=== PATIENT | female | born 1970 | race Caucasian/White ===

== ENCOUNTER 2019-10-02 20:47 | Emergency (ER) | payer OTHER, SELFPAY ==
[2019-10-02 20:48] VITALS: BP 155/93; PULSE 84; RESP 17; TEMP 36.8; O2SAT 97; BMI 29.5
--- NOTE | 2019-10-02 20:50 | XR_ITS ---
WS: [id number] RIGHT ANKLE: 3 VIEW(S) TECHNIQUE: AP, oblique(s) and lateral. HISTORY: Fall COMPARISON: None available. Acute nondisplaced oblique fracture of the distal fibula. There is an additional transverse fracture involving the medial malleolus with mild displacement by 4 mm. There is an additional fracture throug h the posterior malleolus. Interruption of the ankle mortise. Ankle mortise is widened medially by greater than 6 mm and the chari us is also posterior with respect to the tibial plafond. No significant degenerative changes at the joint spaces. Large amount of soft tissue edema surrounding the ankle. XR/XR ankle RT min 3V* [id number] IMPRESSION: 1. Trimalleolar fracture. 2. Interruption of the ankle mortise with posterior displacement of the talus with respect to the tibial plafond.
--- NOTE | 2019-10-02 21:33 | ED_ITS ---
Entered by Keyla Hoskins, acting as scribe for Phil Deleon MD HPI - Extremity Problem General: Chief complaint: Extremity Injury, Lower Stated complaint: right ankle pain/fall Time Seen by Provider: 10/02/19 21:29 Source: patient and family Mode of arrival: wheelchair Limitations: no limitations History of Present Illness: HPI Narrative: 49 y/o female presents to the ED with complaint of right lower extremity pain. Pt states she fell [place] the stage [place] [employer] around 2029. Pt denies any other injuries. MD Complaint: extremity pain and extremity swelling Onset (ago): hour(s) Pain Consistency: constant Location: right and lower extremity Severity scale (1-10): 9 Quality: sharp Relieving factors: nothing Exacerbating factors: range of motion and weight bearing Associated symptoms: Deny chest pain, fever(s) or rash Review of Systems Const: Denies: fever or chills Eyes: Denies: change in vision ENMT: Denies: throat pain or mouth pain Card: Denies: chest pain Resp: Denies: shortness of breath GI: Denies: abdominal pain, nausea, vomiting or diarrhea : Denies: difficulty urinating Musc: Denies: back pain or joint pain Skin/Breast: Denies: rash Neuro: Denies: headache or behavioral changes Psych: Denies: depression Endo: Denies: excessive urination Lee/Lymph: Denies: easy bruising All/Imm: Denies: hives PFSH ED PFSH: Statuses (acute, chronic, etc) shown below reflect problem list status as previously entered and may not be historically accurate Social History Smoking and tobacco status: never smoked Physical Exam Const: COMMON NORMALS: no apparent distress, oriented x3 and healthy appearing HENMT: COMMON NORMALS: normocephalic and external nose normal HEAD & SCALP: normocephalic NOSE: external nose normal Eye: COMMON NORMALS: PERRL PUPIL: Yes PERRL Neck/C-Spine: COMMON NORMALS: full ROM and no lymphadenopathy Chest: COMMONS NORMALS: inspection of chest normal Resp: COMMON NORMALS: normal respiratory effort, no use of accessory muscles and clear to auscultation bilaterally AUSCULTATION: clear to auscultation bilaterally Cardio: COMMON NORMALS: regular rate and regular rhythm RATE: regular rate RHYTHM: regular rhythm GI: COMMON NORMALS: normal to inspection, nondistended, normoactive bowel sounds, soft to palpation, non-tender and no masses PALPATION: Yes soft Back/Pelvis: THORACIC SPINE/UPPER BACK: Yes normal to inspection Extremity: COMMON NORMALS: normal capillary refill RIGHT LOWER EXTREMITY: Yes ankle joint (painful movement) Right ankle: No ROM OTHER: swelling and bruising noted Neuro: COMMON NORMALS: oriented x3 Psych: COMMON NORMALS: mental status grossly normal and cooperative Skin: COMMON NORMALS: no rashes or lesions noted GENERAL SKIN EXAM: no rashes or lesions noted Course Vital Signs: Vital signs: Vital Signs Temperature 98.2 F 10/02/19 20:48 Pulse Rate 84 10/02/19 20:48 Respiratory Rate 17 10/02/19 20:48 Blood Pressure 155/93 10/02/19 20:48 Pulse Oximetry 97 10/02/19 20:48 MDM - Extremity (Nontraumatic) MDM Narrative: Medical decision making narrative: Patient presents with a distal fracture of tibia along with fibula. Patient's ankle is not displaced and she has good pulses. Patient placed in a posterior splint with a stirrup and is to use crutches. She is to follow-up with Dr. Martínez in 2 to 4 days and return if worsening. Imaging Data^: xr right ankle: My impression: fibula fx and distal tibia fx Discharge Plan Discharge Patient Disposition: Home, Self-Care Clinical Impression: Ankle fracture Qualifiers: Encounter type: initial encounter Fracture type: closed Laterality: right Qualified Code(s): S82.891A - Other fracture of right lower leg, initial encounter for closed fracture Condition: Stable Prescriptions: [place] 5-325 mg tablet 1 tab PO Q6H PRN (Reason: pain) Qty: 14 RF: 0 No Action clonidine HCl 0.1 mg Tablet 0.1 mg PO BID RF: 0 venlafaxine 75 mg Tablet 75 mg PO DAILY RF: 0 amlodipine 5 mg Tablet 5 mg PO DAILY RF: 0 Discharge Orders: Discharge Order (Routine); Ordered 10/02/19 Ordered By: Phil Deleon Referrals: Abi Noel MD [Physician] - Alejandro Palencia MD [Primary Care Provider] - Discharge Diet: Advance as tolerated Discharge Activity: Limit activity as instructed Patient Instructions: Ankle Fracture (ED) Coding Level of Care Code ED Program Facilitator for Chg Fwd Exam Problem Focused The documentation recorded by the scribGato busch Ashley, accurately reflects the service I personally performed and the decisions made by me, Phil Deleon MD Oct 02, 2019 20:47
[2019-10-02] MEDS: HYDROcodone-acetaminophen 7.5-325 mg Tablet 1 TAB PO (21:50)
[2019-10-02] MEDS: HYDROcodone-acetaminophen 5-325 mg Tablet 2 TAB PO (22:24)
--- NOTE | 2019-10-02 22:34 | PC.NURSE ---
PT DENIED THE NEED FOR CRUTCHES. PT HAS HER OWN AT HOME
[2019-10-02 22:36] VITALS: BP 176/89; PULSE 86; RESP 18; O2SAT 98
--- NOTE | 2019-10-02 22:36 | PC.NURSE ---
SENT HOME 2 HYDROCODONES WITH PT TO TAKE DIRECTED
--- NOTE | 2019-10-04 09:25 | DCPLANNER ---
physical therapist center manager had message to schedule a follow up appointment for patient with ortho. physical therapist center manager called the ortho clinic, spoke with Chiquis, gave clinic patients information. physical therapist center manager was told that patients information would be printed and reviewed. Clinic will call nurse outreach case manager and patient with appointment information.
--- NOTE | 2019-10-08 12:12 | DCPLANNER ---
Patient had a follow up appointment at the ortho clinic for 10.07.19, patient attended the appointment with Dr. Gudino.
== END 2019-10-02 22:38 | disposition home or self-care (01) ==
LOC: ER 21:40
PROVIDERS: Emergency Provider Emergency Medicine; Family Provider Family Medicine; PCP Family Medicine
DX: S82.854A Nondisplaced trimalleolar fracture of right lower leg, initial encounter for closed fracture (principal); W17.89XA Other fall from one level to another, initial encounter; Y92.22 Religious institution as the place of occurrence of the external cause
CPT/HCPCS: 73610; 99281; 99283

== ENCOUNTER 2019-10-08 14:45 | Outpatient (CLI) | payer OTHER, SELFPAY ==
--- NOTE | 2019-10-08 14:56 | MM_ITS ---
WS: [id number] BILATERAL DIGITAL DIAGNOSTIC MAMMOGRAM MAMMOGRAPHY WITH CAD CLINICAL INFORMATION: HX OF BREAST CA COMPARISON: TECHNIQUE: Bilateral CC, MLO, and ML views. FINDINGS: Scattered fibroglandular densities bilaterally. Lucent centered calcification left breast. Stable par enchymal fibrosis upper outer left breast. No suspicious focal mass, asymmetry, calcifications, or architectural distortion. No evidence of jabier gnancy. MM/[place] [id number] IMPRESSION: BI-RADS: 2-Benign FOLLOW UP: 1 Year Follow-up Recommend return to annual diagnostic mammography.
== END 2019-10-08 14:46 | disposition home or self-care (01) ==
LOC: ONCMED 14:45
PROVIDERS: Family Provider Family Medicine; PCP Family Medicine; Visit Provider Internal Medicine Medical Oncology
DX: Z85.3 Personal history of malignant neoplasm of breast (principal)
CPT/HCPCS: 77066

== ENCOUNTER 2019-10-10 06:46 | Day surgery (SDC) | payer OTHER, SELFPAY ==
[2019-10-09 15:46] VITALS: BMI 30.4
[2019-10-10] VITALS (15 sets, daily range): BP systolic 98–134; BP diastolic 63–88; PULSE 72–103; RESP 16–20; TEMP 36.3–36.9; O2SAT 91–100
--- NOTE | 2019-10-10 | SCC_ITS ---
11 seconds of fluoroscopic guidance, for a cumulative dose of 0.228 mGy, was provided to Dr. Gudino by the radiology department. C-arm images of the RIGHT ankle were saved for the patient's permanent record. ANDRED
[2019-10-10] MEDS: sodium chloride 0.9% 1,000 ML 30 ML IV ×2 (07:00→07:13)
[2019-10-10] MEDS: scopolamine 1.5 Patch 1 PATCH TRANSDERMA (07:16)
--- NOTE | 2019-10-10 07:54 | P.ANES_ITS ---
Pre-Anesthetic Assessment Pre-Anesthetic Assessment: Height/Weight: Height 1.73 m Weight 90.718 kg Temp Pulse Resp BP Pulse Ox 98.4 F 103 H 18 130/79 98 10/10/19 07:00 10/10/19 07:00 10/10/19 07:00 10/10/19 07:00 10/10/19 07:00 Preop Diagnosis: Trimalleolar fracture, right ankle Proposed Procedure: Operation Date: 10/10/19 08:20 Proposed Procedures p ORIF Ankle 64399 S82.851A(Right) - Joselo Gudino DPM Last intake: Intake Last Liquid Date 10/09/19 Last Liquid Time 23:00 Last Solid Date 10/09/19 Last Solid Time 23:00 Exam: Pre-Anes Outpt Exam: alert, oriented x 3, clear to auscultation bilaterally and regular rate & rhythm Airway: Submandibular: WNL Cervical ROM: WNL MP: 1 CV/HEM: CV/HEM: HTN Comments: 4 y GI: Comments: controlled well with Nexium PFSH Anesthesia PFSH: Social History (Updated 10/07/19 @ 08:46 by Tiffanie Townsend LPN) Smoking and tobacco status: never smoked Alcohol intake: never Desire information about alcohol rehabilitation?: No Counseling given: No Desire information about substance/drug rehabilitation?: No Counseling given: No 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
--- NOTE | 2019-10-10 08:17 | ANES.PROC ---
Anesthesia Procedures Procedure/Date: 10/10/19 Right Popliteal Nerve Block Procedure Narrative: R&B's of right popliteal nerve block disc'd. Verbal and written consent obtained. Versed 2+1+1mg, Fentanyl 50ug. US utilized to identify right popliteal nerve/A/V. Nerve stimulator at 0.8 mAMPs. 40cc total volume. 3:1 mixture. Rop 0.5% + Lido 2% with epi in 5cc increments without problems Nerve Block ^: Nerve Block 1: Time Out Performed: Yes Consent: requested by attending/covering physician, from patient, risks and benefits reviewed and patient agrees to proceed Nerve block location: popliteal Anesthesia monitors applied: pulse oximetry and oxygen Nerve block position: lateral Anesthetic Used: lidocaine 2%, ropivicaine 0.5% and with epi Amount of anesthesia used (mL): 40 Ultrasound used to: other Nerve Stimulator Used?: Yes Interscalene/Femoral BLK: 2 stimuplex 22 g needle used for position and inplane approach Injection: neg aspiration of heme Patient Tolerated Procedure: well and no complications Complications: none
[2019-10-10] MEDS: midazolam 1 mg/mL INJ 2 mL 5 MG IVP (08:36)
--- NOTE | 2019-10-10 09:36 | PM.OP ---
Operative Report Date of procedure: 10/10/19 Pre-op Diagnosis: Trimalleolar fracture, right ankle Post-op diagnosis: same Post-op Findings: None Procedure Done: Open reduction internal fixation right ankle trimalleolar fracture. CPT code 41015 Implants: Berna 8 hole one third tubular plate. [place] 3.5 cortical screw for interfragmentary fixation x2. [place] 3.5 millimeter screw for plate the bone interface x6. Berna 3.0 partially-threaded, cannulated headless compression screw x2 at medial malleolus. Specimens removed/disposition: None Pathology: none sent Surgeon: Joselo Gudino D.P.M. [employer]: Dianna Anesthesia: General and Local (Popliteal block performed preoperatively right lower extremity. 5 cc of 0.5% Marcaine plain performed in operating room for saphenous nerve block, right leg.) Estimated blood loss: 5 mL Tourniquet time: See intraoperative report IV fluids: None Urine output: None Complications: None Findings: Once fibula and medial malleolus fractures were reduced I was able to appreciate reduction of posterior malleolus fracture to acceptable position. Condition: stable Disposition: PACU Brief History: Patient sustained a traumatic right trimalleolar ankle fracture with displacement. Recommended open reduction internal fixation with risks including pain, bleeding, numbness, infection, damage to adjacent soft tissue structures, failure to correct deformity, hardware irritation, hardware failure, delayed union, malunion, likelihood of posttraumatic arthritis and potential for staged procedure for hardware removal. Patient is agreeable and wishes to proceed. Procedure: Under mild sedation the patient was brought to the operating room and placed on the operating table in supine position. A timeout was performed. Anesthesia was then administered by the anesthesia service. Local anesthesia at saphenous nerve right leg was performed as above. A well-padded pneumatic tourniquet was applied to the patient's right thigh. Right lower extremity was then scrubbed, prepped and draped utilizing normal aseptic technique. Right foot and ankle were examined a weighted with an Esmarch bandage and the tourniquet was inflated to 250 mmHg. Attention was directed to the lateral aspect of the right ankle where palpation was performed to identify the distal tip of the fibula as well as anterior and posterior borders of the fibula. Directly over midline of the distal fibula coursing proximally a 10 cm linear longitudinal incision was made through skin with a #15 blade with dissection carried down through subcutaneous tissue down the level of periosteum utilizing a combination of sharp and blunt technique. Care was taken to retract and preserve neurovascular and tendinous structures. Bleeders were ligated and cauterized as necessary. A fracture hematoma was identified this was evacuated utilizing a bone curette and flushed with saline solution. Periosteal incision was made reflecting periosteum at the fracture site to further allow curettage of fracture hematoma followed by saline flush. Distal fragment was then reduced to its anatomical position was able to be pulled out at length and the rotated and temporarily fixated utilizing point to point bone reduction tenaculum. Next using standard AO technique intrafragmentary screws were placed perpendicular to the oblique fracture fragment is where 3.5 mm cortical screws fully threaded 2 screws placed in parallel fashion and temporary fixation was removed with maintaining solid fixation of the fracture fragment appreciated. Intraoperative fluoroscopy utilized to confirm excellent reduction of the fracture of the right distal fibula and fixation noted to be appropriate next utilizing standard AO technique a 8 hole one third tubular plate was fitted to the lateral aspect of the right fibula and filled with a total of 6 screws utilizing a combination of locking and nonlocking in bicortical fashion with exception to the level of the ankle mortise as did not violate the ankle joint distally. Excellent plate to bone interface was appreciated with stable construct of fixation and maintaining the fracture reduction. Temporary fixation was removed. Orthopedic hardware placement was noted to be excellent on all 3 planes utilizing intraoperative fluoroscopy. Incision site was flushed with copious amounts of sterile saline solution. Periosteal structure was closed with 2-0 Vicryl. Subcutaneous tissue closed with 4-0 Vicryl. Skin closed with skin yahir with everted edges. Once the fibula was fixated it was noted that prior to closure a cotton test was performed and was negative for syndesmotic interruption without any diastases appreciated. Bump from ipsilateral hip was then removed and attention was directed to the right ankle medial malleolus where a linear longitudinal incision was made with a #15 blade down through skin and subcutaneous tissue care was taken to retract and preserve neurovascular tendinous structures. Bleeders were ligated and cauterized as necessary. A transverse fracture of the medial malleolus was appreciated with periosteum impacted within the fracture site this was elevated and freed and fracture site was evacuated of its hematoma utilizing a bone curette once hematoma was fully evacuated area was flushed with saline solution I was able to visualize the medial shoulder of the talar dome without any obvious osteochondral defect or free-floating or osseous loose bodies appreciated. Incision site was flushed with saline, distal colliculus of the medial malleolus was then reduced with attention to the anterior border of the tibia and noted to be excellent this was temporary fixated with a tenaculum followed by fixation utilizing Berna 3.0 headless compression screws and parallel fashion with excellent bony apposition and compression noted utilizing standard AO technique. Temporary fixation was removed and a solid construct was appreciated it was noted utilizing intraoperative fluoroscopy to have excellent placement and attention was directed to the posterior malleolus which preoperatively was displaced dorsally, after fixating medial and lateral malleolus and reducing the fractures the posterior malleolus was reduced likely due to soft tissue attachments and was noted to be in a excellent position. Posterior medial malleus appeared to involve less than 30% of the ankle joint and will be allowed to heal secondarily. Medial malleolus incision was flushed with saline solution, periosteal structure closed with 2-0 Vicryl, subcutaneous tissue closed with 4-0 Vicryl and skin closed with 4-0 nylon. Incision sites were dressed with Adaptic, sterile 4 x 4's, Kerlix and Hitesh wrap. Well-padded multilayer compressive posterior splint with ankle in neutral position was then applied. Tourniquet was deflated and a prompt hyperemic response was noted to the distal digits of the right foot. Patient tolerated the procedure and anesthesia well and was transferred to the PACU with vital signs stable and vascular status intact. Following a period of post operatory of monitoring she will be discharged home is to remain strict nonweightbearing to the right lower extremity and is to elevate her right lower extremity at all times while at rest. She was provided my cell phone number and discharge instructions is to contact me with any postoperative questions or concerns.
--- NOTE | 2019-10-10 11:34 | XRR_ITS ---
PROCEDURE INFORMATION: Exam: XR Right Ankle Exam date and time: 10/10/2019 11:52 AM Age: 49 years old Clinical indication: Injury or trauma; Fall; Follow-up exam; Fracture, traumatic; Closed fracture; Ankle; Right; Trimalleolar; Injury date: 10/02/19; Additional info: Post op TECHNIQUE: Imaging protocol: XR Right ankle. Views: 3 or more views. COMPARISON: CR XR ankle RT min 3V* [id number] 10/02/2019 9:15 PM FINDINGS: Bones/joints: Status post ORIF of trimalleolar fracture with improved fracture alignment following surgical fixation. Small calcaneal spur. Calcification at the Achilles tendon attachment site. Soft tissues: Lateral skin yahir. Mild soft tissue swelling. XR/XR ankle RT min 3V* [id number] IMPRESSION: Status post ORIF of trimalleolar fracture with improved fracture alignment following surgical fixation.
--- NOTE | 2019-10-10 11:36 | SUR.PHASEI ---
PT TO PACU SLEEPY WITH GOOD RESP NOTED VSS IV PATENT, NO DISTRESS ,PT AWAKES TO VOICE BUT QUICKLY BACK TO SLEEP VSS RT FOOT ELEVATED PER BED.
--- NOTE | 2019-10-10 11:43 | SUR.PHASEI ---
PT AWAKES TO VOICE EASILY, ON RA TRIAL, X RAY HERE.
[2019-10-10] MEDS: fentaNYL 50 mcg/mL INJ 2mL IVP (11:52)
--- NOTE | 2019-10-10 11:59 | SUR.PHASEI ---
1150PT SLEEPS IF NOT DISTURBED DR GALLEGOS AT BEDSIDE, PT AWAKES AND RATES PAIN AT 7-8 REQUESTS IV PAIN MED, , SEE PAIN MED GIVEN ORDERED, PT SLEEPS IF NOT DISTURBED. 1155 SATS DOWN TO 88% ON RA, PT AWAKENED AND ENCOURAGED TO DEEP BREATHE, SATS UP TO 92%
[2019-10-10] MEDS: oxyCODONE-APAP 10-325 mg Tablet 1 TAB PO (13:23)
== END 2019-10-10 14:00 | disposition home or self-care (01) ==
PROVIDERS: Family Provider Family Medicine; PCP Family Medicine; Visit Provider Podiatrist Foot & Ankle Surgery
PROC: (CPT 27822; principal; 2019-10-10 08:20)
DX: S82.851A Displaced trimalleolar fracture of right lower leg, initial encounter for closed fracture (principal); W17.89XA Other fall from one level to another, initial encounter; Y92.22 Religious institution as the place of occurrence of the external cause; Z82.49 Family history of ischemic heart disease and other diseases of the circulatory system; Z83.3 Family history of diabetes mellitus
CPT/HCPCS: 27822; 12345; 73610; 76000; 96365; 96374; 96375; C1713; J0131; J0690; J1100; J2001; J2250; J2405; J2704; J2795; J3010; J3490; J7030

== ENCOUNTER → 2019-10-24 14:24 | Outpatient (BNVA) | payer OTHER, SELFPAY | PROVIDERS: Family Provider Family Medicine; PCP Family Medicine; Visit Provider Podiatrist Foot & Ankle Surgery | DX: Z98.890 Other specified postprocedural states (principal) | CPT/HCPCS: 73610 ==

== ENCOUNTER → 2019-11-07 11:53 | Outpatient (BNVA) | payer OTHER, SELFPAY | PROVIDERS: Family Provider Family Medicine; PCP Family Medicine; Visit Provider Podiatrist Foot & Ankle Surgery | DX: Z98.890 Other specified postprocedural states (principal); S82.841A Displaced bimalleolar fracture of right lower leg, initial encounter for closed fracture; X58.XXXA Exposure to other specified factors, initial encounter | CPT/HCPCS: 73610 ==

== ENCOUNTER 2019-12-05 12:18 | Outpatient (CLI) | payer OTHER, SELFPAY ==
--- NOTE | 2019-12-05 12:29 | XR_ITS ---
WS: [id number] XR ankle RT min 3V* [id number] REASON FOR EXAM: right ankle pain FINDINGS: Internal fixation changes are noted in the fibula and the tibia 2 screws through the medial malleolus of the tibia a metal plate with side multiple screws through the fibula. The cleavage line of the fractures are closing. Healing is progressing satisfactorily but is incomplete. A calcaneal spur is seen. XR/XR ankle RT min 3V* [id number] IMPRESSION: Fractures of the tibia fibula. Internal fixation changes are seen.
== END 2019-12-05 12:19 | disposition home or self-care (01) ==
LOC: RAD 12:21
PROVIDERS: Family Provider Family Medicine; PCP Family Medicine; Visit Provider Podiatrist Foot & Ankle Surgery
DX: S82.491A Other fracture of shaft of right fibula, initial encounter for closed fracture (principal); X58.XXXA Exposure to other specified factors, initial encounter; M25.571 Pain in right ankle and joints of right foot
CPT/HCPCS: 73610

== ENCOUNTER 2019-12-05 14:04 | Outpatient (CLI) | payer OTHER, SELFPAY | END 2019-12-05 14:05 | disposition home or self-care (01) | LOC: SPT 14:04 | PROVIDERS: Family Provider Family Medicine; PCP Family Medicine; Visit Provider Podiatrist Foot & Ankle Surgery | DX: S82.842D Displaced bimalleolar fracture of left lower leg, subsequent encounter for closed fracture with routine healing (principal); X58.XXXD Exposure to other specified factors, subsequent encounter | CPT/HCPCS: L1902 ==

== ENCOUNTER 2020-02-11 16:06 | Outpatient (CLI) | payer OTHER, SELFPAY ==
[2020-02-11 16:39] LABS: Basophils % 0.3 %; Eosinophils # 0.2 10^3/uL (0.0-0.8); Eosinophils % 2.2 %; Hematocrit 43.8 % (37.0-47.0); Hemoglobin 13.6 g/dL (11.5-15.3); Lymphocytes # 1.6 10^3/uL (0.8-4.8); Lymphocytes % 20.2 %; Mean Corpuscular HGB Conc 31.1 g/dL (30.0-36.0); Mean Corpuscular Volume 90.1 fL (81-99); Mean Platelet Volume 9.6 fL (7.4-10.4); Monocytes # 0.7 10^3/uL (0.2-0.9); Monocytes % 9.4 %; Neutrophils # 5.3 10^3/uL (1.8-7.7); Neutrophils % 67.6 %; Nucleated Red Blood Cells % 0 %; Platelet Count 304 10^3/cmm (130-400); Red Blood Count 4.86 10^6/uL (4.1-5.3); Red Cell Distribution Width 13.9 % (12.1-15.1); White Blood Count 7.9 10^3/uL (4.0-10.0)
[2020-02-11 16:52] LABS: Alanine Aminotransferase 25 U/L (0-33); Albumin Level 4.4 g/dL (3.5-5.2); Alkaline Phosphatase 132 IU/L (35-105); Anion Gap 15.9 (5-19); Aspartate Amino Transferase 21 U/L (0-32); Blood Urea Nitrogen 17 mg/dL (6-20); Carbon Dioxide 26 mmol/L (22-29); Chloride 102 mmol/L (98-107); Globulin 3.6 g/dL (1.3-4.6); Glomerular Filtration Rate 89.7 mL/min (90-130); Glucose 103 mg/dL (65-115); Osmolality Calculated 287 mOsm/kg (285-295); Potassium 3.9 mmol/L (3.5-5.1); Sodium 140 mmol/L (136-145); Total Bilirubin 0.2 mg/dL (0.15-1.2)
== END 2020-02-11 16:07 | disposition home or self-care (01) ==
LOC: ONCMED 16:09
PROVIDERS: PCP Family Medicine; Visit Provider Internal Medicine Medical Oncology
DX: C50.812 Malignant neoplasm of overlapping sites of left female breast (principal); Z17.0 Estrogen receptor positive status [ER+]
CPT/HCPCS: 36415; 80053; 85025

== ENCOUNTER 2020-02-12 15:57 | Outpatient (CLI) | payer OTHER, SELFPAY ==
--- NOTE | 2020-02-16 11:03 | ONC FU_ITS ---
Dr. Vides Patient Follow-Up Note Patient: Parul Abdul Unit #: [id number]: 1970 Dicatated By: Fermín Vides M.D.Date of Visit:February 12, 2020 Onc Med Follow-up/Prog Note Chief Complaint: Breast cancer. History of Present Illness: This is a 49 year-old woman with grade 1 infiltrating ductal carcinoma of the left breast, stage IIA (T2, pN0, M0), ER/IA positive and HER-2/naman negative. She had presented with abnormal findings in the left breast on a yearly followup visit with Dr. Moore. Subsequent screening mammogram showed posterior third midline-lateral architectural distortion on the left CC view which appeared slightly more prominent compared to a baseline mammogram in March 2013. She then had diagnostic mammogram of the left breast with ultrasound imaging. The ultrasound showed an irregular, ill-defined, spiculated hypoechoic shadowing mass at the 12:00 position 2 cm from the nipple. It measured 2.7 x 2.9 cm. The appearance was highly suspicious for malignancy. She was referred to Dr. Garrison. She underwent excisional biopsy on 10/16/14. Pathology showed grade 1 infiltrating ductal carcinoma measuring 2.7 x 1.3 cm. Tumor was noted within 1 mm of the lateral and posterior margins, and within 5 mm of the superior margin. The medial, anterior, and inferior margins were free. The tumor was ER positive at 97% and IA positive at 93%. It was negative for overexpression of HER-2/naman by IHC and by FISH. She underwent left sentinel axillary lymph node biopsy on 10/30/14. Pathology showed 1 lymph node which measured 1.5 cm, but it was benign, with no evidence of metastatic tumor. She had further evaluation with an Oncotype DX assay. It showed a recurrence score of 5, low risk category, correlating with a 5% risk of recurrence at 10 years for patients who had received adjuvant hormonal therapy with tamoxifen. Based on that result, I felt that she would have a low probability of benefit with adjuvant chemotherapy, and I did recommend limiting her adjuvant therapy to hormonal treatment. She was given radiation to the left breast. She completed treatment on 01/23/2015 to a total dose of 6600 cGy. She then started adjuvant hormonal therapy with tamoxifen. She has been tolerating it well. I had seen her for a follow-up visit on 08/31/2017. At that time she was doing well with no evidence of recurrence of the breast cancer. She continued adjuvant hormonal therapy with tamoxifen 20 mg daily. She had subsequently presented to Dr. Moore with heavy menstrual bleeding. Her uterus was noted to be enlarged by ultrasound. On 02/13/2018 show underwent laparoscopic vaginal hysterectomy with bilateral sloping to oophorectomy. Pathology was benign. I had seen her for a follow-up visit on 02/15/2018, and at that point she began a further adjuvant hormonal therapy with anastrozole 1 mg daily. Her baseline DEXA scan showed normal bone mineral density. Her other medical illnesses have been limited to GERD, nephrolithiasis, and anxiety/depression. She is a nonsmoker. INTERIM HISTORY: As of her follow-up visit on 08/23/2018 she appeared to be tolerating the anastrozole well. She was, though, having GERD symptoms, and she also had mild anemia which appear to be due to iron deficiency. She continued anastrozole, but she also began treatment with Protonix and she started on oral iron supplementation with ferrous sulfate. I had seen her for a scheduled visit on 02/07/2019. At that point she reported that her energy was a little better, but her joint pain had worsened significantly, particularly in her knees and feet but also in the shoulders. She continued to have acid reflux symptoms despite taking pantoprazole. I did opt to have her stop the anastrozole. As of her follow-up visit on 03/13/2019 she began further hormonal therapy with exemestane 25 mg daily. She was able to tolerate it with acceptable toxicity. On 10/10/2019 she underwent open reduction and internal fixation for a trimalleolar right ankle fracture. She is seen for a follow-up visit. She has been feeling pretty good generally. She has noticed some decline in her energy level on the exemestane, but she still has normal activity. ECOG score is 0. She has good appetite. She has not had fever. She does have pretty bad hot flashes/sweating. She has no shortness of breath, cough, or chest pain. She has acid reflux, but it is managed adequately with medication. She has no other GI or complaints. She has having some joint pain, mainly in her feet and in her elbows and hands. She does not complain of headache or dizziness. She has no focal neurologic symptoms. Medications: AmLODIPine Besylate 1 (5 mg) Tablet Oral daily, CloNIDine HCl 1 Tablet (of 0.1 mg) Oral b.i.d., Exemestane 1 Tablet (of 25 mg) Oral daily, Meloxicam 1 (7.5 mg) Tablet Oral daily, NexIUM 1 Capsule (of 20 mg) Capsule Delayed Release Oral daily, Venlafaxine HCl ER 1 (75 mg) Tablet SR 24 HR Oral daily Allergies: No Known Allergies. Review of Systems: Constitutional - Her activity level is normal. Appetite is good and weight is stable. No fever or chills. She has hot flashes and night sweats. ECOG score is 1, ENMT - No sinus congestion/drainage. No mouth sores. No sore throat or difficulty swallowing, Hematologic/Lymphatic - No abnormal bruising or bleeding, Respiratory - No shortness of breath. No cough. No pleuritic pain or hemoptysis, Cardiovascular - No angina pain. No palpitations, Gastrointestinal - No nausea or vomiting. She has heartburn and acid reflux. No diarrhea or constipation. No blood in the stool or black stools, Genitourinary (F) - No dysuria or hematuria. No urinary frequency. No urgency or incontinence, Musculoskeletal - She has intermittent aching pain in her feet, hands, and elbows, Integumentary - No skin rashes, Neurologic - No headache or dizziness. No numbness/paresthesias or other focal neurologic symptoms, Psychiatric - No anxiety or depression. No insomnia. Vital Signs: Performed on February 12, 2020 16:06 Height - 68.00 in Weight - 223.0 lbs (LOW) BSA - 2.14 sq.m BMI - 33.91 (HIGH) Temperature - 98.0 F (LOW) Pulse - 104 /min (HIGH) Respiration - 18 /min BP - 150/93 mm(hg) (HIGH) O2 Sat - 95 % (LOW) Pain - 0 Physical Examination: Constitutional - She looks good generally, Eyes - Sclerae nonicteric. Conjunctivae clear, ENMT - No lesions noted in the oral cavity, Hematologic/Lymphatic - No cervical or clavicular adenopathy, Respiratory - Lungs are clear with good air movement bilaterally, Cardiovascular - Heart rhythm is regular. There is a II/ systolic murmur. There is no gallop or rub noted, Abdomen - Soft. Liver and spleen are not enlarged. There is no abdominal mass or ascites noted and there is no inguinal adenopathy, Extremities - There is slight swelling of the right ankle and foot, Neurologic - No focal neurologic deficits noted. Lab/Imaging: CBC shows hemoglobin 13.6 g, white blood cell count 7900, and platelet count 304,000. Comprehensive metabolic profile is unremarkable except for slightly elevated alkaline phosphatase of 132/105 IU/L. Impression: 1. Patient with grade 1 infiltrating ductal carcinoma of the left breast, stage IIA (T2, pN0, M0), ER/IA positive and HER-2/naman negative. 2. She underwent excisional biopsy on 10/16/14 followed by left sentinel axillary lymph node biopsy on 10/30/14. An Oncotype Dx assay showed a recurrence score of 5, which was low risk category. On that basis I did not recommend adjuvant chemotherapy. 3. She was given radiation to the left breast, which she completed on 01/23/2015 to a total dose of 6600 cGy. 4. Adjuvant hormonal therapy with tamoxifen 20 mg daily began in January 2015. Initially she was having significant hot flashes with the tamoxifen, but they have been tolerable with Effexor. She has otherwise tolerated the tamoxifen well, and there has been no evidence of recurrence of the breast cancer. However, she had recently presented to Dr. Moore with heavy menstrual bleeding. Her uterus was noted to be enlarged by ultrasound. She underwent laparoscopic vaginal hysterectomy with bilateral stopping oophorectomy on 02/13/2018. Pathology was benign. She then continued further adjuvant hormonal therapy with anastrozole 1 mg daily. She initially had some mild fatigue and mild joint aching since starting the anastrozole, but she was tolerating it with acceptable toxicity. As of her follow-up visit in August 2018 she had developed significant GERD symptoms and she had become mildly anemic. This appeared to be due to iron deficiency. At that point she was still tolerating the anastrozole with acceptable toxicity, and there had been no evidence of recurrence of the breast cancer. In January 2019 the anastrozole was put on hold due to increased musculoskeletal pain. As of her follow-up visit on 03/13/2019 the pain had improved significantly, and she then began further adjuvant hormonal therapy with exemestane 25 mg daily. During follow-up she has continued to have some joint pain, and she has had fatigue and hot flashes/sweating with the exemestane. She has been able to tolerate with acceptable toxicity. She is now 5 years out from completion of radiation with no evidence of recurrence of the breast cancer. Plan: She will continue exemestane 25 mg daily for one more month, at which point she will have completed her adjuvant hormonal therapy. Assuming her joint pain resolves, she will also stop meloxicam. I will see her for a follow-up visit in 1 year. Signed By: Fermín Vides M.D. <<Signature on File>>
== END 2020-02-12 15:58 | disposition home or self-care (01) ==
LOC: ONCMED 16:01
PROVIDERS: PCP Family Medicine; Visit Provider Internal Medicine Medical Oncology
DX: C50.812 Malignant neoplasm of overlapping sites of left female breast (principal); Z17.0 Estrogen receptor positive status [ER+]; K21.9 Gastro-esophageal reflux disease without esophagitis; Z79.811 Long term (current) use of aromatase inhibitors; Z92.3 Personal history of irradiation
CPT/HCPCS: 99214

== ENCOUNTER 2020-07-10 12:37 | Outpatient (CLI) | payer OTHER, SELFPAY ==
--- NOTE | 2020-07-10 12:45 | MM_ITS ---
WS: [id number] BILATERAL DIGITAL DIAGNOSTIC MAMMOGRAM MAMMOGRAPHY WITH CAD CLINICAL INFORMATION: PAIN IN AXILLA HISTORY: Right breast pain and soreness COMPARISON: None. TECHNIQUE: Bilateral CC, MLO, and ML views. FINDINGS: Scattered fibroglandular densities bilaterally. Punctate calcifications. No suspicious focal mass, asymmetry, calcifications, or architectural distortion. No evidence of jabier gnancy. ULTRASOUND BREAST RIGHT TECHNIQUE: Ultrasound right breast focused area of concern. CLINICAL INFORMATION: PAIN IN AXILLA COMPARISON: None. FINDINGS: Ultrasound right axilla and chest medial to the axilla in the area of concern. Normal underlying pare nchymal tissue. No evidence of cystic or solid lesions. No lesions to target for biopsy. MM/[place] [id number] IMPRESSION: BI-RADS: 2-Benign FOLLOW UP: 1 Year Follow-up Recommend return to annual screening mammography.
--- NOTE | 2020-07-10 13:16 | US_ITS ---
WS: [id number] BILATERAL DIGITAL DIAGNOSTIC MAMMOGRAM MAMMOGRAPHY WITH CAD CLINICAL INFORMATION: PAIN IN AXILLA HISTORY: Right breast pain and soreness COMPARISON: None. TECHNIQUE: Bilateral CC, MLO, and ML views. FINDINGS: Scattered fibroglandular densities bilaterally. Punctate calcifications. No suspicious focal mass, asymmetry, calcifications, or architectural distortion. No evidence of jabier gnancy. ULTRASOUND BREAST RIGHT TECHNIQUE: Ultrasound right breast focused area of concern. CLINICAL INFORMATION: PAIN IN AXILLA COMPARISON: None. FINDINGS: Ultrasound right axilla and chest medial to the axilla in the area of concern. Normal underlying pare nchymal tissue. No evidence of cystic or solid lesions. No lesions to target for biopsy. US/US breast RT limited* [id number] IMPRESSION: BI-RADS: 2-Benign FOLLOW UP: 1 Year Follow-up Recommend return to annual screening mammography.
== END 2020-07-10 12:38 | disposition home or self-care (01) ==
LOC: RADSHAW 12:40
PROVIDERS: PCP Family Medicine; Visit Provider Nurse Practitioner Family
DX: M79.621 Pain in right upper arm (principal); N64.4 Mastodynia
CPT/HCPCS: 76642; 77066

== ENCOUNTER 2020-08-03 15:40 | Outpatient (CLI) | payer OTHER, SELFPAY | END 2020-08-03 15:41 | disposition home or self-care (01) | LOC: LAB 05-30 10:05 | PROVIDERS: PCP Internal Medicine; Visit Provider Internal Medicine | DX: R12 Heartburn (principal); Z20.828 Contact with and (suspected) exposure to other viral communicable diseases | CPT/HCPCS: 87635 ==

== ENCOUNTER 2020-08-10 08:00 | Day surgery (SDC) | payer OTHER, SELFPAY ==
[2020-08-06 12:53] VITALS: BMI 33.0
[2020-08-10 08:13] VITALS: BP 137/103; PULSE 101; RESP 18; TEMP 36.8; O2SAT 98
[2020-08-10 08:19] VITALS: BP 146/96
[2020-08-10] MEDS: sodium chloride 0.9% 1,000 ML 30 ML IV (08:25)
--- NOTE | 2020-08-10 08:31 | ANES.PREANE2 ---
Pre-Anesthetic Assessment Pre-Anesthetic Assessment: Height/Weight: Height 1.75 m Weight 101.605 kg Temp Pulse Resp BP Pulse Ox 98.2 F 101 H 18 146/96 98 08/10/20 08:13 08/10/20 08:13 08/10/20 08:13 08/10/20 08:19 08/10/20 08:13 Preop Diagnosis: heartburn Proposed Procedure: Operation Date: 08/10/20 09:00 Proposed Procedures p EGD R12 [id number](Not Applicable) - Damien Paulino MD Familial anesthetic complications: trouble waking up after her ankle surgery - says her O2 sats were a bit low Was Beta Aba taken within 24 hours: N/A Last intake: Intake Last Liquid Date 08/09/20 Last Liquid Time 21:00 Last Solid Date 08/09/20 Last Solid Time 21:00 Social: Social History: No alcohol and No tobacco Exam: Pre-Anes Outpt Exam: alert, oriented x 3, clear to auscultation bilaterally and regular rate & rhythm Airway: Cervical ROM: WNL MP: 2 Dentition: Full CV/HEM: CV/HEM: HTN Anesthetic Plan: ASA status: 2 Anesthesia: MAC Risk of > 500 ml blood loss (7ml/kg in children): No Meds/Allergies Current Medications: Current Medications Generic Name Dose Route Start Last Admin Trade Name Freq PRN Reason Stop Dose Admin Sodium Chloride 1,000 mls @ 30 ml s/hr 08/10/20 08:15 08/10/20 08:25 Sodium Chloride 0.9% IV 30 mls/hr .Q24H ILIANA Administration PFSH Anesthesia PFSH: Medical History (Updated 08/03/20 @ 15:35 by Damien Paulino MD) Bilateral renal stones Multi-stone former with medullary nephrocalcinosis. Breast cancer (10/12/14) Infiltrating ductal carcinoma of the left breast, grade 1, stage IIA (T2, pN0, M0), ER/CA positive, HER-2/naman negative. Excisional biopsy performed on 10/16/2014 and left sentinel axillary lymph node biopsy on 10/30/2014. Treated with radiation (total dose 6600 cGy, completed 01/23/2015). Follow-up treatment with adjuvant hormonal therapy with tamoxifen. Depression Hypertension Menopausal symptom 02/13/2018: LAVH/BSO Surgical History History of ankle surgery (10/10/19) Right. Dr. Gudino at [facility] [place]. History of hysterectomy Hx of cystoscopy (08/18/00) with stone extraction. Performed by Dr. Magana at [facility] [place] in [place], [place] Hx of left breast biopsy (10/16/[address]) [address]formed [address] Garrison Hx of lithotripsy (~08/2001) Performed by Dr. Magana at [facility] [place] in [place], [place] Hx of lymph node biopsy (~10/2014) Performed by Dr. Garrison S/P laparoscopic assisted vaginal hysterectomy (LAVH) (02/13/18) LAVH/BSO. Dx: Menorrhagia. Performed by Dr. Moore at [facility] [place] in [place], [place] Family History Father Hypertension Hypercholesteremia Thyroid disease Mother Hypertension Hypercholesteremia Heart disease Thyroid disease Grandmother Hypertension maternal Diabetes maternal Thyroid disease maternal, paternal Grandfather Heart disease maternal Other Hyperlipidemia Social History (Updated 08/03/20 @ 14:47 by Nay He, CT) Smoking and tobacco status: never smoked Alcohol intake: never History of recent travel: No Data Anesthesia Cardiac Studies: No Data to Display
--- NOTE | 2020-08-10 09:09 | W.PM.OPSUD ---
Surgery/Procedure H&P Update DATE OF PROCEDURE: August 10, 2020 DATE H&P PERFORMED: 08/03/20 PREOP DIAGNOSIS: heartburn PLANNED PROCEDURE: Operation Date: 08/10/20 09:00 Proposed Procedures p EGD R12 [id number](Not Applicable) - Damien Paulino MD
[2020-08-10 09:34] VITALS: BP 140/98; PULSE 89; RESP 18; TEMP 36.3; O2SAT 98
[2020-08-10 09:48] VITALS: BP 134/95; PULSE 86; RESP 18; O2SAT 96
--- NOTE | 2020-08-10 15:11 | ANE.PACU2 ---
Inpatient post-anesthesia follow up: Airway intact: Yes Vital signs: Temperature 97.3 F Pulse Rate 86 Respiratory Rate 18 Blood Pressure 134/95 Pulse Oximetry 96 Oxygen Delivery Me thod Room Air Oxygen Flow Rate Fraction of Inspir ed Oxygen Hydration adequate: Yes Nausea and vomiting: No Pain level: 1 Mental status: Baseline
[2020-08-11 06:41] LABS: H. Pylori / CLO Test Negative
== END 2020-08-10 10:21 | disposition home or self-care (01) ==
PROVIDERS: PCP Family Medicine; Visit Provider Internal Medicine
PROC: 0DJ08ZZ Inspection of Upper Intestinal Tract, Via Natural or Artificial Opening Endoscopic (ICD-10-PCS; CPT 43235; principal; 2020-08-10 09:00)
DX: R12 Heartburn (principal); K44.9 Diaphragmatic hernia without obstruction or gangrene; K21.00 Gastro-esophageal reflux disease with esophagitis, without bleeding; K29.50 Unspecified chronic gastritis without bleeding; K29.80 Duodenitis without bleeding; I10 Essential (primary) hypertension; Z85.3 Personal history of malignant neoplasm of breast; Z90.710 Acquired absence of both cervix and uterus; Z83.42 Family history of familial hypercholesterolemia; Z83.49 Family history of other endocrine, nutritional and metabolic diseases
CPT/HCPCS: 12345; 43239; 87077; J2704; J7030

== ENCOUNTER 2020-08-19 12:00 | Outpatient (CLI) | payer OTHER, SELFPAY | END 2020-08-19 12:01 | disposition home or self-care (01) | LOC: SLEEP 08-20 11:14 | PROVIDERS: PCP Family Medicine; Visit Provider Internal Medicine | DX: R06.83 Snoring (principal); R53.83 Other fatigue; G47.33 Obstructive sleep apnea (adult) (pediatric) | CPT/HCPCS: G0399 ==

== ENCOUNTER 2020-09-23 01:20 | Emergency (ER) | payer OTHER, SELFPAY ==
[2020-09-23 01:22] VITALS: BP 147/94; PULSE 104; RESP 16; TEMP 36.8; O2SAT 98; BMI 31.7
--- NOTE | 2020-09-23 02:13 | ED_ITS ---
HPI - General Adult General: Chief complaint: General Medical Stated complaint: still bleeding from tonsil surgery 1wk ago Time Seen by Provider: 09/23/20 02:09 Source: patient Mode of arrival: ambulatory Limitations: no limitations History of Present Illness: HPI narrative: 50-year-old female who had a tonsillectomy 1 week ago. States she was having bleeding earlier and had a cauterized at Dr. Yeung's office today. States started having bleeding again tonight. She states that since she has been here her bleeding is pretty much stopped. She denies any worsening improving factors. Denies any vomiting or diarrhea. She denies any pain. Associated symptoms: Deny chest pain, dyspnea, headache(s), nausea, rash or vomiting Review of Systems Const: Denies: fever(s), chills, body aches or change in appetite Eyes: Denies: blurry vision or eye discomfort ENMT: Denies: throat pain or dental pain Card: Denies: chest pain Resp: Denies: dyspnea GI: Denies: abdominal pain, nausea, vomiting or diarrhea : Denies: dysuria Musc: Denies: neck pain or back pain Skin/Breast: Denies: rash Neuro: Denies: headache(s) Psych: Denies: depression Lee/Lymph: Denies: easy bruising All/Imm: Denies: urticaria PFSH ED PFSH: Medical History (Updated 09/23/20 @ 02:51 by Phil Deleon MD) Bilateral renal stones Multi-stone former with medullary nephrocalcinosis. Breast cancer (10/12/14) Infiltrating ductal carcinoma of the left breast, grade 1, stage IIA (T2, pN0, M0), ER/FL positive, HER-2/naman negative. Excisional biopsy performed on 10/16/2014 and left sentinel axillary lymph node biopsy on 10/30/2014. Treated with radiation (total dose 6600 cGy, completed 01/23/2015). Follow- up treatment with adjuvant hormonal therapy with tamoxifen. Depression Hypertension Menopausal symptom 02/13/2018: LAVH/BSO Surgical History History of ankle surgery (10/10/19) Right. Dr. Gudino [place] [facility] [place] History of hysterectomy Hx of cystoscopy (08/18/00) with stone extraction. Performed by Dr. Magana at [facility] [place] in [place], [place] Hx of left breast biopsy (10/16/[address]) [address] Garrison Hx of lithotripsy (~08/2001) Performed by Dr. Magana at [facility] [place] Hx of lymph node biopsy (~10/2014) Performed by Dr. Garrison S/P laparoscopic assisted vaginal hysterectomy (LAVH) (02/13/18) LAVH/BSO. Dx: Menorrhagia. Performed by Dr. Moore at [facility] [place] Family History Father Hypertension Hypercholesteremia Thyroid disease Mother Hypertension Hypercholesteremia Heart disease Thyroid disease Grandmother Hypertension maternal Diabetes maternal Thyroid disease maternal, paternal Grandfather Heart disease maternal Other Hyperlipidemia Social History Smoking and tobacco status: never smoked Alcohol intake: never History of recent travel: No Physical Exam Const: COMMON NORMALS: no acute distress, patient oriented x3 and healthy appearing HENMT: COMMON NORMALS: normocephalic and atraumatic HEAD & SCALP: normocephalic and atraumatic OTHER: No active bleeding at this time she does have a clot formation to the left tonsil Eye: COMMON NORMALS: Equal, round and reactive pupils present and EOMs intact bilaterally PUPIL: Yes Equal, round and reactive pupils present Neck/C-Spine: COMMON NORMALS: full ROM and supple Chest: COMMONS NORMALS: normal inspection of the chest and normal palpation of entire chest wall Resp: COMMON NORMALS: normal respiratory effort, No retractions, No use of accessory muscles and clear to auscultation bilaterally AUSCULTATION: clear to auscultation bilaterally Cardio: COMMON NORMALS: regular rate, regular rhythm and No murmurs present (Cardio) RATE: regular rate RHYTHM: regular rhythm GI: COMMON NORMALS: Normal to inspection, nondistended, normoactive bowel sounds present, Soft to palpation, non-tender and no masses PALPATION: Yes Soft to palpation Extremity: COMMON NORMALS: normal to inspection and full ROM Neuro: COMMON NORMALS: patient oriented x3, moves all extremities and no focal motor deficits Psych: COMMON NORMALS: mental status grossly normal, Normal thought process present and cooperative THOUGHT PROCESS: Normal thought process present Skin: COMMON NORMALS: no rashes or lesions noted and no wounds GENERAL SKIN EXAM: no rashes or lesions noted Course Vital Signs: Vital signs: Vital Signs Temperature 98.2 F 09/23/20 01:22 Pulse Rate 104 H 09/23/20 01:22 Respiratory Rate 16 09/23/20 01:22 Blood Pressure 147/94 09/23/20 01:22 Pulse Oximetry 98 09/23/20 01:22 MDM - General Adult MDM Narrative: Medical decision making narrative: Patient presents here with post tonsillectomy hemorrhage. Removed a clot from her left tonsil and had her gargle ice water. Observed her here for roughly 1 hour and she has had no more bleeding. She is stable for discharge and is to follow-up with Dr. Yeung in 1 to 2 days. She is return if worsening. She understands agrees to plan. Discharge Plan Discharge Patient Disposition: Home Clinical Impression: Haemorrhage, tonsil, postoperative Condition: Stable Prescriptions: No Action Dexilant 60 mg capsule,biphase delayed releas 60 mg PO DAILY RF: 0 (DME) Auto Titrating CPAP 6-14cm See Rx Instructions .Route .MEDSUPPLY Qty: 1 RF: 0 clonidine HCl 0.1 mg Tablet 0.1 mg PO BID RF: 0 amlodipine 5 mg Tablet 5 mg PO DAILY RF: 0 Discharge Orders: Discharge ED (Routine); Ordered 09/23/20 Ordered By: Phil Deleon Referrals: Alejandro Stark MD [Physician] - 1-3 days Alejandro Palencia MD [Primary Care Provider] - Discharge Diet: Advance as tolerated Discharge Activity: Resume usual activity Patient Instructions: Uvulopalatopharyngoplasty (GEN) Coding Level of Care Code ED Matrix Supervisor for Chg Fwd Exam Comprehensive
[2020-09-23 03:21] VITALS: BP 139/90; PULSE 96; RESP 18; O2SAT 98
== END 2020-09-23 03:22 | disposition home or self-care (01) ==
PROVIDERS: Emergency Provider Emergency Medicine; PCP Family Medicine
DX: K91.840 Postprocedural hemorrhage of a digestive system organ or structure following a digestive system procedure (principal); Z85.3 Personal history of malignant neoplasm of breast; I10 Essential (primary) hypertension
CPT/HCPCS: 12345; 99281

== ENCOUNTER 2020-12-18 16:06 | Outpatient (CLI) | payer OTHER, SELFPAY ==
--- NOTE | 2020-12-18 16:45 | MR_ITS ---
WS: [id number] MRI CERVICAL SPINE NONCONTRAST TECHNIQUE: Sagittal T1, T2 and STIR imaging. Axial T2, gradient, and fiesta imaging. CLINICAL INFORMATION: M54.12 - Radiculopathy, cervical region COMPARISON: None. FINDINGS: Straightening of the normal cervical lordosis. Vague 8mm mm ill-defined lesion with edema in the left aspect of the C5 vertebral body. This is nonspecific and may be degenerative or inflammatory however metastatic disease not entirely excluded. This can be further evaluated with bone scan. In addition recommend further evaluation with gadolinium enhanced cervical spine MRI with repeats of the precontr ast imaging as some images degraded by motion artifact. C2-C3: Normal C3-C4: No significant disc bulging. Mild facet arthropathy. Spinal canal and foramen are patent. C4-C5: Mild osteophytic ridging. Mild left and no significant right foraminal narrowing. Spinal canal is patent. C5-C6: Mild osteophytic ridging. Mild facet arthropathy. Mild right and no significant left foraminal narrowing. Spinal canal is patent. C6-C7: Disc osteophyte complex with endplate ridging. Mild bilateral bony foraminal narrowing. Mild f acet arthropathy. Spinal canal is patent. C7-T1: Normal. Visualized brain stem structures: Normal. Prevertebral soft tissues: Normal. MR/MR cervical spin wo con* [id number] IMPRESSION: 1. Vague T1 marrow replacing lesion in the posterior C5 vertebral body. This i s nonspecific and may be incidental but metastatic disease not entirely exclude d. Recommend further evaluation with gadolinium-enhanced cervical spine MRI wit h repeat of the precontrast imaging due to motion artifact. In addition bone sc an can also be performed to assess for any additional bony lesions. 2. Mild disc bulging C6-C7 with osteophytic ridging and mild bilateral bony fo raminal narrowing. 3. Otherwise mild foraminal narrowing as described above. 4. Mild facet arthropathy C5-C6 and C6-C7.
== END 2020-12-18 16:07 | disposition home or self-care (01) ==
LOC: RADSHAW 16:09
PROVIDERS: PCP Family Medicine; Visit Provider Internal Medicine
DX: M54.12 Radiculopathy, cervical region (principal); M47.812 Spondylosis without myelopathy or radiculopathy, cervical region; M50.223 Other cervical disc displacement at C6-C7 level
CPT/HCPCS: 72141

== ENCOUNTER 2021-01-08 10:13 | Outpatient (CLI) | payer OTHER, SELFPAY ==
--- NOTE | 2021-01-08 10:15 | MR_ITS ---
WS: [id number] MRI CERVICAL SPINE NONCONTRAST AND CONTRAST TECHNIQUE: Sagittal T1, T2 and STIR imaging. Axial T2, gradient, and fiesta imaging. CLINICAL INFORMATION: R93.89 - Abnormal findings on diagnostic imaging of other specified body struct ures COMPARISON: December 18, 2020 FINDINGS: Straightening of the normal cervical lordosis. Cord signal is normal. No high-grade central canal marcus rowing. Again seen is the signal abnormality in the posterior C5 vertebral body with edema. This is u nchanged in appearance since the prior examination. Associated enhancement in the C5 vertebral body. Replacement of the normal T1 bone marrow signal. Recommend bone scan and noncontrast CT cervical spin e for further evaluation and characterization. No other suspicious lesions. No other significant winslow ges from previous. Visualized brain stem structures: Normal. Prevertebral soft tissues: Normal. MR/MR cervical spine wo/w [id number] IMPRESSION: 1. Replacement of the normal bone marrow signal in the C5 vertebral body with associated mild edema and enhancement. Differential considerations include atyp ical hemangioma versus metastatic disease. No soft tissue component. 2. Recommend further evaluation of the bony structures with bone scan. In add ition noncontrast CT of the cervical spine may be helpful in further characteri zation of the C5 lesion. Otherwise no significant changes from previous.
[2021-01-08] MEDS: gadobenate dimeglumine 20 mL vial IV (11:13)
== END 2021-01-08 10:14 | disposition home or self-care (01) ==
LOC: RADSHAW 10:21
PROVIDERS: PCP Internal Medicine; Visit Provider Internal Medicine
DX: R93.89 Abnormal findings on diagnostic imaging of other specified body structures (principal)
CPT/HCPCS: 72156; A9577

== ENCOUNTER 2021-01-18 06:13 | Outpatient (CLI) | payer OTHER, SELFPAY ==
[2021-01-18 15:02] LABS: Basophils % 0.4 %; Eosinophils # 0.1 10^3/uL (0.0-0.8); Eosinophils % 1.3 %; Hematocrit 43.1 % (37.0-47.0); Hemoglobin 13.9 g/dL (11.5-15.3); Lymphocytes % 29.1 %; Mean Corpuscular HGB Conc 32.3 g/dL (30.0-36.0); Mean Corpuscular Hemoglobin 29.8 pg (28.0-34.0); Mean Corpuscular Volume 92.3 fL (81-99); Mean Platelet Volume 9.7 fL (7.4-10.4); Monocytes # 0.6 10^3/uL (0.2-0.9); Monocytes % 8.9 %; Neutrophils % 60.2 %; Nucleated Red Blood Cells % 0 %; Platelet Count 268 10^3/cmm (130-400); Red Blood Count 4.67 10^6/uL (4.1-5.3); Red Cell Distribution Width 12.8 % (12.1-15.1)
[2021-01-18 15:27] LABS: Alanine Aminotransferase 31 U/L (0-33); Albumin Level 4.4 g/dL (3.5-5.2); Alkaline Phosphatase 127 IU/L (35-105); Anion Gap 11.9 (5-19); Aspartate Amino Transferase 21 U/L (0-32); Blood Urea Nitrogen 10 mg/dL (6-20); Calcium 8.9 mg/dL (8.5-10.5); Carbon Dioxide 28 mmol/L (22-29); Chloride 106 mmol/L (98-107); Globulin 2.7 g/dL (1.3-4.6); Glomerular Filtration Rate 131.7 mL/min (90-130); Glucose 88 mg/dL (65-115); Osmolality Calculated 292 mOsm/kg (285-295); Potassium 3.9 mmol/L (3.5-5.1); Sodium 142 mmol/L (136-145); Total Bilirubin 0.3 mg/dL (0.15-1.2); Total Protein 7.1 g/dL (6.6-8.7)
--- NOTE | 2021-01-19 07:02 | ONC FU_ITS ---
Dr. Vides Patient Follow-Up Note Patient: aPrul Abdul Unit #: [id number]: 1970 Dicatated By: Fermín Vides M.D.Date of Visit:January 18, 2021 Onc Med Follow-up/Prog Note Chief Complaint: Breast cancer. History of Present Illness: This is a 50 year-old woman with grade 1 infiltrating ductal carcinoma of the left breast, stage IIA (T2, pN0, M0), ER/WV positive and HER-2/naman negative. She had presented with abnormal findings in the left breast on a yearly followup visit with Dr. Moore. Subsequent screening mammogram showed posterior third midline-lateral architectural distortion on the left CC view which appeared slightly more prominent compared to a baseline mammogram in March 2013. She then had diagnostic mammogram of the left breast with ultrasound imaging. The ultrasound showed an irregular, ill-defined, spiculated hypoechoic shadowing mass at the 12:00 position 2 cm from the nipple. It measured 2.7 x 2.9 cm. The appearance was highly suspicious for malignancy. She was referred to Dr. Garrison. She underwent excisional biopsy on 10/16/14. Pathology showed grade 1 infiltrating ductal carcinoma measuring 2.7 x 1.3 cm. Tumor was noted within 1 mm of the lateral and posterior margins, and within 5 mm of the superior margin. The medial, anterior, and inferior margins were free. The tumor was ER positive at 97% and WV positive at 93%. It was negative for overexpression of HER-2/naman by IHC and by FISH. She underwent left sentinel axillary lymph node biopsy on 10/30/14. Pathology showed 1 lymph node which measured 1.5 cm, but it was benign, with no evidence of metastatic tumor. She had further evaluation with an Oncotype DX assay. It showed a recurrence score of 5, low risk category, correlating with a 5% risk of recurrence at 10 years for patients who had received adjuvant hormonal therapy with tamoxifen. Based on that result, I felt that she would have a low probability of benefit with adjuvant chemotherapy, and I did recommend limiting her adjuvant therapy to hormonal treatment. She was given radiation to the left breast. She completed treatment on 01/23/2015 to a total dose of 6600 cGy. She then started adjuvant hormonal therapy with tamoxifen. She has been tolerating it well. I had seen her for a follow-up visit on 08/31/2017. At that time she was doing well with no evidence of recurrence of the breast cancer. She continued adjuvant hormonal therapy with tamoxifen 20 mg daily. She had subsequently presented to Dr. Moore with heavy menstrual bleeding. Her uterus was noted to be enlarged by ultrasound. On 02/13/2018 show underwent laparoscopic vaginal hysterectomy with bilateral sloping to oophorectomy. Pathology was benign. I had seen her for a follow-up visit on 02/15/2018, and at that point she began a further adjuvant hormonal therapy with anastrozole 1 mg daily. Her baseline DEXA scan showed normal bone mineral density. As of her follow-up visit on 08/23/2018 she appeared to be tolerating the anastrozole well. She was, though, having GERD symptoms, and she also had mild anemia which appear to be due to iron deficiency. She continued anastrozole, but she also began treatment with Protonix and she started on oral iron supplementation with ferrous sulfate. I had seen her for a scheduled visit on 02/07/2019. At that point she reported that her energy was a little better, but her joint pain had worsened significantly, particularly in her knees and feet but also in the shoulders. She continued to have acid reflux symptoms despite taking pantoprazole. I did opt to have her stop the anastrozole. As of her follow-up visit on 03/13/2019 she began further hormonal therapy with exemestane 25 mg daily. She was able to tolerate it with acceptable toxicity. On 10/10/2019 she underwent open reduction and internal fixation for a trimalleolar right ankle fracture. As of her follow-up visit on 02/12/2020 she was doing well clinically with no evidence of recurrence of the breast cancer. She continued exemestane through February 2020, at which point she had completed 5 years of adjuvant hormonal therapy. Her other medical illnesses have been limited to GERD, nephrolithiasis, and anxiety/depression. She is a nonsmoker. INTERIM HISTORY: In July [address] Paulino for persistent GERD symptoms. Her EGD on 08/10/2020 showed evidence of hiatal hernia with gastritis, duodenitis, and reflux esophagitis. By clinical evaluation, she appeared to have underlying obstructive sleep apnea which subsequently was confirmed with a sleep study. She was then started on CPAP with significant improvement in her symptoms. However, she had then presented with pain in her neck radiating into her right arm, suspicious for cervical radiculopathy. Her contrast enhanced cervical spine MRI on 01/08/2021 showed replacement of the normal bone marrow signal in the C5 vertebral body with associated mild edema and enhancement. The appearance was felt to be consistent with atypical hemangioma versus metastatic disease. She is seen now for a follow-up visit. She has had significant improvement in her energy/activity since she has been on CPAP. Her ECOG score is 0. She has good appetite. She has not had fever or night sweats. She has just occasional hot flashes. She still has some pain in the neck area and upper right arm/axillary area. She also has some mild discomfort in the upper right chest. She occasionally has a little tingling in the right hand. She has no other focal neurologic symptoms. She had been having some pain in the left shoulder and left arm prior to the onset of right arm pain, but that completely resolved. She has had no other joint or bone pain. Medications: AmLODIPine Besylate 1 (5 mg) Tablet Oral daily, CloNIDine HCl 1 Tablet (of 0.1 mg) Oral b.i.d., Exemestane 1 Tablet (of 25 mg) Oral daily, Meloxicam 1 (7.5 mg) Tablet Oral daily, NexIUM 1 Capsule (of 20 mg) Capsule Delayed Release Oral daily, Venlafaxine HCl ER 1 (75 mg) Tablet SR 24 HR Oral daily, Viibryd 1 Tablet (of 10 mg) Oral daily Allergies: No Known Allergies. Vital Signs: Performed on January 18, 2021 16:15 Height - 68.00 in Weight - 217 lbs (LOW) BSA - 2.12 sq.m BMI - 32.99 (HIGH) Temperature - 98.4 F Pulse - 87 /min Respiration - 18 /min BP - 147/88 mm(hg) (HIGH) O2 Sat - 96 % Pain - 3 Fatigue - 0 Physical Examination: Constitutional - She looks good generally, Eyes - Sclerae nonicteric. Conjunctivae clear, ENMT - No lesions noted in the oral cavity, Hematologic/Lymphatic - No cervical, clavicular, or axillary adenopathy, Respiratory - Lungs are clear with good air movement bilaterally, Cardiovascular - Heart rhythm is regular. There is a II/ systolic murmur. There is no gallop or rub noted, Abdomen - Soft. Liver and spleen are not enlarged. There is no abdominal mass or ascites noted and there is no inguinal adenopathy, Extremities - No edema, Neurologic - No focal neurologic deficits noted. DTRs are intact and symmetric. Lab/Imaging: Test performed on January 18, 2021 14:51 Sodium 142 mmol/L Potassium 3.9 mmol/L Chloride 106 mmol/L CO2 28 mmol/L Anion Gap 11.9 BUN 10 mg/dL Creatinine 0.5 mg/dL Cr Clearance (Est) 213.81 mL/min eGFR 131.7 mL/min Glucose 88 mg/dL Osmolality - Calculated 292 mOsm/kg Calcium 8.9 mg/dL Protein, Total 7.1 g/dL Albumin 4.4 g/dL Globulin 2.7 g/dL Bilirubin, Total 0.3 mg/dL ALT (SGPT) 31 U/L AST (SGOT) 21 U/L Alkaline Phosphatase 127 IU/L WBC 7.0 10 3/uL RBC 4.67 10 6/uL HGB 13.9 g/dL HCT 43.1 % MCV 92.3 fL MCH 29.8 pg MCHC 32.3 g/dL RDW 12.8 % Platelet Count 268 10 3/cmm MPV 9.7 fL Neutrophils 4.20 10 3/uL Lymphocytes 2.0 10 3/uL Monocytes 0.6 10 3/uL Eosinophils 0.1 10 3/uL Basophils 0.0 10 3/uL Neutrophil % 60.2 % Lymphocyte % 29.1 % Monocyte % 8.9 % Eosinophil % 1.3 % Basophils % 0.4 % NRBC % 0 % Problem List: 1. Grade 1 infiltrating ductal carcinoma of the left breast, stage IIA (T2, pN0, M0), ER/WV positive and HER-2/naman negative. She underwent excisional biopsy on 10/16/14 followed by left sentinel axillary lymph node biopsy on 10/30/14. An Oncotype Dx assay showed a recurrence score of 5, which was low risk category. 2. GERD. 3. Obstructive sleep apnea. Problems Addressed with this Encounter and Plan: Patient with grade 1 infiltrating ductal carcinoma of the left breast, stage IIA (T2, pN0, M0), ER/WV positive and HER-2/naman negative. She underwent excisional biopsy on 10/16/14 followed by left sentinel axillary lymph node biopsy on 10/30/14. An Oncotype Dx assay showed a recurrence score of 5, which was low risk category. On that basis I did not recommend adjuvant chemotherapy. She was given radiation to the left breast, which she completed on 01/23/2015 to a total dose of 6600 cGy. Adjuvant hormonal therapy with tamoxifen 20 mg daily began in January 2015. The tamoxifen was put on hold in 2017 after she developed heavy menstrual bleeding. She underwent laparoscopic vaginal hysterectomy with bilateral salpingo-oophorectomy on 02/13/2018. Pathology was benign. She then continued her adjuvant hormonal therapy with anastrozole 1 mg daily. It was put on hold as of January 2019 due to musculoskeletal pain. She began further adjuvant hormonal therapy with exemestane 25 mg daily in February 2019. She stopped treatment in January 2020 after completing 5 years of adjuvant hormonal therapy. In November 2020 she had presented with symptoms which were suspicious for cervical radiculopathy. Her contrast-enhanced cervical spine MRI on 01/08/2021 showed replacement of the normal bone marrow signal in the C5 vertebral body consistent with atypical hemangioma versus metastatic disease. I reviewed that study with Dr. Hernandez. It does appear that the likelihood of metastatic disease is low, as her pain does not correlate very well with that finding. She does have a slightly elevated alkaline phosphatase level, but it is actually down compared to a previous study from January 2020. She is recommended to have a noncontrast CT of the cervical spine, which will be scheduled now. She will have further evaluation as indicated. Signed By: Fermín Vides M.D. <<Signature on File>>
== END 2021-01-18 06:14 | disposition home or self-care (01) ==
LOC: ONCMED 06:14
PROVIDERS: PCP Internal Medicine; Visit Provider Internal Medicine Medical Oncology
DX: C50.812 Malignant neoplasm of overlapping sites of left female breast (principal); Z17.0 Estrogen receptor positive status [ER+]; Z90.12 Acquired absence of left breast and nipple; K21.9 Gastro-esophageal reflux disease without esophagitis; G47.33 Obstructive sleep apnea (adult) (pediatric); Z79.811 Long term (current) use of aromatase inhibitors; Z79.899 Other long term (current) drug therapy
CPT/HCPCS: 36415; 80053; 85025; 99214

== ENCOUNTER 2021-01-29 11:23 | Outpatient (CLI) | payer OTHER, SELFPAY ==
--- NOTE | 2021-01-29 11:35 | CT_ITS ---
WS: [id number] CT CERVICAL SPINE HISTORY: BREAST CA/NECK PAIN/ABNORMAL CERVICAL SPINE MRI TECHNIQUE: Contiguous 2.5 mm axial imaging performed through the entire cervical spine. Sagittal and coronal reformats also performed. All CT scans at [facility] use at least one of these do se optimization techniques: automated exposure control; mA and/or kV adjustment per patient size (inc ludes targeted exams where dose is matched to clinical indication); or iterative reconstruction. DLP: 635.78 mGy.cm COMPARISON: MRI 01/08/2021 Mild straightening of the normal cervical lordosis. Very mild anterior wedging of the C5 vertebral dwight dy. No fracture identified. The cortex is still intact. No significant change the trabecular pattern. There is no soft tissue mass component. Craniocervical junction is normal. Lateral masses of C1 and C2 are aligned. The odontoid is intact. C2-C3: Shallow central disc protrusion. C3-C4: Normal. C4-C5: Normal. C5-C6: Small osteophytes. No stenosis. C6-C7: Small vertebral body osteophytes. No stenosis. C7-T1: Normal. Lung apices are clear. CT/CT cervical spin wo con* [id number] IMPRESSION: 1. By CT evaluation there are no marrow changes in the C5 vertebral body. Ther e is very slight anterior wedging but no fracture line identified. 2. No adjacent cervical chain lymphadenopathy.
== END 2021-01-29 11:24 | disposition home or self-care (01) ==
LOC: RAD 11:24
PROVIDERS: PCP Internal Medicine; Visit Provider Internal Medicine Medical Oncology
DX: C50.812 Malignant neoplasm of overlapping sites of left female breast (principal); M54.2 Cervicalgia
CPT/HCPCS: 72125

== ENCOUNTER 2021-12-30 15:32 | Outpatient (CLI) | payer OTHER, SELFPAY ==
--- NOTE | 2021-12-30 15:42 | MM_ITS ---
WS: [id number] BILATERAL 3D TOMOSYNTHESIS DIGITAL DIAGNOSTIC MAMMOGRAPHY WITH CAD CLINICAL INFORMATION: HX OF BREAST CA COMPARISON: July 10, 2020 TECHNIQUE: Bilateral CC, MLO, and ML views. FINDINGS: Scattered fibroglandular densities bilaterally. Punctate and lucent centered calcifications. LEFT lum pectomy with parenchymal fibrosis. No suspicious focal mass, asymmetry, calcifications, or architectural distortion. No evidence of jabier gnancy. MM/[place] [id number] IMPRESSION: BI-RADS: 2-Benign FOLLOW UP: 1 Year Follow-up Recommend return to annual diagnostic mammography.
== END 2021-12-30 15:33 | disposition home or self-care (01) ==
LOC: RAD 15:34
PROVIDERS: PCP Internal Medicine; Visit Provider Internal Medicine Medical Oncology
DX: Z85.3 Personal history of malignant neoplasm of breast (principal)
CPT/HCPCS: 77062

== ENCOUNTER 2022-03-01 11:44 | Outpatient (CLI) | payer OTHER, SELFPAY ==
--- NOTE | 2022-03-01 11:45 | MR_ITS ---
WS: [id number] MRI LUMBAR SPINE NONCONTRAST TECHNIQUE: Sagittal T1, T2 and STIR imaging. Axial T1 and T2 imaging. CLINICAL INFORMATION: Ongoing lumbar spine pain with radiation. COMPARISON: None. FINDINGS: Mild lumbar curve. No acute compression. Mild chronic anterior wedging in the lower thoracic spine at T11. Diffuse replacement normal fatty bone marrow signal throughout the visualized bony structures i ncluding lower thoracic spine, lumbar spine, bony pelvis and sacrum. Findings suspicious for diffuse infiltrative bony metastatic disease. This appears to involve the posterior elements. Prominent bony expansile lesion involving the posterior RIGHT L1 vertebral body with narrowing of the RIGHT subarticular recess with suspected epidural disease in this location. T2 hyperintense lesions more prominent in the lower thoracic spine at T10, T11, and L1. Additional prominent T2 hyperintense lesions L2 vertebral body and partially visualized sacrum. L1-L2: Expansile bony lesion eccentric to the RIGHT with narrowing of the RIGHT subarticular recess w ith suspected epidural disease at this level. Spinal canal and foramen are patent. Mild facet arthrop athy. L2-L3: No significant disc bulging. Mild facet arthropathy. Spinal canal and foramen are patent. L3-L4: Mild annular bulging. Moderate facet arthropathy. Slight narrowing of the RIGHT subarticular r ecess. Mild RIGHT greater than LEFT foraminal narrowing. Encroachment traversing RIGHT greater than L EFT L4 nerve roots. Moderate facet arthropathy. L4-L5: Mild annular bulging. Moderate facet arthropathy. Spinal canal and foramen are patent. L5-S1: No significant disc bulging. Spinal canal and foramen are patent. Moderate facet arthropathy. MR/MR lumbar spine wo con* [id number] IMPRESSION: 1. Diffuse replacement of the normal fatty bone marrow signal throughout the vi sualized bony structures including the lower thoracic spine, lumbar spine, sacr um and pelvis suspicious for infiltrative diffuse bony metastatic disease. Find ings can be further evaluated with bone scan and/or PET/CT. Recommend Oncology evaluation 2. 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 This can be further eval uated with MRI cervical and thoracic spine without and with gadolinium enhancem ent. 3. Bony expansile lesion at RIGHT L1 with a suspected small amount of epidural disease eccentric to the RIGHT with mild narrowing of the RIGHT subarticular re cess. Slight effacement of ventral thecal sac. Recommend correlation for RIGHT L1 or L2 nerve root symptoms. 4.Mild RIGHT L3-L4 foraminal narrowing. Slight narrowing of the RIGHT L3-L4 sub articular recess. 5. No high-grade central canal stenosis in the lumbar spine. Findings discussed with Collette FLORES at Dr. Paulino's office 03/01/2022 1:[address] Lora Paulino MD at 03/01/2022 2:09 PM.
== END 2022-03-01 11:45 | disposition home or self-care (01) ==
LOC: RAD 11:47
PROVIDERS: PCP Internal Medicine; Visit Provider Internal Medicine
DX: M54.16 Radiculopathy, lumbar region (principal); R93.7 Abnormal findings on diagnostic imaging of other parts of musculoskeletal system; M89.9 Disorder of bone, unspecified
CPT/HCPCS: 72148

== ENCOUNTER → 2022-03-02 11:40 | Outpatient (BNVA) | payer OTHER, SELFPAY | PROVIDERS: PCP Internal Medicine; Visit Provider Internal Medicine | DX: R93.7 Abnormal findings on diagnostic imaging of other parts of musculoskeletal system (principal); M54.16 Radiculopathy, lumbar region; M54.31 Sciatica, right side; R93.89 Abnormal findings on diagnostic imaging of other specified body structures; M54.12 Radiculopathy, cervical region | CPT/HCPCS: 80053; 85025; 86300 ==

== ENCOUNTER 2022-03-04 10:02 | Oncology outpatient (recurring) (ONCR) | payer OTHER, SELFPAY | END 2022-03-17 23:59 | disposition home or self-care (01) | PROVIDERS: PCP Internal Medicine; Visit Provider Internal Medicine Medical Oncology | DX: C50.812 Malignant neoplasm of overlapping sites of left female breast (principal); Z17.0 Estrogen receptor positive status [ER+]; C79.51 Secondary malignant neoplasm of bone; N92.0 Excessive and frequent menstruation with regular cycle; M54.41 Lumbago with sciatica, right side; Z79.818 Long term (current) use of other agents affecting estrogen receptors and estrogen levels; Z79.891 Long term (current) use of opiate analgesic; Z79.899 Other long term (current) drug therapy; Z92.3 Personal history of irradiation ==

== ENCOUNTER 2022-04-15 09:52 | Oncology outpatient (recurring) (ONCR) | payer OTHER, SELFPAY ==
--- NOTE | 2022-04-05 16:19 | N.ONRAD NP_ITS ---
Radiation Oncology New Patient Visit Patient: Parul Abdul MR#: [id number] : 1970> Age: 52> Sex: Female> Dictated by: Dr. Ketan Monaco Date of Service: 04/05/2022 Referring Physician(s) : Dr. Shailesh Garrison Diagnosis: C50.812 - malignant neoplasm of overlapping sites of left female breast, Diagnosed 11/11/2014 (active), stage iia, t2, pn0, m0, g1. Now widely metastatic to bone. Radiotherapy to date: Course: Course1, Treatment Site: LT BREAST, Ref. ID: LT BREAST, Energy: 6X, Dose/Fx (cGy): 200, #Fx: / ,Dose Correction (cGy): 0,Total Dose (cGy): 5,000,Start Date: 12/09/2014, End Date: 01/12/2015, Elapsed Days: 34 Treatment Site: LT BREAST BOOST, Ref. ID: LT BREAST BOOST, Energy: 6X, Dose/Fx (cGy): 200, #Fx: , Dose Correction (cGy): 0, Total Dose (cGy): 1,600, Start Date: 01/14/2015, End Date: 01/23/2015, Elapsed Days: 9 Chief Complaint / History of Present Illness: Ms. Abdul was treated for carcinoma of the left breast with breast conserving therapy in 2014. The radiation she received as noted above. About 8 months ago she began having musculoskeletal pain. She had physical therapy and other measures without benefit. She had an MR of the spine due to continuing pain and was found to have metastatic disease. PET scan shows widely metastatic disease inbone. She is being started back on hormonal therapy with exemestane. She will also receive therapy for bone roman catholic and strengthening. Currently she is having a significant level of pain in the sternum, left hip, and the left ribs. She saw an orthopedic oncologist yesterday in [place] and he recommended palliative radiation with use of a walker in an attempt to prevent a pathologic fracture. Ms Abdul is referred for palliative radiation to the left hip. It is requested she be evaluated for treatment of other areas, especially the sternum. She states that she has pain in the left rib cage that makes it difficult to sleep on her left side at night. It also bothers her in the day frequently. It was pointed out by Dr. Vides that she has lytic lesions in the right femoral neck and in the right humeral head. Current Medications: AmLODIPine Besylate, anastrozole, cloNIDine HCl, exemestane, exemestane, lansoprazole, meloxicam, meloxicam, nexIUM, nexIUM, reglan, tamoxifen Citrate, venlafaxine HCl, venlafaxine HCl ER, venlafaxine HCl ER, viibryd. Allergies: No Known Allergies Medical History: Anxiety/depression, gastroesophageal reflux disease, nephrolithiasis. No history of collagen vascular disease. Previous radiation therapy as noted above. Surgical History: Excisional biopsy of left breast mass on 10/16/2014, left sentinel axillary lymph node biopsy on 10/30/2014, lithotrypsy/extraction for kidney stones and oRIF right ankle in 09/2019. Family History: Father is alive. Mother is alive. Brother is alive. Both parents are living and he are in good health. Father has hypertension. One brother also is in good health. There is no history of breast or ovarian cancer or other malignancies in the family. Social History: Last screened on 01/18/2021 - Never smoked. Last screened on 01/18/2021 - Never drank. Current Complaints / Review of Systems: . Vital Signs: Performed on 04/05/2022 2:19 PM BMI - 27.217 kg/m2 (high), Height - 68 in, Weight - 179 lbs, Temperature - 98 f, Pulse - 97 /min, Respiration - 16 /min, O2 Sat - 96 %, Pain - 4, Fatigue - 0 and BP - 127/ 81 mm(hg). Physical Exam: General: Alert, oriented, no acute distress. Exam was limited to the musculoskeletal system. She had normal movement in both shoulders without pain. She had very mild tenderness to palpation of the right humeral head. No other pain along the course of the humeri. Palpation and percussion of the spine revealed mild tenderness in the area of the right SI joint. No tenderness along the course of the spine itself. Palpation of the rib cage bilaterally revealed easily reproducible tenderness in the left lateral rib cage inferiorly. No tenderness of the right ribs. Palpation of the sternum and sternum revealed tenderness in the area of the manubrium as well as the upper sternum. Both hips had a free range of motion. Some pain was noted on external rotation of the left hip. No point tenderness on palpation over the hip joints. No tenderness along the course of the femurs. 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 Lab: Imaging: See HPI Impression: Widely metastatic breast cancer. Ms Abdul is a candidate for palliative radiation to multiple sites. Radiation is indicated to the left hip, both for pain control and to try to prevent a pathologic fracture. Radiation is indicated to the left ribs and the sternum because of pain. Her prior treatment with radiation to the left breast will need to be taken into account when delivering treatment to the sternum. Because of the lytic defects in the right femoral neck and the right humeral head, radiation is indicated in an attempt to prevent a pathologic fracture. The patient wishes to proceed with treatment. No severe side effects are anticipated. Plan: Simulation is scheduled for tomorrow morning at 8:30 AM. Signed by: 04/05/2022 4:16:45 PM <<Signature on File>> Time spent with patient: CPT Code: CPT Code:
--- NOTE | 2022-04-06 | CT_ITS ---
Radiation Therapy Planning CT images; total exam DLP: 1176.75 mGy-cm and 787.38 mGy-cm MTDD
[2022-04-07 13:59] LABS: Anion Gap 15.3 (5-19); Blood Urea Nitrogen 16 mg/dL (6-20); Calcium 9.4 mg/dL (8.5-10.5); Carbon Dioxide 28 mmol/L (22-29); Chloride 101 mmol/L (98-107); Glucose 117 mg/dL (65-115); Osmolality Calculated 292 mOsm/kg (285-295); Potassium 4.3 mmol/L (3.5-5.1); Sodium 140 mmol/L (136-145)
[2022-04-07] MEDS: zoledronic acid 4 MG in sodium chloride 0.9% (100 ml) 100 ML 420 MG IV (14:49)
[2022-04-07 15:28] VITALS: BP 107/60; PULSE 92; RESP 18; TEMP 36.8; O2SAT 98
--- NOTE | 2022-04-12 14:59 | ONCRAD TMN_ITS ---
Radiation Oncology Weekly Treatment Management Patient: Chantell Teran MR#: [id number] : 1970 Attending Physician: Dr. Patel Monaco Date of Service: 04/12/2022 Referring Physician(s) : Dr. Shailesh Garrison Diagnosis: C50.919 - Malignant neoplasm of unspecified site of unspecified female breast, Diagnosed 03/01/2022 (Active) C50.812 - Malignant neoplasm of overlapping sites of left female breast, Diagnosed 11/11/2014 (Active) Stage IIA, T2, pN0, M0, G1 Radiotherapy to date: Course: C2, Treatment Site: RShoulder, Ref. ID: GTV RShoulder, Energy: 15X, Dose/Fx (cGy): 300, #Fx: 4 / 10, Dose Correction (cGy): 0, Total Dose (cGy): 1,200, Start Date: 04/07/2022, Elapsed Days: 5 Course: C2, Treatment Site: Sternum, Ref. ID: GTV Sternum, Energy: 15X, Dose/Fx (cGy): 300, #Fx: 4 / 10, Dose Correction (cGy): 0, Total Dose (cGy): 1,200, Start Date: 04/07/2022, Elapsed Days: 5 Course: C2, Treatment Site: LRibs, Ref. ID: GTV LRibs, Energy: 15X, Dose/Fx (cGy): 300, #Fx: 4 / 10, Dose Correction (cGy): 0, Total Dose (cGy): 1,200, Start Date: 04/07/2022, Elapsed Days: 5 Course: C2, Treatment Site: [facility], Ref. ID: FemHeadNeck_L, Energy: 15X, Dose/Fx (cGy): 300, #Fx: 4 / 10, Dose Correction (cGy): 0, Total Dose (cGy): 1,200, Start Date: 04/07/2022, Elapsed Days: 5 Course: C2, Treatment [facility], [facility], Energy: 15X, Dose/Fx (cGy): 300, #Fx: 4 / 10, Dose Correction (cGy): 0, Total Dose (cGy): 1,200, Start Date: 04/07/2022, Elapsed Days: 5 Reason for visit: The patient is being seen today as part of their regularly scheduled weekly on treatment visits to assess for acute toxicities from radiotherapy. Review of Systems: All sites of pain have improved. She is using the walker for any weightbearing. Vital Signs: Performed on 04/12/2022 1:54 PM BMI - 26.959 kg/m2 (high), Height - 68 in, Weight - 177.3 lbs, Temperature - 98.2 f, Pulse - 96 /min, Respiration - 18 /min, O2 Sat - 97 %, Pain - 3, Fatigue - 3 and BP - 120/ 75 mm(hg). Physical Exam: Alert, oriented, no acute distress. Her ambulation is steady with a walker. Breathing is quiet and unlabored. Imaging: Radiation therapy imaging related to accurate target localization (i.e. KV, MV and CBCT) was reviewed. Appropriate changes, if any, were made to ensure treatment accuracy. Plan: Continue radiation as planned. Continue using the walker until healing is documented on x-ray. I explained that will be a slow process over a few months Signed by: Dr. Patel Monaco 04/12/2022 2:58:39 PM
== END 2022-04-17 23:59 | disposition home or self-care (01) ==
PROVIDERS: Internal Medicine Medical Oncology; PCP Internal Medicine; Visit Provider Specialist
DX: Z51.0 Encounter for antineoplastic radiation therapy (principal); C50.812 Malignant neoplasm of overlapping sites of left female breast
CPT/HCPCS: 77290; 77295; 77300; 77334; 77336; 77387; 77412; 77470; 80048; 96365; J3489

== ENCOUNTER 2022-05-11 09:30 | Oncology outpatient (recurring) (ONCR) | payer OTHER, SELFPAY ==
--- NOTE | 2022-04-19 14:11 | ONCRAD TMN_ITS ---
Radiation Oncology Treatment Management Note Patient Name: Parul Abdul Date of : 1970 Date of Service: 04/19/2022 Attending Physician: De Haro M.D. Parul Abdul is a 52 year-old white female diagnosed with metastatic breast cancer. The patient has received 27 Gy of a prescribed 30 Lerma to the right shoulder, sternum, left ribs, and bilateral femoral necks with multiple 3-dimensional conformal radiotherapy plans. Upon review of systems, she reported significant improvement in pain control. On physical examination, the patient weighed 177 lbs. Her temperature was 97.9 ???F and the blood pressure was 113/70 mmHg. Her pulse was 98 bpm and the respiratory rate was 18. Continue palliative radiotherapy as prescribed. Signed by: Dr. De Haro 04/19/2022 2:10:53 PM
--- NOTE | 2022-04-20 13:57 | N.ONRD TS_ITS ---
Radiation OncologyTreatment Summary Patient Name: Parul Abdul Date of : 1970 Date of Service: 04/20/2022 Attending Physician: De Haro M.D. Parul Abdul has completed palliative radiotherapy for the management of a metastatic breast cancer. Daily radiotherapy was administered between the dates of April 07, 2022 through April 20, 2022. A prescribed dose of 30 Gy was delivered in 10 fractions encompassing 14 elapsed days. The metastatic deposits treated included: The right shoulder was treated utilizing a 3-dimensional conformal radiotherapy plan with an AP/PA portal field design. The AP field utilized a 0??? gantry angle with a collimator angle of 270???. The field size measured 6.5 cm x 6 cm within the X-direction and 6.2 cm x 5.7 cm within the Y-direction. The SSD measured 95.5 cm with the field delivering 191 monitor units. A 20??? enhanced dynamic wedge was designed. The PA port employed a gantry angle of 180??? and a collimator angle of 0???. The field size spanned 5.9 cm x 6.9 cm within X-direction and 5.7 cm x 6.2 cm within the Y-direction. The SSD was 89.4 cm with the port administering 135 monitor units. Photon energies of 15 MV were prescribed with the plan normalized to deliver 100% of the prescription dose to 95% of the planning target volume. The sternum was treated incorporating a 3-dimensional conformal radiotherapy plan with an AP portal field design. The AP field utilized a 0??? gantry angle with a collimator angle of 0???. The field size measured 7.9 cm x 7 cm within the X-direction and 6.2 cm x 5.7 cm within the Y-direction. The SSD measured 96.8 cm with the field delivering 293 monitor units. The PA port employed a gantry angle of 180??? and a collimator angle of 0???. The field size spanned 5.9 cm x 6.9 cm within X-direction and 5.7 cm x 6.2 cm within the Y-direction. The SSD was 89.4 cm with the port administering 135 monitor units. Photon energies of 15 MV were prescribed with the plan normalized to deliver 100% of the prescription dose to 95% of the planning target volume. The left ribs were treated utilizing a 3-dimensional conformal radiotherapy plan with an opposed tangential portal field design. The LEE field utilized a 345??? gantry angle with a collimator angle of 0???. The field size measured 5.5 cm x 4.5 cm within the X-direction and 5.7 cm x 6.2 cm within the Y-direction. The SSD measured 90.1 cm with the field delivering 177 monitor units. The LPO port employed a gantry angle of 165??? and a collimator angle of 90???. The field size spanned 6.5 cm x 6.6 cm within X-direction and 4.7 cm x 4.2 cm within the Y-direction. The SSD was 88.3 cm with the port administering 138 monitor units. A 30??? enhanced dynamic wedge was designed. Photon energies of 15 MV were prescribed with the plan normalized to deliver 100% of the prescription dose to 95% of the planning target volume. The left femoral head was treated utilizing a 3-dimensional conformal radiotherapy plan with an AP/PA portal field design. The AP field utilized a 0??? gantry angle with a collimator angle of 0???. The field size measured 8.4 cm x 8.8 cm within the X-direction and 7.7 cm x 7.7 cm within the Y-direction. The SSD measured 91 cm with the field delivering 169 monitor units. The PA port employed a gantry angle of 180??? and a collimator angle of 0???. The field size spanned 8 cm x 7.4 cm within X-direction and 7.7 cm x 7.7 cm within the Y-direction. The SSD was 88.4 cm with the port administering 158 monitor units. Photon energies of 15 MV were prescribed with the plan normalized to deliver 100% of the prescription dose to 95% of the planning target volume. The right femoral head was treated utilizing a 3-dimensional conformal radiotherapy plan with an AP/PA portal field design. The AP field utilized a 0??? gantry angle with a collimator angle of 0???. The field size measured 8.4 cm x 8.8 cm within the X-direction and 7.7 cm x 7.7 cm within the Y-direction. The SSD measured 91 cm with the field delivering 166 monitor units. The PA port employed a gantry angle of 180??? and a collimator angle of 0???. The field size spanned 8.8 cm x 8.4 cm within X-direction and 7.7 cm x 7.7 cm within the Y-direction. The SSD was 88.7 cm with the port administering 157 monitor units. Photon energies of 15 MV were prescribed with the plan normalized to deliver 100% of the prescription dose to 95% of the planning target volume. All treatments were performed with the [employer] iX linear accelerator and an isocentric technique. The dose was calculated by Anisotropic Analytic Algorithm. The [facility] physician approved the plans. . Signed by: Dr. De Haro 04/20/2022 1:55:22 PM
[2022-04-27 10:32] LABS: Basophils % 0.5 %; Eosinophils # 0.5 10^3/uL (0.0-0.8); Eosinophils % 10.8 %; Hematocrit 37.1 % (37.0-47.0); Hemoglobin 11.6 g/dL (11.5-15.3); Lymphocytes # 0.4 10^3/uL (0.8-4.8); Lymphocytes % 9.7 %; Mean Corpuscular HGB Conc 31.3 g/dL (30.0-36.0); Mean Corpuscular Hemoglobin 29.2 pg (28.0-34.0); Mean Corpuscular Volume 93.5 fl (81-99); Mean Platelet Volume 8.4 fL (7.4-10.4); Monocytes # 0.6 10^3/uL (0.2-0.9); Monocytes % 12.9 %; Neutrophils # 2.84 10^3/uL (1.8-7.7); Neutrophils % 64.1 %; Nucleated Red Blood Cells % 0 %; Platelet Count 213 10^3/cmm (130-400); Red Blood Count 3.97 10^6/uL (4.1-5.3); Red Cell Distribution Width 13.6 % (12.1-15.1); White Blood Count 4.4 10^3/uL (4.0-10.0)
[2022-04-27 11:05] LABS: Alanine Aminotransferase 14 U/L (0-33); Alkaline Phosphatase 209 IU/L (35-105); Anion Gap 14.9 (5-19); Aspartate Amino Transferase 25 U/L (0-32); Blood Urea Nitrogen 12 mg/dL (6-20); Carbon Dioxide 29 mmol/L (22-29); Chloride 105 mmol/L (98-107); Glomerular Filtration Rate 235.5 mL/min (90-130); Glucose 90 mg/dL (65-115); Osmolality Calculated 299 mOsm/kg (285-295); Potassium 3.9 mmol/L (3.5-5.1); Sodium 145 mmol/L (136-145); Total Bilirubin 0.2 mg/dL (0.15-1.2)
[2022-04-27 15:10] LABS: CA 15-3 150.1 U/mL (0-25)
[2022-05-11 09:56] LABS: Basophils % 0.7 %; Eosinophils # 0.1 10^3/uL (0.0-0.8); Eosinophils % 3.4 %; Hematocrit 35.5 % (37.0-47.0); Hemoglobin 10.9 g/dL (11.5-15.3); Lymphocytes # 0.3 10^3/uL (0.8-4.8); Mean Corpuscular HGB Conc 30.7 g/dL (30.0-36.0); Mean Corpuscular Hemoglobin 29.3 pg (28.0-34.0); Mean Corpuscular Volume 95.4 fl (81-99); Mean Platelet Volume 8.2 fL (7.4-10.4); Monocytes # 0.1 10^3/uL (0.2-0.9); Monocytes % 8.2 %; Neutrophils # 1.02 10^3/uL (1.8-7.7); Nucleated Red Blood Cells % 0 %; Platelet Count 122 10^3/cmm (130-400); Red Blood Count 3.72 10^6/uL (4.1-5.3); Red Cell Distribution Width 14.7 % (12.1-15.1); White Blood Count 1.5 10^3/uL (4.0-10.0)
[2022-05-11 10:16] LABS: Alanine Aminotransferase 12 U/L (0-33); Albumin Level 4.2 g/dL (3.5-5.2); Alkaline Phosphatase 267 U/L (35-105); Anion Gap 14.6 (5-19); Aspartate Amino Transferase 18 U/L (0-32); Blood Urea Nitrogen 14 mg/dL (6-20); Calcium 8.7 mg/dL (8.5-10.5); Carbon Dioxide 27 mmol/L (22-29); Chloride 102 mmol/L (98-107); Globulin 3.3 g/dL (1.3-4.6); Glomerular Filtration Rate 130.6 mL/min (90-130); Glucose 95 mg/dL (65-115); Osmolality Calculated 290 mOsm/kg (285-295); Potassium 3.6 mmol/L (3.5-5.1); Sodium 140 mmol/L (136-145); Total Bilirubin 0.4 mg/dL (0.15-1.2); Total Protein 7.5 g/dL (6.6-8.7)
[2022-05-11 10:54] LABS: CA 15-3 115.8 U/mL (0-25)
[2022-05-11 10:57] LABS: Slide Review Slide Review Perform
[2022-05-11 10:58] LABS: Neutrophils % 69.3 %
[2022-05-11] MEDS: zoledronic acid 4 MG in sodium chloride 0.9% (100 ml) 100 ML 420 MG IV (12:02)
== END 2022-05-18 23:59 | disposition home or self-care (01) ==
PROVIDERS: Nurse Practitioner Family; PCP Internal Medicine; Visit Provider Radiology Radiation Oncology
DX: Z51.11 Encounter for antineoplastic chemotherapy; C50.812 Malignant neoplasm of overlapping sites of left female breast; C79.51 Secondary malignant neoplasm of bone; Z17.1 Estrogen receptor negative status [ER-]
CPT/HCPCS: 36415; 77336; 77412; 80053; 85025; 86300; 96365; J3489

== ENCOUNTER 2022-06-08 10:00 | Oncology outpatient (recurring) (ONCR) | payer OTHER, SELFPAY ==
[2022-05-26 13:16] LABS: Basophils % 0.5 %; Hemoglobin 10.6 g/dL (11.5-15.3); Lymphocytes # 0.4 10^3/uL (0.8-4.8); Mean Corpuscular HGB Conc 32.1 g/dL (30.0-36.0); Mean Corpuscular Hemoglobin 30.4 pg (28.0-34.0); Mean Corpuscular Volume 94.6 fl (81-99); Mean Platelet Volume 8.8 fL (7.4-10.4); Monocytes # 0.7 10^3/uL (0.2-0.9); Platelet Count 136 10^3/cmm (130-400); Red Blood Count 3.49 10^6/uL (4.1-5.3); White Blood Count 1.9 10^3/uL (4.0-10.0)
[2022-05-26 13:18] LABS: Neutrophils # 0.89 10^3/uL (1.8-7.7)
[2022-05-26 13:43] LABS: Alanine Aminotransferase 13 U/L (0-33); Albumin Level 4.4 g/dL (3.5-5.2); Alkaline Phosphatase 305 U/L (35-105); Anion Gap 12.5 (5-19); Aspartate Amino Transferase 30 U/L (0-32); Blood Urea Nitrogen 15 mg/dL (6-20); CA 15-3 122.4 U/mL (0-25); Carbon Dioxide 25 mmol/L (22-29); Chloride 102 mmol/L (98-107); Glomerular Filtration Rate 235.5 mL/min (90-130); Glucose 81 mg/dL (65-115); Osmolality Calculated 282 mOsm/kg (285-295); Potassium 3.5 mmol/L (3.5-5.1); Sodium 136 mmol/L (136-145); Total Bilirubin 0.2 mg/dL (0.15-1.2); Total Protein 7.4 g/dL (6.6-8.7)
[2022-06-02 14:00] LABS: Basophils % 0.7 %; Eosinophils % 1.3 %; Hematocrit 33.4 % (37.0-47.0); Hemoglobin 10.5 g/dL (11.5-15.3); Lymphocytes # 0.4 10^3/uL (0.8-4.8); Lymphocytes % 12.6 %; Mean Corpuscular HGB Conc 31.4 g/dL (30.0-36.0); Mean Corpuscular Hemoglobin 30.3 pg (28.0-34.0); Mean Corpuscular Volume 96.3 fl (81-99); Mean Platelet Volume 8.7 fL (7.4-10.4); Monocytes # 0.8 10^3/uL (0.2-0.9); Monocytes % 26.5 %; Neutrophils # 1.73 10^3/uL (1.8-7.7); Neutrophils % 57.2 %; Nucleated Red Blood Cells % 0.7 %; Platelet Count 298 10^3/cmm (130-400); Red Blood Count 3.47 10^6/uL (4.1-5.3); Red Cell Distribution Width 17.2 % (12.1-15.1)
[2022-06-08 10:35] LABS: Basophils % 0.5 %; Eosinophils # 0.1 10^3/uL (0.0-0.8); Eosinophils % 1.8 %; Hematocrit 32.5 % (37.0-47.0); Hemoglobin 10.2 g/dL (11.5-15.3); Lymphocytes # 0.4 10^3/uL (0.8-4.8); Lymphocytes % 10.5 %; Mean Corpuscular HGB Conc 31.4 g/dL (30.0-36.0); Mean Corpuscular Hemoglobin 30.4 pg (28.0-34.0); Mean Corpuscular Volume 96.7 fl (81-99); Mean Platelet Volume 8.3 fL (7.4-10.4); Monocytes # 0.6 10^3/uL (0.2-0.9); Neutrophils # 2.65 10^3/uL (1.8-7.7); Neutrophils % 69.4 %; Nucleated Red Blood Cells % 0.5 %; Platelet Count 374 10^3/cmm (130-400); Red Blood Count 3.36 10^6/uL (4.1-5.3); Red Cell Distribution Width 17.1 % (12.1-15.1); White Blood Count 3.8 10^3/uL (4.0-10.0)
[2022-06-08 11:04] LABS: Alanine Aminotransferase 12 U/L (0-33); Albumin Level 3.9 g/dL (3.5-5.2); Alkaline Phosphatase 227 U/L (35-105); Aspartate Amino Transferase 26 U/L (0-32); Blood Urea Nitrogen 15 mg/dL (6-20); CA 15-3 120.3 U/mL (0-25); Calcium 9.1 mg/dL (8.5-10.5); Carbon Dioxide 26 mmol/L (22-29); Chloride 106 mmol/L (98-107); Globulin 3.7 g/dL (1.3-4.6); Glomerular Filtration Rate 235.5 mL/min (90-130); Glucose 98 mg/dL (65-115); Osmolality Calculated 299 mOsm/kg (285-295); Sodium 144 mmol/L (136-145); Total Bilirubin 0.2 mg/dL (0.15-1.2); Total Protein 7.6 g/dL (6.6-8.7)
[2022-06-08] MEDS: zoledronic acid 4 MG in sodium chloride 0.9% (100 ml) 100 ML 420 MG IV (12:08)
== END 2022-06-17 23:59 | disposition home or self-care (01) ==
PROVIDERS: PCP Internal Medicine; Visit Provider Internal Medicine Medical Oncology
DX: C50.812 Malignant neoplasm of overlapping sites of left female breast (principal); C79.51 Secondary malignant neoplasm of bone
CPT/HCPCS: 80053; 85025; 86300; 96365; J3489

== ENCOUNTER 2022-07-13 11:28 | Oncology outpatient (recurring) (ONCR) | payer OTHER, SELFPAY ==
[2022-07-06 12:38] LABS: Basophils % 0.9 %; Eosinophils # 0.1 10^3/uL (0.0-0.8); Eosinophils % 2.7 %; Hematocrit 35.6 % (37.0-47.0); Hemoglobin 11.4 g/dL (11.5-15.3); Lymphocytes # 0.3 10^3/uL (0.8-4.8); Lymphocytes % 14.6 %; Mean Corpuscular Hemoglobin 31.6 pg (28.0-34.0); Mean Corpuscular Volume 98.6 fl (81-99); Monocytes # 0.2 10^3/uL (0.2-0.9); Monocytes % 9.3 %; Neutrophils # 1.62 10^3/uL (1.8-7.7); Neutrophils % 71.6 %; Nucleated Red Blood Cells % 0 %; Platelet Count 211 10^3/cmm (130-400); Red Blood Count 3.61 10^6/uL (4.1-5.3); Red Cell Distribution Width 17.9 % (12.1-15.1); White Blood Count 2.3 10^3/uL (4.0-10.0)
[2022-07-06 13:15] LABS: Alanine Aminotransferase 14 U/L (0-33); Albumin Level 4.2 g/dL (3.5-5.2); Alkaline Phosphatase 178 U/L (35-105); Blood Urea Nitrogen 14 mg/dL (6-20); CA 15-3 131.3 U/mL (0-25); Calcium 9.5 mg/dL (8.5-10.5); Carbon Dioxide 25 mmol/L (22-29); Chloride 102 mmol/L (98-107); Glucose 71 mg/dL (65-115); Osmolality Calculated 289 mOsm/kg (285-295); Sodium 140 mmol/L (136-145); Total Bilirubin 0.3 mg/dL (0.15-1.2); Total Protein 8.2 g/dL (6.6-8.7)
[2022-07-06 13:17] LABS: Anion Gap 17.1 (5-19); Aspartate Amino Transferase 40 U/L (0-32); Potassium 4.1 mmol/L (3.5-5.1)
[2022-07-06] MEDS: zoledronic acid 4 MG in sodium chloride 0.9% (100 ml) 100 ML 420 MG IV (13:28)
[2022-07-06 13:47] VITALS: BP 124/80; PULSE 87; RESP 16; O2SAT 96
== END 2022-07-18 23:59 | disposition home or self-care (01) ==
PROVIDERS: PCP Internal Medicine; Visit Provider Internal Medicine Medical Oncology
DX: C50.812 Malignant neoplasm of overlapping sites of left female breast (principal); C79.51 Secondary malignant neoplasm of bone; Z17.1 Estrogen receptor negative status [ER-]; Z51.0 Encounter for antineoplastic radiation therapy
CPT/HCPCS: 80053; 85025; 86300; 96365; J3489

== ENCOUNTER 2022-08-10 08:01 | Oncology outpatient (recurring) (ONCR) | payer OTHER, SELFPAY ==
[2022-08-10 08:35] LABS: Basophils % 0.4 %; Eosinophils % 1.8 %; Hematocrit 31.6 % (37.0-47.0); Lymphocytes # 0.4 10^3/uL (0.8-4.8); Lymphocytes % 15.6 %; Mean Corpuscular HGB Conc 31.6 g/dL (30.0-36.0); Mean Corpuscular Hemoglobin 31.7 pg (28.0-34.0); Mean Corpuscular Volume 100.3 fl (81-99); Mean Platelet Volume 8.5 fL (7.4-10.4); Monocytes # 0.5 10^3/uL (0.2-0.9); Monocytes % 21.8 %; Neutrophils # 1.34 10^3/uL (1.8-7.7); Neutrophils % 59.5 %; Nucleated Red Blood Cells % 0 %; Platelet Count 171 10^3/cmm (130-400); Red Blood Count 3.15 10^6/uL (4.1-5.3); Red Cell Distribution Width 17.3 % (12.1-15.1); White Blood Count 2.3 10^3/uL (4.0-10.0)
[2022-08-10 09:05] LABS: Alanine Aminotransferase 12 U/L (0-33); Albumin Level 3.9 g/dL (3.5-5.2); Alkaline Phosphatase 159 U/L (35-105); Anion Gap 16.1 (5-19); Aspartate Amino Transferase 31 U/L (0-32); Blood Urea Nitrogen 14 mg/dL (6-20); CA 15-3 134.3 U/mL (0-25); Calcium 9.1 mg/dL (8.5-10.5); Carbon Dioxide 24 mmol/L (22-29); Chloride 105 mmol/L (98-107); Globulin 3.4 g/dL (1.3-4.6); Glucose 105 mg/dL (65-115); Osmolality Calculated 293 mOsm/kg (285-295); Potassium 4.1 mmol/L (3.5-5.1); Sodium 141 mmol/L (136-145); Total Bilirubin 0.3 mg/dL (0.15-1.2); Total Protein 7.3 g/dL (6.6-8.7)
[2022-08-10] MEDS: denosumab 120 mg SDV SUBCUT (10:02)
== END 2022-08-17 23:59 | disposition home or self-care (01) ==
PROVIDERS: PCP Internal Medicine; Visit Provider Internal Medicine Medical Oncology
DX: C50.812 Malignant neoplasm of overlapping sites of left female breast (principal); Z17.0 Estrogen receptor positive status [ER+]; C79.51 Secondary malignant neoplasm of bone; D70.1 Agranulocytosis secondary to cancer chemotherapy; T45.1X5A Adverse effect of antineoplastic and immunosuppressive drugs, initial encounter; I87.2 Venous insufficiency (chronic) (peripheral); D64.81 Anemia due to antineoplastic chemotherapy; D69.59 Other secondary thrombocytopenia; Z79.899 Other long term (current) drug therapy
CPT/HCPCS: 36415; 36591; 80053; 85025; 86300; 96372; J0897

== ENCOUNTER 2022-09-07 08:56 | Oncology outpatient (recurring) (ONCR) | payer OTHER, SELFPAY ==
[2022-09-07] MEDS: denosumab 120 mg SDV SUBCUT (09:19)
[2022-09-07 09:24] LABS: Basophils % 0.5 %; Eosinophils % 1.5 %; Hematocrit 33.1 % (37.0-47.0); Hemoglobin 10.5 g/dL (11.5-15.3); Lymphocytes # 0.4 10^3/uL (0.8-4.8); Lymphocytes % 18.9 %; Mean Corpuscular HGB Conc 31.7 g/dL (30.0-36.0); Mean Corpuscular Hemoglobin 32.3 pg (28.0-34.0); Mean Corpuscular Volume 101.8 fl (81-99); Mean Platelet Volume 8.4 fL (7.4-10.4); Monocytes # 0.3 10^3/uL (0.2-0.9); Monocytes % 13.9 %; Neutrophils % 64.7 %; Nucleated Red Blood Cells % 0 %; Platelet Count 209 10^3/cmm (130-400); Red Blood Count 3.25 10^6/uL (4.1-5.3); Red Cell Distribution Width 17.4 % (12.1-15.1)
[2022-09-07 09:30] VITALS: BP 113/72; PULSE 96; RESP 16; TEMP 36.2; O2SAT 96
[2022-09-07 09:55] LABS: Alanine Aminotransferase 11 U/L (0-33); Albumin Level 4.4 g/dL (3.5-5.2); Alkaline Phosphatase 179 U/L (35-105); Anion Gap 12.1 (5-19); Aspartate Amino Transferase 31 U/L (0-32); Blood Urea Nitrogen 12 mg/dL (6-20); CA 15-3 133.6 U/mL (0-25); Calcium 8.8 mg/dL (8.5-10.5); Carbon Dioxide 26 mmol/L (22-29); Chloride 105 mmol/L (98-107); Globulin 3.2 g/dL (1.3-4.6); Glucose 98 mg/dL (65-115); Osmolality Calculated 288 mOsm/kg (285-295); Potassium 4.1 mmol/L (3.5-5.1); Sodium 139 mmol/L (136-145); Total Bilirubin 0.3 mg/dL (0.15-1.2); Total Protein 7.6 g/dL (6.6-8.7)
== END 2022-09-17 23:59 | disposition home or self-care (01) ==
LOC: ONCMED 08:57
PROVIDERS: PCP Internal Medicine; Visit Provider Internal Medicine Medical Oncology
DX: C79.51 Secondary malignant neoplasm of bone (principal); Z79.899 Other long term (current) drug therapy; Z85.3 Personal history of malignant neoplasm of breast
CPT/HCPCS: 36415; 80053; 85025; 86300; 96372; J0897

== ENCOUNTER 2022-10-05 12:59 | Oncology outpatient (recurring) (ONCR) | payer OTHER, SELFPAY ==
[2022-10-05 13:18] VITALS: BP 122/73; PULSE 92; RESP 16; TEMP 36.7; O2SAT 95
[2022-10-05] MEDS: denosumab 120 mg SDV SUBCUT (13:24)
== END 2022-10-18 23:59 | disposition home or self-care (01) ==
LOC: ONCMED 12:59
PROVIDERS: PCP Internal Medicine; Visit Provider Internal Medicine Medical Oncology
DX: C79.51 Secondary malignant neoplasm of bone (principal); C50.812 Malignant neoplasm of overlapping sites of left female breast; Z79.899 Other long term (current) drug therapy
CPT/HCPCS: 96372; J0897

== ENCOUNTER 2022-11-03 08:00 | Oncology outpatient (recurring) (ONCR) | payer OTHER, SELFPAY ==
[2022-10-21 09:02] LABS: Basophils % 0.5 %; Eosinophils # 0.2 10^3/uL (0.0-0.8); Eosinophils % 3.8 %; Hematocrit 33.7 % (37.0-47.0); Hemoglobin 10.4 g/dL (11.5-15.3); Lymphocytes # 0.5 10^3/uL (0.8-4.8); Lymphocytes % 12.7 %; Mean Corpuscular HGB Conc 30.9 g/dL (30.0-36.0); Mean Corpuscular Hemoglobin 30.5 pg (28.0-34.0); Mean Corpuscular Volume 98.8 fl (81-99); Mean Platelet Volume 8.5 fL (7.4-10.4); Monocytes # 0.5 10^3/uL (0.2-0.9); Monocytes % 11.5 %; Neutrophils % 69.6 %; Nucleated Red Blood Cells % 0 %; Platelet Count 183 10^3/cmm (130-400); Red Blood Count 3.41 10^6/uL (4.1-5.3); Red Cell Distribution Width 14.7 % (12.1-15.1); White Blood Count 4.2 10^3/uL (4.0-10.0)
[2022-10-21 09:35] LABS: Alanine Aminotransferase 15 U/L (0-33); Albumin Level 4.2 g/dL (3.5-5.2); Alkaline Phosphatase 155 U/L (35-105); Aspartate Amino Transferase 31 U/L (0-32); Blood Urea Nitrogen 18 mg/dL (6-20); Calcium 9.6 mg/dL (8.5-10.5); Carbon Dioxide 26 mmol/L (22-29); Chloride 106 mmol/L (98-107); Globulin 2.6 g/dL (1.3-4.6); Glucose 111 mg/dL (65-115); Osmolality Calculated 301 mOsm/kg (285-295); Sodium 144 mmol/L (136-145); Total Bilirubin 0.2 mg/dL (0.15-1.2); Total Protein 6.8 g/dL (6.6-8.7)
[2022-10-21] MEDS: fulvestrant 250 mg/5 mL Syringe 500 MG IM (11:25)
--- NOTE | 2022-10-25 08:25 | PC.PHAR ---
ALPELISIB EDUCATION 10/21/22 - PATIENT ARRIVED WITH FOR ALPELISIB EDUCATION. PATIENT BROUGHT MEDICATION WITH HER. WE TALKED ABOUT HOW THIS MED WORKS AND HOW TO TAKE IT. PATIENT WILL TAKE AT APPROX SAME TIME EVERY DAY AND IF EVER FORGETS TO TAKE IT, WILL SKIP AND RESTART AT THE NEXT SCHEDULED DOSE. WE TALKED ABOUT THE THREE MAIN SIDE EFFECTS FOR THIS MED: DIARRHEA, HYPERGLYCEMIA, AND RASH. PATIENT STATES SHE HAS STARTED ZYRTEC AND METFORMIN ALREADY. I ADVISED HER TO GO [employer]TC ANTIDIARRHEAL AND TAKE ACCORDING TO PACKAGE INSERT AT FIRST SIGN OF DIARRHEA. OTHER COMMON SIDE EFFECTS ARE DECREASE APPETITE, N/V AND FATIGUE. SHE WILL CALL IF ANY OF THESE ARE INTOLERABLE. THIS MED IS TAKEN IN COMBO WITH [employer]. HANDED PATIENT OFF TO [facility] FOR FIRST INJECTION. PATIENT VOICED UNDERSTANDING AND WILL CALL US WITH ANY QUESTIONS OR CONCERNS.
[2022-11-03 08:54] LABS: Basophils % 0.3 %; Eosinophils # 0.2 10^3/uL (0.0-0.8); Eosinophils % 2.8 %; Hematocrit 37.1 % (37.0-47.0); Hemoglobin 11.4 g/dL (11.5-15.3); Lymphocytes % 16.1 %; Mean Corpuscular HGB Conc 30.7 g/dL (30.0-36.0); Mean Corpuscular Hemoglobin 30.1 pg (28.0-34.0); Mean Corpuscular Volume 97.9 fl (81-99); Monocytes # 0.6 10^3/uL (0.2-0.9); Neutrophils # 4.56 10^3/uL (1.8-7.7); Neutrophils % 70.6 %; Nucleated Red Blood Cells % 0 %; Platelet Count 205 10^3/cmm (130-400); Red Blood Count 3.79 10^6/uL (4.1-5.3); Red Cell Distribution Width 14.9 % (12.1-15.1); White Blood Count 6.5 10^3/uL (4.0-10.0)
[2022-11-03 09:12] LABS: Alanine Aminotransferase 14 U/L (0-33); Albumin Level 4.4 g/dL (3.5-5.2); Alkaline Phosphatase 134 U/L (35-105); Anion Gap 16.9 (5-19); Aspartate Amino Transferase 27 U/L (0-32); Blood Urea Nitrogen 17 mg/dL (6-20); Calcium 8.8 mg/dL (8.5-10.5); Carbon Dioxide 27 mmol/L (22-29); Chloride 101 mmol/L (98-107); Glomerular Filtration Rate 105.8 mL/min (90-130); Glucose 178 mg/dL (65-115); Osmolality Calculated 298 mOsm/kg (285-295); Potassium 3.9 mmol/L (3.5-5.1); Sodium 141 mmol/L (136-145); Total Bilirubin 0.2 mg/dL (0.15-1.2); Total Protein 7.4 g/dL (6.6-8.7)
[2022-11-03] MEDS: denosumab 120 mg SDV SUBCUT (10:32)
[2022-11-03] MEDS: fulvestrant 250 mg/5 mL Syringe 500 MG IM (10:33)
== END 2022-11-15 23:59 | disposition home or self-care (01) ==
PROVIDERS: PCP Internal Medicine; Visit Provider Internal Medicine Medical Oncology
DX: C50.812 Malignant neoplasm of overlapping sites of left female breast (principal); Z79.899 Other long term (current) drug therapy; Z79.818 Long term (current) use of other agents affecting estrogen receptors and estrogen levels
CPT/HCPCS: 36415; 80053; 85025; 86300; 96372; J0897; J9395

== ENCOUNTER 2022-11-18 11:30 | Oncology outpatient (recurring) (ONCR) | payer OTHER, SELFPAY ==
[2022-11-17 15:15] LABS: Basophils % 0.4 %; Eosinophils # 0.2 10^3/uL (0.0-0.8); Eosinophils % 2.6 %; Hemoglobin 10.8 g/dL (11.5-15.3); Lymphocytes # 1.4 10^3/uL (0.8-4.8); Lymphocytes % 19.9 %; Mean Corpuscular Hemoglobin 29.3 pg (28.0-34.0); Mean Corpuscular Volume 97.8 fl (81-99); Mean Platelet Volume 8.4 fL (7.4-10.4); Monocytes # 0.8 10^3/uL (0.2-0.9); Monocytes % 11.5 %; Neutrophils # 4.39 10^3/uL (1.8-7.7); Neutrophils % 63.7 %; Nucleated Red Blood Cells # 0.1 /100WBC; Nucleated Red Blood Cells % 0.7 %; Platelet Count 225 10^3/cmm (130-400); Red Blood Count 3.68 10^6/uL (4.1-5.3); Red Cell Distribution Width 14.6 % (12.1-15.1); White Blood Count 6.9 10^3/uL (4.0-10.0)
[2022-11-17 15:45] LABS: Alanine Aminotransferase 14 U/L (0-33); Albumin Level 4.2 g/dL (3.5-5.2); Alkaline Phosphatase 124 U/L (35-105); Anion Gap 16.3 (5-19); Aspartate Amino Transferase 29 U/L (0-32); Blood Urea Nitrogen 14 mg/dL (6-20); CA 15-3 155.6 U/mL (0-25); Calcium 9.3 mg/dL (8.5-10.5); Carbon Dioxide 28 mmol/L (22-29); Chloride 101 mmol/L (98-107); Globulin 3.2 g/dL (1.3-4.6); Glomerular Filtration Rate 130.6 mL/min (90-130); Glucose 115 mg/dL (65-115); Osmolality Calculated 293 mOsm/kg (285-295); Potassium 4.3 mmol/L (3.5-5.1); Sodium 141 mmol/L (136-145); Total Bilirubin 0.2 mg/dL (0.15-1.2); Total Protein 7.4 g/dL (6.6-8.7)
[2022-11-18] MEDS: fulvestrant 250 mg/5 mL Syringe 500 MG IM (11:56)
== END 2022-12-16 23:59 | disposition home or self-care (01) ==
PROVIDERS: PCP Internal Medicine; Visit Provider Internal Medicine Medical Oncology
DX: C50.812 Malignant neoplasm of overlapping sites of left female breast (principal); Z79.899 Other long term (current) drug therapy; Z79.818 Long term (current) use of other agents affecting estrogen receptors and estrogen levels
CPT/HCPCS: 36415; 80053; 85025; 86300; 96402; J9395

== ENCOUNTER 2022-12-19 12:31 | Oncology outpatient (recurring) (ONCR) | payer OTHER, SELFPAY ==
[2022-12-19 13:37] LABS: Hemoglobin 10.4 g/dL (11.5-15.3); Mean Corpuscular HGB Conc 30.6 g/dL (30.0-36.0); Mean Corpuscular Hemoglobin 28.8 pg (28.0-34.0); Mean Corpuscular Volume 94.2 fl (81-99); Mean Platelet Volume 7.8 fL (7.4-10.4); Platelet Count 269 10^3/cmm (130-400); Red Blood Count 3.61 10^6/uL (4.1-5.3); Red Cell Distribution Width 15.4 % (12.1-15.1); White Blood Count 6.6 10^3/uL (4.0-10.0)
[2022-12-19 14:03] LABS: Slide Review Slide Review Perform; Total Cells Counted 100 (0-100)
[2022-12-19 14:04] LABS: Absolute Neutrophil 4.6 10^3/cmm (1.4-6.5); Absolute Segmented Neutrophil 4.6 10/cmm (1.6-7.1); Eosinophils 0 %; Lymphocytes 18 %; Lymphocytes Absolute 1.2 10^3/cmm (1.2-3.4); Platelet Estimate Normal (Normal); Segmented Neutrophils 69 %
[2022-12-19 14:14] LABS: Alanine Aminotransferase 19 U/L (0-33); Albumin Level 4.1 g/dL (3.5-5.2); Alkaline Phosphatase 115 U/L (35-105); Anion Gap 15.5 (5-19); Aspartate Amino Transferase 28 U/L (0-32); Blood Urea Nitrogen 12 mg/dL (6-20); Carbon Dioxide 26 mmol/L (22-29); Chloride 102 mmol/L (98-107); Globulin 3.2 g/dL (1.3-4.6); Glomerular Filtration Rate 105.8 mL/min (90-130); Glucose 118 mg/dL (65-115); Osmolality Calculated 291 mOsm/kg (285-295); Potassium 3.5 mmol/L (3.5-5.1); Sodium 140 mmol/L (136-145); Total Bilirubin 0.3 mg/dL (0.15-1.2); Total Protein 7.3 g/dL (6.6-8.7)
[2022-12-19 14:57] VITALS: BP 143/86; PULSE 86; RESP 18; TEMP 36.8; O2SAT 95
[2022-12-19] MEDS: denosumab 120 mg SDV SUBCUT (15:13)
[2022-12-19] MEDS: fulvestrant 250 mg/5 mL Syringe 500 MG IM (15:13)
[2022-12-19 15:51] LABS: Thyroid Stimulating Hormone 1.49 uIU/mL (0.27-4.20)
[2022-12-19 18:29] LABS: CA 15-3 145.4 U/mL (0-25)
== END 2023-01-15 23:59 | disposition home or self-care (01) ==
PROVIDERS: Nurse Practitioner; PCP Internal Medicine; Visit Provider Internal Medicine Medical Oncology
DX: C50.812 Malignant neoplasm of overlapping sites of left female breast (principal); Z79.899 Other long term (current) drug therapy; Z79.818 Long term (current) use of other agents affecting estrogen receptors and estrogen levels; Z17.0 Estrogen receptor positive status [ER+]
CPT/HCPCS: 36415; 80053; 84443; 85007; 85025; 86300; 96372; J0897; J9395

== ENCOUNTER 2023-02-14 10:30 | Oncology outpatient (recurring) (ONCR) | payer OTHER, SELFPAY ==
[2023-01-16 13:35] LABS: Basophils % 0.5 %; Eosinophils # 0.2 10^3/uL (0.0-0.8); Eosinophils % 2.8 %; Hematocrit 35.4 % (37.0-47.0); Hemoglobin 10.5 g/dL (11.5-15.3); Lymphocytes # 0.8 10^3/uL (0.8-4.8); Lymphocytes % 12.9 %; Mean Corpuscular HGB Conc 29.7 g/dL (30.0-36.0); Mean Corpuscular Hemoglobin 27.9 pg (28.0-34.0); Mean Corpuscular Volume 94.1 fl (81-99); Mean Platelet Volume 7.7 fL (7.4-10.4); Monocytes # 0.5 10^3/uL (0.2-0.9); Monocytes % 8.5 %; Neutrophils # 4.23 10^3/uL (1.8-7.7); Neutrophils % 70.9 %; Nucleated Red Blood Cells # 0.1 /100WBC; Nucleated Red Blood Cells % 1.8 %; Platelet Count 290 10^3/cmm (130-400); Red Blood Count 3.76 10^6/uL (4.1-5.3); Red Cell Distribution Width 16.9 % (12.1-15.1)
[2023-01-16 14:07] LABS: Alanine Aminotransferase 18 U/L (0-33); Albumin Level 4.2 g/dL (3.5-5.2); Alkaline Phosphatase 122 U/L (35-105); Anion Gap 15.1 (5-19); Aspartate Amino Transferase 25 U/L (0-32); Blood Urea Nitrogen 13 mg/dL (6-20); CA 15-3 134.9 U/mL (0-25); Calcium 8.5 mg/dL (8.5-10.5); Carbon Dioxide 26 mmol/L (22-29); Chloride 103 mmol/L (98-107); Globulin 3.1 g/dL (1.3-4.6); Glomerular Filtration Rate 105.8 mL/min (90-130); Glucose 180 mg/dL (65-115); Osmolality Calculated 295 mOsm/kg (285-295); Potassium 4.1 mmol/L (3.5-5.1); Sodium 140 mmol/L (136-145); Total Bilirubin 0.2 mg/dL (0.15-1.2); Total Protein 7.3 g/dL (6.6-8.7)
[2023-01-16] MEDS: denosumab 120 mg SDV SUBCUT (15:38)
[2023-01-16] MEDS: fulvestrant 250 mg/5 mL Syringe 500 MG IM (15:38)
--- NOTE | 2023-01-16 15:53 | XR_ITS ---
WS: [id number] [id number] REASON FOR EXAM: right arm pain, bone mets FINDINGS: Ill-defined areas of sclerotic density in the humeral head and surgical neck. No destructive bone les ion. Same findings are demonstrated with greater detail on PET CT scan of 09/05/2022 as well as metastatic disease in the right scapula and right clavicle. XR/[place] [id number] IMPRESSION: Metastatic disease in the right shoulder without destructive bone lesion or pat hologic fracture.
[2023-02-14 08:52] LABS: Basophils % 0.4 %; Eosinophils # 0.1 10^3/uL (0.0-0.8); Eosinophils % 2.6 %; Hemoglobin 9.9 g/dL (11.5-15.3); Lymphocytes # 0.5 10^3/uL (0.8-4.8); Lymphocytes % 10.7 %; Mean Corpuscular Hemoglobin 27.7 pg (28.0-34.0); Mean Corpuscular Volume 92.4 fl (81-99); Monocytes # 0.7 10^3/uL (0.2-0.9); Monocytes % 14.2 %; Neutrophils # 3.33 10^3/uL (1.8-7.7); Neutrophils % 67.4 %; Nucleated Red Blood Cells # 0.1 /100WBC; Nucleated Red Blood Cells % 2.8 %; Platelet Count 144 10^3/cmm (130-400); Red Blood Count 3.57 10^6/uL (4.1-5.3); Red Cell Distribution Width 17.7 % (12.1-15.1); White Blood Count 4.9 10^3/uL (4.0-10.0)
[2023-02-14 09:26] LABS: Alanine Aminotransferase 18 U/L (0-33); Albumin Level 4.2 g/dL (3.5-5.2); Alkaline Phosphatase 127 U/L (35-105); Anion Gap 14.8 (5-19); Aspartate Amino Transferase 30 U/L (0-32); Blood Urea Nitrogen 10 mg/dL (6-20); CA 15-3 135.9 U/mL (0-25); Calcium 8.3 mg/dL (8.5-10.5); Carbon Dioxide 27 mmol/L (22-29); Chloride 104 mmol/L (98-107); Globulin 3.1 g/dL (1.3-4.6); Glomerular Filtration Rate 130.6 mL/min (90-130); Glucose 103 mg/dL (65-115); Osmolality Calculated 293 mOsm/kg (285-295); Potassium 3.8 mmol/L (3.5-5.1); Sodium 142 mmol/L (136-145); Total Bilirubin 0.4 mg/dL (0.15-1.2); Total Protein 7.3 g/dL (6.6-8.7)
[2023-02-14] MEDS: denosumab 120 mg SDV SUBCUT (11:11)
[2023-02-14 11:13] LABS: Ferritin 806 ng/mL (15-150); Iron 65 ug/dL (37-145); Percent Saturation 31.2 % (20-50); Total Iron Binding Capacity 208 mcg/dl; Unsaturated Iron Binding 143 ug/dL (112-347)
[2023-02-14] MEDS: fulvestrant 250 mg/5 mL Syringe 500 MG IM (11:15)
[2023-02-14 11:21] VITALS: BP 127/78; PULSE 102; RESP 17; TEMP 37.3; O2SAT 98
== END 2023-02-15 23:59 | disposition home or self-care (01) ==
PROVIDERS: Nurse Practitioner; Nurse Practitioner Family; PCP Internal Medicine; Visit Provider Internal Medicine Medical Oncology
DX: C50.812 Malignant neoplasm of overlapping sites of left female breast (principal); D64.9 Anemia, unspecified
CPT/HCPCS: 36415; 73060; 80053; 82728; 83540; 83550; 85025; 86300; 96372; J0897; J9395

== ENCOUNTER 2023-03-14 08:32 | Oncology outpatient (recurring) (ONCR) | payer OTHER, SELFPAY ==
[2023-03-14 08:47] VITALS: BP 137/77; PULSE 94; RESP 18; TEMP 36.5; O2SAT 98
[2023-03-14 09:05] LABS: Hematocrit 32.2 % (37.0-47.0); Hemoglobin 9.6 g/dL (11.5-15.3); Mean Corpuscular HGB Conc 29.8 g/dL (30.0-36.0); Mean Corpuscular Hemoglobin 28.3 pg (28.0-34.0); Mean Platelet Volume 8.3 fL (7.4-10.4); Platelet Count 220 10^3/cmm (130-400); Red Blood Count 3.39 10^6/uL (4.1-5.3); Red Cell Distribution Width 18.9 % (12.1-15.1); White Blood Count 6.1 10^3/uL (4.0-10.0)
[2023-03-14 09:37] LABS: Alanine Aminotransferase 17 U/L (0-33); Albumin Level 4.2 g/dL (3.5-5.2); Alkaline Phosphatase 121 U/L (35-105); Anion Gap 15.1 (5-19); Aspartate Amino Transferase 26 U/L (0-32); Blood Urea Nitrogen 12 mg/dL (6-20); CA 15-3 140.5 U/mL (0-25); Calcium 8.7 mg/dL (8.5-10.5); Carbon Dioxide 27 mmol/L (22-29); Chloride 103 mmol/L (98-107); Glomerular Filtration Rate 88.6 mL/min (90-130); Glucose 150 mg/dL (65-115); Osmolality Calculated 295 mOsm/kg (285-295); Potassium 4.1 mmol/L (3.5-5.1); Sodium 141 mmol/L (136-145); Total Bilirubin 0.2 mg/dL (0.15-1.2); Total Protein 7.2 g/dL (6.6-8.7)
[2023-03-14 10:24] VITALS: BP 140/79; PULSE 91; RESP 16; TEMP 36.4; O2SAT 95
[2023-03-14 10:35] LABS: Slide Review Slide Review Perform
[2023-03-14 10:36] LABS: Absolute Eosinophils 0.1 10^3/cmm (0.0-0.7); Absolute Segmented Neutrophil 4.2 10/cmm (1.6-7.1); Band Neutrophils Absolute 0.2 10^3/cmm (0.0-1.2); Eosinophils 2 %; Lymphocytes 14 %; Monocytes Absolute 0.2 10^3/cmm (0.1-0.6); Segmented Neutrophils 69 %; Total Cells Counted 100 (0-100)
[2023-03-14 10:37] LABS: Absolute Neutrophil 4.5 10^3/cmm (1.4-6.5); Corrected White Blood Count 5.9 10^3/cmm (4.8-10.8); Platelet Estimate Normal (Normal); Polychromasia 1+
[2023-03-14 10:38] LABS: Hypersegmented Polys 1+; Hypochromasia 1+
[2023-03-14 10:39] LABS: Macrocytosis 1+
[2023-03-14] MEDS: denosumab 120 mg SDV SUBCUT (10:48)
[2023-03-14] MEDS: fulvestrant 250 mg/5 mL Syringe 500 MG IM (10:50)
[2023-03-14 10:57] VITALS: BP 104/79; PULSE 91; RESP 16; TEMP 36.4; O2SAT 95
== END 2023-03-17 23:59 | disposition home or self-care (01) ==
PROVIDERS: Nurse Practitioner Family; PCP Internal Medicine; Visit Provider Internal Medicine Medical Oncology
DX: C50.812 Malignant neoplasm of overlapping sites of left female breast (principal)
CPT/HCPCS: 36415; 80053; 85007; 85025; 86300; 96401; J0897; J9395

== ENCOUNTER 2023-04-13 14:18 | Oncology outpatient (recurring) (ONCR) | payer OTHER, SELFPAY ==
[2023-04-13 15:05] VITALS: BP 143/86; PULSE 98; RESP 18; TEMP 36.2; O2SAT 95
[2023-04-13] MEDS: fulvestrant 250 mg/5 mL Syringe 500 MG IM (15:05)
[2023-04-13] MEDS: denosumab 120 mg SDV SUBCUT (15:06)
== END 2023-04-17 23:59 | disposition home or self-care (01) ==
PROVIDERS: PCP Internal Medicine; Visit Provider Internal Medicine Medical Oncology
DX: C79.51 Secondary malignant neoplasm of bone (principal)
CPT/HCPCS: 96372; 96402; J0897; J9395

== ENCOUNTER 2023-05-11 14:58 | Oncology outpatient (recurring) (ONCR) | payer OTHER, SELFPAY ==
[2023-05-11] MEDS: denosumab 120 mg SDV SUBCUT (15:10)
[2023-05-11] MEDS: fulvestrant 250 mg/5 mL Syringe 500 MG IM (15:10)
[2023-05-11 15:20] VITALS: BP 145/75; PULSE 90; TEMP 36.9; O2SAT 93
== END 2023-05-18 23:59 | disposition home or self-care (01) ==
LOC: ONCMED 14:58
PROVIDERS: PCP Internal Medicine; Visit Provider Internal Medicine Medical Oncology
DX: C50.812 Malignant neoplasm of overlapping sites of left female breast (principal); Z79.899 Other long term (current) drug therapy; Z79.818 Long term (current) use of other agents affecting estrogen receptors and estrogen levels
CPT/HCPCS: 96372; J0897; J9395

== ENCOUNTER 2023-06-14 07:44 | Outpatient (CLI) | payer OTHER, SELFPAY ==
--- NOTE | 2023-06-14 08:00 | MRR_ITS ---
PROCEDURE INFORMATION: Exam: MR Head Without and With Contrast Exam date and time: 06/14/2023 7:53 AM Age: 53 years old Clinical indication: Condition or disease; History of cancer (specify primary cancer site): ; Visual disturbance; Patient HX: History of breast cancer/bone mets/blurriness in both eyes; Additional info: Metastatic breast cancer to bone with vision changes TECHNIQUE: Imaging protocol: Magnetic resonance imaging of the head without and with contrast. COMPARISON: CT cervical spin wo con* [id number] 01/29/2021 11:50 AM FINDINGS: Brain: A metastasis in the anterior right temporal lobe measures 3 cm x 2.6 cm x 2 cm. Extensive edema in the white matter extends posteriorly from this into the right temporal lobe and anterior right parietal lobe. There is a 2.1 cm by 1 cm x 0.7 cm metastasis centrally in the upper left cerebellum with a small amount of surrounding edema. There is 5 mm midline shift to the left, likely caused by the right temporal lobe findings. A peripheral metastasis laterally in the right frontal lobe measures 2.8 cm by 0.8 cm by 1.2 cm. This has a small amount of adjacent edema. There is a similar, slightly smaller peripheral metastasis more superiorly in the right frontal lobe with a small amount of surrounding brain edema. There is diffuse meningeal thickening and enhancement of a few mm which could be diffuse meningeal metastatic disease and/or meningitis. There is an area of peripheral enhancement in the posterior right parietal region which can not be from the meninges measuring 2 cm x 2.3 cm x 0.7 cm. This is not associated with obvious brain edema, so may be focal meningeal thickening/metastasis. There is a 2nd similar adjacent area of enhancement. A similar finding in the left anterior parietal region measures 2.4 cm x 2 cm x 0.8 cm. A 0.7 cm in maximum dimension metastasis likely in the lateral cortical right parietal lobe is associated with a small amount of edema in the brain. There is no evidence of intracranial hemorrhage. There is no obvious acute infarction. No other abnormalities of the brain are identified. Cerebral ventricles: Normal. No ventriculomegaly. Bones/joints: There are 3 areas of enhancement in the skull. One in the right lateral frontal region measures 1.1 cm in maximum dimension. Another in the lateral left temporal region measures 1 cm in maximum dimension. The 3rd in the high left frontal region measures 2.3 cm in maximum dimension. These are suspicious for calvarial metastases. Otherwise, unremarkable osseous structures. Paranasal sinuses: Mild bilateral sinusitis. Mastoid air cells: Bilateral mastoiditis. Orbital cavities: Unremarkable. Soft tissues: Unremarkable. MR/MR head wo/w con [id number] IMPRESSION: 1. Multiple intracranial metastases. Some are in the brain, and some are likely extra-axial or arising from the meninges. See above for measurements and details. 2. Diffuse meningeal thickening and enhancement. This could be meningitis. Some or all of this could be widespread meningeal metastatic disease. 3. 3 areas of calvarial enhancement as above could be calvarial metastases. 4. Bilateral sinusitis and mastoiditis.
== END 2023-06-14 07:45 | disposition home or self-care (01) ==
PROVIDERS: PCP Internal Medicine; Visit Provider Nurse Practitioner Family
DX: C79.31 Secondary malignant neoplasm of brain (principal); H53.8 Other visual disturbances; C79.51 Secondary malignant neoplasm of bone; Z85.3 Personal history of malignant neoplasm of breast; J32.9 Chronic sinusitis, unspecified; H70.93 Unspecified mastoiditis, bilateral
CPT/HCPCS: 70553

== ENCOUNTER 2023-06-14 14:47 | Oncology outpatient (recurring) (ONCR) | payer OTHER, SELFPAY ==
[2023-06-08 14:00] VITALS: BP 144/83; PULSE 99; RESP 16; TEMP 37.1; O2SAT 99
[2023-06-08 14:11] LABS: Hematocrit 28.8 % (36-47); Mean Corpuscular HGB Conc 30.2 g/dL (30-55); Mean Corpuscular Hemoglobin 29.4 pg (27-33); Mean Corpuscular Volume 97.3 fl (85-98); Mean Platelet Volume 8.8 fL (7.4-10.4); Platelet Count 186 10^3/cmm (157-399); Red Blood Count 2.96 10^6/uL (3.85-5.65)
[2023-06-08 14:34] LABS: Alanine Aminotransferase 17 U/L (0-33); Albumin Level 4.1 g/dL (3.5-5.2); Alkaline Phosphatase 108 U/L (35-105); Anion Gap 15.7 (5-19); Aspartate Amino Transferase 29 U/L (0-32); Blood Urea Nitrogen 10 mg/dL (6-20); CA 15-3 179.9 U/mL (0-25); Calcium 8.8 mg/dL (8.5-10.5); Carbon Dioxide 28 mmol/L (22-29); Chloride 99 mmol/L (98-107); Globulin 3.1 g/dL (1.3-4.6); Glomerular Filtration Rate 75.6 mL/min (90-130); Glucose 226 mg/dL (65-115); Osmolality Calculated 294 mOsm/kg (285-295); Potassium 3.7 mmol/L (3.5-5.1); Sodium 139 mmol/L (136-145); Total Bilirubin 0.3 mg/dL (0.15-1.2); Total Protein 7.2 g/dL (6.6-8.7)
[2023-06-08 14:46] LABS: Slide Review Slide Review Perform
[2023-06-08 14:48] LABS: Absolute Segmented Neutrophil 2.8 10/cmm (1.6-7.1); Band Neutrophils Absolute 0.1 10^3/cmm (0.0-1.2); Lymphocytes 16 %; Segmented Neutrophils 63 %; Total Cells Counted 100 (0-100)
[2023-06-08 14:49] LABS: Absolute Eosinophils 0.2 10^3/cmm (0.0-0.7); Corrected White Blood Count 4.3 10^3/cmm (4.8-10.8); Eosinophils 4 %; Lymphocytes Absolute 0.8 10^3/cmm (1.2-3.4); Monocytes Absolute 0.2 10^3/cmm (0.1-0.6); Platelet Estimate Normal (Normal)
[2023-06-08] MEDS: denosumab 120 mg SDV SUBCUT (16:17)
[2023-06-08] MEDS: fulvestrant 250 mg/5 mL Syringe 500 MG IM (16:20)
[2023-06-08 17:16] LABS: Add Urine Culture? Yes; Add Urine Microscopic? YES; Bacteria Urine 4+ /hpf; Bilirubin Urine Neg (Negative); Blood Urine Trace (Negative); Glucose Urine UA Norm (Normal); Ketones Urine Negative (Negative); Leukocyte Esterase Urine 1+ (Negative); Nitrate Urine Negative (Negative); Protein Urine Trace (Negative); RBC Urine 0-4 /hpf (0-2); Squamous Epithelial Cell Urine 0-4 /hpf (0-5); Urine Appearance SL Hazy (CLEAR); Urine Color Yellow (Yellow); Urobilinogen Urine Norm (Negative); WBC Urine 40-55 /hpf (0-5); pH Urine 5 (5-7)
[2023-06-09 11:49] LABS: CA 27.29 433 U/mL (<38)
== END 2023-06-17 23:59 | disposition home or self-care (01) ==
PROVIDERS: Internal Medicine Medical Oncology; Nurse Practitioner Family; PCP Internal Medicine; Visit Provider Internal Medicine Medical Oncology
DX: C50.812 Malignant neoplasm of overlapping sites of left female breast (principal); Z17.0 Estrogen receptor positive status [ER+]
CPT/HCPCS: 36415; 80053; 81001; 85007; 85025; 86300; 87077; 87086; 87186; 96372; J0897; J9395

== ENCOUNTER 2023-07-05 14:20 | Oncology outpatient (recurring) (ONCR) | payer OTHER, SELFPAY ==
--- NOTE | 2023-06-20 15:28 | ONCRAD EPV_ITS ---
Radiation Oncology Established Patient Visit Patient: Chantell Teran [id number] : 1970> Age: 53> Sex: Female> Dictated by: Richard Orlando Date of Service: 06/20/2023 Referring Physician(s) : Dr. Shailesh Garrison Diagnosis: C50.919 - Malignant neoplasm of unspecified site of unspecified female breast, Diagnosed 03/01/2022 (Active) C50.812 - Malignant neoplasm of overlapping sites of left female breast, Diagnosed 11/11/2014 (Active) Stage IIA, T2, pN0, M0, G1 Breast cancer. This is a 50 year-old woman with grade 1 infiltrating ductal carcinoma of the left breast, stage IIA (T2, pN0, M0), ER/KY positive and HER-2/naman negative. She had presented with abnormal findings in the left breast on a yearly followup visit with Dr. Moore. Subsequent screening mammogram showed posterior third midline-lateral architectural distortion on the left CC view which appeared slightly more prominent compared to a baseline mammogram in March 2013. She then had diagnostic mammogram of the left breast with ultrasound imaging. The ultrasound showed an irregular, ill-defined, spiculated hypoechoic shadowing mass at the 12:00 position 2 cm from the nipple. It measured 2.7 x 2.9 cm. The appearance was highly suspicious for malignancy. She was referred to Dr. Garrison. She underwent excisional biopsy on 10/16/14. Pathology showed grade 1 infiltrating ductal carcinoma measuring 2.7 x 1.3 cm. Tumor was noted within 1 mm of the lateral and posterior margins, and within 5 mm of the superior margin. The medial, anterior, and inferior margins were free. The tumor was ER positive at 97% and KY positive at 93%. It was negative for overexpression of HER-2/naman by IHC and by FISH. She underwent left sentinel axillary lymph node biopsy on 10/30/14. Pathology showed 1 lymph node which measured 1.5 cm, but it was benign, with no evidence of metastatic tumor. She had further evaluation with an Oncotype DX assay. It showed a recurrence score of 5, low risk category, correlating with a 5% risk of recurrence at 10 years for patients who had received adjuvant hormonal therapy with tamoxifen. Based on that result, I felt that she would have a low probability of benefit with adjuvant chemotherapy, and I did recommend limiting her adjuvant therapy to hormonal treatment. She was given radiation to the left breast. She completed treatment on 01/23/2015 to a total dose of 6600 cGy. She then started adjuvant hormonal therapy with tamoxifen. She has been tolerating it well. I had seen her for a follow-up visit on 08/31/2017. At that time she was doing well with no evidence of recurrence of the breast cancer. She continued adjuvant hormonal therapy with tamoxifen 20 mg daily. She had subsequently presented to Dr. Moore with heavy menstrual bleeding. Her uterus was noted to be enlarged by ultrasound. On 02/13/2018 show underwent laparoscopic vaginal hysterectomy with bilateral sloping to oophorectomy. Pathology was benign. I had seen her for a follow-up visit on 02/15/2018, and at that point she began a further adjuvant hormonal therapy with anastrozole 1 mg daily. Her baseline DEXA scan showed normal bone mineral density. As of her follow-up visit on 08/23/2018 she appeared to be tolerating the anastrozole well. She was, though, having GERD symptoms, and she also had mild anemia which appear to be due to iron deficiency. She continued anastrozole, but she also began treatment with Protonix and she started on oral iron supplementation with ferrous sulfate. I had seen her for a scheduled visit on 02/07/2019. At that point she reported that her energy was a little better, but her joint pain had worsened significantly, particularly in her knees and feet but also in the shoulders. She continued to have acid reflux symptoms despite taking pantoprazole. I did opt to have her stop the anastrozole. As of her follow-up visit on 03/13/2019 she began further hormonal therapy with exemestane 25 mg daily. She was able to tolerate it with acceptable toxicity. On 10/10/2019 she underwent open reduction and internal fixation for a trimalleolar right ankle fracture. As of her follow-up visit on 02/12/2020 she was doing well clinically with no evidence of recurrence of the breast cancer. She continued exemestane through February 2020, at which point she had completed 5 years of adjuvant hormonal therapy. Her other medical illnesses have been limited to GERD, nephrolithiasis, and anxiety/depression. She is a nonsmoker. INTERIM HISTORY: In July [address] Paulino for persistent GERD symptoms. Her EGD on 08/10/2020 showed evidence of hiatal hernia with gastritis, duodenitis, and reflux esophagitis. By clinical evaluation, she appeared to have underlying obstructive sleep apnea which subsequently was confirmed with a sleep study. She was then started on CPAP with significant improvement in her symptoms. However, she had then presented with pain in her neck radiating into her right arm, suspicious for cervical radiculopathy. Her contrast enhanced cervical spine MRI on 01/08/2021 showed replacement of the normal bone marrow signal in the C5 vertebral body with associated mild edema and enhancement. The appearance was felt to be consistent with atypical hemangioma versus metastatic disease. She is seen now for a follow-up visit. She has had significant improvement in her energy/activity since she has been on CPAP. Her ECOG score is 0. She has good appetite. She has not had fever or night sweats. She has just occasional hot flashes. She still has some pain in the neck area and upper right arm/axillary area. She also has some mild discomfort in the upper right chest. She occasionally has a little tingling in the right hand. She has no other focal neurologic symptoms. She had been having some pain in the left shoulder and left arm prior to the onset of right arm pain, but that completely resolved. She has had no other joint or bone pain. She did have a pressure like headache behind her left ear last night. She has transient dizziness on standing. Some generalized leg weakness. Vision seems slow to adjust but she has no persistent visual symptoms. MRI here 06/14/2023 nodular diffuse meningeal enhancement with right anterior temporal lobe mass extending into adjacent brain, right anterior inferior nodular in frontal lobe also may be meningeal based. Right temporal lobe white matter edema extending from the right meningeal temporal lobe mass. Now on DXM 4 mg BID with some fluid retention noted in her legs. Systemic treatment with alpelisib (Piqray) has been stopped due to disease progression. Radiotherapy to Date: Course: C2, [facility], Energy: 15X, Dose/Fx (cGy): 300, #Fx: , Dose Correction (cGy): 0, Total Dose (cGy): 3,000, Start Date: 04/07/2022, End Date: 04/20/2022, Elapsed Days: 13 Course: C2, Treatment Site: Sternum, Ref. ID: GTV Sternum, Energy: 15X, Dose/Fx (cGy): 300, #Fx: 10 / 10, Dose Correction (cGy): 0, Total Dose (cGy): 3,000, Start Date: 04/07/2022, End Date: 04/20/2022, Elapsed Days: 13 Course: C2, Treatment Site: LRibs, Ref. ID: GTV LRibs, Energy: 15X, Dose/Fx (cGy): 300, #Fx: 10 / 10, Dose Correction (cGy): 0, Total Dose (cGy): 3,000, Start Date: 04/07/2022, End Date: 04/20/2022, Elapsed Days: 13 Course: C2, Treatment Site: [facility], Ref. ID: [facility]_, Energy: 15X, Dose/Fx (cGy): 300, #Fx: 10 / 10, Dose Correction (cGy): 0, Total Dose (cGy): 3,000, Start Date: 04/07/2022, End Date: 04/20/2022, Elapsed Days: 13 Course: C2, Treatment Site: [facility], Ref. ID: [facility]_, Energy: 15X, Dose/Fx (cGy): 300, #Fx: 10 / 10, Dose Correction (cGy): 0, Total Dose (cGy): 3,000, Start Date: 04/07/2022, End Date: 04/20/2022, Elapsed Days: 13 Course: Course1, Treatment Site: LT BREAST, Ref. ID: LT BREAST, Energy: 6X, Dose/Fx (cGy): 200, #Fx: 25 / 25, Dose Correction (cGy): 0, Total Dose (cGy): 5,000, Start Date: 12/09/2014, End Date: 01/12/2015, Elapsed Days: 34 Course: Course1, Treatment Site: LT BREAST BOOST, Ref. ID: LT BREAST BOOST, Energy: 6X, Dose/Fx (cGy): 200, #Fx: 8 / 8, Dose Correction (cGy): 0, Total Dose (cGy): 1,600, Start Date: 01/14/2015, End Date: 01/23/2015, Elapsed Days: 9 Current History: Current Medications: AmLODIPine Besylate, amLODIPine Besylate, anastrozole, cloNIDine HCl, exemestane, exemestane, lansoprazole, meloxicam, meloxicam, nexIUM, nexIUM, reglan, tamoxifen Citrate, venlafaxine HCl, venlafaxine HCl ER, venlafaxine HCl ER, viibryd. Allergies: No Known Allergies Current Complaints / Review of Systems: . Vital Signs: Performed on 06/20/2023 10:26 AM BMI - 26.791 kg/m2 (high), Height - 68 in, Weight - 176.2 lbs, Temperature - 98 f, Pulse - 86 /min, Respiration - 16 /min, O2 Sat - 98 %, Pain - 0, Fatigue - 0 and BP - 138/ 89 mm(hg). Physical Exam: General: Alert and oriented x 3. No acute distress. Alopecia from systemic treatment. HEENT: Normocephalic, atraumatic. Extraocular Movements Intact: Pupils Equal, Round, Reactive to Light and Accommodation: Sclerae anicteric. Oral cavity is clear without lesions, masses or ulcers. NECK: Supple without supraclavicular or jugular lymphadenopathy. MUSCULOSKELETAL: No tenderness or percussion pain over the axial skeleton, scapulae or pelvis. ABDOMEN: Soft, nontender, nondistended without masses or organomegaly. Bowell sounds are present. EXTREMITIES: Bilateral symmetric generalized mild lower extremity edema (new since beginning dexamethasone). NEUROLOGIC: Cranial nerves II ???XII are grossly intact. Normal sensation, strength 5/5 in all extremities, able to exit chair well, normal gait, no ataxia. Performance Status: Lab: None pending. 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 Imaging: See HPI Impression: Metastatic disease progression now with relatively asymptomatic diffuse meningeal carcinomatosis. I recommend palliative whole brain and skull base radiation to preserve her neurologic function. I discussed the acute toxicities and small risk of neurologic toxicity (memory impairment) from treatment. Plan on 30 Gy in 10 fractions. She is scheduled for follow-up oncology appointment at [facility] 07/12/2023. Signed by: 06/20/2023 3:26:50 PM <<Signature on File>> Time spent with patient: CPT Code: CPT Code:
--- NOTE | 2023-06-27 15:22 | ONCRAD TMN_ITS ---
Radiation Oncology Weekly Treatment Management Patient: Parul Abdul MR#: [id number] : 1970> Attending Physician: Richard Orlando Date of Service: 06/27/2023 Referring Physician(s) : Dr. Shailesh Garrison Diagnosis: C50.919 - Malignant neoplasm of unspecified site of unspecified female breast, Diagnosed 03/01/2022 (Active) C50.812 - Malignant neoplasm of overlapping sites of left female breast, Diagnosed 11/11/2014 (Active) Stage IIA, T2, pN0, M0, G1 Radiotherapy to date: Course: WholeBrain 2022, Treatment Site: [id number], Ref. ID: [id number], Energy: 15X, Dose/Fx (cGy): 300, #Fx: , Dose Correction (cGy): 0, Total Dose (cGy): 1,200, Start Date: 06/22/2023, Elapsed Days: 5 Reason for visit: The patient is being seen today as part of their regularly scheduled weekly on treatment visits to assess for acute toxicities from radiotherapy. Review of Systems: No ADAMS, N or V. Minimal LE swelling since beginning DXM. No oral cavity lesions seen. Vital Signs: Performed on 06/27/2023 2:33 PM BMI - 26.883 kg/m2 (high), Height - 68 in, Weight - 176.8 lbs, Temperature - 97.8 f, Pulse - 82 /min, Respiration - 16 /min, O2 Sat - 96 %, Pain - 0, Fatigue - 0 and BP - 141/ 76 mm(hg)(high/). Physical Exam: Imaging: Radiation therapy imaging related to accurate target localization (i.e. KV, MV and CBCT) was reviewed. Appropriate changes, if any, were made to ensure treatment accuracy. Plan: Continue treatment as planned then taper steroids. Signed by: Richard Orlando 06/27/2023 3:21:59 PM Telemedicine Consent Patient seen today via Telemedicine by agreement and consent of patient. Telemedicine technology used during the visit include audio and, as available, review of images. This patient encounter is appropriate and reasonable under the circumstances given the patient???s particular presentation at this time. The patient has been advised of the potential risks and limitations of this mode of treatment (including but not limited to the absence of in-person examination) and has agreed to be treated in a remote fashion in spite of them. Any and all of the patient???s/patient???s family???s questions on this issue have been answered and I have made no promises or guarantees to the patient. The patient has also been advised to contact this office for worsening conditions or problems, and seek emergency medical treatment and/or call 911 if the patient deems either necessary.
--- NOTE | 2023-07-05 13:09 | ONCRAD TMN_ITS ---
Radiation Oncology Weekly Treatment Management Patient: Chantell Teran MR#: [id number] : 1970 Attending Physician: Richard Olrando Date of Service: 07/04/2023 Referring Physician(s) : Dr. Shailesh Garrison Diagnosis: C50.919 - Malignant neoplasm of unspecified site of unspecified female breast, Diagnosed 03/01/2022 (Active) C50.812 - Malignant neoplasm of overlapping sites of left female breast, Diagnosed 11/11/2014 (Active) Stage IIA, T2, pN0, M0, G1 Radiotherapy to date: Course: WholeBrain 2022, Treatment Site: [id number], Ref. ID: [id number], Energy: 15X, Dose/Fx (cGy): 300, #Fx: , Dose Correction (cGy): 0, Total Dose (cGy): 2,700, Start Date: 06/22/2023, Elapsed Days: 12 Reason for visit: The patient is being seen today as part of their regularly scheduled weekly on treatment visits to assess for acute toxicities from radiotherapy. Review of Systems: She has ongoing stable dizziness on standing. No ADAMS, N or V. Now on nystatin as prescribed by medical oncology. She has an appointment with med onc At [facility] later this month. Vital Signs: Performed on 07/04/2023 2:30 PM BMI - 26.67 kg/m2 (high), Height - 68 in, Weight - 175.4 lbs, Temperature - 98.2 f, Pulse - 83 /min, Respiration - 16 /min, O2 Sat - 98 %, Pain - 0, Fatigue - 5 and BP - 129/ 70 mm(hg). Physical Exam: Imaging: Radiation therapy imaging related to accurate target localization (i.e. KV, MV and CBCT) was reviewed. Appropriate changes, if any, were made to ensure treatment accuracy. Plan: Good tolerance of treatment. Completes treatment here 07/05/2023. Begin steroid taper 07/05/2023 4 mg am 2 mg (1/2 tab ) pm 07/10/2023 2 mg am 2 mg pm 07/17/2023 2 mg am only 07/24/2023 quit steroids if no new or worsening symptoms. FU with med onc here and at [facility] as scheduled. MRI head in 1 to 2 months with FU here if feasible as well. Signed by: Richard Orlando 07/05/2023 1:07:43 PM Telemedicine Consent Patient seen today via Telemedicine by agreement and consent of patient. Telemedicine technology used during the visit include audio and, as available, review of images. This patient encounter is appropriate and reasonable under the circumstances given the patient???s particular presentation at this time. The patient has been advised of the potential risks and limitations of this mode of treatment (including but not limited to the absence of in-person examination) and has agreed to be treated in a remote fashion in spite of them. Any and all of the patient???s/patient???s family???s questions on this issue have been answered and I have made no promises or guarantees to the patient. The patient has also been advised to contact this office for worsening conditions or problems, and seek emergency medical treatment and/or call 911 if the patient deems either necessary.
--- NOTE | 2023-07-05 18:51 | N.ONRD TS_ITS ---
Radiation Oncology Treatment Summary Patient: Parul Abdul MR#: [id number] : 1970 Age: 53 Sex: Female Dictated by: Richard Orlando Date of Service: 07/05/2023 Referring Physician(s) : Dr. Shailesh Garrison Diagnosis: C50.919 - Malignant neoplasm of unspecified site of unspecified female breast, Diagnosed 03/01/2022 (Active) C50.812 - Malignant neoplasm of overlapping sites of left female breast, Diagnosed 11/11/2014 (Active) Stage IIA, T2, pN0, M0, G1 Radiotherapy to Date: Course: C2, [facility] Ref. ID: [id number] [email or web address], Energy: 15X, Dose/Fx (cGy): 300, #Fx: 10 / 10, Dose Correction (cGy): 0, Total Dose (cGy): 3,000, Start Date: 04/07/2022, End Date: 04/20/2022, Elapsed Days: 13 Course: C2, Treatment Site: [place], Ref. ID: [id number] [place], Energy: 15X, Dose/Fx (cGy): 300, #Fx: 10 / 10, Dose Correction (cGy): 0, Total Dose (cGy): 3,000, Start Date: 04/07/2022, End Date: 04/20/2022, Elapsed Days: 13 Course: C2, Treatment Site: [facility], Ref. ID: [id number] LRibs, Energy: 15X, Dose/Fx (cGy): 300, #Fx: 10 / 10, Dose Correction (cGy): 0, Total Dose (cGy): 3,000, Start Date: 04/07/2022, End Date: 04/20/2022, Elapsed Days: 13 Course: C2, Treatment Site: [facility], Ref. ID: [facility], Energy: 15X, Dose/Fx (cGy): 300, #Fx: 10 / 10, Dose Correction (cGy): 0, Total Dose (cGy): 3,000, Start Date: 04/07/2022, End Date: 04/20/2022, Elapsed Days: 13 Course: C2, Treatment Site: [facility], Ref. ID: [email or web address], Energy: 15X, Dose/Fx (cGy): 300, #Fx: 10 / 10, Dose Correction (cGy): 0, Total Dose (cGy): 3,000, Start Date: 04/07/2022, End Date: 04/20/2022, Elapsed Days: 13 Course: Course1, Treatment Site: [facility] BRE[facility], Ref. ID: LT BREAST, Energy: 6X, Dose/Fx (cGy): 200, #Fx: / 25, Dose Correction (cGy): 0, Total Dose (cGy): 5,000, Start Date: 12/09/2014, End Date: 01/12/2015, Elapsed Days: 34 Course: Course1, Treatment Site: [facility] BREAST BOOST, Ref. ID: LT BREAST BOOST, Energy: 6X, Dose/Fx (cGy): 200, #Fx: / , Dose Correction (cGy): 0, Total Dose (cGy): 1,600, Start Date: 01/14/2015, End Date: 01/23/2015, Elapsed Days: 9 Course: WholeBrain 2022, Treatment Site: [id number], Ref. ID: [id number], Energy: 15X, Dose/Fx (cGy): 300, #Fx: 10 / 10, Dose Correction (cGy): 0, Total Dose (cGy): 3,000, Start Date: 06/22/2023, End Date: 07/05/2023, Elapsed Days: 13 Clinical Summary: The patient tolerated RT well. She had stable episodic dizziness with no other neurologic sxs. She had no ADAMS, N or V while on treatment. She was on DXM 4 mg BID which was well tolerated outside of oral candidiasis which was treated with oral Nystatin.She had mild scalp erythema with no alopecia at the end of treatment. Plan: End of treatment today. Begin steroid taper on 07/05/2023 which concludes steroids on 07/23/2023. Patient will follow-up with [facility] in [facility] on 07/12/23. Signed by: Richard Orlando>07/05/2023 6:50:01 PM <<Signature on File>>
== END 2023-07-18 23:59 | disposition home or self-care (01) ==
PROVIDERS: PCP Internal Medicine; Visit Provider Radiology Radiation Oncology
DX: C50.812 Malignant neoplasm of overlapping sites of left female breast (principal); Z79.899 Other long term (current) drug therapy; Z51.0 Encounter for antineoplastic radiation therapy; C79.31 Secondary malignant neoplasm of brain; Z17.0 Estrogen receptor positive status [ER+]
CPT/HCPCS: 77290; 77295; 77300; 77334; 77336; 77412; 99215

== ENCOUNTER 2023-07-27 20:13 | Inpatient (IN) | payer OTHER, SELFPAY ==
[2023-07-27 20:17] VITALS: BP 144/83; PULSE 134; RESP 16; TEMP 36.6; O2SAT 91; BMI 26.4
--- NOTE | 2023-07-27 20:19 | XRR_ITS ---
PROCEDURE INFORMATION: Exam: XR Chest Exam date and time: 07/27/2023 8:52 PM Age: 53 years old Clinical indication: Shortness of breath; Additional info: SOB TECHNIQUE: Imaging protocol: Radiologic exam of the chest. Views: 1 view. COMPARISON: CT angio chest PE protcl [id number] 07/27/2023 8:35 PM FINDINGS: Lungs: Extensive bilateral ground-glass infiltrates, better appreciated on CT. Pleural spaces: Unremarkable. No pleural effusion. No pneumothorax. Heart/Mediastinum: Unremarkable. No cardiomegaly. Bones/joints: Patchy diffuse sclerotic changes throughout the osseous thorax, consistent with extensive osseous metastatic disease. XR/XR chest 1V portable [id number] IMPRESSION: 1. Extensive bilateral ground-glass infiltrates, better appreciated on CT. Consider pulmonary edema, bilateral pneumonia, or ARDS. 2. Extensive patchy sclerotic changes throughout the osseous thorax, consistent with extensive osseous metastatic disease.
--- NOTE | 2023-07-27 20:20 | ECG_ITS ---
[facility] Test Date: 2023-07-27 Pat Name: Parul Abdul Department: Room: Gender: Female [employer]: : 1970 Requested By: Phil Deleon Order Number: [id number] Crescencio MD: Anibal Jameson M.D. Measurements Intervals Dana Rate: 127 P: 42 AL: 131 QRS: 32 QRSD: 70 T: 48 QT: 302 QTc: 440 Interpretive Statements SINUS TACHYCARDIA MINIMAL ST DEPRESSION [0.025+ mV ST DEPRESSION] No previous ECG available for comparison Electronically Signed On 07-27-2023 22:42:48 [employer] by Anibal Jameson M.D. [id number]
--- NOTE | 2023-07-27 20:21 | CTR_ITS ---
PROCEDURE INFORMATION: Exam: CTA Chest With Contrast Exam date and time: 07/27/2023 8:35 PM Age: 53 years old Clinical indication: Shortness of breath; Additional info: SOB. Per prior imaging reports, history of metastatic breast cancer. TECHNIQUE: Imaging protocol: Computed tomographic angiography of the chest with contrast. Exam focused on the arteries. 3D rendering (Not supervised by radiologist): MIP and/or 3D reconstructed images were created by the technologist. Radiation optimization: All CT scans at this facility use at least one of these dose optimization techniques: automated exposure control; mA and/or kV adjustment per patient size (includes targeted exams where dose is matched to clinical indication); or iterative reconstruction. Contrast material: OMNI 350; Contrast volume: 100 ml; Contrast route: INTRAVENOUS (IV); REPORTING DATA: Count of CT and Cardiac NM exams in prior 12 months: This patient has received 2 known CTs and 0 known cardiac nuclear medicine studies in the 12 months prior to the current study. COMPARISON: 1. CT cervical spin wo con* [id number] 01/29/2021 11:[address] skulltothigh INITIAL [id number] 09/05/2022 8:09 AM RADIATION DOSE METRICS: Total DLP (mGy-cm): 443 FINDINGS: Pulmonary arteries: No pulmonary emboli identified. Aorta: No aortic aneurysm or dissection. Lungs: Extensive bilateral ground-glass infiltrates. Several scattered pulmonary micronodules, measuring up to 3 mm. Pleural spaces: No pneumothorax or pleural effusion. Heart: No cardiomegaly. No pericardial effusion. Coronary arteries: No coronary artery calcifications. Lymph nodes: New left supraclavicular adenopathy, with a product representative node measuring 1.1 cm in short axis diameter. New mediastinal and bilateral hilar adenopathy, with a product representative right hilar node measuring 1.6 cm in short axis diameter. Diaphragm: Lpfwk-hl-ebzzstcw sliding hiatal hernia. Liver: Normal liver. Gallbladder and bile ducts: Normal gallbladder. No calcified stones. No ductal dilation. Pancreas: Normal pancreas. No ductal dilation. Spleen: Normal spleen. No splenomegaly. Adrenal glands: Questionable small 1 cm left adrenal nodule, not clearly identified on 09/05/2022. Kidneys and ureters: A couple of small nonobstructive left renal calculi. No hydronephrosis. Stomach and bowel: Visualized bowel loops in the upper abdomen demonstrate no acute abnormality. Bones/joints: Extensive patchy sclerotic changes throughout the visualized osseous structures, increased from 09/05/2022. Stable old T11 and L1 compression fractures. No obvious acute fracture. Soft tissues: Unremarkable. CT/CT angio chest PE protcl [id number] IMPRESSION: 1. No pulmonary emboli identified. 2. Extensive bilateral ground-glass infiltrates. Consider pulmonary edema versus ARDS versus bilateral pneumonia. 3. Several scattered pulmonary micronodules, measuring up to 3 mm. Some of these were present on 09/05/2022, while others can not be clearly identified. Follow-up as per oncology recommendations. 4. New left supraclavicular adenopathy, with a product representative node measuring 1.1 cm in short axis diameter. 5. New mediastinal and bilateral hilar adenopathy, with a product representative right hilar node measuring 1.6 cm in short axis diameter. 6. Mcbmu-sh-wklkembk sliding hiatal hernia. 7. A couple of small nonobstructive left renal calculi. 8. Questionable small 1 cm left adrenal nodule, not clearly identified on 09/05/2022. 9. Extensive patchy sclerotic changes throughout the visualized osseous structures, increased from 09/05/2022. Suggests diffuse osseous metastatic disease. 10. Stable old T11 and L1 compression fractures. 11. Correlate with any more recent imaging that the patient may have had done to better assess for any change in her underlying metastatic disease.
--- NOTE | 2023-07-27 20:28 | ED_ITS ---
HPI - Arrhythmia/Palpitations General: Chief Complaint: Arrhythmia/Palpitations Stated Complaint: fast heart rate, low O2 Time Seen by Provider: 07/27/23 20:19 Source: patient Mode of arrival: ambulatory Limitations: no limitations History of Present Illness: 53-year-old female has a history of breast cancer with mets to brain and back she been on chemo and radiation states of last 2 days she has had increasing shortness of breath especially exertional dyspnea states that she is also been having some hypoxia when she checks her pulse ox along with tachycardia she denies any chest pain she does states she has had fever for the last 2 to 3 days. Associated symptoms: Deny nausea or vomiting Review of Systems Const: Reports: fever(s); Denies: chills, body aches or change in appetite Eyes: Denies: blurry vision or eye discomfort ENMT: Denies: throat pain or dental pain Card: Denies: chest pain Resp: Reports: dyspnea GI: Denies: abdominal pain, nausea, vomiting or diarrhea Musc: Denies: neck pain or back pain Skin/Breast: Denies: rash Neuro: Denies: headache(s) PFSH ED PFSH: Medical History Anxiety and depression Bilateral renal stones Multi-stone former with medullary nephrocalcinosis. Breast cancer (10/12/14) Chronic tonsillar hypertrophy GERD (gastroesophageal reflux disease) Hypertension Menopausal symptom 02/13/2018: LAVH/BSO Surgical History History of ankle surgery (10/10/19) Right. Dr. Gudino at [facility] [place]. Hx of cystoscopy (08/18/00) with stone extraction. Performed by Dr. Magana at [facility] [place] in [place], [place] Hx of left breast biopsy (10/16/14) Excisional biopsy of left breast mass Hx of lithotripsy (~08/2001) Performed by Dr. Magana at [facility] [place] in [place], [place] Hx of lymph node biopsy (10/30/14) Left axillary sentinel lymph node biopsy S/P laparoscopic assisted vaginal hysterectomy (LAVH) (02/13/18) LAVH/BSO. Dx: Menorrhagia. Performed by Dr. Moore at [facility] [place] in [place], [place] Family History Father Hypertension Hypercholesteremia Thyroid disease Mother Hypertension Hypercholesteremia Heart disease Thyroid disease Grandmother Hypertension maternal Diabetes maternal Thyroid disease maternal, paternal Grandfather Heart disease maternal Other Hyperlipidemia Social History Smoking and tobacco/nicotine status: never used tobacco/nicotine Alcohol intake: never Substance/Drug Use: never Physical Exam Const: COMMON NORMALS: patient oriented x3 HENMT: COMMON NORMALS: normocephalic and atraumatic HEAD & SCALP: normocephalic and atraumatic Neck/C-Spine: COMMON NORMALS: full ROM and supple Chest: COMMONS NORMALS: normal inspection of the chest and normal palpation of entire chest wall Resp: COMMON NORMALS: No retractions and No use of accessory muscles Cardio: COMMON NORMALS: regular rhythm and No murmurs present (Cardio) RATE: tachycardic RHYTHM: regular rhythm GI: COMMON NORMALS: Normal to inspection, nondistended, normoactive bowel sounds present, Soft to palpation, non-tender and no masses PALPATION: Yes Soft to palpation Extremity: COMMON NORMALS: normal to inspection and full ROM Neuro: COMMON NORMALS: patient oriented x3, moves all extremities and no focal motor deficits Psych: COMMON NORMALS: mental status grossly normal, Normal thought process present and cooperative THOUGHT PROCESS: Normal thought process present Skin: COMMON NORMALS: no rashes or lesions noted and no wounds GENERAL SKIN EXAM: no rashes or lesions noted Course Vital Signs: Vital signs: Vital Signs Temperature 97.8 F 07/27/23 20:17 Pulse Rate 117 H 07/27/23 21:03 Respiratory Rate 26 H 07/27/23 21:03 Blood Pressure 137/83 07/27/23 21:03 Pulse Oximetry 93 07/27/23 21:03 Oxygen Delivery Me thod Nasal Cannula 07/27/23 21:03 Oxygen Flow Rate 2 07/27/23 21:03 MDM - Arrhythmia/Palpitations Medical Decision Making Patient presents here with increasing exertional dyspnea she is hypoxic here requiring oxygen was concerned of a PE with her cancer history CT showed no PE but did show extensive bilateral likely pneumonia she has no signs of pulmonary edema. She not on any chemo currently she just finished radiation treatment to her brain. We will start IV antibiotics I spoke to hospitalist will admit at this time. Medical Records I reviewed the patient's medical records. Lab Data I reviewed the patient's lab results. 07/27/23:07/27/23: Radiology Impressions Chest X-Ray 07/27/23 20: IMPRESSION: 1. Extensive bilateral ground-glass infiltrates, better appreciated on CT. Consider pulmonary edema, bilateral pneumonia, or ARDS. 2. Extensive patchy sclerotic changes throughout the osseous thorax, consistent with extensive osseous metastatic disease. Chest CTA 07/27/23 20: IMPRESSION: 1. No pulmonary emboli identified. 2. Extensive bilateral ground-glass infiltrates. Consider pulmonary edema versus ARDS versus bilateral pneumonia. 3. Several scattered pulmonary micronodules, measuring up to 3 mm. Some of these were present on 09/05/2022, while others can not be clearly identified. Follow-up as per oncology recommendations. 4. New left supraclavicular adenopathy, with a guest experience representative node measuring 1.1 cm in short axis diameter. 5. New mediastinal and bilateral hilar adenopathy, with a guest experience representative right hilar node measuring 1.6 cm in short axis diameter. 6. Opzdh-lm-[id number] sliding hiatal hernia. 7. A couple of small nonobstructive left renal calculi. 8. Questionable small 1 cm left adrenal nodule, not clearly identified on 09/05/2022. 9. Extensive patchy sclerotic changes throughout the visualized osseous structures, increased from 09/05/2022. Suggests diffuse osseous metastatic disease. 10. Stable old T11 and L1 compression fractures. 11. Correlate with any more recent imaging that the patient may have had done to better assess for any change in her underlying metastatic disease. Laboratory Results WBC 3.97 10^3/uL (3.29-11.43) 07/27/23: RBC 2.81 10^6/uL (3.85-5.65) L 07/27/23: Hgb 8.60 g/dL (11.27-16.99) L 07/27/23: Hct 29.3 % (36-47) L 07/27/23: MCV 104.3 fl (85-98) H 07/27/23: MCH 30.6 pg (27-33) 07/27/23: MCHC 29.4 g/dL (30-55) L 07/27/23 20: RDW 20.7 % (12.1-15.1) H 07/27/23 20: Plt Count 151 10^3/cmm (157-399) L 07/27/23 20: MPV 8.8 fL (7.4-10.4) 07/27/23 20: Neut % (Auto) 76.4 % 07/27/23: Lymph % (Auto) 14.4 % 07/27/23 20: [place] % (Auto) 6.3 % 07/27/23: Eos % (Auto) 0.3 % 07/27/23: Baso % (Auto) 0.3 % 07/27/23: Neut # (Auto) 3.04 10^3/uL (1.8-7.7) 07/27/23: Lymph # (Auto) 0.6 10^3/uL (0.8-4.8) L 07/27/23: [place] # (Auto) 0.3 10^3/uL (0.2-0.9) 07/27/23: Eos # (Auto) 0.0 10^3/uL (0.0-0.8) 07/27/23: Baso # (Auto) 0.0 10^3/uL (0.0-0.1) 07/27/23: Nucleated RBC % (auto) 5.5 % 07/27/23: Nucleated RBCs # 0.2 /100WBC 07/27/23: PT 12.80 SECONDS (12.1-14.9) 07/27/23: INR 0.94 (0.8-1.2) 07/27/23 20: Sodium 142 mmol/L (136-145) 07/27/23 20: Potassium 3.8 mmol/L (3.5-5.1) 07/27/23 20: Chloride 109 mmol/L (98-107) H 07/27/23 20: Carbon Dioxide 18 mmol/L (22-29) L 07/27/23 20: Anion Gap 18.8 (5-19) 07/27/23 20: BUN 16 mg/dL (6-20) 07/27/23 20:23 Creatinine 0.6 mg/dL (0.5-0.9) 07/27/23 20: GFR Calculation 105.4 mL/min (90-130) 07/27/23 20:23 Glucose 128 mg/dL (65-115) H 07/27/23 20:23 Calculated Osmolality 297 mOsm/kg (285-295) H 07/27/23 20: Calcium 8.5 mg/dL (8.5-10.5) 07/27/23 20: Total Bilirubin 0.2 mg/dL (0.15-1.2) 07/27/23 20: AST 32 U/L (0-32) 07/27/23 20: ALT 31 U/L (0-33) 07/27/23 20: Alkaline Phosphatase 161 U/L (35-105) H 07/27/23 20: Troponin T Baseline 10 ng/L (0-10) 07/27/23 20: NT-Pro-B Natriuret Pep 50 pg/mL (0-125) 07/27/23 20: Total Protein 7.0 g/dL (6.6-8.7) 07/27/23 20: Albumin 3.7 g/dL (3.5-5.2) 07/27/23 20: Globulin 3.3 g/dL (1.3-4.6) 07/27/23 20:23 SARS-CoV-2 Ag (Rapid) negative (Negative) 07/27/23 21:02 All radiology interpretation(s) finalized by discharge EKG Data EKG 1: I personally reviewed and interpreted this EKG as follows: EKG interpretation date: 07/27/23 EKG interpretation time: 20:20 Interpretation: sinus tach hr [address] or t wave abnormalites qrs 70 qtc 377 Other EKG comments: Chest X-Ray 07/27/23 20:19 IMPRESSION: 1. Extensive bilateral ground-glass infiltrates, better appreciated on CT. Consider pulmonary edema, bilateral pneumonia, or ARDS. 2. Extensive patchy sclerotic changes throughout the osseous thorax, consistent with extensive osseous metastatic disease. Chest CTA 07/27/23 20:21 IMPRESSION: 1. No pulmonary emboli identified. 2. Extensive bilateral ground-glass infiltrates. Consider pulmonary edema versus ARDS versus bilateral pneumonia. 3. Several scattered pulmonary micronodules, measuring up to 3 mm. Some of these were present on 09/05/2022, while others can not be clearly identified. Follow-up as per oncology recommendations. 4. New left supraclavicular adenopathy, with a guest experience representative node measuring 1.1 cm in short axis diameter. 5. New mediastinal and bilateral hilar adenopathy, with a guest experience representative right hilar node measuring 1.6 cm in short axis diameter. 6. Dqwyv-sg-exehgfqb sliding hiatal hernia. 7. A couple of small nonobstructive left renal calculi. 8. Questionable small 1 cm left adrenal nodule, not clearly identified on 09/05/2022. 9. Extensive patchy sclerotic changes throughout the visualized osseous structures, increased from 09/05/2022. Suggests diffuse osseous metastatic disease. 10. Stable old T11 and L1 compression fractures. 11. Correlate with any more recent imaging that the patient may have had done to better assess for any change in her underlying metastatic disease. Discharge Plan Discharge Patient Disposition: Admitted As Inpatient Clinical Impression: Pneumonia, Acute respiratory failure with hypoxia Condition: Stable Prescriptions: No Action (DME) Auto Titrating CPAP 6-14cm See Rx Instructions .Route .MEDSUPPLY Qty: 1 0RF Rx Instructions: As directed. Please include heated humidifier and supplies. Length of Need - Lifetime acetaminophen-codeine 300-30 mg tablet 1 - 2 tab PO Q6H PRN (Reason: pain) Qty: 120 0RF lubiprostone 24 mcg capsule 24 mcg PO BID PRN amlodipine 5 mg tablet 5 mg PO DAILY Qty: 90 3RF hydrocodone-acetaminophen 5-325 mg tablet 1 - 2 tab PO Q6H PRN (Reason: pain) 30 Days Qty: 120 0RF (DME) Blood Glucose Test Strip See Rx Instructions .Route Qty: 25 0RF Rx Instructions: As directed (DME) blood-glucose meter Misc See Rx Instructions .Route Qty: 1 0RF Rx Instructions: As directed (DME) lancets 33 gauge misc See Rx Instructions .Route Qty: 100 0RF Rx Instructions: As directed cetirizine [Allergy Relief (cetirizine)] 10 mg tablet 10 mg PO DAILY Qty: 30 2RF alpelisib 300 mg/day (150 mg x 2) tablet 300 mg PO DAILY Qty: 56 2RF Hold Instructions: Doctor's Order Rx Instructions: Should be swallowed whole and taken with food, at approximately the same time each day cephalexin 500 mg capsule 500 mg PO BID 7 Days Qty: 14 0RF gentamicin 0.3 % drops 2 drp ophthalmic (eye) QID Qty: 5 0RF metformin 500 mg tablet 500 mg PO DAILY Qty: 30 3RF dexamethasone 4 mg tablet 4 mg PO BID Qty: 60 1RF nystatin 100,000 unit/mL suspension 5 ml PO QID 14 Days Qty: 280 0RF Rx Instructions: swish and swallow meloxicam 15 mg tablet See Rx Instructions .ROUTE .COMPLEX Qty: 30 3RF Dose Instruction: TAKE 1 TABLET BY MOUTH EVERY DAY Rx Instructions: TAKE 1 TABLET BY MOUTH EVERY DAY alprazolam 0.25 mg tablet 0.25 mg PO TID PRN (Reason: anxiety) Qty: 30 3RF ondansetron HCl 4 mg tablet 4 mg PO Q8H PRN (Reason: nausea and vomiting) Qty: 30 1RF capecitabine [Xeloda] 500 mg tablet 1,500 mg PO BID Qty: 84 12RF Rx Instructions: Take for 14 days, 7 days off, per 21-day cycle; must administer with water 30 minutes after a meal Referrals: Fermín Vides MD [Primary Care Provider] - Coding Level of Care Code ED Transport Analyst for Rudy Vail
[2023-07-27] MEDS: iohexol 350 mg/mL 500 mL Btl (per mL) IV (20:35)
[2023-07-27 20:43] LABS: INR 0.94 (0.8-1.2)
--- NOTE | 2023-07-27 20:45 | PC.NURSE ---
Sats 85% on Room air with good waveform. Pt placed on 2lnc and sats up to 96%. Provider notified.
[2023-07-27 20:51] LABS: Basophils % 0.3 %; Eosinophils % 0.3 %; Hematocrit 29.3 % (36-47); Lymphocytes # 0.6 10^3/uL (0.8-4.8); Lymphocytes % 14.4 %; Mean Corpuscular HGB Conc 29.4 g/dL (30-55); Mean Corpuscular Hemoglobin 30.6 pg (27-33); Mean Corpuscular Volume 104.3 fl (85-98); Mean Platelet Volume 8.8 fL (7.4-10.4); Monocytes # 0.3 10^3/uL (0.2-0.9); Monocytes % 6.3 %; Neutrophils # 3.04 10^3/uL (1.8-7.7); Neutrophils % 76.4 %; Nucleated Red Blood Cells # 0.2 /100WBC; Nucleated Red Blood Cells % 5.5 %; Platelet Count 151 10^3/cmm (157-399); Red Blood Count 2.81 10^6/uL (3.85-5.65); Red Cell Distribution Width 20.7 % (12.1-15.1); Troponin(5th) Baseline 10 ng/L (0-10); White Blood Count 3.97 10^3/uL (3.29-11.43)
[2023-07-27] MEDS: sodium chloride 0.9% 1,000 ML 999 ML IV (20:58)
[2023-07-27 21:03] VITALS: BP 137/83; PULSE 117; RESP 26; O2SAT 93
[2023-07-27 21:05] LABS: Alanine Aminotransferase 31 U/L (0-33); Albumin Level 3.7 g/dL (3.5-5.2); Alkaline Phosphatase 161 U/L (35-105); Anion Gap 18.8 (5-19); Aspartate Amino Transferase 32 U/L (0-32); Blood Urea Nitrogen 16 mg/dL (6-20); Calcium 8.5 mg/dL (8.5-10.5); Carbon Dioxide 18 mmol/L (22-29); Chloride 109 mmol/L (98-107); Globulin 3.3 g/dL (1.3-4.6); Glomerular Filtration Rate 105.4 mL/min (90-130); Glucose 128 mg/dL (65-115); NT Pro B Type Natriuretic Pept 50 pg/mL (0-125); Osmolality Calculated 297 mOsm/kg (285-295); Potassium 3.8 mmol/L (3.5-5.1); Sodium 142 mmol/L (136-145); Total Bilirubin 0.2 mg/dL (0.15-1.2)
[2023-07-27 21:21] LABS: SARS Covid-2 Antigen negative (Negative)
[2023-07-27] MEDS: azithromycin 500 MG in sodium chloride 0.9% 250 ML 250 MG IV (21:45)
[2023-07-27 21:58] VITALS: BP 136/88; PULSE 109; RESP 22; O2SAT 94
--- NOTE | 2023-07-27 22:23 | P.HP_ITS ---
Providers/Chief Complaint Admitting Physician: Henri Gonzalez Primary Care Provider: Fermín Vides MD Chief Complaint: fast heart rate, low O2 History of Present Illness Pleasant 53-year-old lady with stage IV breast cancer with osseous mets metastatic disease, recently completed brain radiation, last chemotherapy about 3 months ago GERD, HTN, other medical problems within the last 2 days not been feeling well, increased shortness of breath, cough, mild headache, nausea, has been having some hypoxia as well in ER pulse ox dipping down into the 70s, required Newstart of 2 L nasal cannula oxygen, not on oxygen previously. X-ray with GGO. CTA was obtained with confirmed extensive GGO. No PE. Scattered pulmonary micronodules, some present back in 2021. Small to moderate sliding hiatal hernia. Number of incidental findings relating to malignancy including new left supraclavicular adenopathy, new mediastinal and bilateral hilar adenopathy. Questionable 1 cm adrenal nodule. Extensive patchy sclerotic changes throughout osseous structures suggestive of osseous metastatic disease. Stable old T11 and L1 compression fractures. Rapid COVID-19 in ER negative. Review of Systems Const: Reports: fever(s) and malaise ENMT: Denies: throat pain Card: Denies: chest pain, edema, pre-syncope or dyspnea on exertion Resp: Reports: dyspnea and non-productive cough; Denies: change in phlegm color or hemoptysis GI: Reports: nausea; Denies: abdominal pain, vomiting, diarrhea, constipation, hematochezia or melena : Denies: flank pain, urinary frequency or hematuria Musc: Denies: back pain, joint swelling or joint redness Skin/Breast: Denies: rash or new lesions Neuro: Reports: headache(s); Denies: numbness in extremities, weakness in extremities, dizziness, confusion or seizure-like activity Endo: Denies: polyuria or polydipsia Medications/Allergies Home Medications Medication Instructions Recorded Confirmed Last Taken Type Auto Titrating CPAP #1 ea 08/25/20 06/26/23 Unknown Rx acetaminophen 300 mg-codeine 30 mg 1 - 2 tab PO Q6H PRN pain #120 tabs 05/12/22 06/26/23 Unknown Rx tablet lubiprostone 24 mcg capsule 24 mcg PO BID PRN 07/13/22 06/26/23 Unknown History amlodipine 5 mg tablet 5 mg PO DAILY #90 tabs 08/10/22 06/26/23 Unknown Rx cetirizine 10 mg tablet (Allergy 10 mg PO DAILY #30 tabs 09/28/22 06/26/23 Unkn own Rx Relief (cetirizine)) hydrocodone 5 mg-acetaminophen 325 1 - 2 tab PO Q6H PRN pain 30 days 01/16/23 06/26/23 Unknown Rx mg tablet #120 tabs alpelisib 300 mg/day (150 mg x 2) 300 mg PO DAILY #56 tabs 04/13/23 06/26/23 Unknown Rx tablet blood sugar diagnostic (Blood #25 ea 06/08/23 06/26/23 Unknown Rx Glucose Test strips) blood-glucose meter #1 ea 06/08/23 06/26/23 Unknown Rx lancets 33 gauge #100 ea 06/08/23 06/26/23 Unknown Rx cephalexin 500 mg capsule 500 mg PO BID 7 days #14 caps 06/09/23 06/26/23 Unknown Rx gentamicin 0.3 % eye drops 2 drp ophthalmic (eye) QID #5 mL 06/13/23 06/26/23 Unknown Rx metformin 500 mg tablet 500 mg PO DAILY #30 tabs 06/13/23 06/26/23 Unknown Rx dexamethasone 4 mg tablet 4 mg PO BID #60 tabs 06/14/23 06/26/23 Unknown Rx nystatin 100,000 unit/mL oral 5 ml PO QID 14 days #280 mL 07/03/23 Unknown Rx suspension meloxicam 15 mg tablet See Rx Instructions .Route 07/10/23 Unknown Rx .COMPLEX #30 tabs alprazolam 0.25 mg tablet 0.25 mg PO TID PRN anxiety #30 tabs 07/17/23 Unknown Rx ondansetron HCl 4 mg tablet 4 mg PO Q8H PRN nausea and 07/17/23 Unknown Rx vomiting #30 tabs capecitabine 500 mg tablet (Xeloda) 1,500 mg PO BID #84 tabs 07/24/23 Unknown Rx Allergies Allergy/AdvReac Type Severity Reaction Status Date / Time No Known Allergies Allergy Verified 06/26/23 08:46 PFSH Acute PFSH: Medical History Anxiety and depression Bilateral renal stones Multi-stone former with medullary nephrocalcinosis. Breast cancer (10/12/14) Chronic tonsillar hypertrophy GERD (gastroesophageal reflux disease) Hypertension Menopausal symptom 02/13/2018: LAVH/BSO Surgical History History of ankle surgery (10/10/19) Right. Dr. Gudino at [facility] [place]. Hx of cystoscopy (08/18/00) with stone extraction. Performed by Dr. Magana at [facility] [place] in [place], [place] Hx of left breast biopsy (10/16/14) Excisional biopsy of left breast mass Hx of lithotripsy (~08/2001) Performed by Dr. Magana at [facility] [place] in [place], [place] Hx of lymph node biopsy (10/30/14) Left axillary sentinel lymph node biopsy S/P laparoscopic assisted vaginal hysterectomy (LAVH) (02/13/18) LAVH/BSO. Dx: Menorrhagia. Performed by Dr. Moore at [facility] [place] in [place], [place] Family History Father Hypertension Hypercholesteremia Thyroid disease Mother Hypertension Hypercholesteremia Heart disease Thyroid disease Grandmother Hypertension maternal Diabetes maternal Thyroid disease maternal, paternal Grandfather Heart disease maternal Other Hyperlipidemia Social History Smoking and tobacco/nicotine status: never used tobacco/nicotine Alcohol intake: never Substance/Drug Use: never Vitals/I&O/Wt Last Vital Signs Temp 97.8 F 07/27/23 20:17 Pulse 109 H 07/27/23 21:58 Resp 22 H 07/27/23 21:58 BP 136/88 07/27/23 21:58 Pulse Ox 94 07/27/23 21:58 O2 Del Method Nasal Cannula 07/27/23 21:58 O2 Flow Rate 2 07/27/23 21:58 07/27/23 07/27/23 07/27/23 06:59 14:59 22:59 Intake Total 1000 / 1000 Balance 1000 / 1000 Weight last 48 hrs Weight 81.193 kg Physical Exam Narrative: Accompanied by her Const: COMMON NORMALS: patient oriented x3 and alert GENERAL APPEARANCE: cooperative ORIENTATION/CONSCIOUSNESS: Yes awake HENMT: COMMON NORMALS: oropharynx normal Neck/C-Spine: COMMON NORMALS: no JVD Resp: COMMON NORMALS: normal respiratory effort and clear to auscultation bilaterally AUSCULTATION: clear to auscultation bilaterally Cardio: COMMON NORMALS: no JVD, regular rhythm, S1 normal heart sound present, S2 normal heart sound present and No murmurs present (Cardio) RHYTHM: regular rhythm HEART SOUNDS: S1 normal heart sound present and S2 normal heart sound present GI: COMMON NORMALS: Normal to inspection, nondistended, normoactive bowel sounds present, Soft to palpation and non-tender PALPATION: Yes Soft to palpation Extremity: COMMON NORMALS: no joint enlargement and no pedal edema Neuro: COMMON NORMALS: patient oriented x3 and moves all extremities SENSORIUM/ORIENTATION: Yes alert Skin: COMMON NORMALS: no rashes or lesions noted GENERAL SKIN EXAM: no rashes or lesions noted Data 07/27/23 20:23 07/27/23 20:23 Micro: Microbiology 07/27/23 21:40 Blood Culture - Preliminary Blood SPECIMEN COLLECTED 07/27/23 21:40 Blood Culture - Preliminary Blood SPECIMEN COLLECTED A&P Assessment and plan (1) Ground glass opacity present on imaging of lung: Recently with malaise, cough, headache, nausea, shortness of breath, extensive GGO noted on CT. Differential infectious, inflammatory, pulmonary edema. Reviewed vitals, CBC, CMP, chest x-ray, CTA, NT-proBNP, troponin, rapid COVID-19 antigen, ER documentation, write down the documentation latter seems less likely NT proBNP is only 50 on review. Troponin noted not elevated. EKG on my interpretation was sinus tachycardia, do not see evidence of [place]. She has had low-grade fever, given cough, may suspect infectious etiology for now. Possible pneumonia. Continue antibiotics empirically for now with ceftriaxone, azithromycin. Given extensive GGO, underlying malignancy, at risk of decompensation, respiratory failure. Collect sputum culture if able to provide. We will obtain urine bacterial antigens. MRSA PCR. Obtain respiratory viral panel. Follow-up blood cultures. Monitor for any aspiration. Does have noted sliding out of hernia, consideration of chemical pneumonitis. PPI. Elevate head of bed. Avoid oral intake before sleep. Consider further assessment depending on condition and findings. Recently completed radiation to the brain, not chest, without radiation pneumonitis. Recently with progression of metastatic cancer, consideration could be given to lymphangitic spread of malignancy. Please contact her oncologist in the morning. Repeat CBC, CMP. (2) Hypoxia: Secondary to above. Has been requiring 2 L nasal cannula oxygen, not normally on oxygen previously. Plan Alk phos elevation: Suspect secondary to osseous metastatic disease. Follow-up CMP. Nephrolithiasis GERD: PPI HTN: Monitor blood pressures. Amlodipine. Other medical problems. Goals of care discussion: She and her stated have not considered anything other than full code so far. Requesting for medications to be confirmed, please review and reorder once available. Attestations Medical Necessity Statement*: Admission of over 2 midnights anticipated for assessment management of dyspnea, hypoxia, extensive groundglass opacities, suspected pneumonia, consideration of other causes in a lady with underlying metastatic breast cancer. Diagnoses Ground glass opacity present on imaging of lung R91.8 Hypoxia R09.02
[2023-07-27 22:52] VITALS: BP 130/83; PULSE 112; RESP 18; TEMP 37.1; O2SAT 93
[2023-07-27] MEDS: cefTRIAXone 1,000 MG in sodium chloride 0.9% (plus) 50 ML 100 MG IV (23:07)
[2023-07-27 23:11] LABS: Troponin 5 2HR 9.96 ng/L (0-10); Troponin 5 2HR Delta -0.04 ABS# (0-10)
[2023-07-27] MEDS: acetaminophen 325 mg Tablet 650 MG PO (23:42)
[2023-07-27 23:51] VITALS: BP 130/74; PULSE 110; RESP 18; TEMP 37; O2SAT 94
[2023-07-28 01:20] LABS: Adenovirus Not Detected (NOT DETECT); Chlamydia Pneumoniae Not Detected (NOT DETECT); Coronavirus 229E,HKU1,NL63,OC4 Not Detected (NOT DETECT); Human Metapneumovirus Not Detected (NOT DETECT); Human Rhinovirus/Enterovirus Not Detected (NOT DETECT); Influenza A Not Detected (NOT DETECT); Influenza A H1 Not Detected (NOT DETECT); Influenza A H1-2009 Not Detected (NOT DETECT); Influenza A H3 Not Detected (NOT DETECT); Influenza B Not Detected (NOT DETECT); Mycoplasma Pneumoniae Not Detected (NOT DETECT); Parainfluenza Virus Type 1 Not Detected (NOT DETECT); Parainfluenza Virus Type 2 Not Detected (NOT DETECT); Parainfluenza Virus Type 3 Not Detected (NOT DETECT); Parainfluenza Virus Type 4 Not Detected (NOT DETECT); Respiratory Syncytial Virus A Not Detected (NOT DETECT); Respiratory Syncytial Virus B Not Detected (NOT DETECT); SARS-COV-2 Not Detected (NOT DETECT)
[2023-07-28 02:14] LABS: Basophils % 0.6 %; Hematocrit 24.5 % (36-47); Lymphocytes # 0.6 10^3/uL (0.8-4.8); Lymphocytes % 16.5 %; Mean Corpuscular HGB Conc 29.8 g/dL (30-55); Mean Corpuscular Hemoglobin 31.2 pg (27-33); Mean Corpuscular Volume 104.7 fl (85-98); Mean Platelet Volume 8.8 fL (7.4-10.4); Monocytes # 0.2 10^3/uL (0.2-0.9); Monocytes % 6.5 %; Neutrophils # 2.55 10^3/uL (1.8-7.7); Neutrophils % 74.9 %; Nucleated Red Blood Cells # 0.2 /100WBC; Nucleated Red Blood Cells % 5.3 %; Platelet Count 121 10^3/cmm (157-399); Red Blood Count 2.34 10^6/uL (3.85-5.65); Red Cell Distribution Width 20.8 % (12.1-15.1)
[2023-07-28 02:34] LABS: Troponin 5 6HR 10.13 ng/L (0-10); Troponin 5 6HR Delta 0.13 ng/L (0-12)
[2023-07-28 02:40] LABS: Alanine Aminotransferase 26 U/L (0-33); Albumin Level 3.1 g/dL (3.5-5.2); Alkaline Phosphatase 140 U/L (35-105); Anion Gap 15.6 (5-19); Aspartate Amino Transferase 26 U/L (0-32); Blood Urea Nitrogen 12 mg/dL (6-20); Calcium 7.4 mg/dL (8.5-10.5); Carbon Dioxide 19 mmol/L (22-29); Chloride 110 mmol/L (98-107); Globulin 2.2 g/dL (1.3-4.6); Glomerular Filtration Rate 168.3 mL/min (90-130); Glucose 95 mg/dL (65-115); Osmolality Calculated 292 mOsm/kg (285-295); Potassium 3.6 mmol/L (3.5-5.1); Sodium 141 mmol/L (136-145); Total Bilirubin 0.2 mg/dL (0.15-1.2); Total Protein 5.3 g/dL (6.6-8.7)
[2023-07-28 04:31] VITALS: BP 115/77; PULSE 103; RESP 18; TEMP 37.1; O2SAT 93
[2023-07-28 08:00] VITALS: BP 119/77; PULSE 108; RESP 17; TEMP 36.8; O2SAT 95
--- NOTE | 2023-07-28 09:12 | PC.CHAP ---
Pastoral Care Encounter/Spiritual Assessment Type of Contact [] Declined contract writer visit [] Patient/Family/Request visit [] Outpatient visit [] Follow-up visit [] Physician referral [] Code/Alert [x] Routine visit [] Staff referral [] Actively dying [] Patient sleeping [x] Family support [] [] Out of room [] Palliative care [] [] Receiving care in room [] Pre-surgical visit [] Trauma [] Long length of stay [] ICU visit [] Other: Relational/Emotional Strength [x] Patient feels connected with others/family/visitors/staff [] Distress [] Loneliness/isolation [] Abandonment Spirituality of Patient [x] Person of Patricia [x] Attends Caodaism of their Patricia [x] Believes in Prayer [x] Reads Bible or Restorationism materials [] There are Spiritual issues to be addressed Senior Lead Java Developer Interventions [x] Prayer [] Active listening [] Non-anxious presence [x] Spiritual/emotional support [] Crisis/trauma care [] Spiritual counseling [] Bereavement support [] Provided bereavement packet [] Provided Bible/devotional materials [] Provided toy/stuffed animal, coloring book to patient or family member [] Provided Communion [] Anointing/[place] [] Salvation [x] Completed spiritual assessment [] Other: Impact on Illness or Injury [] Angry [] Fearful [] Anxious [] Often cries [] Exhaustion [] Unable to work [] Unable to attend judaism [] Unable to walk/stand [] Unable to read [] Unable to drive [] Unable to eat/drink [] Unable to sleep [] Unable to be with family [] Patient intubated [] Other: Summary Time spent with patient 10 min
[2023-07-28] MEDS: pantoprazole DR 40 mg Tablet PO (10:11)
[2023-07-28] MEDS: amlodipine 5 mg Tablet PO (10:11)
[2023-07-28] MEDS: acetaminophen 325 mg Tablet 650 MG PO ×2 (10:50→23:41)
[2023-07-28 12:00] VITALS: BP 134/89; PULSE 106; RESP 16; O2SAT 93
--- NOTE | 2023-07-28 13:50 | P.PN_ITS ---
Subjective Subjective: seen today afebrile overnight on 2l nc hb 7.3 Vitals/I&O/Wt Last Vital Signs Temp 98.3 F 07/28/23 08:00 Pulse 106 H 07/28/23 12:00 Resp 16 07/28/23 12:00 BP 134/89 07/28/23 12:00 Pulse Ox 93 07/28/23 12:00 O2 Del Method Nasal Cannula 07/28/23 04:31 O2 Flow Rate 2 07/27/23 21:58 07/27/23 07/28/23 07/28/23 22:59 06:59 14:59 Intake Total 1250 / 1250 170 / 1420 Output Total 200 / 200 Balance 1250 / 1250 -30 / 1220 Weight last 48 hrs Weight 81.193 kg Physical Exam Narrative: Accompanied by her Const: COMMON NORMALS: patient oriented x3 and alert GENERAL APPEARANCE: cooperative ORIENTATION/CONSCIOUSNESS: Yes awake HENMT: COMMON NORMALS: oropharynx normal Neck/C-Spine: COMMON NORMALS: no JVD Resp: COMMON NORMALS: normal respiratory effort and clear to auscultation bilaterally AUSCULTATION: clear to auscultation bilaterally Cardio: COMMON NORMALS: no JVD, regular rhythm, S1 normal heart sound present, S2 normal heart sound present and No murmurs present (Cardio) RHYTHM: regular rhythm HEART SOUNDS: S1 normal heart sound present and S2 normal heart sound present GI: COMMON NORMALS: Normal to inspection, nondistended, normoactive bowel sounds present, Soft to palpation and non-tender PALPATION: Yes Soft to palpation Extremity: COMMON NORMALS: no joint enlargement and no pedal edema Neuro: COMMON NORMALS: patient oriented x3 and moves all extremities SENSORIUM/ORIENTATION: Yes alert Skin: COMMON NORMALS: no rashes or lesions noted GENERAL SKIN EXAM: no rashes or lesions noted Data 07/28/23 02:09 07/28/23 02:09 Micro: Microbiology 07/28/23 00:10 Legionella Urinary Antigen - Final Urine,Clean Catch Bacterial Antigens - Final 07/27/23 21:40 Blood Culture - Preliminary Blood SPECIMEN COLLECTED 07/27/23 21:40 Blood Culture - Preliminary Blood SPECIMEN COLLECTED A&P Assessment and plan (1) Ground glass opacity present on imaging of lung: Recently with malaise, cough, headache, nausea, shortness of breath, extensive GGO noted on CT. Reviewed vitals, CBC, CMP, chest x-ray, CTA, NT-proBNP, troponin, rapid COVID-19 antigen, Troponin noted not elevated. EKG neg for acute PR Possible pneumonia. Continue antibiotics empirically for now with ceftriaxone, azithromycin. Given extensive GGO, underlying malignancy, at risk of decompensation, respiratory failure. Collect sputum culture if able to provide. We will obtain urine bacterial antigens. MRSA PCR. Obtain respiratory viral panel. Follow-up blood cultures. Monitor for any aspiration. Does have noted sliding out of hernia, cons ideration of chemical pneumonitis. PPI. Elevate head of bed. Avoid oral intake before sleep. Consider further assessment depending on condition and findings. Recently completed radiation to the brain, not chest, without radiation pneumonitis. Recently with progression of metastatic cancer, consideration could be given to lymphangitic spread of malignancy. will reach out to dr. womack Repeat CBC, CMP. (2) Hypoxia: Secondary to above. Has been requiring 2 L nasal cannula oxygen, not normally on oxygen previously. Plan Alk phos elevation: Suspect secondary to osseous metastatic disease. Follow-up CMP. Nephrolithiasis GERD: PPI HTN: Monitor blood pressures. Amlodipine. Other medical problems. Full Code Attestations Medical Necessity Statement*: continue hospitalization to tx for pna Diagnoses Ground glass opacity present on imaging of lung R91.8 Hypoxia R09.02
[2023-07-28 16:00] VITALS: BP 127/83; PULSE 108; RESP 17; O2SAT 92
[2023-07-28 20:18] VITALS: BP 131/86; PULSE 114; RESP 18; TEMP 36.4; O2SAT 93
[2023-07-28] MEDS: azithromycin 500 MG in sodium chloride 0.9% 250 ML 250 MG IV (22:16)
[2023-07-28 23:10] VITALS: BP 120/69; PULSE 114; RESP 18; TEMP 38.2; O2SAT 91
[2023-07-28] MEDS: cefTRIAXone 1,000 MG in sodium chloride 0.9% (plus) 50 ML 100 MG IV (23:41)
[2023-07-28] MEDS: diphenhydrAMINE 25 mg Capsule PO (23:41)
[2023-07-29] VITALS (12 sets, daily range): BP systolic 114–142; BP diastolic 75–87; PULSE 92–112; RESP 16–19; TEMP 36.1–37.1; O2SAT 90–94
[2023-07-29 05:56] LABS: Basophils % 0.3 %; Eosinophils % 0.7 %; Hematocrit 24.5 % (36-47); Lymphocytes # 0.6 10^3/uL (0.8-4.8); Lymphocytes % 18.4 %; Mean Corpuscular HGB Conc 28.6 g/dL (30-55); Mean Corpuscular Hemoglobin 30.3 pg (27-33); Mean Corpuscular Volume 106.1 fl (85-98); Monocytes # 0.3 10^3/uL (0.2-0.9); Monocytes % 8.2 %; Neutrophils # 2.11 10^3/uL (1.8-7.7); Neutrophils % 69.1 %; Nucleated Red Blood Cells # 0.2 /100WBC; Nucleated Red Blood Cells % 5.6 %; Platelet Count 124 10^3/cmm (157-399); Red Blood Count 2.31 10^6/uL (3.85-5.65); Red Cell Distribution Width 21.1 % (12.1-15.1); White Blood Count 3.05 10^3/uL (3.29-11.43)
[2023-07-29 06:23] LABS: Alanine Aminotransferase 22 U/L (0-33); Albumin Level 3.2 g/dL (3.5-5.2); Alkaline Phosphatase 135 U/L (35-105); Anion Gap 15.7 (5-19); Aspartate Amino Transferase 27 U/L (0-32); Blood Urea Nitrogen 8 mg/dL (6-20); Calcium 7.2 mg/dL (8.5-10.5); Carbon Dioxide 21 mmol/L (22-29); Chloride 110 mmol/L (98-107); Creatinine Clr Calc Pharmacy 151.7144; Globulin 2.9 g/dL (1.3-4.6); Glomerular Filtration Rate 130.1 mL/min (90-130); Glucose 86 mg/dL (65-115); Osmolality Calculated 294 mOsm/kg (285-295); Potassium 3.7 mmol/L (3.5-5.1); Sodium 143 mmol/L (136-145); Total Bilirubin 0.2 mg/dL (0.15-1.2); Total Protein 6.1 g/dL (6.6-8.7)
[2023-07-29] MEDS: pantoprazole DR 40 mg Tablet PO (09:51)
[2023-07-29] MEDS: amlodipine 5 mg Tablet PO (09:51)
[2023-07-29] MEDS: meloxicam 7.5 mg tablet 15 MG PO (09:51)
--- NOTE | 2023-07-29 09:51 | PC.PHAR ---
Pharmacokinetic dosing service Date: 07/29/23 Time: 951 Objective: Patient: Parul Abdul Floor: 269-1 Age: 53 yo Serum creatinine: 0.5 mg/dL Height: 69.0 Inches Weight (kg): 81.193 Diagnosis: Relevant medical/social history: Cultures and sensitivities: Other labs: Assessment: IBW (kg): 66.20 Dosing wt(kg): 81.193 Estimated Creatinine clearance (ml/min): 130 Clearance limited to 130 ml/min to reduce risk of overdosing. CRCL method: Cockcroft and Gault using ibw(default). Drug selected: Vancomycin Loading dose (mg): 0 Vd (liters): 73.1 (factor used: 0.9 L/kg) Jese (hr-1): 0.112 Half life (hrs): 6.19 Recommended dose: 1250 mg Interval: 8 hrs Infusion time (hrs): 1.5 Predicted peak (mcg/mL): 26.6 Predicted trough (mcg/mL): 12.84 Total body weight is being used for vancomycin dosing. Renal function is stable [ ] /unstable [ ] Recommendations: Give Vancomycin 1250 mg q 8 hrs with an expected Cpeak of 26.6 mcg/ml and an expected Ctrough of 12.84 mcg/ml Renal dosing of other antibiotics (review renal dosing of other medications and list guidelines here): Thank you for the consult, will continue to follow. Signature: Kelsey Nicole [facility]
[2023-07-29] MEDS: vancomycin 1,250 MG/250 ML PIGGYBACK 250 MG IV ×2 (12:02→18:42)
--- NOTE | 2023-07-29 14:43 | P.TS_ITS ---
Transfer Summary Providers Date of Admission: 07/27/23 21:39 Date of Discharge/Transfer: 07/29/23 Attending Provider at Admission: Henri Gonzalez Attending Provider at Transfer: Cathy Diaz MD Primary Care Provider: Fermín Vides MD Transfer Plans: Anticipated date of transfer: 07/29/23 . Diagnoses at Discharge Discharge Diagnosis (1) Ground glass opacity present on imaging of lung: Status: Acute (2) Hypoxia: Status: Acute Reason for Visit Reason for Visit fast heart rate, low O2 Brief History: per Dr. Jorge He 53-year-old lady with stage IV breast cancer with osseous mets metastatic disease, recently completed brain radiation, last chemotherapy about 3 months ago GERD, HTN, other medical problems within the last 2 days not been feeling well, increased shortness of breath, cough, mild headache, nausea, has been having some hypoxia as well in ER pulse ox dipping down into the 70s, required Newstart of 2 L nasal cannula oxygen, not on oxygen previously.? X-ray with GGO. CTA was obtained with confirmed extensive GGO.? No PE.? Scattered pulmonary micronodules, some present back in 2021.? Small to moderate sliding hiatal hernia.? Number of incidental findings relating to malignancy including new left supraclavicular adenopathy, new mediastinal and bilateral hilar adenopathy.? Questionable 1 cm adrenal nodule.? Extensive patchy sclerotic changes throughout osseous structures suggestive of osseous metastatic disease.? Stable old T11 and L1 compression fractures. Rapid COVID-19 in ER negative. Hospital Course Hospital Course Patient presented with shortness of breath malaise cough. She recently was treated for presumed pneumonia with ceftriaxone and azithromycin. Patient did spike a temperature 100.7 overnight and this morning was 96.5. He is requiring 2.5 L nasal cannula. She is not on any oxygen at home. Antibiotics were escalated up to vancomycin and cefepime. MRSA viral panel is pending. Urinary bacterial antigens are negative. Sputum culture ordered however patient is not producing any sputum. CTA chest was done at admission but showed several scattered pulmonary micronodules measuring up to 3 mm, which are new from previous scans. Left supraclavicular adenopathy, new mediastinal and bilateral hilar adenopathy with equal opportunity representative right hilar node measuring 1.2 cm in short axis diameter. Correlate with any more recent images that the patient may have had done to better assess for any change in underlying metastatic disease. Hemoglobin was 7 this morning and she has been ordered a unit of blood. Discussed the case with patient's oncologist Dr. Vides over the phone. Him and I both believe that this may be progression of disease at this point. Dr. Vides suggested that patient may need inpatient chemotherapy. We will be transferring patient to higher level of care at [facility] under Dr. Kurtz's care who is patient's medical oncologist. Patient has been accepted for transfer at [facility]. Accepting doctor Dr. Kristin Rae on behalf of Dr. Kurtz. This document below may reflect that she is on Zosyn however that order was canceled when she was placed on cefepime thereafter. Physical Exam Narrative: Accompanied by her On 2.5 L nasal cannula Const: COMMON NORMALS: patient oriented x3 and alert GENERAL APPEARANCE: cooperative ORIENTATION/CONSCIOUSNESS: Yes awake HENMT: COMMON NORMALS: oropharynx normal Neck/C-Spine: COMMON NORMALS: no JVD Resp: COMMON NORMALS: normal respiratory effort and clear to auscultation bilaterally (Mild rhonchi present on the base of left lung) AUSCULTATION: clear to auscultation bilaterally (Mild rhonchi present on the base of left lung) Cardio: COMMON NORMALS: no JVD, regular rhythm, S1 normal heart sound present, S2 normal heart sound present and No murmurs present (Cardio) RHYTHM: regular rhythm HEART SOUNDS: S1 normal heart sound present and S2 normal heart sound present GI: COMMON NORMALS: Normal to inspection, nondistended, normoactive bowel sounds present, Soft to palpation and non-tender PALPATION: Yes Soft to palpation Extremity: COMMON NORMALS: no pedal edema Neuro: COMMON NORMALS: patient oriented x3 and moves all extremities SENSORIUM/ORIENTATION: Yes alert Skin: COMMON NORMALS: no rashes or lesions noted GENERAL SKIN EXAM: no rashes or lesions noted TS Data Studies Completed and Pending Pending at discharge Category Date Time Status Blood Culture Stat Lab 07/27/23 21:40 Results Complete Blood Count w/Auto AM LABS Lab 07/30/23 04:00 Ordered Comprehensive Metabolic Panel AM LABS Lab 07/30/23 04:00 Ordered Irradiated Leuko Red RBC Routine Lab 07/29/23 10:40 Results MRSA [Methicillin Resistant S.aureu] Routine Lab 07/27/23 23:00 Received Sputum Culture and Gram Stain Routine Lab 07/27/23 22:59 Uncollected Type and Screen Routine Lab 07/29/23 10:40 Results Vancomycin Trough Timed Lab 07/30/23 09:00 Ordered Completed Studies During Hospitalization Category Date Time Status CTA chest [CT angio chest PE protcl [id number]] Stat Cat Scan 07/27/23 20:21 Completed XR chest 1V portable [id number] Stat Exams 07/27/23 20:19 Completed Laboratory Last Values WBC 3.05 10^3/uL (3.29-11.43) L 07/29/23 05:20 RBC 2.31 10^6/uL (3.85-5.65) L 07/29/23 05:20 Hgb 7.00 g/dL (11.27-16.99) L 07/29/23 05:20 Hct 24.5 % (36-47) L 07/29/23 05:20 MCV 106.1 fl (85-98) H 07/29/23 05:20 MCH 30.3 pg (27-33) 07/29/23 05:20 MCHC 28.6 g/dL (30-55) L 07/29/23 05:20 RDW 21.1 % (12.1-15.1) H 07/29/23 05:20 Plt Count 124 10^3/cmm (157-399) L 07/29/23 05:20 MPV 9.0 fL (7.4-10.4) 07/29/23 05:20 Neut % (Auto) 69.1 % 07/29/23 05:20 Lymph % (Auto) 18.4 % 07/29/23 05:20 Dougherty % (Auto) 8.2 % 07/29/23 05:20 Eos % (Auto) 0.7 % 07/29/23 05:20 Baso % (Auto) 0.3 % 07/29/23 05:20 Neut # (Auto) 2.11 10^3/uL (1.8-7.7) 07/29/23 05:20 Lymph # (Auto) 0.6 10^3/uL (0.8-4.8) L 07/29/23 05:20 Dougherty # (Auto) 0.3 10^3/uL (0.2-0.9) 07/29/23 05:20 Eos # (Auto) 0.0 10^3/uL (0.0-0.8) 07/29/23 05:20 Baso # (Auto) 0.0 10^3/uL (0.0-0.1) 07/29/23 05:20 Nucleated RBC % (auto) 5.6 % 07/29/23 05:20 Nucleated RBCs # 0.2 /100WBC 07/29/23 05:20 PT 12.80 SECONDS (12.1-14.9) 07/27/23 20:23 INR 0.94 (0.8-1.2) 07/27/23 20:23 Sodium 143 mmol/L (136-145) 07/29/23 05:20 Potassium 3.7 mmol/L (3.5-5.1) 07/29/23 05:20 Chloride 110 mmol/L (98-107) H 07/29/23 05:20 Carbon Dioxide 21 mmol/L (22-29) L 07/29/23 05:20 Anion Gap 15.7 (5-19) 07/29/23 05:20 BUN 8 mg/dL (6-20) 07/29/23 05:20 Creatinine 0.5 mg/dL (0.5-0.9) 07/29/23 05:20 GFR Calculation 130.1 mL/min (90-130) H 07/29/23 05:20 Glucose 86 mg/dL (65-115) 07/29/23 05:20 Calculated Osmolality 294 mOsm/kg (285-295) 07/29/23 05:20 Calcium 7.2 mg/dL (8.5-10.5) L 07/29/23 05:20 Total Bilirubin 0.2 mg/dL (0.15-1.2) 07/29/23 05:20 AST 27 U/L (0-32) 07/29/23 05:20 ALT 22 U/L (0-33) 07/29/23 05:20 Alkaline Phosphatase 135 U/L (35-105) H 07/29/23 05:20 Troponin T Baseline 10 ng/L (0-10) 07/27/23 20:23 Troponin T 120 Minute 9.96 ng/L (0-10) 07/27/23 22:35 Delta Troponin T -0.04 ABS# (0-10) L 07/27/23 22:35 Troponin T Hi Sens 6Hr 10.13 ng/L (0-10) H 07/28/23 02:09 Troponin T Hi Sens 6Hr Delta 0.13 ng/L (0-12) 07/28/23 02:09 NT-Pro-B Natriuret Pep 50 pg/mL (0-125) 07/27/23 20:23 Total Protein 6.1 g/dL (6.6-8.7) L 07/29/23 05:20 Albumin 3.2 g/dL (3.5-5.2) L 07/29/23 05:20 Globulin 2.9 g/dL (1.3-4.6) 07/29/23 05:20 Nasal Influ A H1 2008 PCR Not detected (NOT DETECT) 07/27/23 23:00 Adenovirus (PCR) Not detected (NOT DETECT) 07/27/23 23:00 C. pneumoniae DNA (PCR) Not detected (NOT DETECT) 07/27/23 23:00 Coronavirus 229E (PCR) Not detected (NOT DETECT) 07/27/23 23:00 Human Metapneumovir PCR Not detected (NOT DETECT) 07/27/23 23:00 Influenza A (H1) PCR Not detected (NOT DETECT) 07/27/23 23:00 Influenza A (H3) PCR Not detected (NOT DETECT) 07/27/23 23:00 Influenza Type A (PCR) Not detected (NOT DETECT) 07/27/23 23:00 Influenza Type B (PCR) Not detected (NOT DETECT) 07/27/23 23:00 M. pneumoniae (PCR) Not detected (NOT DETECT) 07/27/23 23:00 Parainfluenza 1 (PCR) Not detected (NOT DETECT) 07/27/23 23:00 Parainfluenza 2 (PCR) Not detected (NOT DETECT) 07/27/23 23:00 Parainfluenza 3 (PCR) Not detected (NOT DETECT) 07/27/23 23:00 Parainfluenza 4 (PCR) Not detected (NOT DETECT) 07/27/23 23:00 RSV Type A (PCR) Not detected (NOT DETECT) 07/27/23 23:00 RSV Type B (PCR) Not detected (NOT DETECT) 07/27/23 23:00 Entero/Rhino (PCR) Not detected (NOT DETECT) 07/27/23 23:00 SARS-CoV-2 (PCR) Not detected (NOT DETECT) 07/27/23 23:00 SARS-CoV-2 Ag (Rapid) negative (Negative) 07/27/23 21:02 Blood Type A Positive 07/29/23 10:40 Rho(D) Type Rh positive 07/29/23 10:40 Antibody Screen Negative 07/29/23 10:40 Crossmatch See Detail 07/29/23 10:40 Radiology Impressions Chest X-Ray 07/27/23 20:19 IMPRESSION: 1. Extensive bilateral ground-glass infiltrates, better appreciated on CT. Consider pulmonary edema, bilateral pneumonia, or ARDS. 2. Extensive patchy sclerotic changes throughout the osseous thorax, consistent with extensive osseous metastatic disease. Chest CTA 07/27/23 20:21 IMPRESSION: 1. No pulmonary emboli identified. 2. Extensive bilateral ground-glass infiltrates. Consider pulmonary edema versus ARDS versus bilateral pneumonia. 3. Several scattered pulmonary micronodules, measuring up to 3 mm. Some of these were present on 09/05/2022, while others can not be clearly identified. Follow-up as per oncology recommendations. 4. New left supraclavicular adenopathy, with a equal opportunity representative node measuring 1.1 cm in short axis diameter. 5. New mediastinal and bilateral hilar adenopathy, with a equal opportunity representative right hilar node measuring 1.6 cm in short axis diameter. 6. [id number] sliding hiatal hernia. 7. A couple of small nonobstructive left renal calculi. 8. Questionable small 1 cm left adrenal nodule, not clearly identified on 09/05/2022. 9. Extensive patchy sclerotic changes throughout the visualized osseous structures, increased from 09/05/2022. Suggests diffuse osseous metastatic disease. 10. Stable old T11 and L1 compression fractures. 11. Correlate with any more recent imaging that the patient may have had done to better assess for any change in her underlying metastatic disease. Recent Clincial Data Last Vital Signs Temp 98.3 F 07/29/23 12:00 Pulse 106 H 07/29/23 12:00 Resp 17 07/29/23 12:00 BP 124/78 07/29/23 12:00 Pulse Ox 90 07/29/23 12:00 O2 Del Method Nasal Cannula 07/28/23 23:10 O2 Flow Rate 2.5 07/28/23 23:10 Vital Signs Temp Pulse Resp BP Pulse Ox 07/29/23 12:00 98.3 F 106 H 17 124/78 90 07/29/23 08:00 96.9 F L 102 H 17 122/80 91 07/29/23 05:00 92 16 114/75 92 Intake & Output/Weight 07/27/23 07/28/23 07/29/23 07/30/23 06:59 06:59 06:59 06:59 Intake Total 1420 / 1420 1260 / 1260 850 / 850 Output Total 200 / 200 800 / 800 Balance 1220 / 1220 460 / 460 850 / 850 Weight 81.193 kg Vitals Last Vital Signs Temp 98.3 F 07/29/23 12:00 Pulse 106 H 07/29/23 12:00 Resp 17 07/29/23 12:00 BP 124/78 07/29/23 12:00 Pulse Ox 90 07/29/23 12:00 O2 Del Method Nasal Cannula 07/28/23 23:10 O2 Flow Rate 2.5 07/28/23 23:10 TS Medications Medications Acetaminophen (Acetaminophen 325 Mg Tablet) 650 mg PO Q4H PRN PRN Reason: MILD PAIN OR INCREASE TEMP Last Admin: 07/28/23 23:41 Dose: 650 mg Hydrocodone Bitart/Acetaminophen (Hydrocodone-Acetaminophen 5-325 Mg Tablet) 1 tab PO Q6H PRN PRN Reason: pain Alprazolam (Alprazolam 0.5 Mg Tablet) 0.25 mg PO TID PRN PRN Reason: anxiety Amlodipine Besylate (Amlodipine 5 Mg Tablet) 5 mg PO DAILY [facility] Last Admin: 07/29/23 09:51 Dose: 5 mg Diphenhydramine HCl (Diphenhydramine 25 Mg Capsule) 25 mg PO ONCE PRN PRN Reason: INSOMNIA Last Admin: 07/28/23 23:41 Dose: 25 mg Enoxaparin Sodium (Enoxaparin 40 Mg/0.4 Ml Syringe) 40 mg SUBCUT Q24H ILIANA Last Admin: 07/28/23 23:46 Dose: Not Given Piperacillin Sod/Tazobactam (Sod 3.375 gm/ Sodium Chloride) 50 mls @ 12.5 mls/hr IV Q8H ILIANA; Protocol Vancomycin/PEG/NADA/Lysine/Water (Vancocin) 1,250 mg in 250 mls @ 250 mls/hr IV Q8H ILIANA Last Infusion: 07/29/23 14:08 Dose: Infused Meloxicam (Meloxicam 7.5 Mg Tablet) 15 mg PO DAILY ILIANA Last Admin: 07/29/23 09:51 Dose: 15 mg Ondansetron HCl (Ondansetron 4 Mg Tablet) 4 mg PO Q8H PRN PRN Reason: nausea and vomiting Pantoprazole Sodium (Pantoprazole Dr 40 Mg Tablet) 40 mg PO DAILY ILIANA Last Admin: 07/29/23 09:51 Dose: 40 mg Sodium Chloride (Sodium Chloride 0.9% 100 Ml Bag) 50 ml IV PRN PRN PRN Reason: Blood transfusion prime and flush Stop: 07/30/23 09:08 Discontinued Medications Sodium Chloride (Sodium Chloride 0.9%) 1,000 mls @ 999 mls/hr IV .Q1H1M ONE Stop: 07/27/23 21:21 Last Infusion: 07/27/23 21:52 Dose: Infused Azithromycin 500 mg/ Sodium (Chloride) 250 mls @ 250 mls/hr IV ONCE ONE; Protocol Stop: 07/27/23 22:28 Last Infusion: 07/27/23 22:53 Dose: Infused Ceftriaxone Sodium 1,000 mg/ (Sodium Chloride) 50 mls @ 100 mls/hr IV ONCE ONE; Protocol Stop: 07/27/23 21:58 Last Infusion: 07/27/23 23:47 Dose: Infused Ceftriaxone Sodium 1,000 mg/ (Sodium Chloride) 50 mls @ 100 mls/hr IV Q24H ILIANA; Protocol Last Infusion: 07/29/23 00:15 Dose: Infused Azithromycin 500 mg/ Sodium (Chloride) 250 mls @ 250 mls/hr IV Q24H ILIANA; Protocol Last Infusion: 07/28/23 23:17 Dose: Infused Iohexol (Iohexol 350 Mg/Ml 500 Ml Btl (Per Ml)) 0 ml IV ONCE ONE Stop: 07/27/23 20:36 Last Admin: 07/27/23 20:35 Dose: 100 ml Allergies No Known Allergies Allergy (Verified 06/26/23 08:46) Home Medications Auto Titrating CPAP #1 ea 08/25/20 [Rx Confirmed 07/28/23] acetaminophen 300 mg-codeine 30 mg tablet 1 - 2 tab PO Q6H PRN pain #120 tabs 05/12/22 [Rx Confirmed 07/27/23] blood sugar diagnostic (Blood Glucose Test strips) #25 ea 06/08/23 [Rx Confirmed 07/28/23] blood-glucose meter #1 ea 06/08/23 [Rx Confirmed 07/28/23] lancets 33 gauge #100 ea 06/08/23 [Rx Confirmed 07/28/23] alprazolam 0.25 mg tablet 0.25 mg PO TID PRN anxiety #30 tabs 07/17/23 [Rx Confirmed 07/27/23] ondansetron HCl 4 mg tablet 4 mg PO Q8H PRN nausea and vomiting #30 tabs 07/17/23 [Rx Confirmed 07/27/23] amlodipine 5 mg tablet 5 mg PO QAM 07/28/23 [History Confirmed 07/28/23] esomeprazole magnesium 20 mg capsule,delayed release (Nexium 24HR) 20 mg PO QAM 07/28/23 [History Confirmed 07/28/23] meloxicam 15 mg tablet 15 mg PO QAM 07/28/23 [History Confirmed 07/28/23] Discharge Plan Discharge Patient Disposition: Xfer Other Condition: Stable Prescriptions: No Action (DME) Auto Titrating CPAP 6-14cm See Rx Instructions .Route .MEDSUPPLY Qty: 1 0RF Rx Instructions: As directed. Please include heated humidifier and supplies. Length of Need - Lifetime acetaminophen-codeine 300-30 mg tablet 1 - 2 tab PO Q6H PRN (Reason: pain) Qty: 120 0RF (DME) Blood Glucose Test Strip See Rx Instructions .Route Qty: 25 0RF Rx Instructions: As directed (DME) blood-glucose meter Misc See Rx Instructions .Route Qty: 1 0RF Rx Instructions: As directed (DME) lancets 33 gauge misc See Rx Instructions .Route Qty: 100 0RF Rx Instructions: As directed alprazolam 0.25 mg tablet 0.25 mg PO TID PRN (Reason: anxiety) Qty: 30 3RF ondansetron HCl 4 mg tablet 4 mg PO Q8H PRN (Reason: nausea and vomiting) Qty: 30 1RF Nexium 24HR 20 mg Capsule,Delayed Release(Dr/Ec) 20 mg PO QAM meloxicam 15 mg tablet 15 mg PO QAM amlodipine 5 mg tablet 5 mg PO QAM Referrals: Fermín Vides MD [Primary Care Provider] - Transfer Attestations Time Spent in Transfer Care: greater than 30 min Quality Metrics Clinical Quality Measures [ No reported AMI, CVA or VTE this stay] Coding Level of Care Code 47585 Total time (in minutes) for Discharge: 65 Diagnoses Ground glass opacity present on imaging of lung R91.8 Hypoxia R09.02
[2023-07-29 20:48] LABS: Hematocrit 30.6 % (36-47)
[2023-07-29] MEDS: cefepime 1,000 MG in sodium chloride 0.9% (plus) 50 ML 100 MG IV (21:38)
--- NOTE | 2023-07-29 22:27 | PC.NURSE ---
[facility] called for updates and stated they did not have any beds available on the Oncology floor at this time, but was hoping for discharges in the morning.
[2023-07-29] MEDS: acetaminophen 325 mg Tablet 650 MG PO (23:47)
[2023-07-29] MEDS: diphenhydrAMINE 25 mg Capsule PO (23:58)
[2023-07-30] MEDS: vancomycin 1,250 MG/250 ML PIGGYBACK 100 MG IV (01:52)
[2023-07-30 04:42] LABS: Basophils % 0.6 %; Eosinophils % 0.3 %; Hematocrit 27.9 % (36-47); Lymphocytes # 0.6 10^3/uL (0.8-4.8); Lymphocytes % 16.5 %; Mean Corpuscular HGB Conc 30.1 g/dL (30-55); Mean Corpuscular Hemoglobin 30.2 pg (27-33); Mean Corpuscular Volume 100.4 fl (85-98); Mean Platelet Volume 8.8 fL (7.4-10.4); Monocytes # 0.3 10^3/uL (0.2-0.9); Monocytes % 9.1 %; Neutrophils # 2.37 10^3/uL (1.8-7.7); Neutrophils % 69.7 %; Nucleated Red Blood Cells # 0.2 /100WBC; Nucleated Red Blood Cells % 6.5 %; Platelet Count 118 10^3/cmm (157-399); Red Blood Count 2.78 10^6/uL (3.85-5.65); Red Cell Distribution Width 21.9 % (12.1-15.1)
[2023-07-30 05:32] LABS: Alanine Aminotransferase 21 U/L (0-33); Albumin Level 3.2 g/dL (3.5-5.2); Alkaline Phosphatase 135 U/L (35-105); Aspartate Amino Transferase 28 U/L (0-32); Blood Urea Nitrogen 10 mg/dL (6-20); Calcium 7.5 mg/dL (8.5-10.5); Carbon Dioxide 21 mmol/L (22-29); Chloride 107 mmol/L (98-107); Globulin 2.9 g/dL (1.3-4.6); Glomerular Filtration Rate 168.3 mL/min (90-130); Glucose 86 mg/dL (65-115); Osmolality Calculated 284 mOsm/kg (285-295); Sodium 138 mmol/L (136-145); Total Bilirubin 0.4 mg/dL (0.15-1.2); Total Protein 6.1 g/dL (6.6-8.7)
[2023-07-30 05:33] LABS: Anion Gap 13.6 (5-19); Potassium 3.6 mmol/L (3.5-5.1)
[2023-07-30 08:00] VITALS: BP 120/77; PULSE 96; RESP 17; TEMP 36.6; O2SAT 93
[2023-07-30 09:09] LABS: Vancomycin Trough 22.5 ug/mL (10-15)
[2023-07-30] MEDS: pantoprazole DR 40 mg Tablet PO (09:45)
[2023-07-30] MEDS: amlodipine 5 mg Tablet PO (09:45)
[2023-07-30] MEDS: meloxicam 7.5 mg tablet 15 MG PO (09:45)
[2023-07-30] MEDS: cefepime 1,000 MG in sodium chloride 0.9% (plus) 50 ML 100 MG IV ×2 (09:46→20:46)
[2023-07-30 12:00] VITALS: BP 153/89; PULSE 97; RESP 16; TEMP 35.8; O2SAT 93
--- NOTE | 2023-07-30 14:02 | PM.PN ---
Subjective Subjective: seen today afebrile overnight on 2l nc hb 8.4 Vitals/I&O/Wt Last Vital Signs Temp 96.4 F L 07/30/23 12:00 Pulse 97 07/30/23 12:00 Resp 16 07/30/23 12:00 BP 153/89 07/30/23 12:00 Pulse Ox 93 07/30/23 12:00 O2 Del Method Nasal Cannula 07/29/23 16:00 O2 Flow Rate 2.5 07/29/23 19:56 07/29/23 07/30/23 07/30/23 22:59 06:59 14:59 Intake Total 1030 / 1880 250 / 2130 530 / 530 Output Total 400 / 400 400 / 400 Balance 630 / 1480 250 / 1730 130 / 130 Physical Exam Narrative: Accompanied by her On 2.5 L nasal cannula Const: COMMON NORMALS: patient oriented x3 and alert GENERAL APPEARANCE: cooperative ORIENTATION/CONSCIOUSNESS: Yes awake HENMT: COMMON NORMALS: oropharynx normal Neck/C-Spine: COMMON NORMALS: no JVD Resp: COMMON NORMALS: normal respiratory effort and clear to auscultation bilaterally (Mild rhonchi present on the base of left lung) AUSCULTATION: clear to auscultation bilaterally (Mild rhonchi present on the base of left lung) Cardio: COMMON NORMALS: no JVD, regular rhythm, S1 normal heart sound present, S2 normal heart sound present and No murmurs present (Cardio) RHYTHM: regular rhythm HEART SOUNDS: S1 normal heart sound present and S2 normal heart sound present GI: COMMON NORMALS: Normal to inspection, nondistended, normoactive bowel sounds present, Soft to palpation and non-tender PALPATION: Yes Soft to palpation Extremity: COMMON NORMALS: no pedal edema Neuro: COMMON NORMALS: patient oriented x3 and moves all extremities SENSORIUM/ORIENTATION: Yes alert Skin: COMMON NORMALS: no rashes or lesions noted GENERAL SKIN EXAM: no rashes or lesions noted Data 07/30/23 02:41 07/30/23 02:41 A&P Assessment and plan (1) Ground glass opacity present on imaging of lung: Recently with malaise, cough, headache, nausea, shortness of breath, extensive GGO noted on CT. Reviewed vitals, CBC, CMP, chest x-ray, CTA, NT-proBNP, troponin, rapid COVID-19 antigen, Troponin noted not elevated. EKG neg for acute NC Possible pneumonia. Continue antibiotics empirically for now with ceftriaxone, azithromycin. Given extensive GGO, underlying malignancy, at risk of decompensation, respiratory failure. Collect sputum culture if able to provide. We will obtain urine bacterial antigens. MRSA PCR. Obtain respiratory viral panel. Follow-up blood cultures. Monitor for any aspiration. Does have noted sliding out of hernia, consideration of chemical pneumonitis. PPI. Elevate head of bed. Avoid oral intake before sleep. Recently completed radiation to the brain, not chest, without radiation pneumonitis. Recently with progression of metastatic cancer, consideration could be given to lymphangitic spread of malignancy. Discussed with Dr. Vides. He advised transfer patient to [place] at this time. See transfer summary for more details. Patient has been accepted under Dr. Kurtz service. We are currently awaiting bed placement. Patient is status post 1 unit packed RBC. Hemoglobin stable at 8.40. Repeat CBC, CMP. (2) Hypoxia: Secondary to above. Has been requiring 2 L nasal cannula oxygen, not normally on oxygen previously. Plan Alk phos elevation: Suspect secondary to osseous metastatic disease. Follow-up CMP. #Thrombocytopenia #Anemia ? Patient is status post 1 packed RBC. Hemoglobin stable at 8.40. Platelets further decreased to 118. ?Continue to monitor and chest use as needed for hemoglobin less than 7.. Nephrolithiasis GERD: PPI HTN: Monitor blood pressures. Amlodipine. Other medical problems. Full Code Attestations Medical Necessity Statement*: pt accepted for transfer at [place]. awaiting bed placement. continue current tx for pna Diagnoses Ground glass opacity present on imaging of lung R91.8 Hypoxia R09.02
--- NOTE | 2023-07-30 14:24 | PC.PHAR ---
Pharmacokinetic dosing service Date: 07/30/23 Time: 1423 Patient: Parul Abdul Floor: [id number] Weight: 81.193 Kilograms Vancomycin single level analysis: Current dose being given: 1250mg mg Current dosing interval: 8 hrs Current infusion time (hrs): 1.5 Single level Trough Data: Trough level obtained: 22.5 mcg/ml Timing of trough - # of hrs before next dose: 1.3 Hrs Desired peak: 40 mcg/ml Desired trough: 15 mcg/ml Diagnosis: Relevant medical/social history: Cultures and sensitivities: Other labs: Estimated PK Parameters: New rate constant (diamond): 0.084 hr-1 Half-life: 8.25 Hours Vd from levels: 73.07 Liters (0.7 L/kg) CLvanco=?? 6.138 L/hr Estimated New Dose and Interval Recommended dose: 2084.4 mg Recommended interval: 13.2 Hrs Patient response: Patient is responding to treatment [yes/no] wbc decreasing, S/SX reduced [yes/no] Renal function is stable/unstable Recommendations: Give Vancomycin 1500 mg q 12 hrs. Infuse over 1.5 hrs Expected Cpeak: 30.4 mcg/mL Expected Ctrough: 12.6 mcg/mL AUC 0-24 /KATIE Data: KATIE 0.5 mcg/mL:?? AUC/KATIE:? 977.5 KATIE 1.0 mcg/mL:?? AUC/KATIE:? 488.8 Recommended labs and intervals: Measure Bun and Scr 3 times/week. Renal dosing of other antibiotics (review renal dosing of other medications and list guidelines here): Thank you for the consult, will continue to follow. Signature: [facility]
[2023-07-30] MEDS: vancomycin 1,500 MG/300 ML PIGGYBACK 200 MG IV (15:38)
[2023-07-30 16:00] VITALS: BP 143/86; PULSE 101; RESP 16; TEMP 36.7; O2SAT 93
[2023-07-30 20:00] VITALS: BP 120/80; PULSE 107; RESP 18; TEMP 36.8; O2SAT 92
--- NOTE | 2023-07-30 21:24 | PC.NURSE ---
Moraima from [facility] called to ask about any updates on patient within the last 12 hours and to inquire if the plan was still to transfer. This nurse informed Dankkiki that the only change was her vancomycin had been changed from 1200mg Q8H to 1500mg Q12H and that the plan was still to transfer out. Moraima informed this nurse that there were no Oncology beds available [facility].
[2023-07-30] MEDS: acetaminophen 325 mg Tablet 650 MG PO (22:32)
[2023-07-30] MEDS: diphenhydrAMINE 25 mg Capsule PO (22:33)
[2023-07-30 23:45] VITALS: BP 116/71; PULSE 95; RESP 17; TEMP 36.2; O2SAT 94
[2023-07-31] MEDS: vancomycin 1,500 MG/300 ML PIGGYBACK 100 MG IV (02:37)
[2023-07-31 04:00] VITALS: BP 126/81; PULSE 74; RESP 17; TEMP 36.6; O2SAT 97
[2023-07-31 04:38] LABS: Hematocrit 28.6 % (36-47); Mean Corpuscular HGB Conc 29.7 g/dL (30-55); Mean Corpuscular Volume 101.1 fl (85-98); Mean Platelet Volume 8.6 fL (7.4-10.4); Platelet Count 146 10^3/cmm (157-399); Red Blood Count 2.83 10^6/uL (3.85-5.65); White Blood Count 2.93 10^3/uL (3.29-11.43)
[2023-07-31 05:14] LABS: Anion Gap 11.7 (5-19); Blood Urea Nitrogen 12 mg/dL (6-20); Calcium 7.9 mg/dL (8.5-10.5); Carbon Dioxide 22 mmol/L (22-29); Chloride 111 mmol/L (98-107); Creatinine Clr Calc Pharmacy 151.7144; Glomerular Filtration Rate 130.1 mL/min (90-130); Glucose 91 mg/dL (65-115); Osmolality Calculated 291 mOsm/kg (285-295); Potassium 3.7 mmol/L (3.5-5.1); Sodium 141 mmol/L (136-145)
[2023-07-31 05:31] LABS: Absolute Neutrophil 1.8 10^3/cmm (1.4-6.5); Absolute Segmented Neutrophil 1.7 10/cmm (1.6-7.1); Corrected White Blood Count 2.8 10^3/cmm (4.8-10.8); Eosinophils 0 %; Hypochromasia 2+; Lymphocytes 23 %; Lymphocytes Absolute 0.7 10^3/cmm (1.2-3.4); Monocytes Absolute 0.3 10^3/cmm (0.1-0.6); Platelet Estimate Decreased (Normal); Segmented Neutrophils 59 %; Slide Review Slide Review Perform; Total Cells Counted 100 (0-100)
[2023-07-31 05:32] LABS: Anisocytosis 2+; Microcytosis 1+; Polychromasia 1+
[2023-07-31 08:00] VITALS: BP 125/83; PULSE 79; RESP 16; TEMP 36.7; O2SAT 95
[2023-07-31] MEDS: meloxicam 7.5 mg tablet 15 MG PO (08:42)
[2023-07-31] MEDS: amlodipine 5 mg Tablet PO (08:42)
[2023-07-31] MEDS: pantoprazole DR 40 mg Tablet PO (08:42)
[2023-07-31] MEDS: cefepime 1,000 MG in sodium chloride 0.9% (plus) 50 ML 100 MG IV ×2 (10:19→20:05)
--- NOTE | 2023-07-31 11:10 | P.PN_ITS ---
Subjective Subjective: 1% bandemia present on diff this morning afebrile overnight reportedly feeling slightly better sob slightly improved but still requiring 2L NC at rest saturating 94-95% awaiting bed at [facility] at bedside hb stable at 8.50 Vitals/I&O/Wt Last Vital Signs Temp 98.1 F 07/31/23 08:00 Pulse 79 07/31/23 08:00 Resp 16 07/31/23 08:00 BP 125/83 07/31/23 08:00 Pulse Ox 95 07/31/23 08:00 O2 Del Method Nasal Cannula 07/31/23 08:00 O2 Flow Rate 2.5 07/30/23 19:12 07/30/23 07/31/23 07/31/23 22:59 06:59 14:59 Intake Total 950 / 1480 300 / 1780 240 / 240 Output Total 300 / 700 300 / 300 Balance 950 / 1080 0 / 1080 -60 / -60 Physical Exam Narrative: Accompanied by her On 2.5 L nasal cannula Const: COMMON NORMALS: patient oriented x3 and alert GENERAL APPEARANCE: cooperative ORIENTATION/CONSCIOUSNESS: Yes awake HENMT: COMMON NORMALS: oropharynx normal Neck/C-Spine: COMMON NORMALS: no JVD Resp: COMMON NORMALS: normal respiratory effort and clear to auscultation bilaterally (rhonchi improved) AUSCULTATION: clear to auscultation bilaterally (rhonchi improved) Cardio: COMMON NORMALS: no JVD, regular rhythm, S1 normal heart sound present, S2 normal heart sound present and No murmurs present (Cardio) RHYTHM: regular rhythm HEART SOUNDS: S1 normal heart sound present and S2 normal heart sound present GI: COMMON NORMALS: Normal to inspection, nondistended, normoactive bowel sounds present, Soft to palpation and non-tender PALPATION: Yes Soft to palpation Extremity: COMMON NORMALS: no pedal edema Neuro: COMMON NORMALS: patient oriented x3 and moves all extremities SENSORIUM/ORIENTATION: Yes alert Skin: COMMON NORMALS: no rashes or lesions noted GENERAL SKIN EXAM: no rashes or lesions noted Data 07/31/23 03:33 07/31/23 03:33 A&P Assessment and plan (1) Ground glass opacity present on imaging of lung: Recently with malaise, cough, headache, nausea, shortness of breath, extensive GGO noted on CT. Reviewed vitals, CBC, CMP, chest x-ray, CTA, NT-proBNP, troponin, rapid COVID-19 antigen, Troponin noted not elevated. EKG neg for acute OK Possible pneumonia. Continue antibiotics empirically for now with ceftriaxone, azithromycin. Given extensive GGO, underlying malignancy, at risk of decompensation, respiratory failure. Collect sputum culture if able to provide. We will obtain urine bacterial antigens. MRSA PCR. Obtain respiratory viral panel. Follow-up blood cultures. Monitor for any aspiration. Does have noted sliding out of hernia, consideration of chemical pneumonitis. PPI. Elevate head of bed. Avoid oral intake before sleep. Recently completed radiation to the brain, not chest, without radiation pneumonitis. Recently with progression of metastatic cancer, consideration could be given to lymphangitic spread of malignancy. Discussed with Dr. Vides. He advised transfer patient to [place] at this time. See transfer summary for more details. Patient has been accepted under Dr. Kurtz service. We are currently awaiting bed placement. Patient is status post 1 unit packed RBC 06/28. Hemoglobin stable at 8.50. Repeat CBC, CMP. (2) Hypoxia: Secondary to above. Has been requiring 2 L nasal cannula oxygen, not normally on oxygen previously. Plan Alk phos elevation: Suspect secondary to osseous metastatic disease. Follow-up CMP. #Thrombocytopenia - stable #Anemia ? Patient is status post 1 packed RBC. Hemoglobin stable at 8.40. Platelets stable but low. ?Continue to monitor and chest use as needed for hemoglobin less than 7.. Nephrolithiasis GERD: PPI HTN: Monitor blood pressures. Amlodipine. Other medical problems. Full Code Attestations Medical Necessity Statement*: pt accepted for transfer at [place]. awaiting bed placement. continue current tx for pna Diagnoses Ground glass opacity present on imaging of lung R91.8 Hypoxia R09.02
[2023-07-31 11:39] VITALS: BP 127/85; PULSE 99; RESP 18; TEMP 36.6; O2SAT 96
[2023-07-31 13:39] LABS: Methicillin-Resist S.aureu PCR NOT DETECTED (NOT DETECTED)
[2023-07-31] MEDS: vancomycin 1,500 MG/300 ML PIGGYBACK 200 MG IV (14:38)
[2023-07-31 15:51] VITALS: BP 128/84; PULSE 92; RESP 16; TEMP 36.8; O2SAT 95
[2023-07-31 19:15] VITALS: BP 124/82; PULSE 102; RESP 18; TEMP 37.1; O2SAT 94
[2023-07-31] MEDS: HYDROcodone-acetaminophen 5-325 mg Tablet 1 TAB PO (22:24)
[2023-08-01] VITALS: BP 136/84; PULSE 88; RESP 18; TEMP 37.1; O2SAT 94
[2023-08-01] MEDS: vancomycin 1,500 MG/300 ML PIGGYBACK 100 MG IV (01:07)
[2023-08-01 03:51] VITALS: BP 115/73; PULSE 87; RESP 18; TEMP 36.6; O2SAT 95
[2023-08-01 07:08] VITALS: BP 128/77; PULSE 91; RESP 16; TEMP 36.7; O2SAT 94
[2023-08-01] MEDS: pantoprazole DR 40 mg Tablet PO (08:10)
[2023-08-01] MEDS: amlodipine 5 mg Tablet PO (08:10)
[2023-08-01] MEDS: meloxicam 7.5 mg tablet 15 MG PO (08:10)
[2023-08-01] MEDS: cefepime 1,000 MG in sodium chloride 0.9% (plus) 50 ML 100 MG IV (08:10)
[2023-08-01 09:47] LABS: Basophils % 0.6 %; Eosinophils % 0.8 %; Hematocrit 30.1 % (36-47); Lymphocytes # 0.7 10^3/uL (0.8-4.8); Lymphocytes % 19.4 %; Mean Corpuscular HGB Conc 30.6 g/dL (30-55); Mean Corpuscular Hemoglobin 30.9 pg (27-33); Mean Platelet Volume 9.1 fL (7.4-10.4); Monocytes # 0.4 10^3/uL (0.2-0.9); Monocytes % 11.8 %; Neutrophils # 2.23 10^3/uL (1.8-7.7); Neutrophils % 62.6 %; Nucleated Red Blood Cells # 0.1 /100WBC; Nucleated Red Blood Cells % 3.4 %; Platelet Count 125 10^3/cmm (157-399); Red Blood Count 2.98 10^6/uL (3.85-5.65); Red Cell Distribution Width 21.2 % (12.1-15.1); White Blood Count 3.56 10^3/uL (3.29-11.43)
--- NOTE | 2023-08-01 10:22 | USCV_ITS ---
Parul Abdul Age: 53 Gender: F : 1970 Exam Date: 08/01/2023 10:58 Ordering Phys: Cathy Diaz MD Technologist: FIDEL Exam Location: [facility] – [place], [place] Indication: BASELINE ECHO PRIOR TO CHEMO BP: 128 / 77 HR: 101 Rhythm: Sinus Technical Quality: Adequate MEASUREMENTS (Male / Female) Normal Values 2D ECHO LVOT Diameter 2.0 cm LV Ejection Fraction MOD 2C 63.2 % LV Ejection Fraction 2C AL 66.2 % LA Diameter 2.7 cm LA Width 2.9 cm LA Height 4.1 cm RA Width 2.8 cm RA Height 3.6 cm Aorta at Sinotubular Diameter 2.0 cm IVC Diameter 1.2 cm M-MODE Aortic Annulus Diameter 2.3 cm LA Ao Ratio MM 1.1 MV E Point Septal Separation 0.3 cm DOPPLER Right Atrial Pressure 3.0 mmHg FINDINGS Left Ventricle Study is 2D examination only. No M-mode or Doppler. Normal left ventricular size and function. Ejection fraction 65%. Diastolic function not evaluated. Right Ventricle Normal right ventricular size and systolic function. Right Atrium The right atrium is normal in size. Left Atrium The left atrium is normal in size. Mitral Valve Structurally normal mitral valve. Aortic Valve Structurally normal trileaflet aortic valve. Tricuspid Valve Structurally normal tricuspid valve. Pulmonic Valve Pulmonic valve not well visualized. Pericardium Normal pericardium without effusion. Aorta Normal ascending aorta dimension. IVC The inferior vena cava appears normal. CONCLUSIONS Study is 2D examination only. No M-mode or Doppler. Normal left ventricular size and function. Ejection fraction 65%. Diastolic function not evaluated. There are no prior echocardiogram studies to compare. Dr. Cuong Rico MD (Electronically Signed) Final Date: 01 August 2023 15:47 S
--- NOTE | 2023-08-01 11:41 | P.DS_ITS ---
Discharge Providers Date of Admission: 07/27/23 21:39 Date of Discharge: August 01, 2023 Attending Provider at Admission: Henri Gonzalez Attending Provider at Discharge: Cathy Diaz MD Primary Care Provider: Fermín Vides MD Diagnoses at Discharge Discharge Diagnosis (1) Ground glass opacity present on imaging of lung: Status: Acute (2) Hypoxia: Status: Acute Reason for Visit Reason for Visit: fast heart rate, low O2 Hospital Course Hospital Course Patient presented with shortness of breath malaise cough. She recently was treated for presumed pneumonia with ceftriaxone and azithromycin. Patient did spike a temperature 100.7 during hospital stay. He is requiring 2.5 L nasal cannula. She is not on any oxygen at home. Antibiotics were escalated up to vancomycin and cefepime. MRSA viral panel is pending. Urinary bacterial antigens are negative. Sputum culture ordered however patient is not producing any sputum. CTA chest was done at admission but showed several scattered pulmonary micronodules measuring up to 3 mm, which are new from previous scans. Left supraclavicular adenopathy, new mediastinal and bilateral hilar adenopathy with [employer] right hilar node measuring 1.2 cm in short axis diameter. Correlate with any more recent images that the patient may have had done to better assess for any change in underlying metastatic disease. During hospital stay patient also required 1 unit of blood transfusion due to hemoglobin being 7. Thereafter it has been stable at 9.2 at time of discharge. Discussed the case with patient's oncologist Dr. Vides over the phone. He reached out to Dr. Kurtz's office. Patient will be starting IV chemotherapy as an outpatient. We will be discharging her home in stable condition today. She will be on 7 days of Levaquin. Home O2 eval will be done and patient will be set up with oxygen if needed. Initially plan was to transfer her to [facility] however due to being her on a waiting list for a bed she will be initiated on chemotherapy here. Baseline echocardiogram will be obtained prior to discharge today. Answered all family's questions and discussed the plan. they demonstrate understanding. Physical Exam Narrative: Accompanied by her On 2.5 L nasal cannula Const: COMMON NORMALS: patient oriented x3 and alert GENERAL APPEARANCE: cooperative ORIENTATION/CONSCIOUSNESS: Yes awake HENMT: COMMON NORMALS: oropharynx normal Neck/C-Spine: COMMON NORMALS: no JVD Resp: COMMON NORMALS: normal respiratory effort and clear to auscultation bilaterally (rhonchi improved) AUSCULTATION: clear to auscultation bilaterally (rhonchi improved) Cardio: COMMON NORMALS: no JVD, regular rhythm, S1 normal heart sound present, S2 normal heart sound present and No murmurs present (Cardio) RHYTHM: regular rhythm HEART SOUNDS: S1 normal heart sound present and S2 normal heart sound present GI: COMMON NORMALS: Normal to inspection, nondistended, normoactive bowel sounds present, Soft to palpation and non-tender PALPATION: Yes Soft to palpation Extremity: COMMON NORMALS: no pedal edema Neuro: COMMON NORMALS: patient oriented x3 and moves all extremities SENSORIUM/ORIENTATION: Yes alert Skin: COMMON NORMALS: no rashes or lesions noted GENERAL SKIN EXAM: no rashes or lesions noted Discharge Data Studies Completed and Pending Completed Studies During Hospitalization Category Date Time Status CTA chest [CT angio chest PE protcl [id number]] Stat Cat Scan 07/27/23 20:21 Completed XR chest 1V portable [id number] Stat Exams 07/27/23 20:19 Completed Pending at discharge Category Date Time Status Blood Culture Stat Lab 07/27/23 21:40 Results Sputum Culture and Gram Stain Routine Lab 07/27/23 22:59 Uncollected Vancomycin Trough Timed Lab 08/01/23 13:30 Ordered US echo limited [CV. echo limited [id number]] Urgent Ultrasound 08/01/23 10:22 Taken Radiology Impressions Chest X-Ray 07/27/23 20:19 IMPRESSION: 1. Extensive bilateral ground-glass infiltrates, better appreciated on CT. Consider pulmonary edema, bilateral pneumonia, or ARDS. 2. Extensive patchy sclerotic changes throughout the osseous thorax, consistent with extensive osseous metastatic disease. Chest CTA 07/27/23 20:21 IMPRESSION: 1. No pulmonary emboli identified. 2. Extensive bilateral ground-glass infiltrates. Consider pulmonary edema versus ARDS versus bilateral pneumonia. 3. Several scattered pulmonary micronodules, measuring up to 3 mm. Some of these were present on 09/05/2022, while others can not be clearly identified. Follow-up as per oncology recommendations. 4. New left supraclavicular adenopathy, with a [employer] node measuring 1.1 cm in short axis diameter. 5. New mediastinal and bilateral hilar adenopathy, with a [employer] right hilar node measuring 1.6 cm in short axis diameter. 6. [id number] sliding hiatal hernia. 7. A couple of small nonobstructive left renal calculi. 8. Questionable small 1 cm left adrenal nodule, not clearly identified on 09/05/2022. 9. Extensive patchy sclerotic changes throughout the visualized osseous structures, increased from 09/05/2022. Suggests diffuse osseous metastatic disease. 10. Stable old T11 and L1 compression fractures. 11. Correlate with any more recent imaging that the patient may have had done to better assess for any change in her underlying metastatic disease. Laboratory Results WBC 3.56 10^3/uL (3.29-11.43) 08/01/23 09:38 Corrected WBC 2.8 10^3/cmm (4.8-10.8) L 07/31/23 03:33 RBC 2.98 10^6/uL (3.85-5.65) L 08/01/23 09:38 Hgb 9.20 g/dL (11.27-16.99) L 08/01/23 09:38 Hct 30.1 % (36-47) L 08/01/23 09:38 MCV 101.0 fl (85-98) H 08/01/23 09:38 MCH 30.9 pg (27-33) 08/01/23 09:38 MCHC 30.6 g/dL (30-55) 08/01/23 09:38 RDW 21.2 % (12.1-15.1) H 08/01/23 09:38 Plt Count 125 10^3/cmm (157-399) L 08/01/23 09:38 MPV 9.1 fL (7.4-10.4) 08/01/23 09:38 Neut % (Auto) 62.6 % 08/01/23 09:38 Lymph % (Auto) 19.4 % 08/01/23 09:38 [place] % (Auto) 11.8 % 08/01/23 09:38 Eos % (Auto) 0.8 % 08/01/23 09:38 Baso % (Auto) 0.6 % 08/01/23 09:38 Neut # (Auto) 2.23 10^3/uL (1.8-7.7) 08/01/23 09:38 Lymph # (Auto) 0.7 10^3/uL (0.8-4.8) L 08/01/23 09:38 [place] # (Auto) 0.4 10^3/uL (0.2-0.9) 08/01/23 09:38 Eos # (Auto) 0.0 10^3/uL (0.0-0.8) 08/01/23 09:38 Baso # (Auto) 0.0 10^3/uL (0.0-0.1) 08/01/23 09:38 Nucleated RBC % (auto) 3.4 % 08/01/23 09:38 Total Counted 100 (0-100) 07/31/23 03:33 Atypical Lymphs % 0.0 % (0-5) 07/31/23 03:33 Absolute Neutrophils 1.8 10^3/cmm (1.4-6.5) 07/31/23 03:33 Segmented Neutrophils 59 % 07/31/23 03:33 Abs Segm Neuts (Man) 1.7 10/cmm (1.6-7.1) 07/31/23 03:33 Band Neutrophils 1.0 % 07/31/23 03:33 Abs Band Neuts (Man) 0.0 10^3/cmm (0.0-1.2) 07/31/23 03:33 Absolute Lymphocytes 0.7 10^3/cmm (1.2-3.4) L 07/31/23 03:33 Lymphocytes (Manual) 23 % 07/31/23 03:33 Monocytes (Manual) 9.0 % 07/31/23 03:33 Absolute Monocytes 0.3 10^3/cmm (0.1-0.6) 07/31/23 03:33 Eosinophils (Manual) 0 % 07/31/23 03:33 Absolute Eosinophils 0.0 10^3/cmm (0.0-0.7) 07/31/23 03:33 Basophils (Manual) 0.0 % 07/31/23 03:33 Absolute Basophils 0.0 10^3/cmm (0.0-0.2) 07/31/23 03:33 Metamyelocytes 3.0 % 07/31/23 03:33 Nucleated RBCs 5.0 /100WBC (0-1) H 07/31/23 03:33 Nucleated RBCs # 0.1 /100WBC 08/01/23 09:38 Platelet Estimate Decreased (Normal) L 07/31/23 03:33 Polychromasia 1+ H 07/31/23 03:33 Hypochromasia 2+ H 07/31/23 03:33 Anisocytosis 2+ H 07/31/23 03:33 Microcytosis 1+ H 07/31/23 03:33 PT 12.80 SECONDS (12.1-14.9) 07/27/23 20:23 INR 0.94 (0.8-1.2) 07/27/23 20:23 Sodium 141 mmol/L (136-145) 07/31/23 03:33 Potassium 3.7 mmol/L (3.5-5.1) 07/31/23 03:33 Chloride 111 mmol/L (98-107) H 07/31/23 03:33 Carbon Dioxide 22 mmol/L (22-29) 07/31/23 03:33 Anion Gap 11.7 (5-19) 07/31/23 03:33 BUN 12 mg/dL (6-20) 07/31/23 03:33 Creatinine 0.5 mg/dL (0.5-0.9) 07/31/23 03:33 GFR Calculation 130.1 mL/min (90-130) H 07/31/23 03:33 Glucose 91 mg/dL (65-115) 07/31/23 03:33 Calculated Osmolality 291 mOsm/kg (285-295) 07/31/23 03:33 Calcium 7.9 mg/dL (8.5-10.5) L 07/31/23 03:33 Total Bilirubin 0.4 mg/dL (0.15-1.2) 07/30/23 02:41 AST 28 U/L (0-32) 07/30/23 02:41 ALT 21 U/L (0-33) 07/30/23 02:41 Alkaline Phosphatase 135 U/L (35-105) H 07/30/23 02:41 Troponin T Baseline 10 ng/L (0-10) 07/27/23 20:23 Troponin T 120 Minute 9.96 ng/L (0-10) 07/27/23 22:35 Delta Troponin T -0.04 ABS# (0-10) L 07/27/23 22:35 Troponin T Hi Sens 6Hr 10.13 ng/L (0-10) H 07/28/23 02:09 Troponin T Hi Sens 6Hr Delta 0.13 ng/L (0-12) 07/28/23 02:09 NT-Pro-B Natriuret Pep 50 pg/mL (0-125) 07/27/23 20:23 Total Protein 6.1 g/dL (6.6-8.7) L 07/30/23 02:41 Albumin 3.2 g/dL (3.5-5.2) L 07/30/23 02:41 Globulin 2.9 g/dL (1.3-4.6) 07/30/23 02:41 Nasal Influ A H1 2008 PCR Not detected (NOT DETECT) 07/27/23 23:00 Vancomycin Trough 22.5 ug/mL (10-15) H 07/30/23 08:42 Adenovirus (PCR) Not detected (NOT DETECT) 07/27/23 23:00 C. pneumoniae DNA (PCR) Not detected (NOT DETECT) 07/27/23 23:00 Coronavirus 229E (PCR) Not detected (NOT DETECT) 07/27/23 23:00 Human Metapneumovir PCR Not detected (NOT DETECT) 07/27/23 23:00 Influenza A (H1) PCR Not detected (NOT DETECT) 07/27/23 23:00 Influenza A (H3) PCR Not detected (NOT DETECT) 07/27/23 23:00 Influenza Type A (PCR) Not detected (NOT DETECT) 07/27/23 23:00 Influenza Type B (PCR) Not detected (NOT DETECT) 07/27/23 23:00 M. pneumoniae (PCR) Not detected (NOT DETECT) 07/27/23 23:00 Parainfluenza 1 (PCR) Not detected (NOT DETECT) 07/27/23 23:00 Parainfluenza 2 (PCR) Not detected (NOT DETECT) 07/27/23 23:00 Parainfluenza 3 (PCR) Not detected (NOT DETECT) 07/27/23 23:00 Parainfluenza 4 (PCR) Not detected (NOT DETECT) 07/27/23 23:00 RSV Type A (PCR) Not detected (NOT DETECT) 07/27/23 23:00 RSV Type B (PCR) Not detected (NOT DETECT) 07/27/23 23:00 Entero/Rhino (PCR) Not detected (NOT DETECT) 07/27/23 23:00 SARS-CoV-2 (PCR) Not detected (NOT DETECT) 07/27/23 23:00 SARS-CoV-2 Ag (Rapid) negative (Negative) 07/27/23 21:02 MRSA (PCR) Not detected (NOT DETECTED) 07/27/23 23:00 Blood Type A Positive 07/29/23 10:40 Rho(D) Type Rh positive 07/29/23 10:40 Antibody Screen Negative 07/29/23 10:40 Crossmatch See Detail 07/29/23 10:40 Vitals Last Vital Signs Temp 98.1 F 08/01/23 07:08 Pulse 91 08/01/23 07:08 Resp 16 08/01/23 07:08 BP 128/77 08/01/23 07:08 Pulse Ox 94 08/01/23 07:08 O2 Del Method Nasal Cannula 08/01/23 07:08 O2 Flow Rate 2.5 08/01/23 08:00 Discharge Plan Discharge Patient Disposition: Xfer Other Condition: Stable Prescriptions: New levofloxacin 750 mg tablet 750 mg PO DAILY 7 Days Qty: 7 0RF Continued acetaminophen-codeine 300-30 mg tablet 1 - 2 tab PO Q6H PRN (Reason: pain) Qty: 120 0RF alprazolam 0.25 mg tablet 0.25 mg PO TID PRN (Reason: anxiety) Qty: 30 3RF ondansetron HCl 4 mg tablet 4 mg PO Q8H PRN (Reason: nausea and vomiting) Qty: 30 1RF Nexium 24HR 20 mg Capsule,Delayed Release(Dr/Ec) 20 mg PO QAM meloxicam 15 mg tablet 15 mg PO QAM amlodipine 5 mg tablet 5 mg PO QAM No Action (DME) Auto Titrating CPAP 6-14cm See Rx Instructions .Route .MEDSUPPLY Qty: 1 0RF Rx Instructions: As directed. Please include heated humidifier and supplies. Length of Need - Lifetime (DME) Blood Glucose Test Strip See Rx Instructions .Route Qty: 25 0RF Rx Instructions: As directed (DME) blood-glucose meter Misc See Rx Instructions .Route Qty: 1 0RF Rx Instructions: As directed (DME) lancets 33 gauge misc See Rx Instructions .Route Qty: 100 0RF Rx Instructions: As directed Discharge Orders: Discharge Order (Routine); Ordered 08/01/23 Ordered By: Cathy Diaz Referrals: Fermín Vides MD [Primary Care Provider] - 4-7 days Discharge Diet: Cardiac Discharge Activity: Resume usual activity and Oxygen as instructed Discharge Attestations Time Spent in Discharge Care*: greater than 30 min Quality Metrics Clinical Quality Measures [ No reported AMI, CVA or VTE this stay] Coding Level of Care Code 55740 Total time (in minutes) for Discharge: 45 Diagnoses Ground glass opacity present on imaging of lung R91.8 Hypoxia R09.02
[2023-08-01 12:00] VITALS: BP 143/90; PULSE 84; RESP 17; TEMP 36.9; O2SAT 96
[2023-08-01 14:12] LABS: Vancomycin Trough 15.9 ug/mL (10-15)
[2023-08-01 14:26] VITALS: O2SAT 85; O2SAT 93; O2SAT 94
== END 2023-08-01 16:37 | disposition home or self-care (01) | DRG 193 ==
LOC: ER 21:34 → MEDSURG 21:40
PROVIDERS: Admitting Provider Internal Medicine; Emergency Provider Emergency Medicine; PCP Internal Medicine Medical Oncology; Visit Provider Internal Medicine
DX: J18.9 Pneumonia, unspecified organism (principal); J96.01 Acute respiratory failure with hypoxia; C79.51 Secondary malignant neoplasm of bone; C79.31 Secondary malignant neoplasm of brain; F41.9 Anxiety disorder, unspecified; F32.A Depression, unspecified; I10 Essential (primary) hypertension; K21.9 Gastro-esophageal reflux disease without esophagitis; D64.9 Anemia, unspecified; D69.6 Thrombocytopenia, unspecified; Z85.3 Personal history of malignant neoplasm of breast
CPT/HCPCS: 36415; 36430; 71045; 71275; 80048; 80053; 80202; 83880; 84484; 85007; 85014; 85018; 85025; 85610; 86403; 86850; 86900; 86920; 87040; 87426; 87449; 87486; 87581; 87633; 87641; 93005; 93308; 94760; 96365; 96367; 96372; 99285; J0456; J0692; J0696; J1650; J3370; J7030; J7050; P9040; Q9967

== ENCOUNTER 2023-08-03 09:45 | Oncology outpatient (recurring) (ONCR) | payer OTHER, SELFPAY ==
[2023-07-27 15:17] VITALS: BP 126/85; PULSE 127; TEMP 36.7; O2SAT 97
[2023-07-27 15:41] LABS: Basophils % 0.3 %; Eosinophils % 0.3 %; Lymphocytes # 0.5 10^3/uL (0.8-4.8); Lymphocytes % 13.7 %; Mean Corpuscular HGB Conc 29.7 g/dL (30-55); Mean Corpuscular Volume 104.7 fl (85-98); Mean Platelet Volume 8.4 fL (7.4-10.4); Monocytes # 0.2 10^3/uL (0.2-0.9); Monocytes % 5.4 %; Neutrophils # 2.62 10^3/uL (1.8-7.7); Neutrophils % 77.9 %; Nucleated Red Blood Cells # 0.2 /100WBC; Platelet Count 131 10^3/cmm (157-399); Red Blood Count 2.77 10^6/uL (3.85-5.65); Red Cell Distribution Width 20.9 % (12.1-15.1); White Blood Count 3.36 10^3/uL (3.29-11.43)
[2023-07-27 16:02] LABS: Alanine Aminotransferase 30 U/L (0-33); Albumin Level 3.6 g/dL (3.5-5.2); Alkaline Phosphatase 151 U/L (35-105); Aspartate Amino Transferase 31 U/L (0-32); Blood Urea Nitrogen 12 mg/dL (6-20); Calcium 8.4 mg/dL (8.5-10.5); Carbon Dioxide 22 mmol/L (22-29); Chloride 106 mmol/L (98-107); Globulin 3.4 g/dL (1.3-4.6); Glomerular Filtration Rate 130.1 mL/min (90-130); Glucose 124 mg/dL (65-115); Osmolality Calculated 289 mOsm/kg (285-295); Sodium 139 mmol/L (136-145); Total Bilirubin 0.2 mg/dL (0.15-1.2)
[2023-07-28 16:33] LABS: CA 15-3 412.6 U/mL (0-25)
[2023-08-03 10:14] LABS: Basophils % 0.5 %; Eosinophils % 0.2 %; Hematocrit 30.7 % (36-47); Lymphocytes # 0.7 10^3/uL (0.8-4.8); Mean Corpuscular HGB Conc 30.6 g/dL (30-55); Mean Corpuscular Hemoglobin 30.8 pg (27-33); Mean Corpuscular Volume 100.7 fl (85-98); Mean Platelet Volume 9.1 fL (7.4-10.4); Monocytes # 0.5 10^3/uL (0.2-0.9); Monocytes % 12.9 %; Neutrophils # 2.74 10^3/uL (1.8-7.7); Neutrophils % 65.6 %; Nucleated Red Blood Cells # 0.1 /100WBC; Nucleated Red Blood Cells % 1.4 %; Platelet Count 136 10^3/cmm (157-399); Red Blood Count 3.05 10^6/uL (3.85-5.65); Red Cell Distribution Width 20.4 % (12.1-15.1); White Blood Count 4.18 10^3/uL (3.29-11.43)
[2023-08-03 10:28] LABS: Alanine Aminotransferase 22 U/L (0-33); Albumin Level 3.5 g/dL (3.5-5.2); Alkaline Phosphatase 211 U/L (35-105); Anion Gap 18.4 (5-19); Aspartate Amino Transferase 36 U/L (0-32); Blood Urea Nitrogen 10 mg/dL (6-20); Calcium 7.7 mg/dL (8.5-10.5); Carbon Dioxide 21 mmol/L (22-29); Chloride 104 mmol/L (98-107); Creatinine Clr Calc Pharmacy 150.1896; Globulin 3.2 g/dL (1.3-4.6); Glomerular Filtration Rate 130.1 mL/min (90-130); Glucose 132 mg/dL (65-115); Osmolality Calculated 291 mOsm/kg (285-295); Potassium 3.4 mmol/L (3.5-5.1); Sodium 140 mmol/L (136-145); Total Bilirubin 0.2 mg/dL (0.15-1.2); Total Protein 6.7 g/dL (6.6-8.7)
[2023-08-03] MEDS: dextrose 5% 250 ML 75 ML IV (15:40)
[2023-08-03] MEDS: fosaprepitant 150 MG in sodium chloride 0.9% 150 ML 300 MG IV (15:43)
[2023-08-03 15:49] LABS: Magnesium 2.4 mg/dL (1.7-2.3)
[2023-08-03 16:05] LABS: 25 Hydroxy Vitamin D 14 ng/mL (30-100)
[2023-08-03] MEDS: palonosetron 0.25 mg/5 mL SDV IVP (16:21)
[2023-08-03 16:27] LABS: Phosphorus 2.5 mg/dL (2.5-4.5)
[2023-08-03] MEDS: DEXTROSE 5% IV (16:43)
[2023-08-03] MEDS: [UNRECOGNIZED DRUG - OTHER] IV (16:43)
[2023-08-03 18:38] VITALS: BP 117/79; PULSE 93; TEMP 36.8; O2SAT 99
== END 2023-08-03 23:59 | disposition home or self-care (01) ==
PROVIDERS: Nurse Practitioner Family; PCP Internal Medicine; Visit Provider Radiology Radiation Oncology
DX: C50.812 Malignant neoplasm of overlapping sites of left female breast (principal); Z79.899 Other long term (current) drug therapy; C79.51 Secondary malignant neoplasm of bone; C50.412 Malignant neoplasm of upper-outer quadrant of left female breast; E83.51 Hypocalcemia; E55.9 Vitamin D deficiency, unspecified; Z51.11 Encounter for antineoplastic chemotherapy
CPT/HCPCS: 36415; 80053; 82306; 82330; 83735; 84100; 85025; 86300; 96367; 96375; 96413; 96415; J1100; J1453; J1642; J2469; J7060; J9358

== ENCOUNTER → 2023-08-03 12:41 | Day surgery (SDC) | payer OTHER, SELFPAY ==
--- NOTE | 2023-08-03 12:47 | XR_ITS ---
WS: [id number] Exam: XR chest 1V portable [id number] Date/Time of Exam: 08/03/2023 1:50 PM Reason For Exam: PICC PLACEMENT Comparison 07/27/2023. A right-sided PICC line has been placed and ends at the cavoatrial junction. The lungs are fully expa nded. Groundglass infiltrates seen in the RIGHT lung. No pneumothorax or pleural effusion. Normal car diomediastinal silhouette. Ill-defined areas of bony sclerosis involving the thorax apparently repres enting known skeletal metastasis. IMPRESSION: 1. Right-sided PICC line ending at the cavoatrial junction. 2. Ill-defined patchy groundglass infiltrates in the RIGHT lung. 3. Osseous metastasis involving the thorax and visualized thoracic and upper lumbar spine. Expansile bone metastasis involving the fourth RIGHT rib.
[2023-08-03 12:50] VITALS: BP 117/88; PULSE 108; RESP 18; TEMP 36.4; O2SAT 96; BMI 25.8
== END ==
PROVIDERS: PCP Internal Medicine Medical Oncology; Visit Provider Nurse Practitioner Family
DX: Z45.2 Encounter for adjustment and management of vascular access device (principal)
CPT/HCPCS: 36573; 36592; 71045

== ENCOUNTER 2023-08-17 13:30 | Oncology outpatient (recurring) (ONCR) | payer OTHER, SELFPAY ==
[2023-08-09 15:34] VITALS: BP 112/82; PULSE 108; RESP 16; TEMP 36.5; O2SAT 99
[2023-08-09 16:15] LABS: Basophils % 0.3 %; Eosinophils % 0.7 %; Hematocrit 31.7 % (36-47); Lymphocytes # 0.6 10^3/uL (0.8-4.8); Lymphocytes % 18.9 %; Mean Corpuscular HGB Conc 30.3 g/dL (30-55); Mean Corpuscular Hemoglobin 30.2 pg (27-33); Mean Corpuscular Volume 99.7 fl (85-98); Mean Platelet Volume 9.6 fL (7.4-10.4); Monocytes # 0.1 10^3/uL (0.2-0.9); Monocytes % 2.4 %; Neutrophils % 77.4 %; Nucleated Red Blood Cells % 0 %; Platelet Count 78 10^3/cmm (157-399); Red Blood Count 3.18 10^6/uL (3.85-5.65); Red Cell Distribution Width 18.2 % (12.1-15.1); White Blood Count 2.97 10^3/uL (3.29-11.43)
[2023-08-17 14:51] LABS: Basophils % 0.5 %; Eosinophils # 0.2 10^3/uL (0.0-0.8); Eosinophils % 11.4 %; Hematocrit 26.6 % (36-47); Lymphocytes # 0.6 10^3/uL (0.8-4.8); Lymphocytes % 32.6 %; Mean Corpuscular HGB Conc 30.8 g/dL (30-55); Mean Corpuscular Hemoglobin 30.7 pg (27-33); Mean Corpuscular Volume 99.6 fl (85-98); Mean Platelet Volume 8.8 fL (7.4-10.4); Monocytes # 0.5 10^3/uL (0.2-0.9); Neutrophils % 26.5 %; Nucleated Red Blood Cells # 0.1 /100WBC; Nucleated Red Blood Cells % 5.2 %; Platelet Count 110 10^3/cmm (157-399); Red Blood Count 2.67 10^6/uL (3.85-5.65); Red Cell Distribution Width 19.2 % (12.1-15.1); White Blood Count 1.93 10^3/uL (3.29-11.43)
[2023-08-17 15:00] VITALS: BP 114/78; PULSE 103; RESP 18; TEMP 37.1; O2SAT 98
[2023-08-17 15:32] LABS: Neutrophils # 0.51 10^3/uL (1.8-7.7)
== END 2023-08-17 23:59 | disposition home or self-care (01) ==
PROVIDERS: Nurse Practitioner Family; PCP Internal Medicine Medical Oncology; Visit Provider Radiology Radiation Oncology
DX: C50.812 Malignant neoplasm of overlapping sites of left female breast (principal); Z45.2 Encounter for adjustment and management of vascular access device
CPT/HCPCS: 85025; J1642

== ENCOUNTER 2023-08-22 14:36 | Outpatient (CLI) | payer OTHER, SELFPAY ==
--- NOTE | 2023-08-22 11:30 | PETR_ITS ---
PROCEDURE INFORMATION: Exam: PET/CT Skull Base to Mid-thigh Exam date and time: 08/22/2023 12:16 PM Age: 53 years old Clinical indication: Condition or disease; Primary cancer: Metastatic breast cancer; Follow-up oncological assessment; Additional info: Restaging. Provided history of chemotherapy 3 weeks ago and radiation therapy approximately 2 months ago. LABS AND CLINICAL REPORTS: Glucose: 113 mg/dl Treatment strategy for malignancy (PET staging): Restaging (PS) TECHNIQUE: Imaging protocol: Following at least four-hour fasting and following the injection of radiopharmaceutical, low dose CT images were obtained. Then, PET images were obtained. Attenuation corrected images were constructed using the CT scan. Fused images of PET and CT were reviewed. The standardized uptake values (SUV) reported below are maximum values within a region of interest, expressed in gm/ml. Exam includes orbital meatal line to mid-thigh. Radiopharmaceutical: 13.15 mCi F-18 FDG (Fluorodeoxyglucose), IV. Time of imaging post radiopharmaceutical administration: 1 hour Injection site: Left antecubital COMPARISON: CT[facility] chest 07/27/2023, [facility] [id number] 09/05/2022 8:09 AM FINDINGS: Tubes, catheters and devices: A right-sided PICC line terminates in the right atrium. Brain: Visualized brain has normal physiologic uptake. Pharynx: No abnormal uptake. Larynx: No abnormal uptake. Lungs, pleura and trachea: Small bilateral pleural effusions.Mild dependent streaky density in the lungs is consistent with atelectasis. Previously noted ground-glass opacities in the bilateral lungs noted on the CT of 07/27/2023 are not definitively identified. Small non radiotracer avid solid pulmonary nodules on the right appears similar compared with the 07/27/2023 measuring up to 3 mm in the posterior right lower lobe on series 3 image 82. No definite additional pulmonary nodules with limitations of respiratory motion artifact. Heart: Normal physiologic uptake. Mediastinal space: No abnormal uptake. Diaphragm: Moderate hiatal hernia. No abnormal uptake. Liver: Subtle regions of low density with elevated uptake in the liver are present in the caudate lobe of the liver measuring approximately 1.8 cm on series 3, image 112, SUV max 6.6; and in the left liver lobe measuring 1.1 cm on image 114, SUV max 5.7. Uptake along the anterior aspect of the gallbladder within the liver in a region of subtle low-density measuring approximately 2.6 x 2.3 cm on series 3, image 121 is present, SUV max 7.5. These regions of uptake are new since the prior PET-CT. Gallbladder and bile ducts: No abnormal uptake. Pancreas: No abnormal uptake. Spleen: No abnormal uptake. Adrenal glands: No abnormal uptake. Kidneys and ureters: Normal physiologic uptake. Stomach and bowel: No abnormal uptake. Reproductive: The uterus is not identified, likely surgically absent. No abnormal uptake. Vasculature: No abnormal uptake. Lymph nodes: Radiotracer avid left supraclavicular clustered lymph nodes are new compared to the prior PET-CT for example measuring 2.5 x 1.3 cm on series 3, image 51, SUV max 5.9. A more inferiorly located lymph node in this region demonstrates an SUV max 6.5 measuring 1.4 x 1.0 cm on series 3, image 54. Bones/joints: A widespread distribution of sclerotic osseous metastatic lesions are noted, some of which are not radiotracer avid while others demonstrate resolved, increased or decreased uptake compared with the prior PET-CT. Additional radiotracer avid osseous lesions are noted without definite corresponding lesions on the CT images. Examples: Left humeral head and metaphysis, SUV max 6.6 (previously 6.6) corresponding to regions of new mottled sclerosis measuring up to 3.1 x 2.4 cm on series 3, image 58; inferior scapula without a well-defined lesion on the CT images, SUV max 5.1 (previously 4.2) on series 3, image 83; within ill-defined sclerosis involving the anterior right 5th rib, SUV max 6.1 (previously 6.5); nearly resolved uptake in the anterior right 4th rib, SUV max 2.3 (previously 8.4); left femoral intertrochanteric region without a well-defined lesion on the CT images with new uptake SUV max 5.4. Elevated uptake in the region of the right glenohumeral joint capsule is noted extending into the region of the musculature posterior to the right femoral head, SUV max 10.7; a similar region of mottled lucency and sclerosis in the right sacrum measuring approximately 3.5 x 4.3 cm on series 3, image 177, SUV max 4.7 (previously 13.2). Similar moderate to severe L1 and moderate T11 vertebral body compression fracture since at least the prior PET-CT. Soft tissues: Multifocal regions of elevated uptake in the musculature noted which appear new. Elevated uptake throughout the supraspinatus muscle is asymmetric with mild asymmetric enlargement of these right supraspinatus muscle, SUV max 13.9. A soft tissue density nodule posterior to the base of the acromion in the subcutaneous fat on series 3, image 46 measures 1.4 x 1.0 cm, SUV max 9.6. A radiotracer avid subcutaneous nodule in the posterior right shoulder posterior to the scapula measures 1.5 x 0.9 cm on series 3, image 63, SUV max 6.5. Asymmetric uptake in what appears to represent the pectineus muscle on the right is noted where there is ill-defined low density on CT series 3, image 211, SUV max 10.4. Asymmetric uptake in the right gluteus medius and gluteus minimus muscles is noted with asymmetric enlargement of the musculature in these regions, SUV max 18.7. METRICS: Mediastinal blood pool: SUV max 2.1 PET/PET skulltothigh SUBSEQ [id number] IMPRESSION: 1. Numerous regions of abnormal uptake in the osseous structures are noted consistent with metastases, some of which demonstrate new, improved or increased uptake since the prior PET-CT consistent with a mixed response to therapy. 2. New radiotracer avid lesions in the liver consistent with metastases. 3. New radiotracer avid left supraclavicular lymphadenopathy since the prior PET-CT compatible with malignancy. 4. New regions of radiotracer avid muscular enlargement are noted and although this appearance may be related to inflammatory changes, metastatic lesions cannot be excluded. 5. Small right-sided pulmonary nodules are not radiotracer avid and appear similar. Interval resolution of previously noted ground-glass densities within the lungs compared with 07/27/2023. 6. Additional nonurgent findings as detailed above.
== END 2023-08-22 14:37 | disposition home or self-care (01) ==
LOC: RAD 14:36
PROVIDERS: PCP Internal Medicine Medical Oncology; Visit Provider Nurse Practitioner Family
DX: R30.0 Dysuria (principal); C22.0 Liver cell carcinoma; R91.8 Other nonspecific abnormal finding of lung field
CPT/HCPCS: 78815; A9552

== ENCOUNTER 2023-08-24 09:00 | Oncology outpatient (recurring) (ONCR) | payer OTHER, SELFPAY ==
[2023-08-18] MEDS: filgrastim-sndz 480 mcg/0.8 mL Syringe SUBCUT (11:27)
[2023-08-19] MEDS: filgrastim-sndz 480 mcg/0.8 mL Syringe SUBCUT (09:12)
[2023-08-19 09:15] VITALS: BP 109/73; PULSE 106; RESP 18; TEMP 36.6; O2SAT 99
[2023-08-21 10:33] VITALS: BP 109/70; PULSE 104; RESP 16; TEMP 36.6; O2SAT 96
[2023-08-21 10:54] LABS: Hematocrit 26.8 % (36-47); Mean Corpuscular HGB Conc 30.6 g/dL (30-55); Mean Corpuscular Hemoglobin 31.3 pg (27-33); Mean Corpuscular Volume 102.3 fl (85-98); Mean Platelet Volume 9.2 fL (7.4-10.4); Platelet Count 211 10^3/cmm (157-399); Red Blood Count 2.62 10^6/uL (3.85-5.65); Red Cell Distribution Width 20.1 % (12.1-15.1); White Blood Count 8.37 10^3/uL (3.29-11.43)
[2023-08-21 11:18] LABS: Alanine Aminotransferase 12 U/L (0-33); Albumin Level 3.7 g/dL (3.5-5.2); Alkaline Phosphatase 290 U/L (35-105); Anion Gap 15.7 (5-19); Aspartate Amino Transferase 16 U/L (0-32); Blood Urea Nitrogen 7 mg/dL (6-20); CA 15-3 231.5 U/mL (0-25); Calcium 7.2 mg/dL (8.5-10.5); Carbon Dioxide 21 mmol/L (22-29); Chloride 104 mmol/L (98-107); Globulin 2.6 g/dL (1.3-4.6); Glomerular Filtration Rate 168.3 mL/min (90-130); Glucose 92 mg/dL (65-115); Osmolality Calculated 282 mOsm/kg (285-295); Potassium 3.7 mmol/L (3.5-5.1); Sodium 137 mmol/L (136-145); Total Bilirubin 0.2 mg/dL (0.15-1.2); Total Protein 6.3 g/dL (6.6-8.7)
[2023-08-21 11:45] LABS: Slide Review Slide Review Perform
[2023-08-21 11:50] LABS: Absolute Eosinophils 0.3 10^3/cmm (0.0-0.7); Absolute Segmented Neutrophil 4.6 10/cmm (1.6-7.1); Anisocytosis 1+; Band Neutrophils Absolute 1.1 10^3/cmm (0.0-1.2); Corrected White Blood Count 7.8 10^3/cmm (4.8-10.8); Eosinophils 4 %; Lymphocytes 13 %; Lymphocytes Absolute 1.1 10^3/cmm (1.2-3.4); Macrocytosis Trace; Poikilocytosis Trace; Segmented Neutrophils 55 %; Smudge Cells 1+; Total Cells Counted 100 (0-100)
[2023-08-21 11:51] LABS: Absolute Neutrophil 5.7 10^3/cmm (1.4-6.5); Platelet Estimate Normal (Normal)
[2023-08-24 09:30] VITALS: BP 111/69; PULSE 105; RESP 16; TEMP 37.3; O2SAT 98
[2023-08-24 09:43] LABS: Basophils # 0.1 10^3/uL (0.0-0.1); Basophils % 0.9 %; Eosinophils # 0.1 10^3/uL (0.0-0.8); Eosinophils % 2.4 %; Hematocrit 27.1 % (36-47); Lymphocytes # 0.7 10^3/uL (0.8-4.8); Lymphocytes % 12.5 %; Mean Corpuscular HGB Conc 29.9 g/dL (30-55); Mean Corpuscular Hemoglobin 30.8 pg (27-33); Mean Platelet Volume 8.3 fL (7.4-10.4); Monocytes # 0.8 10^3/uL (0.2-0.9); Monocytes % 15.1 %; Neutrophils # 2.83 10^3/uL (1.8-7.7); Neutrophils % 51.3 %; Nucleated Red Blood Cells # 0.3 /100WBC; Nucleated Red Blood Cells % 6.2 %; Platelet Count 283 10^3/cmm (157-399); Red Blood Count 2.63 10^6/uL (3.85-5.65); Red Cell Distribution Width 20.5 % (12.1-15.1); White Blood Count 5.51 10^3/uL (3.29-11.43)
[2023-08-24 09:59] LABS: Alanine Aminotransferase 14 U/L (0-33); Albumin Level 3.6 g/dL (3.5-5.2); Alkaline Phosphatase 289 U/L (35-105); Anion Gap 17.3 (5-19); Aspartate Amino Transferase 19 U/L (0-32); Blood Urea Nitrogen 9 mg/dL (6-20); Calcium 7.4 mg/dL (8.5-10.5); Carbon Dioxide 20 mmol/L (22-29); Chloride 107 mmol/L (98-107); Creatinine Clr Calc Pharmacy 149.8845; Globulin 2.7 g/dL (1.3-4.6); Glomerular Filtration Rate 130.1 mL/min (90-130); Glucose 105 mg/dL (65-115); Osmolality Calculated 291 mOsm/kg (285-295); Potassium 3.3 mmol/L (3.5-5.1); Sodium 141 mmol/L (136-145); Total Bilirubin 0.2 mg/dL (0.15-1.2); Total Protein 6.3 g/dL (6.6-8.7)
[2023-08-24 10:19] LABS: Slide Review Slide Review Perform
[2023-08-24] MEDS: dextrose 5% 250 ML 75 ML IV (11:32)
[2023-08-24] MEDS: palonosetron 0.25 mg/5 mL SDV IVP (11:33)
[2023-08-24] MEDS: fosaprepitant 150 MG in sodium chloride 0.9% 150 ML 300 MG IV (12:04)
[2023-08-24] MEDS: [UNRECOGNIZED DRUG - OTHER] IV (12:56)
[2023-08-24] MEDS: DEXTROSE 5% IV (12:56)
[2023-08-24 13:45] VITALS: BP 107/80; PULSE 89; RESP 16; TEMP 36.1; O2SAT 98
== END 2023-08-24 23:59 | disposition home or self-care (01) ==
PROVIDERS: Nurse Practitioner Family; PCP Internal Medicine Medical Oncology; Visit Provider Radiology Radiation Oncology
DX: C50.812 Malignant neoplasm of overlapping sites of left female breast (principal); Z79.899 Other long term (current) drug therapy; C79.51 Secondary malignant neoplasm of bone; D64.9 Anemia, unspecified
CPT/HCPCS: 36592; 78815; 80053; 85007; 85025; 86300; 86850; 86900; 96365; 96366; 96372; 96374; 96401; 96413; A9552; J1100; J1453; J1642; J2469; J7060; J9358; Q5101

== ENCOUNTER 2023-08-30 10:23 | Day surgery (SDC) | payer OTHER, SELFPAY ==
[2023-08-30] VITALS (7 sets, daily range): BP systolic 102–118; BP diastolic 54–76; PULSE 84–100; RESP 16–18; TEMP 36.1–37.1; O2SAT 96–100; BMI 26.1
--- NOTE | 2023-08-30 | SC_ITS ---
WS: [id number] Exam: C-arm FL for CVA [id number] Date/Time of Exam: 08/30/2023 12:00 AM Reason For Exam: PORT A single anterior posterior C-arm image of the RIGHT chest is presented for evaluation. The image dep icts a right-sided Port-A-Cath most likely ending in the RIGHT atrium. There also appears to be a rig ht-sided PICC line in place that probably ends in the lower one third of the SVC. No other significan t finding on this limited study.
--- NOTE | 2023-08-30 10:48 | P.HPUD_ITS ---
Surgery/Procedure H&P Update DATE OF PROCEDURE: August 30, 2023 DATE H&P PERFORMED: 08/28/23 H&P UPDATE INFORMATION: I have reviewed H&P completed within last 30 days, I have examined patient prior to procedure, No changes to prior documentation and H&P is in [facility] EMR on date indicated PLANNED PROCEDURE: Operation Date: 08/30/23 12:10 Proposed Procedures p [id number] port placement C50.812(Not Applicable) - De Lehman MD
[2023-08-30] MEDS: sodium chloride 0.9% 1,000 ML 30 ML IV (11:36)
[2023-08-30] MEDS: ondansetron 2 mg/ML SDV 2 mL 4 MG IVP (11:36)
[2023-08-30] MEDS: scopolamine 1.5 Patch 1 PATCH TRANSDERMA (11:36)
--- NOTE | 2023-08-30 12:39 | P.ANESASSM_ITS ---
Pre-Anesthetic Assessment Height/Weight: Height 1.73 m Weight 78 kg Temp Pulse Resp BP Pulse Ox O2 Del Method O2 Flow Rate 98.7 F 100 18 113/76 100 Nasal Cannula 2 08/30/23 10:55 08/30/23 10:55 08/30/23 10:55 08/30/23 10:55 08/30/23 10:55 08/30/23 10:56 08/30/23 10:56 Operation Date: 08/30/23 12:10 Proposed Procedures p [id number] port placement C50.812(Not Applicable) - De Lehman MD Familial anesthetic complications: None Was Beta Aba taken within 24 hours: N/A Was Clonidine taken within 24 hours: N/A Last intake: Intake Last Liquid Date 08/29/23 Last Liquid Time 21:00 Last Solid Date 08/29/23 Last Solid Time 21:00 Social No alcohol and No tobacco Exam alert, oriented x 3, clear to auscultation bilaterally and regular rate & rhythm Airway Mallampati: Class II Dentition: full Pulmonary Sleep Apnea CV/HEM Hypertension GI Gastroesophageal Reflux Disease Anesthetic Plan ASA status: 3 Anesthesia: MAC Medications/Allergies Home Medications Medication Instructions Recorded Confirmed Last Taken Type Auto Titrating CPAP #1 ea 08/25/20 08/28/23 Unknown Rx acetaminophen 300 mg-codeine 30 mg 1 - 2 tab PO Q6H PRN pain #120 tabs 05/12/22 08/30/23 08/29/23 Rx tablet blood sugar diagnostic (Blood #25 ea 06/08/23 08/28/23 Unknown Rx Glucose Test strips) blood-glucose meter #1 ea 06/08/23 08/28/23 Unknown Rx lancets 33 gauge #100 ea 06/08/23 08/28/23 Unknown Rx alprazolam 0.25 mg tablet 0.25 mg PO TID PRN anxiety #30 tabs 07/17/23 08/30/23 08/27/23 Rx ondansetron HCl 4 mg tablet 4 mg PO Q8H PRN nausea and 07/17/23 08/30/23 08/29/23 Rx vomiting #30 tabs esomeprazole magnesium 20 mg 20 mg PO QAM 07/28/23 08/30/23 08/29/23 History capsule,delayed release (Nexium 24HR) meloxicam 15 mg tablet 15 mg PO QAM 07/28/23 08/29/23 08/29/23 History lorazepam 1 mg tablet 0.5 - 1 mg (0.5 - 1 x 1 mg) PO Q6H 08/03/23 08/29/23 Unknown Rx PRN Severe Nausea #30 tabs prochlorperazine maleate 10 mg 10 mg PO Q6H PRN nausea and 08/03/23 08/30/23 Unknown Rx tablet vomiting #30 tabs cholecalciferol (vitamin D3) 1,250 50,000 unit PO .weekly #4 tabs 08/04/23 08/29/23 08/25/23 Rx mcg (50,000 unit) tablet amlodipine 5 mg tablet See Rx Instructions .Route 08/21/23 08/29/23 08/30/23 Rx .COMPLEX #90 tabs Portable oxygen concentrator #1 ea 08/24/23 08/28/23 Unknown Rx acetaminophen 300 mg-codeine 30 mg 1 tab PO Q4H PRN pain #180 tabs 08/24/23 08/29/23 Unknown Rx tablet Allergies Allergy/AdvReac Type Severity Reaction Status Date / Time No Known Allergies Allergy Verified 08/29/23 12:19 Current Medications Generic Name Dose Route Start Last Admin Trade Name Freq PRN Reason Stop Dose Admin Sodium Chloride 1,000 mls @ 30 mls/hr 08/30/23 10:30 08/30/23 11:36 Sodium Chloride 0.9% IV 08/31/23 10:29 30 mls/hr .Q24H ILIANA Administration Ondansetron HCl 4 mg 08/30/23 10:28 08/30/23 11:36 Ondansetron 2 Mg/Ml Sdv 2 Ml IVP 4 mg Q5M PRN Administration NAUSEA AND VOMITING PFSH Anesthesia Medical History Anxiety and depression GERD (gastroesophageal reflux disease) Chronic tonsillar hypertrophy Bilateral renal stones Multi-stone former with medullary nephrocalcinosis. Menopausal symptom 02/13/2018: LAVH/BSO Breast cancer (10/12/14) Hypertension Surgical History S/P laparoscopic assisted vaginal hysterectomy (LAVH) (02/13/18) LAVH/BSO. Dx: Menorrhagia. Performed by Dr. Moore at [facility] in [place], [place] Hx of lymph node biopsy (10/30/14) Left axillary sentinel lymph node biopsy Hx of left breast biopsy (10/16/14) Excisional biopsy of left breast mass Hx of lithotripsy (~08/2001) Performed by Dr. Magana at [facility] in [place], [place] Hx of cystoscopy (08/18/00) with stone extraction. Performed by Dr. Magana at [facility] in [place], [place] History of ankle surgery (10/10/19) Right. Dr. Gudino at [facility]. Family History Father Hypertension Hypercholesteremia Thyroid disease Mother Hypertension Hypercholesteremia Heart disease Thyroid disease Grandmother Hypertension maternal Diabetes maternal Thyroid disease maternal, paternal Grandfather Heart disease maternal Other Hyperlipidemia Social History Smoking and tobacco/nicotine status: never used tobacco/nicotine Alcohol intake: never Substance/Drug Use: never Data Anesthesia Cardiac Studies: Echocardiogram Limited Views 08/01/23
[2023-08-30] MEDS: ceFAZolin 2,000 MG in sodium chloride 0.9% (plus) 50 ML 100 MG IV (12:41)
[2023-08-30] MEDS: heparin, porcine 1,000 unit/mL INJ 10 mL 6000 UNIT INTRACATH (13:24)
[2023-08-30] MEDS: lidocaine-epi 1% PF 1:200,000 30 mL SDV 20 ML INJECTION (13:30)
--- NOTE | 2023-08-30 13:42 | PM.OP ---
Operative Report Date of procedure: August 30, 2023 Pre-op diagnosis: Metastatic breast cancer Post-op diagnosis: Same Post-op findings: Normal vascular anatomy, right IJ noted to be collapsing with every respiration due to poor intravascular volume. Procedure done: Placement of a right IJ Port-A-Cath, removal of PICC line Implants: Bard Port-A-Cath Surgeon: De Lehman MD Auto Wheel Alignment Specialist: ELMER OR Staff Estimated blood loss: 5 Complications: None Brief History: 53-year-old female with metastatic breast cancer who presented to my clinic for evaluation for possible Port-A-Cath placement. After discussion of all risk and benefits as documented on my preop note we decided to proceed with Port-A-Cath placement. Procedure: Patient was brought into the OR. Placed in the supine position. She was given mother anesthesia sedation. The upper chest and neck was prepped and draped in the usual sterile fashion. Ultrasound guidance was used to identify the right IJ, it was noted to be collapsing with every breath. Received in the lumbar was used to allow for cannulation. Local anesthesia was infiltrated around the pain and then I accessed vancomycin 18-gauge needle, the needle tip was seen entering the vein and a wire was advanced. Position of the wire was verified with ultrasound and fluoroscopy and the needle was removed. I then proceeded to administer anesthesia around the neck and the thoracic between the neck and the chest and on 5 cm area on the upper right chest where the Port-A-Cath will sit. 4 cm incision was made in the right upper chest, the incision was deepened to subcutaneous tissue with electrocautery, a subcutaneous port pocket was then developed with electrocautery. Hemostasis was verified. I then proceeded to use a hemostat to create a tunnel from the chest wound to the neck. I then made a 0.5 cm incision in the neck at a level of the wire insertion site to allow for tunneling. The Port-A-Cath was then placed in the pocket and the catheter was tunneled from the chest wound to the neck once the catheter was tunneled I proceeded to make sure the catheter under direct fluoroscopic guidance and I cut to length, I then flushed the catheter to ensure integrity. At this point I advanced a peel-off sheath and introducer over the wire under direct fluoroscopy guidance. The wire and the introducer were removed and the peel-off sheath was left in place, at this point I was able to advance the catheter into the peel-off she will and we will advance the catheter the peel off should be sealed was broken before the complete catheter was able to be advanced. Therefore I decided to retrieve the catheter and replaced a peel-off sheath with a new 1, after the peel-off sheath was replaced over a wire with a new 1 I advanced the catheter completely and then the peel-off sheath was removed leaving the catheter in place. The Port-A-Cath was evaluated for function and with flushing and drawing blood but fine, I then hep-locked the catheter. The wounds were closed in layers using #3-0 Vicryl for the subcutaneous tissue and #4 Monocryl for the skin. Dermabond was applied. At the end of the procedure all counts were correct the patient tolerated well the procedure. After all procedure was done, I do my attention to the right arm where PICC line was noted, I remove the dressing and subsequently pulled out the PICC line and a compressive dressing was placed. Patient was transferred to the PACU in stable condition.
--- NOTE | 2023-08-30 13:55 | ANE.PACU2 ---
Inpatient post-anesthesia follow up: Airway intact: Yes Vital signs: Temperature 97.6 F Pulse Rate 84 Respiratory Rate 16 Blood Pressure 118/74 Pulse Oximetry 97 Oxygen Delivery Me thod Room Air Oxygen Flow Rate 2 Fraction of Inspir ed Oxygen Hydration adequate: Yes Nausea and vomiting: No Pain level: 1 Mental status: Baseline
== END 2023-08-30 15:25 | disposition home or self-care (01) ==
PROVIDERS: PCP Internal Medicine Medical Oncology; Visit Provider Surgery
PROC: (CPT 36561; principal; 2023-08-30 11:50)
DX: C50.919 Malignant neoplasm of unspecified site of unspecified female breast (principal); G47.30 Sleep apnea, unspecified; I10 Essential (primary) hypertension; K21.9 Gastro-esophageal reflux disease without esophagitis; C79.9 Secondary malignant neoplasm of unspecified site; Z99.81 Dependence on supplemental oxygen
CPT/HCPCS: 36561; 77001; C1788; J0690; J1644; J2371; J2405; J2704; J3010; J7030

== ENCOUNTER 2023-09-14 07:30 | Oncology outpatient (recurring) (ONCR) | payer OTHER, SELFPAY ==
[2023-08-25] MEDS: pegfilgrastim 6 mg/0.6 mL Kit (onpro) SUBCUT (10:37)
[2023-08-25 10:40] VITALS: BP 107/69; PULSE 97; RESP 16; TEMP 36.3; O2SAT 98
[2023-08-31 14:49] LABS: Basophils % 0.9 %; Eosinophils # 0.1 10^3/uL (0.0-0.8); Eosinophils % 1.1 %; Hematocrit 27.1 % (36-47); Lymphocytes # 0.4 10^3/uL (0.8-4.8); Lymphocytes % 9.6 %; Mean Corpuscular Hemoglobin 30.8 pg (27-33); Mean Corpuscular Volume 99.3 fl (85-98); Mean Platelet Volume 8.1 fL (7.4-10.4); Monocytes # 0.4 10^3/uL (0.2-0.9); Neutrophils % 78.1 %; Nucleated Red Blood Cells % 0 %; Platelet Count 49 10^3/cmm (157-399); Red Blood Count 2.73 10^6/uL (3.85-5.65); Red Cell Distribution Width 18.9 % (12.1-15.1); White Blood Count 4.36 10^3/uL (3.29-11.43)
[2023-08-31 15:15] LABS: Slide Review Slide Review Perform
[2023-09-07 14:46] LABS: Basophils # 0.1 10^3/uL (0.0-0.1); Basophils % 0.7 %; Eosinophils # 0.2 10^3/uL (0.0-0.8); Eosinophils % 2.2 %; Hematocrit 25.5 % (36-47); Lymphocytes # 0.7 10^3/uL (0.8-4.8); Mean Corpuscular Hemoglobin 31.5 pg (27-33); Mean Corpuscular Volume 101.6 fl (85-98); Mean Platelet Volume 9.5 fL (7.4-10.4); Monocytes # 0.7 10^3/uL (0.2-0.9); Monocytes % 10.7 %; Neutrophils # 4.67 10^3/uL (1.8-7.7); Neutrophils % 69.4 %; Nucleated Red Blood Cells # 0.3 /100WBC; Nucleated Red Blood Cells % 3.9 %; Platelet Count 139 10^3/cmm (157-399); Red Blood Count 2.51 10^6/uL (3.85-5.65); White Blood Count 6.73 10^3/uL (3.29-11.43)
[2023-09-07 15:09] LABS: Slide Review Slide Review Perform
[2023-09-08] VITALS (9 sets, daily range): BP systolic 98–105; BP diastolic 63–71; PULSE 79–96; RESP 16–17; TEMP 36.3–36.6; O2SAT 96–100
[2023-09-08] MEDS: diphenhydrAMINE 25 mg Capsule PO (08:00)
[2023-09-08] MEDS: acetaminophen 325 mg Tablet 650 MG PO (08:00)
[2023-09-14 07:45] VITALS: BP 112/77; PULSE 102; RESP 16; TEMP 37.1; O2SAT 98
[2023-09-14 07:57] LABS: Basophils % 0.7 %; Eosinophils # 0.1 10^3/uL (0.0-0.8); Eosinophils % 1.8 %; Hematocrit 32.3 % (36-47); Lymphocytes # 0.6 10^3/uL (0.8-4.8); Lymphocytes % 10.9 %; Mean Corpuscular Hemoglobin 30.6 pg (27-33); Mean Corpuscular Volume 98.8 fl (85-98); Mean Platelet Volume 8.2 fL (7.4-10.4); Monocytes # 0.7 10^3/uL (0.2-0.9); Neutrophils % 71.8 %; Nucleated Red Blood Cells % 0.6 %; Platelet Count 222 10^3/cmm (157-399); Red Blood Count 3.27 10^6/uL (3.85-5.65); Red Cell Distribution Width 20.9 % (12.1-15.1); White Blood Count 5.43 10^3/uL (3.29-11.43)
[2023-09-14 08:43] LABS: 25 Hydroxy Vitamin D 24 ng/mL (30-100); Alanine Aminotransferase 28 U/L (0-33); Albumin Level 3.6 g/dL (3.5-5.2); Alkaline Phosphatase 233 U/L (35-105); Anion Gap 15.8 (5-19); Aspartate Amino Transferase 25 U/L (0-32); Blood Urea Nitrogen 11 mg/dL (6-20); CA 15-3 177.9 U/mL (0-25); Calcium 7.4 mg/dL (8.5-10.5); Carbon Dioxide 20 mmol/L (22-29); Chloride 110 mmol/L (98-107); Globulin 2.4 g/dL (1.3-4.6); Glomerular Filtration Rate 168.3 mL/min (90-130); Glucose 104 mg/dL (65-115); Osmolality Calculated 294 mOsm/kg (285-295); Potassium 3.8 mmol/L (3.5-5.1); Sodium 142 mmol/L (136-145); Total Bilirubin 0.2 mg/dL (0.15-1.2)
[2023-09-14] MEDS: dextrose 5% 250 ML 75 ML IV (09:36)
[2023-09-14] MEDS: palonosetron 0.25 mg/5 mL SDV IVP (09:36)
[2023-09-14] MEDS: fosaprepitant 150 MG in sodium chloride 0.9% 150 ML 300 MG IV (10:10)
[2023-09-14 10:12] VITALS: BMI 26.2
[2023-09-14] MEDS: DEXTROSE 5% IV (10:55)
[2023-09-14] MEDS: [UNRECOGNIZED DRUG - OTHER] IV (10:55)
[2023-09-14 11:44] VITALS: BP 106/74; PULSE 88; RESP 16; TEMP 36.7; O2SAT 98
[2023-09-14] MEDS: pegfilgrastim 6 mg/0.6 mL Kit (onpro) SUBCUT (11:55)
== END 2023-09-14 23:59 | disposition home or self-care (01) ==
PROVIDERS: PCP Internal Medicine Medical Oncology; Visit Provider Specialist
DX: C50.812 Malignant neoplasm of overlapping sites of left female breast (principal); D64.9 Anemia, unspecified; Z53.9 Procedure and treatment not carried out, unspecified reason; C79.51 Secondary malignant neoplasm of bone; R09.02 Hypoxemia; Z79.899 Other long term (current) drug therapy; Z51.11 Encounter for antineoplastic chemotherapy
CPT/HCPCS: 36415; 36430; 36591; 80053; 82306; 85025; 86300; 86850; 86900; 86920; 96367; 96372; 96375; 96377; 96413; J1100; J1453; J1642; J2469; J2506; J7060; J9358; P9016; P9040

== ENCOUNTER 2023-10-05 09:31 | Oncology outpatient (recurring) (ONCR) | payer OTHER, SELFPAY ==
[2023-09-21 10:35] VITALS: BP 105/70; PULSE 99; RESP 16; TEMP 37.2; O2SAT 97
[2023-09-21 10:59] LABS: Basophils % 0.1 %; Eosinophils # 0.1 10^3/uL (0.0-0.8); Eosinophils % 0.6 %; Hematocrit 41.6 % (36-47); Lymphocytes # 0.6 10^3/uL (0.8-4.8); Lymphocytes % 7.1 %; Mean Corpuscular HGB Conc 32.2 g/dL (30-55); Mean Corpuscular Hemoglobin 30.2 pg (27-33); Mean Corpuscular Volume 93.9 fl (85-98); Mean Platelet Volume 9.2 fL (7.4-10.4); Monocytes # 0.6 10^3/uL (0.2-0.9); Monocytes % 6.7 %; Neutrophils # 7.44 10^3/uL (1.8-7.7); Neutrophils % 83.9 %; Nucleated Red Blood Cells % 0 %; Platelet Count 73 10^3/cmm (157-399); Red Blood Count 4.43 10^6/uL (3.85-5.65); White Blood Count 8.86 10^3/uL (3.29-11.43)
[2023-09-21 11:41] LABS: Slide Review Slide Review Perform
[2023-09-28 11:10] VITALS: BP 108/70; PULSE 102; RESP 16; TEMP 36.7; O2SAT 98
[2023-09-28 11:16] LABS: Hematocrit 30.8 % (36-47); Mean Corpuscular HGB Conc 31.2 g/dL (30-55); Mean Corpuscular Hemoglobin 30.7 pg (27-33); Mean Corpuscular Volume 98.4 fl (85-98); Mean Platelet Volume 8.9 fL (7.4-10.4); Platelet Count 243 10^3/cmm (157-399); Red Blood Count 3.13 10^6/uL (3.85-5.65); Red Cell Distribution Width 20.5 % (12.1-15.1)
[2023-09-28 12:01] LABS: Absolute Eosinophils 0.2 10^3/cmm (0.0-0.7); Band Neutrophils Absolute 0.1 10^3/cmm (0.0-1.2); Eosinophils 3 %; Lymphocytes 8 %; Lymphocytes Absolute 0.7 10^3/cmm (1.2-3.4); Monocytes Absolute 0.3 10^3/cmm (0.1-0.6); Segmented Neutrophils 79 %; Slide Review Slide Review Perform; Total Cells Counted 100 (0-100)
[2023-09-28 12:02] LABS: Absolute Neutrophil 5.1 10^3/cmm (1.4-6.5); Anisocytosis 2+; Giant Platelets 1+; Macrocytosis 2+; Platelet Estimate Normal (Normal); Polychromasia 1+
[2023-10-05 09:54] VITALS: BP 110/74; PULSE 108; RESP 16; TEMP 36.7; O2SAT 97
[2023-10-05 10:01] LABS: Basophils % 0.8 %; Eosinophils # 0.2 10^3/uL (0.0-0.8); Eosinophils % 2.9 %; Hematocrit 30.2 % (36-47); Lymphocytes # 0.6 10^3/uL (0.8-4.8); Lymphocytes % 11.5 %; Mean Corpuscular HGB Conc 31.1 g/dL (30-55); Mean Corpuscular Hemoglobin 31.1 pg (27-33); Monocytes # 0.6 10^3/uL (0.2-0.9); Monocytes % 11.7 %; Neutrophils # 3.62 10^3/uL (1.8-7.7); Neutrophils % 70.6 %; Nucleated Red Blood Cells % 0.4 %; Platelet Count 269 10^3/cmm (157-399); Red Blood Count 3.02 10^6/uL (3.85-5.65); Red Cell Distribution Width 21.6 % (12.1-15.1); White Blood Count 5.13 10^3/uL (3.29-11.43)
[2023-10-05 10:30] LABS: Alanine Aminotransferase 21 U/L (0-33); Albumin Level 3.7 g/dL (3.5-5.2); Alkaline Phosphatase 207 U/L (35-105); Anion Gap 15.4 (5-19); Aspartate Amino Transferase 22 U/L (0-32); Blood Urea Nitrogen 8 mg/dL (6-20); CA 15-3 129.9 U/mL (0-25); Calcium 7.9 mg/dL (8.5-10.5); Carbon Dioxide 22 mmol/L (22-29); Chloride 109 mmol/L (98-107); Globulin 2.5 g/dL (1.3-4.6); Glomerular Filtration Rate 168.3 mL/min (90-130); Glucose 105 mg/dL (65-115); Osmolality Calculated 295 mOsm/kg (285-295); Potassium 3.4 mmol/L (3.5-5.1); Sodium 143 mmol/L (136-145); Total Bilirubin 0.2 mg/dL (0.15-1.2); Total Protein 6.2 g/dL (6.6-8.7)
[2023-10-05] MEDS: palonosetron 0.25 mg/5 mL SDV IVP (11:50)
[2023-10-05] MEDS: dextrose 5% 250 ML 50 ML IV (11:50)
[2023-10-05] MEDS: fosaprepitant 150 MG in sodium chloride 0.9% 150 ML 300 MG IV (12:05)
[2023-10-05 12:53] LABS: Folate Level 5.4 ng/mL (4.8-37.3)
[2023-10-05] MEDS: DEXTROSE 5% IV (13:01)
[2023-10-05] MEDS: [UNRECOGNIZED DRUG - OTHER] IV (13:01)
[2023-10-05 13:16] LABS: Iron 75 ug/dL (37-145); Percent Saturation 37.5 % (20-50); Total Iron Binding Capacity 200 mcg/dl; Unsaturated Iron Binding 125 ug/dL (112-347)
[2023-10-05 13:28] LABS: Ferritin 1201 ng/mL (15-150)
[2023-10-05] MEDS: pegfilgrastim 6 mg/0.6 mL Kit (onpro) SUBCUT (13:37)
[2023-10-05 13:47] LABS: Vitamin B12 > 2000 pg/mL (232-1245)
[2023-10-05 13:48] VITALS: BP 111/73; PULSE 85; RESP 15; O2SAT 97
== END 2023-10-05 23:59 | disposition home or self-care (01) ==
PROVIDERS: Nurse Practitioner Family; PCP Internal Medicine Medical Oncology; Visit Provider Specialist
DX: Z51.11 Encounter for antineoplastic chemotherapy (principal); C50.812 Malignant neoplasm of overlapping sites of left female breast; C79.51 Secondary malignant neoplasm of bone; D64.9 Anemia, unspecified; R09.02 Hypoxemia; Z79.899 Other long term (current) drug therapy
CPT/HCPCS: 36591; 80053; 82607; 82728; 82746; 83540; 83550; 85007; 85025; 86300; 96367; 96375; 96377; 96413; J1100; J1453; J1642; J2469; J2506; J7060; J9358

== ENCOUNTER 2023-10-12 11:31 | Oncology outpatient (recurring) (ONCR) | payer OTHER, SELFPAY ==
[2023-10-12 12:05] VITALS: BP 108/73; PULSE 104; RESP 16; TEMP 36.2; O2SAT 97
[2023-10-12 12:15] LABS: Hematocrit 29.7 % (36-47); Mean Corpuscular HGB Conc 31.3 g/dL (30-55); Mean Corpuscular Hemoglobin 31.2 pg (27-33); Mean Corpuscular Volume 99.7 fl (85-98); Mean Platelet Volume 8.8 fL (7.4-10.4); Platelet Count 137 10^3/cmm (157-399); Red Blood Count 2.98 10^6/uL (3.85-5.65); Red Cell Distribution Width 21.3 % (12.1-15.1); White Blood Count 14.53 10^3/uL (3.29-11.43)
[2023-10-12 12:37] LABS: Slide Review Slide Review Perform
[2023-10-12 12:38] LABS: Total Cells Counted 100 (0-100)
[2023-10-12 12:42] LABS: Absolute Neutrophil 13.2 10^3/cmm (1.4-6.5); Absolute Segmented Neutrophil 12.5 10/cmm (1.6-7.1); Band Neutrophils Absolute 0.7 10^3/cmm (0.0-1.2); Eosinophils 0 %; Lymphocytes 6 %; Lymphocytes Absolute 0.9 10^3/cmm (1.2-3.4); Monocytes Absolute 0.3 10^3/cmm (0.1-0.6); Platelet Estimate Decreased (Normal); Poikilocytosis 1+; Segmented Neutrophils 86 %
[2023-10-12 12:43] LABS: Anisocytosis 1+; Macrocytosis 1+
== END 2023-10-18 23:59 | disposition home or self-care (01) ==
LOC: ONCMED 11:31
PROVIDERS: Nurse Practitioner Family; PCP Internal Medicine Medical Oncology; Visit Provider Specialist
DX: D64.9 Anemia, unspecified
CPT/HCPCS: 36591; 85007; 85025; J1642

== ENCOUNTER 2023-10-26 09:30 | Oncology outpatient (recurring) (ONCR) | payer OTHER, SELFPAY ==
[2023-10-19] VITALS (9 sets, daily range): BP systolic 100–137; BP diastolic 67–82; PULSE 84–100; RESP 16; TEMP 36.3–36.7; O2SAT 96–100
[2023-10-19 10:53] LABS: Basophils % 0.6 %; Eosinophils # 0.1 10^3/uL (0.0-0.8); Eosinophils % 2.1 %; Hematocrit 25.8 % (36-47); Lymphocytes # 0.6 10^3/uL (0.8-4.8); Lymphocytes % 9.2 %; Mean Corpuscular Hemoglobin 31.6 pg (27-33); Mean Platelet Volume 9.3 fL (7.4-10.4); Monocytes # 0.5 10^3/uL (0.2-0.9); Monocytes % 8.4 %; Neutrophils % 77.8 %; Nucleated Red Blood Cells # 0.1 /100WBC; Nucleated Red Blood Cells % 1.1 %; Platelet Count 202 10^3/cmm (157-399); Red Blood Count 2.53 10^6/uL (3.85-5.65); Red Cell Distribution Width 21.8 % (12.1-15.1)
[2023-10-19] MEDS: sodium chloride 0.9% 250 mL Bag IV (12:19)
[2023-10-19] MEDS: acetaminophen 325 mg Tablet 650 MG PO (12:19)
[2023-10-19] MEDS: diphenhydrAMINE 25 mg Capsule PO (12:19)
[2023-10-26 09:50] LABS: Basophils % 0.7 %; Eosinophils # 0.1 10^3/uL (0.0-0.8); Eosinophils % 1.9 %; Hematocrit 34.1 % (36-47); Lymphocytes # 0.5 10^3/uL (0.8-4.8); Lymphocytes % 11.2 %; Mean Corpuscular HGB Conc 31.7 g/dL (30-55); Mean Corpuscular Hemoglobin 30.5 pg (27-33); Mean Corpuscular Volume 96.3 fl (85-98); Mean Platelet Volume 8.4 fL (7.4-10.4); Monocytes # 0.6 10^3/uL (0.2-0.9); Monocytes % 14.4 %; Neutrophils # 2.92 10^3/uL (1.8-7.7); Neutrophils % 71.1 %; Nucleated Red Blood Cells % 0 %; Platelet Count 226 10^3/cmm (157-399); Red Blood Count 3.54 10^6/uL (3.85-5.65); Red Cell Distribution Width 21.9 % (12.1-15.1); White Blood Count 4.11 10^3/uL (3.29-11.43)
[2023-10-26 10:23] LABS: Alanine Aminotransferase 20 U/L (0-33); Albumin Level 3.5 g/dL (3.5-5.2); Alkaline Phosphatase 177 U/L (35-105); Anion Gap 12.5 (5-19); Aspartate Amino Transferase 23 U/L (0-32); Blood Urea Nitrogen 9 mg/dL (6-20); CA 15-3 98.1 U/mL (0-25); Calcium 7.9 mg/dL (8.5-10.5); Carbon Dioxide 25 mmol/L (22-29); Chloride 106 mmol/L (98-107); Globulin 2.6 g/dL (1.3-4.6); Glomerular Filtration Rate 168.3 mL/min (90-130); Glucose 94 mg/dL (65-115); Osmolality Calculated 288 mOsm/kg (285-295); Potassium 3.5 mmol/L (3.5-5.1); Sodium 140 mmol/L (136-145); Total Bilirubin 0.2 mg/dL (0.15-1.2); Total Protein 6.1 g/dL (6.6-8.7)
[2023-10-26] MEDS: palonosetron 0.25 mg/5 mL SDV IVP (11:13)
[2023-10-26] MEDS: dextrose 5% 250 ML 75 ML IV (11:13)
[2023-10-26 11:39] LABS: Calcium 7.7 mg/dL (8.5-10.5)
[2023-10-26] MEDS: fosaprepitant 150 MG in sodium chloride 0.9% 150 ML 300 MG IV (11:49)
[2023-10-26] MEDS: [UNRECOGNIZED DRUG - OTHER] IV (12:23)
[2023-10-26] MEDS: DEXTROSE 5% IV (12:23)
[2023-10-26] MEDS: pegfilgrastim 6 mg/0.6 mL Kit (onpro) SUBCUT (13:02)
== END 2023-10-26 23:59 | disposition home or self-care (01) ==
PROVIDERS: Nurse Practitioner Family; PCP Internal Medicine Medical Oncology; Visit Provider Specialist
DX: Z53.9 Procedure and treatment not carried out, unspecified reason (principal); E83.51 Hypocalcemia; D64.9 Anemia, unspecified; C50.812 Malignant neoplasm of overlapping sites of left female breast; Z51.12 Encounter for antineoplastic immunotherapy; C79.51 Secondary malignant neoplasm of bone; Z79.899 Other long term (current) drug therapy; Z79.52 Long term (current) use of systemic steroids
CPT/HCPCS: 36430; 36591; 80053; 82310; 83970; 85025; 86300; 86850; 86900; 86920; 96367; 96377; 96413; J1100; J1453; J1642; J2469; J2506; J7050; J7060; J9358; P9016

== ENCOUNTER 2023-11-16 09:00 | Oncology outpatient (recurring) (ONCR) | payer OTHER, SELFPAY ==
[2023-11-02 12:01] LABS: Basophils # 0.1 10^3/uL (0.0-0.1); Basophils % 0.6 %; Eosinophils # 0.2 10^3/uL (0.0-0.8); Eosinophils % 1.7 %; Hematocrit 34.8 % (36-47); Lymphocytes # 0.7 10^3/uL (0.8-4.8); Lymphocytes % 5.7 %; Mean Corpuscular Hemoglobin 30.4 pg (27-33); Mean Platelet Volume 9.1 fL (7.4-10.4); Monocytes # 0.7 10^3/uL (0.2-0.9); Monocytes % 5.7 %; Neutrophils # 10.22 10^3/uL (1.8-7.7); Neutrophils % 84.8 %; Nucleated Red Blood Cells % 0 %; Platelet Count 119 10^3/cmm (157-399); Red Blood Count 3.55 10^6/uL (3.85-5.65); Red Cell Distribution Width 21.5 % (12.1-15.1); White Blood Count 12.05 10^3/uL (3.29-11.43)
[2023-11-02 12:20] LABS: Alanine Aminotransferase 28 U/L (0-33); Albumin Level 3.6 g/dL (3.5-5.2); Alkaline Phosphatase 249 U/L (35-105); Anion Gap 15.6 (5-19); Aspartate Amino Transferase 25 U/L (0-32); Blood Urea Nitrogen 10 mg/dL (6-20); Calcium 7.8 mg/dL (8.5-10.5); Carbon Dioxide 22 mmol/L (22-29); Chloride 106 mmol/L (98-107); Globulin 2.6 g/dL (1.3-4.6); Glomerular Filtration Rate 130.1 mL/min (90-130); Glucose 121 mg/dL (65-115); Osmolality Calculated 290 mOsm/kg (285-295); Potassium 3.6 mmol/L (3.5-5.1); Sodium 140 mmol/L (136-145); Total Bilirubin 0.2 mg/dL (0.15-1.2); Total Protein 6.2 g/dL (6.6-8.7)
[2023-11-02 13:03] LABS: Slide Review Slide Review Perform
[2023-11-09 12:03] LABS: Basophils % 0.5 %; Eosinophils # 0.1 10^3/uL (0.0-0.8); Eosinophils % 2.1 %; Hematocrit 31.4 % (36-47); Lymphocytes # 0.6 10^3/uL (0.8-4.8); Lymphocytes % 9.2 %; Mean Corpuscular HGB Conc 31.2 g/dL (30-55); Mean Corpuscular Hemoglobin 30.4 pg (27-33); Mean Corpuscular Volume 97.5 fl (85-98); Mean Platelet Volume 9.3 fL (7.4-10.4); Monocytes # 0.6 10^3/uL (0.2-0.9); Neutrophils # 4.78 10^3/uL (1.8-7.7); Neutrophils % 78.2 %; Nucleated Red Blood Cells % 0 %; Platelet Count 194 10^3/cmm (157-399); Red Blood Count 3.22 10^6/uL (3.85-5.65); Red Cell Distribution Width 22.2 % (12.1-15.1); White Blood Count 6.11 10^3/uL (3.29-11.43)
[2023-11-09 12:20] LABS: Alanine Aminotransferase 22 U/L (0-33); Albumin Level 3.6 g/dL (3.5-5.2); Alkaline Phosphatase 192 U/L (35-105); Anion Gap 15.4 (5-19); Aspartate Amino Transferase 24 U/L (0-32); Blood Urea Nitrogen 8 mg/dL (6-20); Calcium 7.8 mg/dL (8.5-10.5); Carbon Dioxide 23 mmol/L (22-29); Chloride 108 mmol/L (98-107); Globulin 2.6 g/dL (1.3-4.6); Glomerular Filtration Rate 168.3 mL/min (90-130); Glucose 99 mg/dL (65-115); Osmolality Calculated 294 mOsm/kg (285-295); Potassium 3.4 mmol/L (3.5-5.1); Sodium 143 mmol/L (136-145); Total Bilirubin 0.2 mg/dL (0.15-1.2); Total Protein 6.2 g/dL (6.6-8.7)
[2023-11-10] MEDS: epoetin alfa-epbx 40,000 Unit/mL SDV (non-esrd, ONC only) 40000 UNIT SUBCUT (10:39)
[2023-11-16 08:39] VITALS: BMI 26.9
[2023-11-16 08:39] LABS: Basophils % 0.7 %; Eosinophils # 0.1 10^3/uL (0.0-0.8); Eosinophils % 2.4 %; Hematocrit 32.7 % (36-47); Lymphocytes # 0.6 10^3/uL (0.8-4.8); Lymphocytes % 10.7 %; Mean Corpuscular HGB Conc 30.6 g/dL (30-55); Mean Corpuscular Hemoglobin 31.3 pg (27-33); Mean Corpuscular Volume 102.5 fl (85-98); Mean Platelet Volume 8.4 fL (7.4-10.4); Monocytes # 0.6 10^3/uL (0.2-0.9); Monocytes % 10.3 %; Neutrophils # 4.23 10^3/uL (1.8-7.7); Nucleated Red Blood Cells # 0.1 /100WBC; Platelet Count 256 10^3/cmm (157-399); Red Blood Count 3.19 10^6/uL (3.85-5.65); Red Cell Distribution Width 23.7 % (12.1-15.1)
[2023-11-16 08:55] LABS: Alanine Aminotransferase 18 U/L (0-33); Albumin Level 3.7 g/dL (3.5-5.2); Alkaline Phosphatase 174 U/L (35-105); Anion Gap 16.5 (5-19); Aspartate Amino Transferase 22 U/L (0-32); Blood Urea Nitrogen 10 mg/dL (6-20); Calcium 8.6 mg/dL (8.5-10.5); Carbon Dioxide 23 mmol/L (22-29); Chloride 104 mmol/L (98-107); Creatinine Clr Calc Pharmacy 123.3767; Globulin 2.5 g/dL (1.3-4.6); Glomerular Filtration Rate 105.4 mL/min (90-130); Glucose 116 mg/dL (65-115); Osmolality Calculated 290 mOsm/kg (285-295); Potassium 3.5 mmol/L (3.5-5.1); Sodium 140 mmol/L (136-145); Total Bilirubin 0.2 mg/dL (0.15-1.2); Total Protein 6.2 g/dL (6.6-8.7)
[2023-11-16] MEDS: palonosetron 0.25 mg/5 mL SDV IVP (10:57)
[2023-11-16] MEDS: dextrose 5% 250 ML 75 ML IV (10:57)
[2023-11-16] MEDS: denosumab 120 mg SDV SUBCUT (10:58)
[2023-11-16] MEDS: fosaprepitant 150 MG in sodium chloride 0.9% 150 ML 300 MG IV (11:23)
[2023-11-16] MEDS: DEXTROSE 5% IV (12:03)
[2023-11-16] MEDS: [UNRECOGNIZED DRUG - OTHER] IV (12:03)
[2023-11-16] MEDS: pegfilgrastim 6 mg/0.6 mL Kit (onpro) SUBCUT (12:53)
[2023-11-16 12:54] VITALS: BP 106/74; PULSE 81; RESP 16; TEMP 36.9; O2SAT 95
== END 2023-11-16 23:59 | disposition home or self-care (01) ==
PROVIDERS: Nurse Practitioner Family; PCP Internal Medicine Medical Oncology; Visit Provider Specialist
DX: Z51.11 Encounter for antineoplastic chemotherapy (principal); Z53.9 Procedure and treatment not carried out, unspecified reason; C50.812 Malignant neoplasm of overlapping sites of left female breast; C79.51 Secondary malignant neoplasm of bone
CPT/HCPCS: 36591; 80053; 85025; 96367; 96372; 96375; 96377; 96413; J0897; J1100; J1453; J1642; J2469; J2506; J7060; J9358; Q5106

== ENCOUNTER 2023-12-07 08:30 | Oncology outpatient (recurring) (ONCR) | payer OTHER, SELFPAY ==
[2023-11-23 14:13] LABS: Basophils # 0.1 10^3/uL (0.0-0.1); Basophils % 0.8 %; Eosinophils # 0.2 10^3/uL (0.0-0.8); Eosinophils % 1.2 %; Hematocrit 31.3 % (36-47); Lymphocytes # 0.7 10^3/uL (0.8-4.8); Lymphocytes % 5.7 %; Mean Corpuscular HGB Conc 30.7 g/dL (30-55); Mean Corpuscular Hemoglobin 31.4 pg (27-33); Mean Corpuscular Volume 102.3 fl (85-98); Mean Platelet Volume 9.4 fL (7.4-10.4); Monocytes # 0.9 10^3/uL (0.2-0.9); Neutrophils # 10.77 10^3/uL (1.8-7.7); Neutrophils % 83.7 %; Nucleated Red Blood Cells % 0 %; Platelet Count 84 10^3/cmm (157-399); Red Blood Count 3.06 10^6/uL (3.85-5.65); Red Cell Distribution Width 23.2 % (12.1-15.1); White Blood Count 12.86 10^3/uL (3.29-11.43)
[2023-11-23 14:57] LABS: Slide Review Slide Review Perform
[2023-11-23] MEDS: epoetin alfa-epbx 40,000 Unit/mL SDV (non-esrd, ONC only) 40000 UNIT SUBCUT (15:10)
[2023-11-30 13:25] VITALS: BP 123/56; PULSE 103; RESP 16; TEMP 37.1; O2SAT 98
[2023-11-30 14:00] VITALS: BP 124/78; PULSE 78; RESP 18; TEMP 37.2; O2SAT 98
[2023-11-30 14:05] LABS: Basophils % 0.6 %; Eosinophils # 0.1 10^3/uL (0.0-0.8); Eosinophils % 1.8 %; Hematocrit 30.1 % (36-47); Lymphocytes # 0.6 10^3/uL (0.8-4.8); Lymphocytes % 9.5 %; Mean Corpuscular HGB Conc 30.9 g/dL (30-55); Mean Corpuscular Hemoglobin 32.2 pg (27-33); Mean Corpuscular Volume 104.2 fl (85-98); Mean Platelet Volume 9.6 fL (7.4-10.4); Monocytes # 0.8 10^3/uL (0.2-0.9); Monocytes % 11.6 %; Neutrophils # 4.93 10^3/uL (1.8-7.7); Neutrophils % 74.2 %; Nucleated Red Blood Cells # 0.1 /100WBC; Nucleated Red Blood Cells % 1.1 %; Platelet Count 152 10^3/cmm (157-399); Red Blood Count 2.89 10^6/uL (3.85-5.65); Red Cell Distribution Width 24.4 % (12.1-15.1); White Blood Count 6.64 10^3/uL (3.29-11.43)
[2023-11-30] MEDS: epoetin alfa-epbx 40,000 Unit/mL SDV (non-esrd, ONC only) 40000 UNIT SUBCUT (14:33)
[2023-11-30 14:38] VITALS: BP 120/78; PULSE 78; RESP 18; TEMP 37.2; O2SAT 98
[2023-12-07 08:46] LABS: Basophils # 0.1 10^3/uL (0.0-0.1); Basophils % 1.3 %; Eosinophils # 0.1 10^3/uL (0.0-0.8); Hematocrit 35.3 % (36-47); Lymphocytes # 0.6 10^3/uL (0.8-4.8); Mean Corpuscular HGB Conc 30.3 g/dL (30-55); Mean Corpuscular Hemoglobin 32.2 pg (27-33); Mean Corpuscular Volume 106.3 fl (85-98); Monocytes # 0.5 10^3/uL (0.2-0.9); Monocytes % 13.5 %; Neutrophils # 2.65 10^3/uL (1.8-7.7); Neutrophils % 67.2 %; Nucleated Red Blood Cells % 0 %; Platelet Count 226 10^3/cmm (157-399); Red Blood Count 3.32 10^6/uL (3.85-5.65); Red Cell Distribution Width 24.6 % (12.1-15.1); White Blood Count 3.94 10^3/uL (3.29-11.43)
[2023-12-07 09:12] LABS: Alanine Aminotransferase 24 U/L (0-33); Albumin Level 3.9 g/dL (3.5-5.2); Alkaline Phosphatase 175 U/L (35-105); Anion Gap 14.5 (5-19); Aspartate Amino Transferase 28 U/L (0-32); Blood Urea Nitrogen 14 mg/dL (6-20); CA 15-3 109.6 U/mL (0-25); Calcium 7.8 mg/dL (8.5-10.5); Carbon Dioxide 23 mmol/L (22-29); Chloride 109 mmol/L (98-107); Globulin 2.3 g/dL (1.3-4.6); Glomerular Filtration Rate 168.3 mL/min (90-130); Glucose 95 mg/dL (65-115); Osmolality Calculated 296 mOsm/kg (285-295); Potassium 3.5 mmol/L (3.5-5.1); Sodium 143 mmol/L (136-145); Total Bilirubin 0.3 mg/dL (0.15-1.2); Total Protein 6.2 g/dL (6.6-8.7)
[2023-12-07] MEDS: dextrose 5% 250 ML 75 ML IV (10:23)
[2023-12-07] MEDS: palonosetron 0.25 mg/5 mL SDV IVP (10:28)
[2023-12-07] MEDS: fosaprepitant 150 MG in sodium chloride 0.9% 150 ML 300 MG IV (10:33)
[2023-12-07 11:19] LABS: 25 Hydroxy Vitamin D 34 ng/mL (30-100)
[2023-12-07] MEDS: DEXTROSE 5% IV (11:26)
[2023-12-07] MEDS: [UNRECOGNIZED DRUG - OTHER] IV (11:26)
[2023-12-07] MEDS: pegfilgrastim 6 mg/0.6 mL Kit (onpro) SUBCUT (12:09)
[2023-12-07 12:18] VITALS: BP 120/61; PULSE 80; TEMP 36.2; O2SAT 95
== END 2023-12-07 23:59 | disposition home or self-care (01) ==
PROVIDERS: Nurse Practitioner Family; PCP Internal Medicine Medical Oncology; Visit Provider Internal Medicine Medical Oncology
DX: C50.812 Malignant neoplasm of overlapping sites of left female breast; E55.9 Vitamin D deficiency, unspecified; C79.51 Secondary malignant neoplasm of bone; Z53.9 Procedure and treatment not carried out, unspecified reason
CPT/HCPCS: 36591; 80053; 82306; 85025; 86300; 96367; 96372; 96375; 96377; 96401; 96413; J1100; J1453; J1642; J2469; J2506; J7060; J9358; Q5106

== ENCOUNTER 2023-12-14 10:40 | Oncology outpatient (recurring) (ONCR) | payer OTHER, SELFPAY ==
[2023-12-14 11:23] LABS: Basophils # 0.1 10^3/uL (0.0-0.1); Basophils % 0.5 %; Eosinophils # 0.2 10^3/uL (0.0-0.8); Eosinophils % 1.8 %; Hematocrit 36.3 % (36-47); Lymphocytes # 0.8 10^3/uL (0.8-4.8); Lymphocytes % 6.7 %; Mean Corpuscular HGB Conc 30.6 g/dL (30-55); Mean Corpuscular Hemoglobin 32.5 pg (27-33); Mean Corpuscular Volume 106.1 fl (85-98); Mean Platelet Volume 10.2 fL (7.4-10.4); Monocytes # 0.8 10^3/uL (0.2-0.9); Neutrophils # 9.15 10^3/uL (1.8-7.7); Neutrophils % 82.4 %; Nucleated Red Blood Cells % 0 %; Platelet Count 111 10^3/cmm (157-399); Red Blood Count 3.42 10^6/uL (3.85-5.65); Red Cell Distribution Width 22.6 % (12.1-15.1); White Blood Count 11.12 10^3/uL (3.29-11.43)
[2023-12-14 11:38] LABS: Alanine Aminotransferase 30 U/L (0-33); Albumin Level 3.9 g/dL (3.5-5.2); Alkaline Phosphatase 259 U/L (35-105); Anion Gap 16.1 (5-19); Aspartate Amino Transferase 30 U/L (0-32); Blood Urea Nitrogen 15 mg/dL (6-20); Calcium 8.2 mg/dL (8.5-10.5); Carbon Dioxide 21 mmol/L (22-29); Chloride 109 mmol/L (98-107); Globulin 2.5 g/dL (1.3-4.6); Glomerular Filtration Rate 130.1 mL/min (90-130); Glucose 121 mg/dL (65-115); Osmolality Calculated 296 mOsm/kg (285-295); Potassium 4.1 mmol/L (3.5-5.1); Sodium 142 mmol/L (136-145); Total Bilirubin 0.3 mg/dL (0.15-1.2); Total Protein 6.4 g/dL (6.6-8.7)
[2023-12-14 12:05] LABS: Slide Review Slide Review Perform
== END 2023-12-17 23:59 | disposition home or self-care (01) ==
LOC: ONCMED 10:41
PROVIDERS: PCP Internal Medicine Medical Oncology; Visit Provider Internal Medicine Medical Oncology
DX: D64.81 Anemia due to antineoplastic chemotherapy
CPT/HCPCS: 36591; 80053; 85025; J1642

== ENCOUNTER 2023-12-14 13:39 | Outpatient (CLI) | payer OTHER, SELFPAY ==
--- NOTE | 2023-12-14 14:00 | USCV_ITS ---
Parul Abdul Age: 53 Gender: F : 1970 Exam Date: 12/14/2023 13:51 Ordering Phys: Dena Castaneda APRN Technologist: FIDEL [place] [facility] [place]: HI RISK MEDS BP: 112 / 78 HR: 96 Rhythm: Sinus Technical Quality: Adequate MEASUREMENTS (Male / Female) Normal Values 2D ECHO LV Diastolic Diameter PLAX 3.5 cm 4.2 - 5.9 / 3.9 - 5.3 cm IVS Diastolic Thickness 1.2 cm 0.6 - 1.0 / 0.6 - 0.9 cm IVS Systolic Thickness 1.8 cm LVPW Diastolic Thickness 1.8 cm 0.6 - 1.0 / 0.6 - 0.9 cm LVPW Systolic Thickness 2.1 cm LVOT Diameter 2.0 cm LV Ejection Fraction 2D Teich 65.7 % LV Ejection Fraction MOD 2C 61.4 % LV Ejection Fraction 2C AL 60.8 % LA Diameter 3.8 cm RA Systolic Volume 4C AL 16.7 ml RA Systolic Volume 4C MOD 16.0 ml Aorta at Sinotubular Diameter 2.1 cm IVC Diameter 1.3 cm M-MODE LA Ao Ratio MM 1.1 AV Cusp Separation MM 1.5 cm DOPPLER AV Peak Velocity 296.7 cm/s LVOT Peak Velocity 96.0 cm/s AV Area Cont Eq vti 2.6 cm squared AV Area Cont Eq pk 1.0 cm squared MV Peak Velocity 94.0 cm/s MV Area PHT 4.9 cm squared Mitral E to A Ratio 0.9 TR Peak Velocity 256.0 cm/s TR Peak Gradient 26.2 mmHg TR Mean Velocity 219.0 cm/s TR Mean Gradient 19.9 mmHg TR Velocity Time Integral 63.6 cm TV Peak E Velocity 52.0 cm/s Right Atrial Pressure 3.0 mmHg Pulmonary Artery Systolic Pressu 29.2 mmHg PV Peak Velocity 84.0 cm/s RV Ejection Time 0.3 s FINDINGS Left Ventricle Left ventricle is normal size. LV systolic function is normal with EF of 55 to 60%. No regional wall motion abnormalities. Grade 1 disatolic function Right Ventricle Normal in size and function Right Atrium Normal in size Left Atrium Normal in size Mitral Valve Structurally normal mitral valve. Mild mitral regurgitation Aortic Valve Structurally normal aortic valve.No significant stenosis. Mild aortic regurgitation. Tricuspid Valve Mild tricuspid regurgitation. Pulmonary artery systolic pressure is normal. Pulmonic Valve Not well visualized Pericardium Normal Aorta Normal in size IVC Appears to be normal CONCLUSIONS LV systolic function is normal with EF of 55-60% Grade 1 diastolic dysfunction Mild mitral regurgitation Mild aortic regurgitation Mild tricuspid regurgitation Compared to prior echocardiogram from 07/2023, patient has mild mitral regurgitation and mild aortic regurgitation. Anibal Jameson MD (Electronically Signed) Final Date: 22 December 2023 10:00 S
== END 2023-12-14 13:40 | disposition home or self-care (01) ==
LOC: RAD 13:39
PROVIDERS: PCP Internal Medicine Medical Oncology; Visit Provider Nurse Practitioner Family
DX: Z79.899 Other long term (current) drug therapy (principal); I08.3 Combined rheumatic disorders of mitral, aortic and tricuspid valves
CPT/HCPCS: 93306

== ENCOUNTER 2023-12-28 09:09 | Oncology outpatient (recurring) (ONCR) | payer OTHER, SELFPAY ==
[2023-12-21 12:42] LABS: Basophils % 0.4 %; Eosinophils # 0.1 10^3/uL (0.0-0.8); Eosinophils % 2.7 %; Hematocrit 33.9 % (36-47); Lymphocytes # 0.5 10^3/uL (0.8-4.8); Lymphocytes % 10.5 %; Mean Corpuscular Hemoglobin 33.3 pg (27-33); Mean Corpuscular Volume 107.6 fl (85-98); Mean Platelet Volume 9.5 fL (7.4-10.4); Monocytes # 0.4 10^3/uL (0.2-0.9); Monocytes % 8.5 %; Neutrophils # 3.98 10^3/uL (1.8-7.7); Neutrophils % 77.1 %; Nucleated Red Blood Cells % 0 %; Platelet Count 168 10^3/cmm (157-399); Red Blood Count 3.15 10^6/uL (3.85-5.65); Red Cell Distribution Width 22.2 % (12.1-15.1); White Blood Count 5.16 10^3/uL (3.29-11.43)
[2023-12-21 13:01] LABS: Alanine Aminotransferase 29 U/L (0-33); Albumin Level 3.7 g/dL (3.5-5.2); Alkaline Phosphatase 183 U/L (35-105); Anion Gap 15.7 (5-19); Aspartate Amino Transferase 30 U/L (0-32); Blood Urea Nitrogen 8 mg/dL (6-20); Calcium 8.2 mg/dL (8.5-10.5); Carbon Dioxide 22 mmol/L (22-29); Chloride 108 mmol/L (98-107); Globulin 2.6 g/dL (1.3-4.6); Glomerular Filtration Rate 168.3 mL/min (90-130); Glucose 89 mg/dL (65-115); Osmolality Calculated 292 mOsm/kg (285-295); Potassium 3.7 mmol/L (3.5-5.1); Sodium 142 mmol/L (136-145); Total Bilirubin 0.2 mg/dL (0.15-1.2); Total Protein 6.3 g/dL (6.6-8.7)
[2023-12-28 09:44] LABS: Basophils % 0.8 %; Eosinophils # 0.1 10^3/uL (0.0-0.8); Eosinophils % 3.4 %; Hematocrit 34.1 % (36-47); Lymphocytes # 0.6 10^3/uL (0.8-4.8); Lymphocytes % 14.9 %; Mean Corpuscular HGB Conc 31.1 g/dL (30-55); Mean Corpuscular Hemoglobin 33.5 pg (27-33); Mean Corpuscular Volume 107.9 fl (85-98); Mean Platelet Volume 9.4 fL (7.4-10.4); Monocytes # 0.5 10^3/uL (0.2-0.9); Monocytes % 13.4 %; Neutrophils # 2.57 10^3/uL (1.8-7.7); Neutrophils % 66.2 %; Nucleated Red Blood Cells % 0 %; Platelet Count 201 10^3/cmm (157-399); Red Blood Count 3.16 10^6/uL (3.85-5.65); Red Cell Distribution Width 20.2 % (12.1-15.1); White Blood Count 3.88 10^3/uL (3.29-11.43)
[2023-12-28 10:04] LABS: Alanine Aminotransferase 28 U/L (0-33); Albumin Level 3.8 g/dL (3.5-5.2); Alkaline Phosphatase 164 U/L (35-105); Anion Gap 17.5 (5-19); Aspartate Amino Transferase 29 U/L (0-32); Blood Urea Nitrogen 12 mg/dL (6-20); Calcium 8.1 mg/dL (8.5-10.5); Carbon Dioxide 23 mmol/L (22-29); Chloride 111 mmol/L (98-107); Globulin 2.2 g/dL (1.3-4.6); Glomerular Filtration Rate 168.3 mL/min (90-130); Glucose 136 mg/dL (65-115); Osmolality Calculated 308 mOsm/kg (285-295); Potassium 3.5 mmol/L (3.5-5.1); Sodium 148 mmol/L (136-145); Total Bilirubin 0.2 mg/dL (0.15-1.2)
[2023-12-28] MEDS: dextrose 5% 250 ML 75 ML IV (11:51)
[2023-12-28] MEDS: palonosetron 0.25 mg/5 mL SDV IVP (11:53)
[2023-12-28 12:02] LABS: CA 15-3 116.9 U/mL (0-25)
[2023-12-28] MEDS: fosaprepitant 150 MG in sodium chloride 0.9% 150 ML 300 MG IV (12:58)
[2023-12-28] MEDS: [UNRECOGNIZED DRUG - OTHER] IV (13:51)
[2023-12-28] MEDS: DEXTROSE 5% IV (13:51)
[2023-12-28] MEDS: pegfilgrastim 6 mg/0.6 mL Kit (onpro) SUBCUT (14:28)
[2023-12-28 14:30] VITALS: BP 138/68; PULSE 81; RESP 16; TEMP 36.1; O2SAT 97
--- NOTE | 2023-12-28 14:49 | XR_ITS ---
WS: [id number] Right arm and humerus, 2 views, 12/28/2023 Clinical Data: right arm pain Comparison: Right arm and humerus, 01/16/2023 Findings: There is sclerotic change of the right humeral head and neck. The adjacent right clavicle and scapula r neck also shows sclerosis. The shaft of the humerus shows mild linear sclerosis of the medullary ca nal adjacent to the cortex. No lytic changes are seen. Impression: Probable increase in sclerotic change of the right humerus to include the shaft most consistent with metastatic disease.
== END 2023-12-28 23:59 | disposition home or self-care (01) ==
PROVIDERS: Nurse Practitioner Family; PCP Internal Medicine Medical Oncology; Visit Provider Internal Medicine Medical Oncology
DX: C50.812 Malignant neoplasm of overlapping sites of left female breast; C79.51 Secondary malignant neoplasm of bone; Z53.9 Procedure and treatment not carried out, unspecified reason
CPT/HCPCS: 36591; 73060; 80053; 85025; 86300; 96365; 96366; 96374; 96375; 96377; 96413; J1100; J1453; J2469; J2506; J7060; J9358

== ENCOUNTER 2024-01-16 15:00 | Oncology outpatient (recurring) (ONCR) | payer OTHER, SELFPAY ==
--- NOTE | 2024-01-01 09:00 | N.ONRAD NP_ITS ---
Radiation Oncology New Patient Visit Patient: Parul Abdul MR#: [id number] : 1970> Age: 53> Sex: Female> Dictated by: Dr. Gena Glasgow Date of Service: 01/01/2024 Referring Physician(s) : Dr. Shailesh Garrison Diagnosis: C50.919 - malignant neoplasm of unspecified site of unspecified female breast, Diagnosed 03/01/2022 (active) and C50.812 - malignant neoplasm of overlapping sites of left female breast, Diagnosed 11/11/2014 (active), stage iia, t2, pn0, m0, g1. C79.8 bone metastasis Radiotherapy to date: Summary Radiotherapy to Date: Course: C2, Treatment Site: RShoulder, Ref. ID: GTV RShoulder, Energy: 15X, Dose/Fx (cGy): 300, #Fx: 10 / 10, Dose Correction (cGy): 0, Total Dose (cGy): 3,000, Start Date: 04/07/2022, End Date: 04/20/2022, Elapsed Days: 13 Course: C2, Treatment Site: Sternum, Ref. ID: GTV Sternum, Energy: 15X, Dose/Fx (cGy): 300, #Fx: 10 / 10, Dose Correction (cGy): 0, Total Dose (cGy): 3,000, Start Date: 04/07/2022, End Date: 04/20/2022, Elapsed Days: 13 Course: C2, Treatment Site: LRibs, Ref. ID: GTV LRibs, Energy: 15X, Dose/Fx (cGy): 300, #Fx: 10 / 10, Dose Correction (cGy): 0, Total Dose (cGy): 3,000, Start Date: 04/07/2022, End Date: 04/20/2022, Elapsed Days: 13 Course: C2, Treatment Site: FemHeadNeck_L, Ref. ID: FemHeadNeck_L, Energy: 15X, Dose/Fx (cGy): 300, #Fx: 10 / 10, Dose Correction (cGy): 0, Total Dose (cGy): 3,000, Start Date: 04/07/2022, End Date: 04/20/2022, Elapsed Days: 13 Course: C2, Treatment Site: [facility]_R, Ref. ID: FemHeadNeck_R, Energy: 15X, Dose/Fx (cGy): 300, #Fx: 10 / 10, Dose Correction (cGy): 0, Total Dose (cGy): 3,000, Start Date: 04/07/2022, End Date: 04/20/2022, Elapsed Days: 13 Course: Course1, Treatment Site: LT BREAST, Ref. ID: LT BREAST, Energy: 6X, Dose/Fx (cGy): 200, #Fx: / 25, Dose Correction (cGy): 0, Total Dose (cGy): 5,000, Start Date: 12/09/2014, End Date: 01/12/2015, Elapsed Days: 34 Course: Course1, Treatment Site: LT BREAST BOOST, Ref. ID: LT BREAST BOOST, Energy: 6X, Dose/Fx (cGy): 200, #Fx: , Dose Correction (cGy): 0, Total Dose (cGy): 1,600, Start Date: 01/14/2015, End Date: 01/23/2015, Elapsed Days: 9 Course: WholeBrain 2022, Treatment Site: [id number], Ref. ID: [id number], Energy: 15X, Dose/Fx (cGy): 300, #Fx: 10 / 10, Dose Correction (cGy): 0, Total Dose (cGy): 3,000, Start Date: 06/22/2023, End Date: 07/05/2023, Elapsed Days: 13 Chief Complaint / History of Present Illness: Patient has been tolerating immunotherapy. She began to have increasing pain in the right arm about 3 weeks ago. She received her immunotherapy last week and at that time complained about the pain and how it is getting worse. She had plain films done which did not show any impending fracture but did show disease distal in the shaft of the humerus on the right side. She is seen today to discuss treatment to this bony lesion. She does not have any additional areas of pain that are of concern at this point. Current Medications: AmLODIPine Besylate, amLODIPine Besylate, anastrozole, cloNIDine HCl, exemestane, exemestane, lansoprazole, meloxicam, meloxicam, nexIUM, nexIUM, reglan, tamoxifen Citrate, venlafaxine HCl, venlafaxine HCl ER, venlafaxine HCl ER, viibryd. Allergies: No Known Allergies Medical History: Anxiety/depression, gastroesophageal reflux disease, nephrolithiasis. No history of collagen vascular disease. Surgical History: Excisional biopsy of left breast mass on 10/16/2000, left sentinel axillary lymph node biopsy on 10/30/2014, lithotrypsy/extraction for kidney stones and oRIF right ankle in 09/2019. Family History: Father is alive. Mother is alive. Brother is alive. Both parents are living and he are in good health. Father has hypertension. One brother also is in good health. There is no history of breast or ovarian cancer or other malignancies in the family. Social History: Last screened on 01/18/2021 - Never smoked. Last screened on 01/18/2021 - Never drank. Current Complaints / Review of Systems: . Pain in her right arm which is constant all the time. It even bothers her at night when she rolls over on it Vital Signs: Performed on 01/01/2024 8:16 AM BMI - 27.46 kg/m2 (high), Height - 68 in, Weight - 180.6 lbs, Pulse - 99 /min, Respiration - 18 /min, O2 Sat - 99 %, Pain - 4, Fatigue - 0 and BP - 115/ 73 mm(hg). Physical Exam: General: Patient is in no apparent distress sitting comfortably in the chair. She is accompanied by her HEENT normocephalic atraumatic. Pupils are equal, sclera clear, extraocular muscles intact Pulmonary: Respiratory rate is regular nonlabored Cardiovascular: Regular rate and rhythm Abdomen: Abdomen is nonprotuberant Extremities: No edema is noted in the right upper extremity Neurological: Alert and orient x 3. Gait and speech within normal limits Psych: Affect appropriate for current situation Skin: Warm and dry without lesions Performance Status: Pathology: Primary, c50.919 - malignant neoplasm of unspecified site of unspecified female breast, Diagnosed 03/01/2022 (active) , Primary, c50.812 - malignant neoplasm of overlapping sites of left female breast, Diagnosed 11/11/2014 (active) stage iia, t2, pn0, m0, g1, Secondary, z79.810 - care home (current) use of selective estrogen receptor modulators (serms), Diagnosed 08/31/2017 (active) , Secondary, z92.3 - personal history of irradiation, Diagnosed 08/31/2017 (active) and Secondary, z17.0 - estrogen receptor positive status [er+], Diagnosed 08/26/2015 (active) . Lab: Imaging: See HPI Impression: Stage IV breast cancer now with new bony disease in the shaft of the humerus that is causing discomfort and pain at a level 4 on pain medicine Plan: I reviewed with her that we should be able to do additional treatment to the shaft of the humerus. She has been nearly 2 years since she had the shoulder treated. This point we talked about the risks and side effects in this area which was should be fairly minimal other than skin reaction. She tolerated her shoulder treatments without skin reaction or other issues. This point she will undergo simulation and will begin her treatments to get her started sometime this week so we can have her finish before she starts her next round of immunotherapy in 3 weeks. Signed by: 01/01/2024 8:58:38 AM <<Signature on File>> Time spent with patient:25 CPT Code: CPT Code:
[2024-01-04 09:03] VITALS: BP 109/75; PULSE 93; RESP 17; TEMP 36.6; O2SAT 98
[2024-01-04 09:11] LABS: Basophils # 0.1 10^3/uL (0.0-0.1); Basophils % 0.8 %; Eosinophils # 0.1 10^3/uL (0.0-0.8); Hematocrit 33.8 % (36-47); Lymphocytes # 0.8 10^3/uL (0.8-4.8); Lymphocytes % 5.7 %; Mean Corpuscular Hemoglobin 34.5 pg (27-33); Mean Platelet Volume 10.6 fL (7.4-10.4); Monocytes # 0.8 10^3/uL (0.2-0.9); Monocytes % 6.2 %; Neutrophils # 11.43 10^3/uL (1.8-7.7); Neutrophils % 84.7 %; Nucleated Red Blood Cells % 0 %; Platelet Count 118 10^3/cmm (157-399); Red Blood Count 3.13 10^6/uL (3.85-5.65); Red Cell Distribution Width 19.2 % (12.1-15.1); White Blood Count 13.48 10^3/uL (3.29-11.43)
[2024-01-04 10:04] LABS: Slide Review Slide Review Perform
--- NOTE | 2024-01-08 15:14 | ONCRAD TMN_ITS ---
Radiation Oncology Weekly Treatment Management Patient: Parul Abdul MR#: [id number] : 1970 Attending Physician: Dr. Gena Glasgow Date of Service: 01/08/2024 Fractions: 2 out of 10 Referring Physician(s) : Dr. Shailesh Garrison Diagnosis: C79.51 - Secondary malignant neoplasm of bone, Diagnosed 04/06/2022 (Active) C50.919 - Malignant neoplasm of unspecified site of unspecified female breast, Diagnosed 03/01/2022 (Active) C50.812 - Malignant neoplasm of overlapping sites of left female breast, Diagnosed 11/11/2014 (Active) Stage IIA, T2, pN0, M0, G1 Radiotherapy to date: Course: RT Humerus 2023, Treatment Site: [id number], Ref. ID: [id number], Energy: 6X, Dose/Fx (cGy): 300, #Fx: 2 / 10, Dose Correction (cGy): 0, Total Dose Delivered (cGy): 600, Start Date: 01/04/2024, Elapsed Days: 1 Reason for visit: The patient is being seen today as part of their regularly scheduled weekly on treatment visits to assess for acute toxicities from radiotherapy. Review of Systems: Patient thinks that the pain medicine is actually working a little bit better now after the first 2 treatments Vital Signs: Performed on 01/08/2024 3:03 PM BMI - 26.883 kg/m2 (high), Height - 68 in, Weight - 176.8 lbs, Temperature - 97.9 f, Pulse - 101 /min (high), Respiration - 16 /min, O2 Sat - 98 %, Pain - 3, Fatigue - 2 and BP - 118/ 77 mm(hg). Physical Exam: No changes on exam Imaging: Radiation therapy imaging related to accurate target localization (i.e. KV, MV and CBCT) was reviewed. Appropriate changes, if any, were made to ensure treatment accuracy. Plan: Will continue with her treatments as planned Signed by: Dr. Gena Glasgow 01/08/2024 3:13:02 PM
[2024-01-11 15:28] LABS: Basophils % 0.3 %; Eosinophils # 0.1 10^3/uL (0.0-0.8); Eosinophils % 2.1 %; Hematocrit 32.5 % (36-47); Lymphocytes # 0.7 10^3/uL (0.8-4.8); Lymphocytes % 11.9 %; Mean Corpuscular HGB Conc 31.4 g/dL (30-55); Mean Corpuscular Hemoglobin 34.2 pg (27-33); Mean Corpuscular Volume 109.1 fl (85-98); Mean Platelet Volume 9.1 fL (7.4-10.4); Monocytes # 0.7 10^3/uL (0.2-0.9); Monocytes % 11.7 %; Neutrophils # 4.51 10^3/uL (1.8-7.7); Neutrophils % 73.3 %; Nucleated Red Blood Cells % 0 %; Platelet Count 166 10^3/cmm (157-399); Red Blood Count 2.98 10^6/uL (3.85-5.65); Red Cell Distribution Width 18.5 % (12.1-15.1); White Blood Count 6.15 10^3/uL (3.29-11.43)
== END 2024-01-16 23:59 | disposition home or self-care (01) ==
PROVIDERS: PCP Internal Medicine Medical Oncology; Visit Provider Internal Medicine Medical Oncology
DX: C50.812 Malignant neoplasm of overlapping sites of left female breast; Z51.0 Encounter for antineoplastic radiation therapy; C79.51 Secondary malignant neoplasm of bone
CPT/HCPCS: 36415; 36591; 77290; 77295; 77300; 77334; 77336; 77387; 77412; 85025

== ENCOUNTER 2024-01-18 10:15 | Oncology outpatient (recurring) (ONCR) | payer OTHER, SELFPAY ==
[2024-01-18 10:12] LABS: Basophils % 0.6 %; Eosinophils # 0.2 10^3/uL (0.0-0.8); Eosinophils % 4.9 %; Hematocrit 33.7 % (36-47); Lymphocytes # 0.5 10^3/uL (0.8-4.8); Lymphocytes % 15.6 %; Mean Corpuscular HGB Conc 31.5 g/dL (30-55); Mean Corpuscular Hemoglobin 34.4 pg (27-33); Mean Corpuscular Volume 109.4 fl (85-98); Mean Platelet Volume 8.6 fL (7.4-10.4); Monocytes # 0.5 10^3/uL (0.2-0.9); Monocytes % 14.4 %; Neutrophils # 2.09 10^3/uL (1.8-7.7); Neutrophils % 64.2 %; Nucleated Red Blood Cells % 0 %; Platelet Count 186 10^3/cmm (157-399); Red Blood Count 3.08 10^6/uL (3.85-5.65); Red Cell Distribution Width 17.3 % (12.1-15.1); White Blood Count 3.26 10^3/uL (3.29-11.43)
[2024-01-18 10:47] LABS: Alanine Aminotransferase 23 U/L (0-33); Albumin Level 3.8 g/dL (3.5-5.2); Alkaline Phosphatase 160 U/L (35-105); Anion Gap 12.8 (5-19); Aspartate Amino Transferase 31 U/L (0-32); Blood Urea Nitrogen 11 mg/dL (6-20); CA 15-3 130.5 U/mL (0-25); Calcium 7.7 mg/dL (8.5-10.5); Carbon Dioxide 25 mmol/L (22-29); Chloride 110 mmol/L (98-107); Globulin 2.4 g/dL (1.3-4.6); Glomerular Filtration Rate 168.3 mL/min (90-130); Glucose 108 mg/dL (65-115); Osmolality Calculated 298 mOsm/kg (285-295); Potassium 3.8 mmol/L (3.5-5.1); Sodium 144 mmol/L (136-145); Total Bilirubin 0.3 mg/dL (0.15-1.2); Total Protein 6.2 g/dL (6.6-8.7)
[2024-01-18] MEDS: dextrose 5% 250 ML 75 ML IV (11:49)
[2024-01-18] MEDS: palonosetron 0.25 mg/5 mL SDV IVP (11:49)
[2024-01-18 12:39] LABS: Calcium 7.6 mg/dL (8.5-10.5)
[2024-01-18 12:45] LABS: Parathyroid Hormone 93.7 pg/mL (15-65)
[2024-01-18] MEDS: fosaprepitant 150 MG in sodium chloride 0.9% 150 ML 300 MG IV (12:46)
[2024-01-18] MEDS: [UNRECOGNIZED DRUG - OTHER] IV (13:25)
[2024-01-18] MEDS: DEXTROSE 5% IV (13:25)
[2024-01-18] MEDS: calcium gluconate 0.9% NaCL 1 GM/50 ML PREMIX IV ×2 (14:11→14:42)
[2024-01-18] MEDS: pegfilgrastim 6 mg/0.6 mL Kit (onpro) SUBCUT (14:26)
[2024-01-18 15:16] VITALS: BP 120/79; PULSE 83; RESP 18; TEMP 36.1; O2SAT 95
--- NOTE | 2024-01-20 23:03 | ONCRAD TMN_ITS ---
Radiation Oncology Weekly Treatment Management Patient: Parul Abdul MR#: [id number] : 1970 Attending Physician: Richard Orlando Date of Service: 01/17/2024 Referring Physician(s) : Dr. Shailesh Garrison Diagnosis: C79.51 - Secondary malignant neoplasm of bone, Diagnosed 04/06/2022 (Active) C50.919 - Malignant neoplasm of unspecified site of unspecified female breast, Diagnosed 03/01/2022 (Active) C50.812 - Malignant neoplasm of overlapping sites of left female breast, Diagnosed 11/11/2014 (Active) Stage IIA, T2, pN0, M0, G1 Radiotherapy to date: Course: RT Humerus 2023, Treatment Site: [id number], Ref. ID: [id number], Energy: 6X, Dose/Fx (cGy): 300, #Fx: 9 / 10, Dose Correction (cGy): 0, Total Dose Delivered (cGy): 2,700, Start Date: 01/04/2024, Elapsed Days: 13 Reason for visit: The patient is being seen today as part of their regularly scheduled weekly on treatment visits to assess for acute toxicities from radiotherapy. Review of Systems: She notes decrease in pain in are from 7 to 7 now nearly gone with current analgesics. Napping more. Active at home. Eating ok. Med Onc FU 01/18/2024 Vital Signs: Performed on 01/17/2024 3:01 PM BMI - 25.849 kg/m2 (high), Height - 68 in, Weight - 170 lbs, Temperature - 98.1 f, Pulse - 77 /min, Respiration - 16 /min, O2 Sat - 99 %, Pain - 0, Fatigue - 0 and BP - 121/ 80 mm(hg). Physical Exam: Imaging: Radiation therapy imaging related to accurate target localization (i.e. KV, MV and CBCT) was reviewed. Appropriate changes, if any, were made to ensure treatment accuracy. Plan: Good tolerance of treatment. Complete treatment 01/17. with med onc 01/17. FU here PRN Signed by: Richard Orlando 01/20/2024 11:02:27 PM Telemedicine Consent Patient seen today via Telemedicine by agreement and consent of patient. Telemedicine technology used during the visit include audio and, as available, review of images. This patient encounter is appropriate and reasonable under the circumstances given the patient???s particular presentation at this time. The patient has been advised of the potential risks and limitations of this mode of treatment (including but not limited to the absence of in-person examination) and has agreed to be treated in a remote fashion in spite of them. Any and all of the patient???s/patient???s family???s questions on this issue have been answered and I have made no promises or guarantees to the patient. The patient has also been advised to contact this office for worsening conditions or problems, and seek emergency medical treatment and/or call 911 if the patient deems either necessary.
--- NOTE | 2024-01-20 23:13 | N.ONRD TS_ITS ---
Radiation Oncology Treatment Summary Patient: Parul Abdul MR#: [id number] : 1970 Age: 53 Sex: Female Dictated by: Richard Orlando Date of Service: 01/18/2024 Referring Physician(s) : Dr. Fermín Vides Diagnosis: C79.51 - Secondary malignant neoplasm of bone, Diagnosed 04/06/2022 (Active) C50.919 - Malignant neoplasm of unspecified site of unspecified female breast, Diagnosed 03/01/2022 (Active) C50.812 - Malignant neoplasm of overlapping sites of left female breast, Diagnosed 11/11/2014 (Active) Stage IIA, T2, pN0, M0, G1 Radiotherapy to Date: Course: C2, Treatment Site: RShoulder, Ref. ID: GTV RShoulder, Energy: 15X, Dose/Fx (cGy): 300, #Fx: 10 / 10, Dose Correction (cGy): 0, Total Dose Delivered (cGy): 3,000, Start Date: 04/07/2022, End Date: 04/20/2022, Elapsed Days: 13 Course: C2, Treatment Site: Sternum, Ref. ID: GTV Sternum, Energy: 15X, Dose/Fx (cGy): 300, #Fx: 10 / 10, Dose Correction (cGy): 0, Total Dose Delivered (cGy): 3,000, Start Date: 04/07/2022, End Date: 04/20/2022, Elapsed Days: 13 Course: C2, Treatment Site: LRibs, Ref. ID: GTV LRibs, Energy: 15X, Dose/Fx (cGy): 300, #Fx: 10 / 10, Dose Correction (cGy): 0, Total Dose Delivered (cGy): 3,000, Start Date: 04/07/2022, End Date: 04/20/2022, Elapsed Days: 13 Course: C2, Treatment Site: FemHeadNeck_L, Ref. ID: FemHeadNeck_L, Energy: 15X, Dose/Fx (cGy): 300, #Fx: 10 / 10, Dose Correction (cGy): 0, Total Dose Delivered (cGy): 3,000, Start Date: 04/07/2022, End Date: 04/20/2022, Elapsed Days: 13 Course: C2, Treatment Site: [facility]_R, Ref. ID: [place]_R, Energy: 15X, Dose/Fx (cGy): 300, #Fx: 10 / 10, Dose Correction (cGy): 0, Total Dose Delivered (cGy): 3,000, Start Date: 04/07/2022, End Date: 04/20/2022, Elapsed Days: 13 Course: Course1, Treatment Site: LT BREAST, Ref. ID: LT BREAST, Energy: 6X, Dose/Fx (cGy): 200, #Fx: 25 / 25, Dose Correction (cGy): 0, Total Dose Delivered (cGy): 5,000, Start Date: 12/09/2014, End Date: 01/12/2015, Elapsed Days: 34 Course: Course1, Treatment Site: LT BREAST BOOST, Ref. ID: LT BREAST BOOST, Energy: 6X, Dose/Fx (cGy): 200, #Fx: / 8, Dose Correction (cGy): 0, Total Dose Delivered (cGy): 1,600, Start Date: 01/14/2015, End Date: 01/23/2015, Elapsed Days: 9 Course: RT Humerus 2023, Treatment Site: [id number], Ref. ID: [id number], Energy: 6X, Dose/Fx (cGy): 300, #Fx: 10 / 10, Dose Correction (cGy): 0, Total Dose Delivered (cGy): 3,000, Start Date: 01/04/2024, End Date: 01/18/2024, Elapsed Days: 14 Course: WholeBrain 2022, Treatment Site: [id number], Ref. ID: [id number], Energy: 15X, Dose/Fx (cGy): 300, #Fx: 10 / 10, Dose Correction (cGy): 0, Total Dose Delivered (cGy): 3,000, Start Date: 06/22/2023, End Date: 07/05/2023, Elapsed Days: 13 Clinical Summary: The patient tolerated RT well. Pain in right humerus nearly resolved from 6 to 7 with treatment and current pain meds. She did increase her naps. No other toxicity experienced. Plan: End of treatment today. Patient will return to OR for all follow-up appointments. Signed by: Richard Orlando>01/20/2024 11:12:10 PM <<Signature on File>>
== END 2024-01-18 23:59 | disposition home or self-care (01) ==
PROVIDERS: Nurse Practitioner Family; PCP Internal Medicine Medical Oncology; Visit Provider Internal Medicine Medical Oncology
DX: C50.812 Malignant neoplasm of overlapping sites of left female breast; Z95.828 Presence of other vascular implants and grafts; Z51.0 Encounter for antineoplastic radiation therapy; C79.51 Secondary malignant neoplasm of bone; Z79.899 Other long term (current) drug therapy; Z53.9 Procedure and treatment not carried out, unspecified reason; Z51.12 Encounter for antineoplastic immunotherapy; Z79.52 Long term (current) use of systemic steroids; E83.51 Hypocalcemia; Z17.0 Estrogen receptor positive status [ER+]
CPT/HCPCS: 77336; 77387; 77412; 80053; 82310; 83970; 85025; 86300; 96365; 96367; 96375; 96377; 96401; 96413; 99024; J0612; J1100; J1453; J2469; J2506; J7060; J9358

== ENCOUNTER 2024-02-08 08:45 | Oncology outpatient (recurring) (ONCR) | payer OTHER, SELFPAY ==
[2024-01-25 11:25] LABS: Hematocrit 35.9 % (36-47); Mean Corpuscular Hemoglobin 35.1 pg (27-33); Mean Corpuscular Volume 109.5 fl (85-98); Mean Platelet Volume 8.9 fL (7.4-10.4); Platelet Count 105 10^3/cmm (157-399); Red Blood Count 3.28 10^6/uL (3.85-5.65); Red Cell Distribution Width 16.2 % (12.1-15.1); White Blood Count 12.29 10^3/uL (3.29-11.43)
[2024-01-25 11:44] LABS: Alanine Aminotransferase 26 U/L (0-33); Albumin Level 3.8 g/dL (3.5-5.2); Alkaline Phosphatase 237 U/L (35-105); Aspartate Amino Transferase 30 U/L (0-32); Blood Urea Nitrogen 12 mg/dL (6-20); Calcium 8.7 mg/dL (8.5-10.5); Carbon Dioxide 25 mmol/L (22-29); Chloride 106 mmol/L (98-107); Globulin 2.5 g/dL (1.3-4.6); Glomerular Filtration Rate 105.4 mL/min (90-130); Glucose 96 mg/dL (65-115); Osmolality Calculated 294 mOsm/kg (285-295); Sodium 142 mmol/L (136-145); Total Bilirubin 0.3 mg/dL (0.15-1.2); Total Protein 6.3 g/dL (6.6-8.7)
[2024-01-25 11:59] LABS: Absolute Segmented Neutrophil 9.2 10/cmm (1.6-7.1); Band Neutrophils Absolute 0.2 10^3/cmm (0.0-1.2); Lymphocytes 13 %; Segmented Neutrophils 75 %; Slide Review Slide Review Perform; Total Cells Counted 100 (0-100)
[2024-01-25 12:00] LABS: Absolute Eosinophils 0.7 10^3/cmm (0.0-0.7); Absolute Neutrophil 9.5 10^3/cmm (1.4-6.5); Eosinophils 6 %; Lymphocytes Absolute 1.6 10^3/cmm (1.2-3.4); Monocytes Absolute 0.1 10^3/cmm (0.1-0.6); Platelet Estimate Decreased (Normal)
[2024-02-01 11:16] LABS: Basophils % 0.6 %; Eosinophils # 0.2 10^3/uL (0.0-0.8); Eosinophils % 2.9 %; Hematocrit 34.1 % (36-47); Lymphocytes # 0.6 10^3/uL (0.8-4.8); Lymphocytes % 10.5 %; Mean Corpuscular HGB Conc 31.4 g/dL (30-55); Mean Corpuscular Hemoglobin 34.3 pg (27-33); Mean Corpuscular Volume 109.3 fl (85-98); Mean Platelet Volume 9.5 fL (7.4-10.4); Monocytes # 0.6 10^3/uL (0.2-0.9); Monocytes % 10.5 %; Neutrophils # 3.91 10^3/uL (1.8-7.7); Neutrophils % 74.9 %; Nucleated Red Blood Cells % 0 %; Platelet Count 140 10^3/cmm (157-399); Red Blood Count 3.12 10^6/uL (3.85-5.65); White Blood Count 5.22 10^3/uL (3.29-11.43)
[2024-02-01 11:33] LABS: Alanine Aminotransferase 26 U/L (0-33); Albumin Level 3.9 g/dL (3.5-5.2); Alkaline Phosphatase 202 U/L (35-105); Anion Gap 12.5 (5-19); Aspartate Amino Transferase 33 U/L (0-32); Blood Urea Nitrogen 11 mg/dL (6-20); Calcium 8.1 mg/dL (8.5-10.5); Carbon Dioxide 27 mmol/L (22-29); Chloride 107 mmol/L (98-107); Globulin 2.6 g/dL (1.3-4.6); Glomerular Filtration Rate 130.1 mL/min (90-130); Glucose 97 mg/dL (65-115); Osmolality Calculated 295 mOsm/kg (285-295); Potassium 3.5 mmol/L (3.5-5.1); Sodium 143 mmol/L (136-145); Total Bilirubin 0.3 mg/dL (0.15-1.2); Total Protein 6.5 g/dL (6.6-8.7)
[2024-02-08 08:50] LABS: Basophils % 1.2 %; Eosinophils # 0.1 10^3/uL (0.0-0.8); Eosinophils % 3.3 %; Hematocrit 35.6 % (36-47); Lymphocytes # 0.5 10^3/uL (0.8-4.8); Lymphocytes % 15.2 %; Mean Corpuscular Volume 109.2 fl (85-98); Mean Platelet Volume 9.6 fL (7.4-10.4); Monocytes # 0.5 10^3/uL (0.2-0.9); Monocytes % 15.5 %; Neutrophils # 2.17 10^3/uL (1.8-7.7); Neutrophils % 64.5 %; Nucleated Red Blood Cells % 0 %; Platelet Count 171 10^3/cmm (157-399); Red Blood Count 3.26 10^6/uL (3.85-5.65); Red Cell Distribution Width 15.3 % (12.1-15.1); White Blood Count 3.36 10^3/uL (3.29-11.43)
[2024-02-08 09:16] LABS: Alanine Aminotransferase 25 U/L (0-33); Albumin Level 3.8 g/dL (3.5-5.2); Alkaline Phosphatase 169 U/L (35-105); Anion Gap 14.5 (5-19); Aspartate Amino Transferase 39 U/L (0-32); Blood Urea Nitrogen 9 mg/dL (6-20); Calcium 8.4 mg/dL (8.5-10.5); Carbon Dioxide 24 mmol/L (22-29); Chloride 109 mmol/L (98-107); Globulin 2.5 g/dL (1.3-4.6); Glomerular Filtration Rate 130.1 mL/min (90-130); Glucose 97 mg/dL (65-115); Osmolality Calculated 297 mOsm/kg (285-295); Potassium 3.5 mmol/L (3.5-5.1); Sodium 144 mmol/L (136-145); Total Bilirubin 0.2 mg/dL (0.15-1.2); Total Protein 6.3 g/dL (6.6-8.7)
[2024-02-08 11:23] VITALS: BMI 27.0
[2024-02-08 11:26] VITALS: BP 115/75; PULSE 76; RESP 16; TEMP 36.2; O2SAT 98
[2024-02-08] MEDS: dextrose 5% 250 ML 75 ML IV (11:32)
[2024-02-08] MEDS: palonosetron 0.25 mg/5 mL SDV IVP (11:35)
[2024-02-08] MEDS: fosaprepitant 150 MG in sodium chloride 0.9% 150 ML 300 MG IV (11:56)
[2024-02-08] MEDS: denosumab 120 mg SDV SUBCUT (11:59)
[2024-02-08 12:06] LABS: CA 15-3 159.4 U/mL (0-25)
[2024-02-08] MEDS: [UNRECOGNIZED DRUG - OTHER] IV (12:44)
[2024-02-08] MEDS: DEXTROSE 5% IV (12:44)
[2024-02-08] MEDS: calcium gluconate 0.9% NaCL 1 GM/50 ML PREMIX IV (13:29)
[2024-02-08] MEDS: pegfilgrastim 6 mg/0.6 mL Kit (onpro) SUBCUT (13:34)
[2024-02-08 14:20] VITALS: BP 112/77; PULSE 81; RESP 17; TEMP 36.9; O2SAT 98
== END 2024-02-08 23:59 | disposition home or self-care (01) ==
PROVIDERS: Nurse Practitioner Family; PCP Internal Medicine Medical Oncology; Visit Provider Internal Medicine Medical Oncology
DX: Z51.12 Encounter for antineoplastic immunotherapy (principal); Z53.9 Procedure and treatment not carried out, unspecified reason; C79.51 Secondary malignant neoplasm of bone; C50.812 Malignant neoplasm of overlapping sites of left female breast; Z79.899 Other long term (current) drug therapy; Z79.52 Long term (current) use of systemic steroids
CPT/HCPCS: 36415; 77427; 80053; 85007; 85025; 86300; 96367; 96375; 96377; 96401; 96413; J0612; J0897; J1100; J1453; J2469; J2506; J7060; J9358

== ENCOUNTER 2024-02-15 09:49 | Oncology outpatient (recurring) (ONCR) | payer OTHER, SELFPAY ==
[2024-02-15 10:39] LABS: Basophils % 0.2 %; Eosinophils # 0.1 10^3/uL (0.0-0.8); Eosinophils % 1.2 %; Hematocrit 37.2 % (36-47); Lymphocytes # 0.6 10^3/uL (0.8-4.8); Lymphocytes % 5.1 %; Mean Corpuscular HGB Conc 31.2 g/dL (30-55); Mean Corpuscular Hemoglobin 34.4 pg (27-33); Mean Corpuscular Volume 110.4 fl (85-98); Mean Platelet Volume 9.8 fL (7.4-10.4); Monocytes # 0.9 10^3/uL (0.2-0.9); Monocytes % 7.9 %; Neutrophils # 9.71 10^3/uL (1.8-7.7); Nucleated Red Blood Cells % 0 %; Platelet Count 91 10^3/cmm (157-399); Red Blood Count 3.37 10^6/uL (3.85-5.65); Red Cell Distribution Width 14.9 % (12.1-15.1); White Blood Count 11.55 10^3/uL (3.29-11.43)
[2024-02-15 11:06] LABS: Alanine Aminotransferase 34 U/L (0-33); Albumin Level 3.9 g/dL (3.5-5.2); Alkaline Phosphatase 269 U/L (35-105); Anion Gap 10.8 (5-19); Aspartate Amino Transferase 39 U/L (0-32); Blood Urea Nitrogen 12 mg/dL (6-20); CA 15-3 177.1 U/mL (0-25); Calcium 8.9 mg/dL (8.5-10.5); Carbon Dioxide 26 mmol/L (22-29); Chloride 107 mmol/L (98-107); Globulin 2.5 g/dL (1.3-4.6); Glomerular Filtration Rate 130.1 mL/min (90-130); Glucose 97 mg/dL (65-115); Osmolality Calculated 290 mOsm/kg (285-295); Potassium 3.8 mmol/L (3.5-5.1); Sodium 140 mmol/L (136-145); Total Bilirubin 0.2 mg/dL (0.15-1.2); Total Protein 6.4 g/dL (6.6-8.7)
[2024-02-15 11:14] LABS: Slide Review Slide Review Perform
== END 2024-02-16 23:59 | disposition home or self-care (01) ==
LOC: ONCMED 09:49
PROVIDERS: Nurse Practitioner Family; PCP Internal Medicine Medical Oncology; Visit Provider Internal Medicine Medical Oncology
DX: C50.812 Malignant neoplasm of overlapping sites of left female breast
CPT/HCPCS: 36415; 80053; 85025; 86300

== ENCOUNTER 2024-02-29 08:46 | Oncology outpatient (recurring) (ONCR) | payer OTHER, SELFPAY ==
[2024-02-22 14:45] LABS: Basophils % 0.6 %; Eosinophils # 0.1 10^3/uL (0.0-0.8); Eosinophils % 2.7 %; Hematocrit 35.1 % (36-47); Lymphocytes # 0.7 10^3/uL (0.8-4.8); Lymphocytes % 12.6 %; Mean Corpuscular HGB Conc 31.6 g/dL (30-55); Mean Corpuscular Hemoglobin 34.6 pg (27-33); Mean Corpuscular Volume 109.3 fl (85-98); Mean Platelet Volume 9.5 fL (7.4-10.4); Monocytes # 0.7 10^3/uL (0.2-0.9); Monocytes % 12.6 %; Neutrophils # 3.66 10^3/uL (1.8-7.7); Neutrophils % 70.9 %; Nucleated Red Blood Cells % 0 %; Platelet Count 157 10^3/cmm (157-399); Red Blood Count 3.21 10^6/uL (3.85-5.65); Red Cell Distribution Width 14.5 % (12.1-15.1); White Blood Count 5.16 10^3/uL (3.29-11.43)
[2024-02-29 09:08] LABS: Basophils % 0.8 %; Eosinophils # 0.1 10^3/uL (0.0-0.8); Eosinophils % 2.3 %; Hematocrit 36.8 % (36-47); Lymphocytes # 0.7 10^3/uL (0.8-4.8); Lymphocytes % 16.5 %; Mean Corpuscular HGB Conc 32.1 g/dL (30-55); Mean Corpuscular Hemoglobin 34.8 pg (27-33); Mean Corpuscular Volume 108.6 fl (85-98); Mean Platelet Volume 9.1 fL (7.4-10.4); Monocytes # 0.6 10^3/uL (0.2-0.9); Monocytes % 15.2 %; Neutrophils # 2.56 10^3/uL (1.8-7.7); Neutrophils % 64.7 %; Nucleated Red Blood Cells % 0 %; Platelet Count 163 10^3/cmm (157-399); Red Blood Count 3.39 10^6/uL (3.85-5.65); Red Cell Distribution Width 14.6 % (12.1-15.1); White Blood Count 3.95 10^3/uL (3.29-11.43)
[2024-02-29 09:26] LABS: Alanine Aminotransferase 28 U/L (0-33); Albumin Level 3.8 g/dL (3.5-5.2); Alkaline Phosphatase 184 U/L (35-105); Anion Gap 15.2 (5-19); Aspartate Amino Transferase 37 U/L (0-32); Blood Urea Nitrogen 14 mg/dL (6-20); Calcium 8.7 mg/dL (8.5-10.5); Carbon Dioxide 23 mmol/L (22-29); Chloride 106 mmol/L (98-107); Globulin 2.5 g/dL (1.3-4.6); Glomerular Filtration Rate 130.1 mL/min (90-130); Glucose 104 mg/dL (65-115); Osmolality Calculated 291 mOsm/kg (285-295); Potassium 4.2 mmol/L (3.5-5.1); Sodium 140 mmol/L (136-145); Total Bilirubin 0.2 mg/dL (0.15-1.2); Total Protein 6.3 g/dL (6.6-8.7)
[2024-02-29] MEDS: dextrose 5% 250 ML 75 ML IV (11:05)
[2024-02-29] MEDS: palonosetron 0.25 mg/5 mL SDV IVP (11:06)
[2024-02-29] MEDS: fosaprepitant 150 MG in sodium chloride 0.9% 150 ML 300 MG IV (11:07)
[2024-02-29] MEDS: dexamethasone 4 mg/mL INJ 5 mL 12 MG IV (11:07)
[2024-02-29] MEDS: DEXTROSE 5% IV (11:55)
[2024-02-29] MEDS: [UNRECOGNIZED DRUG - OTHER] IV (11:55)
[2024-02-29 12:38] VITALS: BP 119/80; PULSE 81; RESP 17; TEMP 36.6; O2SAT 98
[2024-02-29] MEDS: pegfilgrastim 6 mg/0.6 mL Kit (onpro) SUBCUT (12:39)
[2024-02-29 15:54] LABS: CA 15-3 200.1 U/mL (0-25)
== END 2024-02-29 23:59 | disposition home or self-care (01) ==
PROVIDERS: Nurse Practitioner Family; PCP Internal Medicine Medical Oncology; Visit Provider Internal Medicine Medical Oncology
DX: Z53.9 Procedure and treatment not carried out, unspecified reason (principal); C50.812 Malignant neoplasm of overlapping sites of left female breast; Z51.11 Encounter for antineoplastic chemotherapy
CPT/HCPCS: 36591; 80053; 85025; 86300; 96367; 96375; 96377; 96413; J1100; J1453; J2469; J2506; J7060; J9358

== ENCOUNTER 2024-03-14 13:56 | Outpatient (CLI) | payer OTHER, SELFPAY ==
--- NOTE | 2024-03-14 13:59 | MR_ITS ---
WS: [id number] MRI BRAIN WITH AND WITHOUT CONTRAST HISTORY: RESTAGING/CARCINOMA OF L BREAST METASTATIC TO BONE COMPARISON: 06/14/2023 TECHNIQUE: Multiplanar imaging performed through the brain with MultiHance 17 ml's IV. No acute infarct. The previously described metastatic lesions in the supratentorial and infratentoria l brain have resolved. The surrounding edema has also resolved. There is no midline shift or residual signal abnormality. . Complete interval resolution also of the diffuse meningeal thickening and nodularity. There is now smooth, normal meningeal enhancement with no nodularity. There is no midline shift or ma ss effect. No susceptibility artifacts or prior lacunar infarcts. Ventricles are normal size. Ventricles are slightly less compressed than on the prior study. There is no hydrocephalus. No ependymal enhancement. Clivus and pituitary gland are normal. Visualized posterior fossa and brainstem are also normal. Postcontrast images are negative for masses or vascular malformations. Dural venous sinuses are normal. Paranasal sinuses: Well aerated with no significant disease. Improved aeration of the sinuses. Mastoid air cells: Small amount of fluid in the RIGHT mastoid air cells. The amount of fluid has impr katya since 06/14/2023. Calvarium and scalp: RIGHT lateral frontal calvarial metastatic site is reidentified. There is mild e nhancement persisting but no progression. Previously described LEFT frontal and LEFT temporal osseous metastatic sites are less conspicuous. There are no new areas of osseous enhancement or destruction. MR/MR head wo/w con [id number] IMPRESSION: 1. Previously described metastatic disease within the brain and meningeal enha ncement have resolved. There are no residual areas of abnormal enhancement to s uggest metastatic disease. 2. No cerebral edema or midline shift. 3. Previously described scalp metastasis have a either remained stable or impr katya. No new metastatic calvarial lesions. 4. Bilateral sinusitis and mastoiditis have improved.
[2024-03-14] MEDS: gadobenate dimeglumine 20 mL vial IV (14:49)
== END 2024-03-14 13:57 | disposition home or self-care (01) ==
LOC: RAD 13:56
PROVIDERS: PCP Internal Medicine Medical Oncology; Visit Provider Internal Medicine Medical Oncology
DX: C50.912 Malignant neoplasm of unspecified site of left female breast (principal); C79.31 Secondary malignant neoplasm of brain; C44.40 Unspecified malignant neoplasm of skin of scalp and neck
CPT/HCPCS: 70553; A9577

== ENCOUNTER 2024-07-09 14:00 | Outpatient (CLI) | payer OTHER, SELFPAY ==
[2024-07-09 14:24] LABS: Basophils % 0.2 %; Eosinophils # 0.1 10^3/uL (0.0-0.8); Eosinophils % 1.3 %; Hematocrit 37.6 % (36-47); Lymphocytes # 0.8 10^3/uL (0.8-4.8); Lymphocytes % 14.5 %; Mean Corpuscular HGB Conc 31.4 g/dL (30-55); Mean Corpuscular Hemoglobin 31.2 pg (27-33); Mean Corpuscular Volume 99.5 fl (85-98); Mean Platelet Volume 8.9 fL (7.4-10.4); Monocytes # 0.8 10^3/uL (0.2-0.9); Monocytes % 13.4 %; Neutrophils # 3.92 10^3/uL (1.8-7.7); Neutrophils % 70.2 %; Nucleated Red Blood Cells % 0 %; Platelet Count 156 10^3/cmm (157-399); Red Blood Count 3.78 10^6/uL (3.85-5.65); White Blood Count 5.58 10^3/uL (3.29-11.43)
[2024-07-09 14:42] LABS: Alanine Aminotransferase 35 U/L (0-33); Albumin Level 4.1 g/dL (3.5-5.2); Alkaline Phosphatase 140 U/L (35-105); Anion Gap 14.1 (5-19); Aspartate Amino Transferase 61 U/L (0-32); Blood Urea Nitrogen 16 mg/dL (6-20); Calcium 9.1 mg/dL (8.5-10.5); Carbon Dioxide 26 mmol/L (22-29); Chloride 102 mmol/L (98-107); Globulin 3.3 g/dL (1.3-4.6); Glomerular Filtration Rate 129.6 mL/min (90-130); Glucose 104 mg/dL (65-115); Osmolality Calculated 287 mOsm/kg (285-295); Potassium 4.1 mmol/L (3.5-5.1); Sodium 138 mmol/L (136-145); Total Bilirubin 0.4 mg/dL (0.15-1.2); Total Protein 7.4 g/dL (6.6-8.7)
== END 2024-07-09 14:01 | disposition home or self-care (01) ==
LOC: LAB 14:03
PROVIDERS: PCP Internal Medicine Medical Oncology; Visit Provider Internal Medicine Medical Oncology
DX: C50.912 Malignant neoplasm of unspecified site of left female breast (principal); C50.812 Malignant neoplasm of overlapping sites of left female breast
CPT/HCPCS: 36415; 80053; 85025

== ENCOUNTER 2024-08-14 13:01 | Oncology outpatient (recurring) (ONCR) | payer OTHER, SELFPAY ==
--- NOTE | 2024-08-05 13:54 | ONCRAD EPV_ITS ---
Radiation Oncology Established Patient Visit Patient: Chantell Teran [id number] : 1970> Age: 54> Sex: Female> Dictated by: Dr. Gena Glasgow Date of Service: 08/05/2024 Referring Physician(s) : Dr. Shailesh Garrison Diagnosis: C79.51 - Secondary malignant neoplasm of bone, Diagnosed 04/06/2022 (Active) C50.919 - Malignant neoplasm of unspecified site of unspecified female breast, Diagnosed 03/01/2022 (Active) C50.812 - Malignant neoplasm of overlapping sites of left female breast, Diagnosed 11/11/2014 (Active) Stage IIA, T2, pN0, M0, Current oncological history patient is a 54-year-old woman who initially had grade 1 infiltrating ductal carcinoma of the left breast, stage IIA (T2, pN0, M0), ER/UT positive and HER-2/naman negative. She now has bony disease as well as liver and lung mets and is seen today to discuss treatment to the abnormalities in the right gluteal area. She describes the pain in the area as to be constant. Things will make it worse such as pressure or walking. It has not caused any difficulty with strength in her right leg but it does cause her to have pain which goes down the posterior thigh. Past oncological history: She had presented with abnormal findings in the left breast on a yearly followup visit with Dr. Moore. Subsequent screening mammogram showed posterior third midline-lateral architectural distortion on the left CC view which appeared slightly more prominent compared to a baseline mammogram in March 2013. She then had diagnostic mammogram of the left breast with ultrasound imaging. The ultrasound showed an irregular, ill-defined, spiculated hypoechoic shadowing mass at the 12:00 position 2 cm from the nipple. It measured 2.7 x 2.9 cm. The appearance was highly suspicious for malignancy. She was referred to Dr. Garrison. She underwent excisional biopsy on 10/16/14. Pathology showed grade 1 infiltrating ductal carcinoma measuring 2.7 x 1.3 cm. Tumor was noted within 1 mm of the lateral and posterior margins, and within 5 mm of the superior margin. The medial, anterior, and inferior margins were free. The tumor was ER positive at 97% and UT positive at 93%. It was negative for overexpression of HER-2/naman by IHC and by FISH. She underwent left sentinel axillary lymph node biopsy on 10/30/14. Pathology showed 1 lymph node which measured 1.5 cm, but it was benign, with no evidence of metastatic tumor. She had further evaluation with an Oncotype DX assay. It showed a recurrence score of 5, low risk category, correlating with a 5% risk of recurrence at 10 years for patients who had received adjuvant hormonal therapy with tamoxifen. Based on that result, I felt that she would have a low probability of benefit with adjuvant chemotherapy, and I did recommend limiting her adjuvant therapy to hormonal treatment. She was given radiation to the left breast. She completed treatment on 01/23/2015 to a total dose of 6600 cGy. She then started adjuvant hormonal therapy with tamoxifen. She has been tolerating it well. I had seen her for a follow-up visit on 08/31/2017. At that time she was doing well with no evidence of recurrence of the breast cancer. She continued adjuvant hormonal therapy with tamoxifen 20 mg daily. She had subsequently presented to Dr. Moore with heavy menstrual bleeding. Her uterus was noted to be enlarged by ultrasound. On 02/13/2018 show underwent laparoscopic vaginal hysterectomy with bilateral sloping to oophorectomy. Pathology was benign. I had seen her for a follow-up visit on 02/15/2018, and at that point she began a further adjuvant hormonal therapy with anastrozole 1 mg daily. Her baseline DEXA scan showed normal bone mineral density. As of her follow-up visit on 08/23/2018 she appeared to be tolerating the anastrozole well. She was, though, having GERD symptoms, and she also had mild anemia which appear to be due to iron deficiency. She continued anastrozole, but she also began treatment with Protonix and she started on oral iron supplementation with ferrous sulfate. I had seen her for a scheduled visit on 02/07/2019. At that point she reported that her energy was a little better, but her joint pain had worsened significantly, particularly in her knees and feet but also in the shoulders. She continued to have acid reflux symptoms despite taking pantoprazole. I did opt to have her stop the anastrozole. As of her follow-up visit on 03/13/2019 she began further hormonal therapy with exemestane 25 mg daily. She was able to tolerate it with acceptable toxicity. On 10/10/2019 she underwent open reduction and internal fixation for a trimalleolar right ankle fracture. As of her follow-up visit on 02/12/2020 she was doing well clinically with no evidence of recurrence of the breast cancer. She continued exemestane through February 2020, at which point she had completed 5 years of adjuvant hormonal therapy. Her other medical illnesses have been limited to GERD, nephrolithiasis, and anxiety/depression. She is a nonsmoker. In July [address] Paulino for persistent GERD symptoms. Her EGD on 08/10/2020 showed evidence of hiatal hernia with gastritis, duodenitis, and reflux esophagitis. By clinical evaluation, she appeared to have underlying obstructive sleep apnea which subsequently was confirmed with a sleep study. She was then started on CPAP with significant improvement in her symptoms. However, she had then presented with pain in her neck radiating into her right arm, suspicious for cervical radiculopathy. Her contrast enhanced cervical spine MRI on 01/08/2021 showed replacement of the normal bone marrow signal in the C5 vertebral body with associated mild edema and enhancement. The appearance was felt to be consistent with atypical hemangioma versus metastatic disease. Radiotherapy to Date: Course: C2, [facility] Ref[facility] ID: [id number] [email or web address], Energy: 15X, Dose/Fx (cGy): 300, #Fx: 10 / 10, Dose Correction (cGy): 0, Total Dose Delivered (cGy): 3,000, Start Date: 04/07/2022, End Date: 04/20/2022, Elapsed Days: 13 Treatment Site: [facility], Ref. ID: [id number] [place], Energy: 15X, Dose/Fx (cGy): 300, #Fx: 10 / 10, Dose Correction (cGy): 0, Total Dose Delivered (cGy): 3,000, Start Date: 04/07/2022, End Date: 04/20/2022, Elapsed Days: 13 Treatment Site: [facility], Ref. ID: GTV LRibs, Energy: 15X, Dose/Fx (cGy): 300, #Fx: 10 / 10, Dose Correction (cGy): 0, Total Dose Delivered (cGy): 3,000, Start Date: 04/07/2022, End Date: 04/20/2022, Elapsed Days: 13 Treatment Site: [facility], Ref. ID: [id number], Energy: 15X, Dose/Fx (cGy): 300, #Fx: 10 / 10, Dose Correction (cGy): 0, Total Dose Delivered (cGy): 3,000, Start Date: 04/07/2022, End Date: 04/20/2022, Elapsed Days: 13 [facility]: [facility], Energy: 15X, Dose/Fx (cGy): 300, #Fx: 10 / 10, Dose Correction (cGy): 0, Total Dose Delivered (cGy): 3,000, Start Date: 04/07/2022, End Date: 04/20/2022, Elapsed Days: 13 Treatment Site: [facility], Ref. ID: LT BREAST, Energy: 6X, Dose/Fx (cGy): 200, #Fx: 25 / 25, Dose Correction (cGy): 0, Total Dose Delivered (cGy): 5,000, Start Date: 12/09/2014, End Date: 01/12/2015, Elapsed Days: 34 Treatment Site: [facility], Ref. ID: LT BREAST BOOST, Energy: 6X, Dose/Fx (cGy): 200, #Fx: 8 / 8, Dose Correction (cGy): 0, Total Dose Delivered (cGy): 1,600, Start Date: 01/14/2015, End Date: 01/23/2015, Elapsed Days: 9 Treatment Site: [id number], Ref. ID: [id number], Energy: 6X, Dose/Fx (cGy): 300, #Fx: 10 / 10, Dose Correction (cGy): 0, Total Dose Delivered (cGy): 3,000, Start Date: 01/04/2024, End Date: 01/18/2024, Elapsed Days: 14 Treatment Site: [id number], Ref. ID: [id number], Energy: 15X, Dose/Fx (cGy): 300, #Fx: 10 / 10, Dose Correction (cGy): 0, Total Dose Delivered (cGy): 3,000, Start Date: 06/22/2023, End Date: 07/05/2023, Elapsed Days: 13 Current History: Current Medications: AmLODIPine Besylate, amLODIPine Besylate, anastrozole, cloNIDine HCl, exemestane, exemestane, lansoprazole, meloxicam, meloxicam, nexIUM, nexIUM, reglan, tamoxifen Citrate, venlafaxine HCl, venlafaxine HCl ER, venlafaxine HCl ER, viibryd. Allergies: No Known Allergies Current Complaints / Review of Systems: . Vital Signs: Performed on 08/05/2024 1:07 PM BMI - 27.308 kg/m2 (high), Height - 68 in, Weight - 179.6 lbs, Temperature - 98.5 f, Pulse - 80 /min, Respiration - 18 /min, O2 Sat - 96 %, Pain - 5, Fatigue - 0 and BP - 120/ 80 mm(hg). Physical Exam: General: Alert and oriented x 3. No acute distress. HEENT: Normocephalic, atraumatic. Extraocular Movements Intact: Pupils Equal, Round, Reactive to light: Sclerae anicteric. . . LUNGS: Respiratory rate is regular nonlabored HEART: Regular rate and rhythm. ABDOMEN: Nonprotuberant, nontender, no hepatomegaly EXTREMITIES: No peripheral edema is identified. NEUROLOGIC: Alert and orient x 3. Gait and speech within normal limits Performance Status: 90 Lab: None pending. Pathology: Primary, c79.51 - secondary malignant neoplasm of bone, Diagnosed 04/06/2022 (active) , Primary, c50.919 - malignant neoplasm of unspecified site of unspecified female breast, Diagnosed 03/01/2022 (active) , Primary, c50.812 - malignant neoplasm of overlapping sites of left female breast, Diagnosed 11/11/2014 (active) stage iia, t2, pn0, m0, g1, Secondary, z79.810 - senior living (current) use of selective estrogen receptor modulators (serms), Diagnosed 08/31/2017 (active) , Secondary, z92.3 - personal history of irradiation, Diagnosed 08/31/2017 (active) and Secondary, z17.0 - estrogen receptor positive status [er+], Diagnosed 08/26/2015 (active) . Imaging: See HPI Impression: Stage IV breast cancer now with progressive disease in the gluteal muscles on the right Plan: I reviewed the previous treatment portals and we discussed how there will be some overlap between the right femoral head treatment that she received in 2021 and the area that we will need to be treated currently. She has had good response with 2 weeks of treatment to all of the sites that she has been treated. We talked about the acute risks and side effects as well as the long-term consequences of the overlapping areas. At this point she is agreed to proceed. I encouraged her to take her pain medicine as needed. She will undergo simulation today and begin her treatment shortly thereafter. Signed by: 08/05/2024 1:52:12 PM <<Signature on File>> Time spent with patient: 30 CPT Code: CPT Code:
--- NOTE | 2024-08-13 13:33 | ONCRAD TMN_ITS ---
Radiation Oncology Weekly Treatment Management Patient: Parul Abdul MR#: [id number] : 1970 Attending Physician: Dr. Gena Glasgow Date of Service: 08/13/2024 Fractions: 4 out of 10 Referring Physician(s) : Dr. Shailesh Garrison Diagnosis: C79.51 - Secondary malignant neoplasm of bone, Diagnosed 04/06/2022 (Active) C50.919 - Malignant neoplasm of unspecified site of unspecified female breast, Diagnosed 03/01/2022 (Active) C50.812 - Malignant neoplasm of overlapping sites of left female breast, Diagnosed 11/11/2014 (Active) Stage IIA, T2, pN0, M0, G1 Radiotherapy to date: Course: r gluteal, Treatment Site: [id number], Ref. ID: [id number], Energy: 15X, Dose/Fx (cGy): 300, #Fx: 4 / 10, Dose Correction (cGy): 0, Total Dose Delivered (cGy): 1,200, Start Date: 08/07/2024, Elapsed Days: 6 Reason for visit: The patient is being seen today as part of their regularly scheduled weekly on treatment visits to assess for acute toxicities from radiotherapy. Review of Systems: Patient is pain-free today. She says she is only taken occasional Tylenol. Her only other complaint is that she is little more fatigued. Vital Signs: Performed on 08/13/2024 1:18 PM BMI - 27.339 kg/m2 (high), Height - 68 in, Weight - 179.8 lbs, Temperature - 98.7 f, Pulse - 96 /min, Respiration - 16 /min, O2 Sat - 98 %, Pain - 0, Fatigue - 0 and BP - 122/ 75 mm(hg). Physical Exam: No changes on exam Imaging: Radiation therapy imaging related to accurate target localization (i.e. KV, MV and CBCT) was reviewed. Appropriate changes, if any, were made to ensure treatment accuracy. Plan: Will continue with her treatments as planned. I did review with her that if she should develop pain again down the line we be happy to start treatment again hopefully at an earlier date. Signed by: Dr. Gena Glasgow 08/13/2024 1:32:16 PM
== END 2024-08-17 23:59 | disposition home or self-care (01) ==
PROVIDERS: PCP Internal Medicine Medical Oncology; Visit Provider Radiology Radiation Oncology
DX: C50.812 Malignant neoplasm of overlapping sites of left female breast; Z51.0 Encounter for antineoplastic radiation therapy; C79.51 Secondary malignant neoplasm of bone; C79.89 Secondary malignant neoplasm of other specified sites
CPT/HCPCS: 77290; 77295; 77300; 77334; 77336; 77387; 77412

== ENCOUNTER 2024-09-06 16:26 | Emergency (ER) | payer OTHER, SELFPAY ==
[2024-09-06 16:45] VITALS: BP 112/72; PULSE 102; RESP 18; TEMP 36.7; O2SAT 97; BMI 27.0
--- NOTE | 2024-09-06 17:03 | ED_ITS ---
HPI - Recheck/Abnormal Lab/Rx 2 General: Chief Complaint: Recheck/Abnormal Lab/Rx Stated Complaint: abn labs Time Seen by Provider: 09/06/24 16:57 History of Present Illness: 54-year-old female who presents emergenc y room with report of abnormal labs. She had blood drawn earlier today her hemoglobin reported 6.1 and her potassium was low prior to arrival.Anemia at 2.4. Patient has a history of breast cancer first diagnosis stage I in 2014 she had a recurrence at stage IV in 2021. She just recently finished a course of oral chemotherapeutics and was feeling weak. She is also had some diarrhea as a side effect. She denies any medic easy melena hematemesis coffee-ground emesis Related Data Home Medications Medication Instructions Recorded Confirmed esomeprazole magnesium 20 mg 20 mg PO QAM 07/28/23 09/06/24 capsule,delayed release (Nexium 24HR) Previous Rx's Medication Instructions Recorded Auto Titrating CPAP #1 ea 08/25/20 blood sugar diagnostic (Blood #25 ea 06/08/23 Glucose Test strips) blood-glucose meter #1 ea 06/08/23 lancets 33 gauge #100 ea 06/08/23 ondansetron HCl 4 mg tablet 4 mg PO Q8H PRN nausea and 07/17/23 vomiting #30 tabs lorazepam 1 mg tablet 0.5 - 1 mg (0.5 - 1 x 1 mg) PO Q6H 08/03/23 PRN Severe Nausea #30 tabs prochlorperazine maleate 10 mg 10 mg PO Q6H PRN nausea and 08/03/23 tablet vomiting #30 tabs Portable oxygen concentrator #1 ea 08/24/23 valacyclovir 500 mg tablet 500 mg PO .COMPLEX #35 tabs 10/19/23 amlodipine 5 mg tablet See Rx Instructions .Route 02/19/24 .COMPLEX #90 tabs alprazolam 0.25 mg tablet 0.25 mg PO TID PRN anxiety #30 tabs 02/20/24 meloxicam 15 mg tablet See Rx Instructions .Route 03/13/24 .COMPLEX #30 tabs Allergies Allergy/AdvReac Type Severity Reaction Status Date / Time No Known Allergies Allergy Verified 09/06/24 12:53 Review of Systems 2 Const: Denies: fever(s) or chills Card: Denies: chest pain Resp: Denies: dyspnea GI: Denies: abdominal pain : Denies: dysuria, urinary frequency or urinary urgency Musc: Denies: neck pain or back pain Skin/Breast: Denies: rash PFSH ED 2 PFSH: Medical History Anxiety and depression GERD (gastroesophageal reflux disease) Chronic tonsillar hypertrophy Bilateral renal stones Multi-stone former with medullary nephrocalcinosis. Menopausal symptom 02/13/2018: LAVH/BSO Breast cancer (10/12/14) Hypertension Surgical History Port-A-Cath in place S/P laparoscopic assisted vaginal hysterectomy (LAVH) (02/13/18) LAVH/BSO. Dx: Menorrhagia. [place] [facility] [place] Hx of lymph node biopsy (10/30/14) Left axillary sentinel lymph node biopsy Hx of left breast biopsy (10/16/14) Excisional biopsy of left breast mass Hx of lithotripsy (~08/2001) [place]. Magana [place] [facility] [place] Hx of cystoscopy (08/18/00) with stone extraction. [place]. Magana [place] [facility] [place] History of ankle surgery (10/10/19) Right. [place] [facility]. Family History Father Hypertension Hypercholesteremia Thyroid disease Mother Hypertension Hypercholesteremia Heart disease Thyroid disease Grandmother Hypertension maternal Diabetes maternal Thyroid disease maternal, paternal Grandfather Heart disease maternal Other Hyperlipidemia Social History Smoking and tobacco/nicotine status: never used tobacco/nicotine Alcohol intake: never Substance/Drug Use: never Physical Exam 2 Const: COMMON NORMALS: no acute distress GENERAL APPEARANCE: cooperative and comfortable ORIENTATION/CONSCIOUSNESS: Yes awake, Yes oriented to person, Yes oriented to place and Yes oriented to time HENMT: COMMON NORMALS: normocephalic, atraumatic and hearing grossly normal bilaterally HEAD & SCALP: normocephalic and atraumatic Resp: COMMON NORMALS: normal respiratory effort, No retractions, No use of accessory muscles and clear to auscultation bilaterally AUSCULTATION: clear to auscultation bilaterally Cardio: COMMON NORMALS: regular rate, regular rhythm and No murmurs present (Cardio) RATE: regular rate RHYTHM: regular rhythm GI: COMMON NORMALS: Soft to palpation and No hepatosplenomegaly present A USCULTATION: Yes normoactive bowel sounds PALPATION: Yes Soft to palpation, No Tenderness to palpation present (GI), No Guarding due to palpation present (GI) and Yes No hepatosplenomegaly present Extremity: COMMON NORMALS: normal to inspection, capillary refill normal, no clubbing, cyanosis or edema, no calf tenderness and no pedal edema Neuro: SENSORIUM/ORIENTATION: Yes oriented to person, Yes oriented to place and Yes oriented to time Skin: COMMON NORMALS: no rashes or lesions noted GENERAL SKIN EXAM: no rashes or lesions noted Course 2 Vital Signs: Vital signs: Vital Signs Temperature 98.1 F 09/06/24 16:45 Pulse Rate 105 H 09/06/24 18:30 Respiratory Rate 18 09/06/24 16:45 Blood Pressure 111/64 09/06/24 18:30 Pulse Oximetry 97 09/06/24 18:30 Oxygen Delivery Me thod Room Air 09/06/24 18:30 MDM - Recheck/Abnormal Lab/Rx Medical Decision Making Exam was unremarkable we were planning to admit the patient transfused 2 units. She is given oral potassium supplement. Labs came back however and are relatively normal or at least at her baseline. She is very mildly hypokalemic (this was drawn on blood prior to taking oral potassium supplement) and her hemoglobin was 9.2. Because of the significant change it was repeated and came back as 10 on the second draw. In talking to the patient the blood was drawn earlier today through her port they initially flushed it and then toney a blood sample suspect they had not drawn enough of the flush back out before they collected a sample and it was slightly diluted. At this point the admission is canceled patient will be discharged home and will have her follow-up with her oncology team. Medical Records I reviewed the patient's medical records. Lab Data I reviewed the patient's lab results. 09/06/24 18:49 09/06/24 17:44 Laboratory Results WBC 2.70 10^3/uL (3.29-11.43) L 09/06/24 17:44 Corrected WBC Cancelled 09/06/24 17:24 RBC 2.80 10^6/uL (3.85-5.65) L 09/06/24 17:44 Hgb 9.20 g/dL (11.27-16.99) L D 09/06/24 17:44 Hct 28.4 % (36-47) L D 09/06/24 17:44 MCV 101.4 fl (85-98) H 09/06/24 17:44 MCH 32.9 pg (27-33) 09/06/24 17:44 MCHC 32.4 g/dL (30-55) D 09/06/24 17:44 RDW 20.7 % (12.1-15.1) H 09/06/24 17:44 Plt Count 169 10^3/cmm (157-399) D 09/06/24 17:44 MPV 8.6 fL (7.4-10.4) 09/06/24 17:44 Gran % Cancelled 09/06/24 17:24 Neut % (Auto) 71.8 % 09/06/24 17:44 Lymph % (Auto) 10.4 % 09/06/24 17:44 [place] % (Auto) 11.9 % 09/06/24 17:44 Eos % (Auto) 3.7 % 09/06/24 17:44 Baso % (Auto) 0.7 % 09/06/24 17:44 Neut # (Auto) 1.94 10^3/uL (1.8-7.7) 09/06/24 17:44 Lymph # (Auto) 0.3 10^3/uL (0.8-4.8) L 09/06/24 17:44 [place] # (Auto) 0.3 10^3/uL (0.2-0.9) 09/06/24 17:44 Eos # (Auto) 0.1 10^3/uL (0.0-0.8) 09/06/24 17:44 Baso # (Auto) 0.0 10^3/uL (0.0-0.1) 09/06/24 17:44 Absolute Gran (auto) Cancelled 09/06/24 17:24 Nucleated RBC % (auto) 0.7 % 09/06/24 17:44 Nucleated RBCs # 0.0 /100WBC 09/06/24 17:44 Haptoglobin 161.0 mg/L (30-200) 09/06/24 17:44 Sodium 134 mmol/L (136-145) L 09/06/24 17:44 Potassium 3.3 mmol/L (3.5-5.1) L 09/06/24 17:44 Chloride 101 mmol/L (98-107) 09/06/24 17:44 Carbon Dioxide 24 mmol/L (22-29) 09/06/24 17:44 Anion Gap 12.3 (5-19) 09/06/24 17:44 BUN 11 mg/dL (6-20) 09/06/24 17:44 Creatinine 0.4 mg/dL (0.5-0.9) L 09/06/24 17:44 GFR Calculation 167.6 mL/min (90-130) H 09/06/24 17:44 Glucose 106 mg/dL (65-115) 09/06/24 17:44 Calculated Osmolality 278 mOsm/kg (285-295) L 09/06/24 17:44 Calcium 8.6 mg/dL (8.5-10.5) 09/06/24 17:44 Magnesium 1.8 mg/dL (1.7-2.3) 09/06/24 17:44 Total Bilirubin 1.3 mg/dL (0.15-1.2) H 09/06/24 17:44 AST 42 U/L (0-32) H 09/06/24 17:44 ALT 36 U/L (0-33) H 09/06/24 17:44 Alkaline Phosphatase 99 U/L (35-105) 09/06/24 17:44 Total Protein 6.3 g/dL (6.6-8.7) L D 09/06/24 17:44 Albumin 3.1 g/dL (3.5-5.2) L 09/06/24 17:44 Globulin 3.2 g/dL (1.3-4.6) 09/06/24 17:44 Blood Type A Positive 09/06/24 17:44 Rho(D) Type Rh positive 09/06/24 17:44 Antibody Screen Negative 09/06/24 17:44 Crossmatch See Detail 09/06/24 17:24 No radiology studies performed this visit Discharge Plan Discharge Patient Disposition: Home Clinical Impression: Anemia, Stage IV breast cancer in female, Hypokalemia Condition: Stable Discharge Orders: Discharge ED (Routine); Ordered 09/06/24 Ordered By: Benito Musa Discharge Diet: Usual diet Discharge Activity: Increase activity as tolerated Coding Level of Care Code ED Engineer And Geologist for Rudy Vail
[2024-09-06 17:53] LABS: Basophils % 0.7 %; Eosinophils # 0.1 10^3/uL (0.0-0.8); Eosinophils % 3.7 %; Hematocrit 28.4 % (36-47); Lymphocytes # 0.3 10^3/uL (0.8-4.8); Lymphocytes % 10.4 %; Mean Corpuscular HGB Conc 32.4 g/dL (30-55); Mean Corpuscular Hemoglobin 32.9 pg (27-33); Mean Corpuscular Volume 101.4 fl (85-98); Mean Platelet Volume 8.6 fL (7.4-10.4); Monocytes # 0.3 10^3/uL (0.2-0.9); Monocytes % 11.9 %; Neutrophils # 1.94 10^3/uL (1.8-7.7); Neutrophils % 71.8 %; Nucleated Red Blood Cells % 0.7 %; Platelet Count 169 10^3/cmm (157-399); Red Cell Distribution Width 20.7 % (12.1-15.1)
[2024-09-06 18:00] VITALS: BP 110/70; PULSE 101; O2SAT 98
[2024-09-06 18:08] LABS: Alanine Aminotransferase 36 U/L (0-33); Albumin Level 3.1 g/dL (3.5-5.2); Alkaline Phosphatase 99 U/L (35-105); Anion Gap 12.3 (5-19); Aspartate Amino Transferase 42 U/L (0-32); Blood Urea Nitrogen 11 mg/dL (6-20); Calcium 8.6 mg/dL (8.5-10.5); Carbon Dioxide 24 mmol/L (22-29); Chloride 101 mmol/L (98-107); Creatinine Clr Calc Pharmacy 183.4564; Globulin 3.2 g/dL (1.3-4.6); Glomerular Filtration Rate 167.6 mL/min (90-130); Glucose 106 mg/dL (65-115); Magnesium 1.8 mg/dL (1.7-2.3); Osmolality Calculated 278 mOsm/kg (285-295); Potassium 3.3 mmol/L (3.5-5.1); Sodium 134 mmol/L (136-145); Total Bilirubin 1.3 mg/dL (0.15-1.2); Total Protein 6.3 g/dL (6.6-8.7)
[2024-09-06 18:30] VITALS: BP 111/64; PULSE 105; O2SAT 97
[2024-09-06] MEDS: potassium chloride oral liq 20 mEq/15 mL UDC 60 MEQ PO (18:30)
[2024-09-06 18:31] LABS: Bilirubin Urine 1+ (Negative); Blood Urine Negative (Negative); Glucose Urine UA Negative (Normal); Ketones Urine Trace (Negative); Leukocyte Esterase Urine Trace (Negative); Nitrate Urine Positive (Negative); Protein Urine 1+ (Negative); Specific Gravity, Urine 1.028 (1.005-1.030); Urine Appearance Clear (CLEAR)
[2024-09-06] MEDS: sodium chloride 0.9% 1,000 ML 75 ML IV (18:31)
[2024-09-06 18:33] LABS: Add Urine Microscopic? YES; Bacteria Urine None Seen /hpf; Hyaline Casts Urine 2.87 /lpf; RBC Urine 0-2 /hpf (0-2); Squamous Epithelial Cell Urine 0-5 /hpf (0-5); WBC Urine 0-5 /hpf (0-5)
[2024-09-06] MEDS: pantoprazole 40 mg SDV IVP (18:33)
[2024-09-06 18:36] LABS: Urine Color Orange (Yellow)
[2024-09-06 19:02] LABS: Basophils # 0.1 10^3/uL (0.0-0.1); Basophils % 1.8 %; Eosinophils # 0.1 10^3/uL (0.0-0.8); Eosinophils % 3.9 %; Hematocrit 30.8 % (36-47); Lymphocytes # 0.3 10^3/uL (0.8-4.8); Lymphocytes % 10.4 %; Mean Corpuscular HGB Conc 32.5 g/dL (30-55); Mean Corpuscular Hemoglobin 33.9 pg (27-33); Mean Corpuscular Volume 104.4 fl (85-98); Mean Platelet Volume 8.6 fL (7.4-10.4); Monocytes # 0.3 10^3/uL (0.2-0.9); Monocytes % 9.3 %; Neutrophils # 1.91 10^3/uL (1.8-7.7); Neutrophils % 68.5 %; Nucleated Red Blood Cells % 0 %; Platelet Count 140 10^3/cmm (157-399); Red Blood Count 2.95 10^6/uL (3.85-5.65); White Blood Count 2.79 10^3/uL (3.29-11.43)
[2024-09-06 19:23] LABS: Slide Review Slide Review Perform
[2024-09-06 20:57] VITALS: BP 95/62; PULSE 78; O2SAT 97
== END 2024-09-06 20:58 | disposition home or self-care (01) ==
LOC: ER 17:36 → MEDSURG 19:57 → ER 20:43
PROVIDERS: Internal Medicine; Emergency Provider Family Medicine; PCP Internal Medicine Medical Oncology
DX: D64.9 Anemia, unspecified (principal); C50.919 Malignant neoplasm of unspecified site of unspecified female breast; E87.6 Hypokalemia; I10 Essential (primary) hypertension
CPT/HCPCS: 36415; 80053; 81001; 83010; 83735; 85025; 86850; 86900; 86920; 96374; 99284; J2470; J7030

== ENCOUNTER 2024-09-09 14:00 | Oncology outpatient (recurring) (ONCR) | payer OTHER, SELFPAY ==
--- NOTE | 2024-08-20 08:57 | ONCRAD TMN_ITS ---
Radiation Oncology Weekly Treatment Management Patient: Chantell Teran> MR#: [id number] : 1970> Attending Physician: Dr. Gena Glasgow Date of Service: 08/20/2024 Fractions: 7 out of 10 Referring Physician(s) : Dr. Shailesh Garrison Diagnosis: C79.51 - Secondary malignant neoplasm of bone, Diagnosed 04/06/2022 (Active) C50.919 - Malignant neoplasm of unspecified site of unspecified female breast, Diagnosed 03/01/2022 (Active) C50.812 - Malignant neoplasm of overlapping sites of left female breast, Diagnosed 11/11/2014 (Active) Stage IIA, T2, pN0, M0, G1 Radiotherapy to date: Course: r gluteal, Treatment Site: [id number], Ref. ID: [id number], Energy: 15X, Dose/Fx (cGy): 300, #Fx: , Dose Correction (cGy): 0, Total Dose Delivered (cGy): 2,100, Start Date: 08/07/2024, Elapsed Days: 13 Reason for visit: The patient is being seen today as part of their regularly scheduled weekly on treatment visits to assess for acute toxicities from radiotherapy. Review of Systems: Patient has continued to have no pain since last week. Vital Signs: Performed on 08/20/2024 8:19 AM BMI - 27.247 kg/m2 (high), Height - 68 in, Weight - 179.2 lbs, Temperature - 97.3 f, Pulse - 91 /min, Respiration - 18 /min, O2 Sat - 97 %, Pain - 0, Fatigue - 0 and BP - 113/ 74 mm(hg). Physical Exam: No changes on exam. Imaging: Radiation therapy imaging related to accurate target localization (i.e. KV, MV and CBCT) was reviewed. Appropriate changes, if any, were made to ensure treatment accuracy. Plan: At this point she has had no ill effects from the treatment. On her scans the mass does appear to be shrinking in size. Will continue with her treatments as planned Signed by: Dr. Gena Glasgow 08/20/2024 8:56:53 AM
[2024-09-06 13:15] VITALS: BP 122/75; PULSE 60; RESP 16; TEMP 37.1; O2SAT 94
[2024-09-06] MEDS: sodium chloride 0.9% 1,000 ML 999 ML IV (13:18)
[2024-09-06 14:47] LABS: Basophils % 0.9 %; Eosinophils # 0.1 10^3/uL (0.0-0.8); Eosinophils % 4.5 %; Lymphocytes # 0.3 10^3/uL (0.8-4.8); Lymphocytes % 11.2 %; Mean Corpuscular HGB Conc 34.3 g/dL (30-55); Mean Corpuscular Hemoglobin 34.3 pg (27-33); Mean Platelet Volume 8.8 fL (7.4-10.4); Monocytes # 0.3 10^3/uL (0.2-0.9); Monocytes % 11.2 %; Neutrophils # 1.57 10^3/uL (1.8-7.7); Neutrophils % 70.4 %; Nucleated Red Blood Cells % 0 %; Platelet Count 97 10^3/cmm (157-399); Red Blood Count 1.78 10^6/uL (3.85-5.65); Red Cell Distribution Width 20.7 % (12.1-15.1); White Blood Count 2.23 10^3/uL (3.29-11.43)
[2024-09-06 15:03] LABS: Alanine Aminotransferase 26 U/L (0-33); Albumin Level 2.4 g/dL (3.5-5.2); Alkaline Phosphatase 75 U/L (35-105); Anion Gap 14.4 (5-19); Aspartate Amino Transferase 31 U/L (0-32); Blood Urea Nitrogen 9 mg/dL (6-20); Calcium 6.4 mg/dL (8.5-10.5); Carbon Dioxide 20 mmol/L (22-29); Chloride 108 mmol/L (98-107); Creatinine Clr Calc Pharmacy 242.7246; Globulin 2.1 g/dL (1.3-4.6); Glomerular Filtration Rate 233.6 mL/min (90-130); Glucose 114 mg/dL (65-115); Magnesium 1.4 mg/dL (1.7-2.3); Osmolality Calculated 290 mOsm/kg (285-295); Sodium 140 mmol/L (136-145); Total Protein 4.5 g/dL (6.6-8.7)
[2024-09-06 15:20] LABS: Slide Review Slide Review Perform
[2024-09-06 15:23] LABS: Potassium 2.4 mmol/L (3.5-5.1)
[2024-09-06 15:24] LABS: Hematocrit 17.8 % (36-47)
[2024-09-06 18:28] LABS: C.Diff PCR (Lab) NEGATIVE (Negative)
[2024-09-09 15:16] VITALS: BP 107/71; PULSE 125; RESP 16; TEMP 38.1; O2SAT 95
[2024-09-09] MEDS: sodium chloride 0.9% 1,000 ML 999 ML IV (15:31)
[2024-09-09 16:29] VITALS: BP 99/63; PULSE 108; RESP 16; TEMP 37; O2SAT 93
== END 2024-09-17 23:59 | disposition home or self-care (01) ==
PROVIDERS: Internal Medicine Medical Oncology; PCP Internal Medicine Medical Oncology; Visit Provider Radiology Radiation Oncology
DX: E86.0 Dehydration; C50.812 Malignant neoplasm of overlapping sites of left female breast; Z53.9 Procedure and treatment not carried out, unspecified reason; C79.51 Secondary malignant neoplasm of bone; Z79.899 Other long term (current) drug therapy
CPT/HCPCS: 36591; 77336; 77387; 77412; 80053; 83735; 85025; 87493; 96360; J7030

== ENCOUNTER 2025-01-27 09:35 | Oncology outpatient (recurring) (ONCR) | payer OTHER, SELFPAY ==
[2025-01-27 10:19] LABS: Eosinophils % 3.5 %; Hematocrit 27.7 % (36-47); Lymphocytes # 0.2 10^3/uL (0.8-4.8); Lymphocytes % 29.8 %; Mean Corpuscular HGB Conc 30.3 g/dL (30-55); Mean Corpuscular Volume 98.9 fl (85-98); Mean Platelet Volume 9.8 fL (7.4-10.4); Monocytes # 0.1 10^3/uL (0.2-0.9); Monocytes % 19.3 %; Neutrophils % 47.4 %; Nucleated Red Blood Cells % 0 %; Platelet Count 33 10^3/cmm (157-399); Red Cell Distribution Width 17.7 % (12.1-15.1)
[2025-01-27 10:35] LABS: Alanine Aminotransferase 26 U/L (0-33); Albumin Level 3.4 g/dL (3.5-5.2); Alkaline Phosphatase 335 U/L (35-105); Anion Gap 16.6 (5-19); Aspartate Amino Transferase 58 U/L (0-32); Blood Urea Nitrogen 8 mg/dL (6-20); Calcium 8.8 mg/dL (8.5-10.5); Carbon Dioxide 22 mmol/L (22-29); Chloride 105 mmol/L (98-107); Globulin 3.1 g/dL (1.3-4.6); Glomerular Filtration Rate 167.6 mL/min (90-130); Glucose 112 mg/dL (65-115); Osmolality Calculated 289 mOsm/kg (285-295); Potassium 3.6 mmol/L (3.5-5.1); Sodium 140 mmol/L (136-145); Total Bilirubin 0.5 mg/dL (0.15-1.2); Total Protein 6.5 g/dL (6.6-8.7)
[2025-01-27 11:11] LABS: Neutrophils # 0.27 10^3/uL (1.8-7.7); White Blood Count 0.57 10^3/uL (3.29-11.43)
== END 2025-02-11 23:59 | disposition home or self-care (01) ==
PROVIDERS: PCP Internal Medicine Medical Oncology; Visit Provider Radiology Radiation Oncology
DX: C50.812 Malignant neoplasm of overlapping sites of left female breast (principal); C79.51 Secondary malignant neoplasm of bone
CPT/HCPCS: 36591; 80053; 85025